=== PATIENT | female | born 1955 | race Caucasian/White ===

== ENCOUNTER 2019-09-01 11:22 | Inpatient (IN) ==
[2019-09-01] MEDS ORDERED: KETOROLAC TROMETHAMINE 15 MG/ML VIAL IV STA ×2 (11:48→13:51)
[2019-09-01] MEDS ORDERED: SODIUM CHLORIDE 0.9% 1000ML 1,000 ML IV ONE (11:48)
[2019-09-01] MEDS ORDERED: ACETAMINOPHEN 1000 MG/100 ML IV IV STA (11:49)
[2019-09-01 12:01] LABS: Basophils # (auto) 0.02 K/uL (0-0.2); Basophils % (auto) 0.1 %; Eosinophils # (auto) 0.02 K/uL (0-0.5); Eosinophils % (auto) 0.1 %; Hematocrit (blood only) 37.4 % (37-47); Hemoglobin 12.2 g/dL (12.0-16.0); Immature Granulocytes # (auto) 0.08 K/uL (0.00-0.02); Immature Granulocytes % (auto) 0.4 %; Lymphocytes # (auto) 1.29 K/uL (1.2-3.4); Lymphocytes % (auto) 6.7 %; Mean Corpuscular Hgb Conc 32.6 g/dL (32-36); Mean Platelet Volume 10.5 fL (7.4-10.4); Monocytes # (auto) 1.36 K/uL (0.11-0.59); Monocytes % (auto) 7.1 %; Neutrophils # (auto) 16.44 K/uL (1.4-6.5); Neutrophils % (auto) 85.6 %; Platelet Count 286 K/uL (130-400); RDW Coefficient of Variation 14.9 % (11.5-14.5); RDW Standard Deviation 48.4 fL (36.4-46.3); White Blood Count 19.21 K/uL (4.8-10.8)
[2019-09-01 12:09] LABS: Appearance Urine Clear (Clear); Bacteria Urine Automated Negative (Negative); Bilirubin Urine Negative (Negative); Blood Urine Negative (Negative); Color Urine Yellow; Epithelial Cell Urine Auto 20-30 /lpf (0-5); Glucose Urine UA Negative (Negative); Ketones Urine Negative (Negative); Leukocyte Esterase Urine 1+ (Negative); Nitrite Urine Negative (Negative); Protein Urine Negative (Negative); RBC Urine Automated 0-4 /hpf (0-4); Specific Gravity Urine 1.018 (1.000-1.030); Urobilinogen Urine Negative (Negative)
[2019-09-01 12:21] LABS: Albumin Level 3.3 gm/dl (3.4-5.0); BUN Creatinine Ratio 13.1 (10-20); Calcium 8.9 mg/dl (8.5-10.1); Creatinine Clr Calc Pharmacy 57.5 ml/min; Est GFR (African American) 60.4; Est GFR (Non-African American) 52.1; Potassium 3.6 mmol/L (3.5-5.1)
[2019-09-01 12:23] LABS: INR 0.9 (0.9-1.1); Partial Thromboplastin Ratio 0.8; Partial Thromboplastin Time 23.2 Seconds (21.0-31.0); Prothrombin Time 9.9 Seconds (9.0-12.0)
[2019-09-01 12:25] LABS: Albumin Globulin Ratio 0.8 (0.9-2); Bilirubin,Total 0.3 mg/dl (0.2-1); Globulin 4.3 gm/dl (2.5-4.0); Total Protein 7.6 gm/dl (6.4-8.2)
--- NOTE | 2019-09-01 12:28 | XRay Report ---
XR chest 1V portable CLINICAL HISTORY: SEPSIS COMPARISON STUDY: Chest radiograph September 04, 2013. Chest CT April 22, 2016. FINDINGS: No pneumothorax or pleural effusion is noted. Cardiomediastinal silhouette is normal. There is mild lower lung interstitial thickening. There is no evidence for pulmonary edema. IMPRESSION: Mild bilateral lower lung interstitial thickening. This may reflect an infectious proces s or atelectasis. ACT 112: Negative or not required by law. Electronically signed by: Foreign Rowland M.D. 09/01/2019 12:27 PM
--- NOTE | 2019-09-01 12:42 | Emergency Department Note ---
History of Present Illness General Chief Complaint: Flank Pain Time Seen by Provider: 09/01/19 11:46 History of Present Illness Provider Complaint: flank pain Onset (ago): 2 day(s) Pain Consistency: constant Location: L flank and R flank Radiation: none Severity: similar to previous episodes (Similar to previous kidney infections) Maximum Pain Intensity: 8 Current Pain Intensity: 10 Quality: + stabbing, + aching, + sharp and + dull Relieved By: + nothing Associated Symptoms: + nausea, + fever, + chills and + dysuria; no hematemesis, no hematochezia, no melena, no hematuria, no headache and no chest pain Home Medications Home Medications Medication Instructions Recorded Confirmed Type potassium chloride 20 mEq 20 meq PO BID #180 tab 04/08/19 09/01/19 Rx tablet,extended release(part/cryst) acetaminophen 500 mg tablet 500 mg PO Q6H PRN #120 tab 05/02/19 09/01/19 Rx hydrocortisone 1 % topical cream 1 appln TOP TID PRN #30 gm 05/02/19 09/01/19 Rx lactase 9,000 unit chewable tablet 9,000 units PO BID #60 tab 05/02/19 09/01/19 Rx quetiapine 300 mg tablet 150 mg PO HS #45 tab 05/02/19 09/01/19 Rx sennosides 8.6 mg tablet 8.6 - 17.2 mg PO BID PRN #180 tab 05/02/19 09/01/19 Rx tramadol 50 mg tablet 50 mg PO Q6H PRN #120 tab 05/04/19 09/01/19 Rx duloxetine 60 mg capsule,delayed 60 mg PO BID #180 cap 07/05/19 09/01/19 Rx release pramipexole 0.25 mg tablet 0.25 mg PO QPM #30 tab 07/25/19 09/01/19 Rx Shower chair #1 ea 08/03/19 09/01/19 Rx lamotrigine 200 mg tablet 200 mg PO BID #180 tab 08/07/19 09/01/19 Rx pantoprazole 40 mg tablet,delayed 40 mg PO BID #180 tab 08/28/19 09/01/19 Rx release atorvastatin 10 mg PO HS 09/01/19 09/01/19 History clopidogrel 75 mg PO QAM 09/01/19 09/01/19 History dulaglutide [Trulicity] 0.75 mg SQ MO 09/01/19 09/01/19 History ergocalciferol (vitamin D2) 50,000 units PO TH 09/01/19 09/01/19 History ferrous sulfate 325 mg PO QAM 09/01/19 09/01/19 History levothyroxine [Synthroid] 75 mcg PO QAM 09/01/19 09/01/19 History magnesium gluconate [Mag-G] 27 mg PO QAM 09/01/19 09/01/19 History metoprolol tartrate 12.5 mg PO BIDM 09/01/19 09/01/19 History [id number] acid-lutein [Centrum 1 tab PO QAM 09/01/19 09/01/19 History Silver] topiramate 150 mg PO BID 09/01/19 09/01/19 History torsemide 30 mg PO BIDM 09/01/19 09/01/19 History Allergies Allergy/AdvReac Type Severity Reaction Status Date / Time Penicillins Allergy Intermediate RASH AND Verified 09/01/19 13:52 ULCERS IN MOUTH Sulfa (Sulfonamide Allergy Intermediate RASH AND Verified 09/01/19 13:52 Antibiotics) ULCERS IN MOUTH levofloxacin Allergy Mild local Verified 09/01/19 13:52 reaction Cephalosporins Allergy Unknown CEPHALEXIN-RASH Verified 09/01/19 13:52 & ULCERS IN MOUTH oxycodone Allergy Unknown PERCOCET Verified 09/01/19 13:52 sulfamethoxazole Allergy Unknown Unknown Verified 09/01/19 13:52 meperidine AdvReac Mild VOMITING Verified 09/01/19 13:52 Past Med/Surg History Family History Mother Myocardial infarction Diabetes Father Heart disease Diabetes Grandmother (Paternal) Lung cancer Grandfather (Maternal) Stomach cancer Other Breast cancer Denies family history of Colon cancer Ovarian cancer Prostate cancer Social History Preferred Language: Latvian Communication Ability: Effective Visual Impairment: No Limitations Hearing Ability: Normal Director Sports Required: No Beliefs That Will Affect Care: None marital status: Single Current Living Situation: Alone current occupational status: retired Other Information That Helps Us Care for You: No Feels Safe at Home: Yes Safety Concerns: Feels Safe At This Time Smoking Status: Never smoker Second Hand Exposure: No ; Hx Alcohol Use: Yes (Social drinker, haven't drank in years) Alcohol type: beer and wine Hx Substance Use: No Childhood Exposure to Second-Hand Smoke: Yes Dental Care, Regularly: Yes Physical Activity Frequency: 1-2 Times per Week Seatbelt Use: always Sunscreen Use: Yes Do you think of yourself as: straight/heterosexual Review of Systems A total of 10 systems reviewed and were otherwise negative Physical Exam Vital Signs: Vital Signs - 24 hr 09/01/19 11:30 09/01/19 12:01 09/01/19 12:12 Temperature 38.2 C H Temperature Source Oral Pulse Rate 80 94 H 95 H Pulse Rate from Sp O2 Sensor 94 H 95 H Respiratory Rate 18 23 27 H Blood Pressure 148/78 H 92/71 L Blood Pressure Ena n 101 73 Pulse Oximetry 96 96 97 Oxygen Delivery Me thod Room Air Room Air Room Air Sepsis Recent Feve r Within 48 Hours Yes Sepsis New/Unexpla ined Change in Men rajinder Status No Sepsis Action Take n by Nursing No Action Required 09/01/19 12:20 09/01/19 12:30 09/01/19 12:31 Temperature Temperature Source Pulse Rate 99 H 98 H 98 H Pulse Rate from Sp O2 Sensor 99 H 98 H 98 H Respiratory Rate 29 H 25 H 27 H Blood Pressure 116/67 Blood Pressure Ena n 76 Pulse Oximetry 98 98 94 Oxygen Delivery Me thod Room Air Room Air Room Air Sepsis Recent Feve r Within 48 Hours Sepsis New/Unexpla ined Change in Men rajinder Status Sepsis Action Take n by Nursing 09/01/19 12:40 09/01/19 12:50 09/01/19 13:00 Temperature Temperature Source Pulse Rate 98 H 96 H 96 H Pulse Rate from Sp O2 Sensor 103 H 96 H Respiratory Rate 26 H 25 H 30 H Blood Pressure Blood Pressure Ena n Pulse Oximetry 100 97 Oxygen Delivery Me thod Room Air Room Air Room Air Sepsis Recent Feve r Within 48 Hours Sepsis New/Unexpla ined Change in Men rajinder Status Sepsis Action Take n by Nursing 09/01/19 13:10 09/01/19 13:20 09/01/19 13:30 Temperature Temperature Source Pulse Rate 97 H 94 H 93 H Pulse Rate from Sp O2 Sensor 96 H 95 H 94 H Respiratory Rate 27 H 26 H 26 H Blood Pressure 117/55 L Blood Pressure Ena n 67 Pulse Oximetry 99 97 98 Oxygen Delivery Me thod Room Air Room Air Room Air Sepsis Recent Feve r Within 48 Hours Sepsis New/Unexpla ined Change in Men rajinder Status Sepsis Action Take n by Nursing 09/01/19 13:40 09/01/19 13:50 09/01/19 14:09 Temperature Temperature Source Pulse Rate 92 H 89 93 H Pulse Rate from Sp O2 Sensor 92 H 89 Respiratory Rate 20 31 H 20 Blood Pressure Blood Pressure Ena n Pulse Oximetry 95 96 Oxygen Delivery Me thod Room Air Room Air Room Air Sepsis Recent Feve r Within 48 Hours Sepsis New/Unexpla ined Change in Men rajinder Status Sepsis Action Take n by Nursing 09/01/19 14:10 09/01/19 14:20 09/01/19 14:30 Temperature Temperature Source Pulse Rate 92 H 96 H 92 H Pulse Rate from Sp O2 Sensor 96 H 92 H Respiratory Rate 22 23 25 H Blood Pressure 101/54 L Blood Pressure Ena n 85 Pulse Oximetry 96 94 Oxygen Delivery Me thod Room Air Room Air Room Air Sepsis Recent Feve r Within 48 Hours Sepsis New/Unexpla ined Change in Men rajinder Status Sepsis Action Take n by Nursing 09/01/19 14:40 09/01/19 14:50 09/01/19 15:00 Temperature Temperature Source Pulse Rate 86 92 H 90 Pulse Rate from Sp O2 Sensor 87 93 H 90 Respiratory Rate 24 19 20 Blood Pressure 108/64 Blood Pressure Ena n 83 Pulse Oximetry 93 96 92 Oxygen Delivery Me thod Room Air Room Air Room Air Sepsis Recent Feve r Within 48 Hours Sepsis New/Unexpla ined Change in Men rajinder Status Sepsis Action Take n by Nursing 09/01/19 15:01 09/01/19 15:10 09/01/19 15:20 Temperature Temperature Source Pulse Rate 89 86 Pulse Rate from Sp O2 Sensor 89 86 89 Respiratory Rate 29 H 17 Blood Pressure Blood Pressure Ena n Pulse Oximetry 93 92 96 Oxygen Delivery Me thod Room Air Room Air Room Air Sepsis Recent Feve r Within 48 Hours Sepsis New/Unexpla ined Change in Men rajinder Status Sepsis Action Take n by Nursing 09/01/19 15:30 09/01/19 15:31 09/01/19 15:40 Temperature Temperature Source Pulse Rate Pulse Rate from Sp O2 Sensor 84 86 86 Respiratory Rate 36 H 30 H 30 H Blood Pressure 125/70 Blood Pressure Ena n 81 Pulse Oximetry 94 94 93 Oxygen Delivery Me thod Room Air Room Air Room Air Sepsis Recent Feve r Within 48 Hours Sepsis New/Unexpla ined Change in Men rajinder Status Sepsis Action Take n by Nursing 09/01/19 15:50 09/01/19 16:00 09/01/19 16:10 Temperature Temperature Source Pulse Rate 84 90 89 Pulse Rate from Sp O2 Sensor 84 91 H 89 Respiratory Rate 29 H 27 H 24 Blood Pressure 106/74 Blood Pressure Ena n 87 Pulse Oximetry 95 93 96 Oxygen Delivery Me thod Room Air Room Air Room Air Sepsis Recent Feve r Within 48 Hours Sepsis New/Unexpla ined Change in Men rajinder Status Sepsis Action Take n by Nursing Physical Exam: Physical Exam GENERAL: She is oriented to person, place, and time. She appears well-developed and well-nourished. She does not appear distressed. HENT: Exam performed. -Head: Normocephalic and atraumatic. -Right Ear: External ear normal. No mastoid tenderness. -Left Ear: External ear normal. No mastoid tenderness. EYES: Conjunctivae and EOM are normal. Pupils are equal, round, and reactive to light. Right eye exhibits no discharge. Left eye exhibits no discharge. No scleral icterus. NECK: Normal range of motion. Neck supple. No JVD present. No spinous process tenderness present. No carotid bruit present. No rigidity. No tracheal deviation and normal range of motion present. No Brudzinski's sign and no Kernig's sign noted. CV: Tachycardic rate, regular rhythm, normal heart sounds and intact distal pulses. There is no peripheral edema. Palpable radial pulses bue. PULM/CHEST: Effort normal and breath sounds normal. No respiratory distress. No stridor. She has no wheezes. She has no rales. -Chest Wall: She exhibits no tenderness. ABD: The abdomen is soft. Bowel sounds are normal. She has no distension. No mass is present. There is no tenderness. There is no rebound, no guarding, no Reddy's sign and no tenderness at McBurney's point. Rovsig negative. CVA tenderness bilaterally. MUSC/SKEL: Normal range of motion. There is no peripheral edema, tenderness or deformity. LYMPH: No cervical adenopathy. NEURO: She is alert and oriented to person, place, and time. She has normal strength. No cranial nerve deficit or sensory deficit. Coordination and gait normal. GCS eye subscore is 4. GCS verbal subscore is 5. GCS motor subscore is 6. Cerebellar tests wnl. SKIN: Skin is warm and dry. She is not diaphoretic. PSYCH: She has a normal mood and affect. Behavior is normal. Judgment and thought content normal. Course Course 1145: The patient was evaluated in room B3. A complete history and physical exam was performed. Cardiac monitoring: An order was placed for continuous cardiac monitoring. The monitor shows a rate of 105 with sinus rhythm 1430: Labs show leukocytosis of 19.2. Imaging shows bilateral parenchymal infiltrates that are groundglass concerning for viral pneumonia. No signs of pyelonephritis. Urinalysis is not concerning for UTI. Procalcitonin is also elevated. Given the patient's fever and imaging findings, there was a strong suspect that she could have potential COVID-19. She will need to be admitted. We will treat her with antibiotics for possible bacterial pneumonia also. Discussed with pharmacist, they recommend azithromycin and Rocephin. [facility] and agrees that the patient should be have rapid COVID-19 testing inpatient. Patient is in agreement. She was placed on airborne precautions. 1629: Rapid COVID-19 swab negative. Respiratory bio fire panel pending. Patient will be admitted to [facility] service. Administered Medications Discontinued Medications Acetaminophen (Ofirmev) 1,000 mg IV NOW STA Stop: 09/01/19 11:50 Last Admin: 09/01/19 12:29 Dose: 1,000 mg Documented by: [id number] Azithromycin (Zithromax) 500 mg PO NOW ONE Stop: 09/01/19 14:35 Last Admin: 09/01/19 15:11 Dose: 500 mg Documented by: [id number] Sodium Chloride (Nss 1000ml) 1,000 mls @ 999 mls/hr IV .Q1H1M ONE Stop: 09/01/19 12:48 Last Infusion: 09/01/19 13:50 Dose: 0 mls/hr Documented by: [id number] Admin: 09/01/19 12:29 Dose: 999 mls/hr Documented by: [id number] Ceftriaxone Sodium (Rocephin) 2,000 mg in 70 mls @ 140 mls/hr IV NOW STA Stop: 09/01/19 15:05 Last Infusion: 09/01/19 15:45 Dose: 0 mls/hr Documented by: [id number] Admin: 09/01/19 15:12 Dose: 140 mls/hr Documented by: [id number] Ketorolac Tromethamine (Toradol) 15 mg IV NOW STA Stop: 09/01/19 11:49 Last Admin: 09/01/19 13:04 Dose: Not Given Documented by: [id number] Ketorolac Tromethamine (Toradol) 15 mg IV NOW STA Stop: 09/01/19 13:52 Last Admin: 09/01/19 14:14 Dose: 15 mg Documented by: [id number] Medical Decision Making Laboratory Data Result diagrams: 09/01/19 11:49 09/01/19 11:49 Lab Results 09/01/19 09/01/19 09/01/19 Range/Units 11:35 11:49 11:49 WBC 19.21 H (4.8-10.8) K/uL RBC 4.20 (4.2-5.4) M/uL Hgb 12.2 (12.0-16.0) g/dL Hct 37.4 (37-47) % MCV 89.0 (80-100) fL MCH 29.0 (25-34) pg MCHC 32.6 (32-36) g/dL RDW Std Deviation 48.4 H (36.4-46.3) fL RDW Coeff of Arslan 14.9 H (11.5-14.5) % Plt Count 286 (130-400) K/uL MPV 10.5 H (7.4-10.4) fL Immature Gran % (Auto) 0.4 % Neut % (Auto) 85.6 % Lymph % (Auto) 6.7 % Mora % (Auto) 7.1 % Eos % (Auto) 0.1 % Baso % (Auto) 0.1 % Neut # (Auto) 16.44 H (1.4-6.5) K/uL Lymph # (Auto) 1.29 (1.2-3.4) K/uL Mora # (Auto) 1.36 H (0.11-0.59) K/uL Eos # (Auto) 0.02 (0-0.5) K/uL Baso # (Auto) 0.02 (0-0.2) K/uL Immature Gran # (Auto) 0.08 H (0.00-0.02) K/uL PT 9.9 (9.0-12.0) Seconds INR 0.9 (0.9-1.1) APTT 23.2 (21.0-31.0) Seconds PTT Ratio 0.8 Sodium (136-145) mmol/L Potassium (3.5-5.1) mmol/L Chloride (98-107) mmol/L Carbon Dioxide (21-32) mmol/L Anion Gap (3-11) BUN (7-18) mg/dl Creatinine (0.6-1.2) mg/dl Est Cr Clr Drug Dosing ml/min Est GFR ( Amer) Est GFR (Non-Af Amer) BUN/Creatinine Ratio (10-20) Glucose (70-99) mg/dl Lactate (0.4-2.0) mmol/L Calcium (8.5-10.1) mg/dl Magnesium (1.8-2.4) mg/dl Total Bilirubin (0.2-1) mg/dl AST (15-37) U/L ALT (12-78) U/L Alkaline Phosphatase (45-117) U/L Total Protein (6.4-8.2) gm/dl Albumin (3.4-5.0) gm/dl Globulin (2.5-4.0) gm/dl Albumin/Globulin Ratio (0.9-2) Procalcitonin (0-0.5) ng/ml Urine Color Yellow Urine Appearance Clear (Clear) Urine pH 7.0 (4.5-7.5) Ur Specific [place] 1.018 (1.000-1.030) Urine Protein Negative (Negative) Urine Glucose (UA) Negative (Negative) Urine Ketones Negative (Negative) Urine Blood Negative (Negative) Urine Nitrite Negative (Negative) Urine Bilirubin Negative (Negative) Urine Urobilinogen Negative (Negative) Ur Leukocyte Esterase 1+ H (Negative) Urine WBC (Auto) 5-10 H (0-5) /hpf Urine RBC (Auto) 0-4 (0-4) /hpf U Hyaline Cast (Auto) 1-5 (0-5) /lpf U Epithel Cells (Auto) 20-30 H (0-5) /lpf Urine Bacteria (Auto) Negative (Negative) COVID-19 PCR (Negative) 09/01/19 09/01/19 09/01/19 Range/Units 11:49 11:49 13:15 WBC (4.8-10.8) K/uL RBC (4.2-5.4) M/uL Hgb (12.0-16.0) g/dL Hct (37-47) % MCV (80-100) fL MCH (25-34) pg MCHC (32-36) g/dL RDW Std Deviation (36.4-46.3) fL RDW Coeff of Arslan (11.5-14.5) % Plt Count (130-400) K/uL MPV (7.4-10.4) fL Immature Gran % (Auto) % Neut % (Auto) % Lymph % (Auto) % Mora % (Auto) % Eos % (Auto) % Baso % (Auto) % Neut # (Auto) (1.4-6.5) K/uL Lymph # (Auto) (1.2-3.4) K/uL Mora # (Auto) (0.11-0.59) K/uL Eos # (Auto) (0-0.5) K/uL Baso # (Auto) (0-0.2) K/uL Immature Gran # (Auto) (0.00-0.02) K/uL PT (9.0-12.0) Seconds INR (0.9-1.1) APTT (21.0-31.0) Seconds PTT Ratio Sodium 136 (136-145) mmol/L Potassium 3.6 (3.5-5.1) mmol/L Chloride 107 (98-107) mmol/L Carbon Dioxide 23 (21-32) mmol/L Anion Gap 6.0 (3-11) BUN 15 (7-18) mg/dl Creatinine 1.11 (0.6-1.2) mg/dl Est Cr Clr Drug Dosing 57.5 ml/min Est GFR ( Amer) 60.4 Est GFR (Non-Af Amer) 52.1 BUN/Creatinine Ratio 13.1 (10-20) Glucose 117 H (70-99) mg/dl Lactate 1.9 (0.4-2.0) mmol/L Calcium 8.9 (8.5-10.1) mg/dl Magnesium 2.0 (1.8-2.4) mg/dl Total Bilirubin 0.3 (0.2-1) mg/dl AST 17 (15-37) U/L ALT 26 (12-78) U/L Alkaline Phosphatase 135 H (45-117) U/L Total Protein 7.6 (6.4-8.2) gm/dl Albumin 3.3 L (3.4-5.0) gm/dl Globulin 4.3 H (2.5-4.0) gm/dl Albumin/Globulin Ratio 0.8 L (0.9-2) Procalcitonin 1.48 H (0-0.5) ng/ml Urine Color Urine Appearance (Clear) Urine pH (4.5-7.5) Ur Specific [place] (1.000-1.030) Urine Protein (Negative) Urine Glucose (UA) (Negative) Urine Ketones (Negative) Urine Blood (Negative) Urine Nitrite (Negative) Urine Bilirubin (Negative) Urine Urobilinogen (Negative) Ur Leukocyte Esterase (Negative) Urine WBC (Auto) (0-5) /hpf Urine RBC (Auto) (0-4) /hpf U Hyaline Cast (Auto) (0-5) /lpf U Epithel Cells (Auto) (0-5) /lpf Urine Bacteria (Auto) (Negative) COVID-19 PCR (Negative) 09/01/19 Range/Units 15:15 WBC (4.8-10.8) K/uL RBC (4.2-5.4) M/uL Hgb (12.0-16.0) g/dL Hct (37-47) % MCV (80-100) fL MCH (25-34) pg MCHC (32-36) g/dL RDW Std Deviation (36.4-46.3) fL RDW Coeff of Arslan (11.5-14.5) % Plt Count (130-400) K/uL MPV (7.4-10.4) fL Immature Gran % (Auto) % Neut % (Auto) % Lymph % (Auto) % Mora % (Auto) % Eos % (Auto) % Baso % (Auto) % Neut # (Auto) (1.4-6.5) K/uL Lymph # (Auto) (1.2-3.4) K/uL Mora # (Auto) (0.11-0.59) K/uL Eos # (Auto) (0-0.5) K/uL Baso # (Auto) (0-0.2) K/uL Immature Gran # (Auto) (0.00-0.02) K/uL PT (9.0-12.0) Seconds INR (0.9-1.1) APTT (21.0-31.0) Seconds PTT Ratio Sodium (136-145) mmol/L Potassium (3.5-5.1) mmol/L Chloride (98-107) mmol/L Carbon Dioxide (21-32) mmol/L Anion Gap (3-11) BUN (7-18) mg/dl Creatinine (0.6-1.2) mg/dl Est Cr Clr Drug Dosing ml/min Est GFR ( Amer) Est GFR (Non-Af Amer) BUN/Creatinine Ratio (10-20) Glucose (70-99) mg/dl Lactate (0.4-2.0) mmol/L Calcium (8.5-10.1) mg/dl Magnesium (1.8-2.4) mg/dl Total Bilirubin (0.2-1) mg/dl AST (15-37) U/L ALT (12-78) U/L Alkaline Phosphatase (45-117) U/L Total Protein (6.4-8.2) gm/dl Albumin (3.4-5.0) gm/dl Globulin (2.5-4.0) gm/dl Albumin/Globulin Ratio (0.9-2) Procalcitonin (0-0.5) ng/ml Urine Color Urine Appearance (Clear) Urine pH (4.5-7.5) Ur Specific [place] (1.000-1.030) Urine Protein (Negative) Urine Glucose (UA) (Negative) Urine Ketones (Negative) Urine Blood (Negative) Urine Nitrite (Negative) Urine Bilirubin (Negative) Urine Urobilinogen (Negative) Ur Leukocyte Esterase (Negative) Urine WBC (Auto) (0-5) /hpf Urine RBC (Auto) (0-4) /hpf U Hyaline Cast (Auto) (0-5) /lpf U Epithel Cells (Auto) (0-5) /lpf Urine Bacteria (Auto) (Negative) COVID-19 PCR NEGATIVE (Negative) Imaging Data Radiologist's Impression: ABDOMEN AND PELVIS CT WITHOUT CONTRAST CT DOSE: 1144.61 mGycm HISTORY: fever flank pain kidney stone and pyelo hx TECHNIQUE: Multiaxial CT images of the abdomen and pelvis were performed without contrast. A dose lowering technique was utilized adhering to the principles of ALARA. COMPARISON STUDY: Abdomen and pelvis CT 11/16/2018. FINDINGS: Patchy groundglass airspace opacities and interstitial thickening within the bases of the bilateral lower lobes. This favors a pneumonia such as a viral process. No pneumoperitoneum. No pneumatosis. L2-L5 posterior decompression and fusion with pedicle screws and rods. Tiny fat-containing umbilical hernia. The unenhanced liver, spleen, adrenal glands, and pancreas are unremarkable. There is a 4 mm stone within the lower pole the left kidney, uncha nged. There are are a few additional punctate bilateral renal calculi. No ureteral calculi. No hydronephrosis. Normal bladder. The uterus is surgically absent. No pelvic free fluid. No retroperitoneal lymphadenopathy. Normal caliber abdominal aorta. Cholecystectomy. No pelvic lymphadenopathy. Suboptimal evaluation for bowel pathology due to the lack of intravenous and oral contrast. However, there is no definite bowel wall thickening or obstruction. The appendix is not identified and reportedly surgically absent. IMPRESSION: 1. Bilateral nephrolithiasis. No ureteral stones. No hydronephrosis. 2. Patchy groundglass airspace opacities and interstitial thickening within the base of the bilateral lower lobes. This favors a pneumonia such as a viral process. 3. No definite bowel wall thickening or obstruction. 4. Cholecystectomy. ACT 112: Negative or not required by law. Electronically signed by: Alfred Bell M.D. 09/01/2019 2:18 PM Dictated: 09/01/19 1411 Transcribed: 09/01/19 1411 XR chest 1V portable CLINICAL HISTORY: SEPSIS COMPARISON STUDY: Chest radiograph September 04, 2013. Chest CT April 22, 2016. FINDINGS: No pneumothorax or pleural effusion is noted. Cardiomediastinal silhouette is normal. There is mild lower lung interstitial thickening. There is no evidence for pulmonary edema. IMPRESSION: Mild bilateral lower lung interstitial thickening. This may reflect an infectious process or atelectasis. ACT 112: Negative or not required by law. Electronically signed by: Foreign Rowland M.D. 09/01/2019 12:27 PM Dictated: 09/01/19 1225 Transcribed: 09/01/19 1225 ECG Data Rate (beats per minute): 93 Rhythm: normal sinus Findings: no ST depression and no ST elevation Additional Comments: Right bundle branch block present. TX QRS and QTc intervals are within normal limits. [facility] Narrative 1145: The patient was evaluated in room B3. A complete history and physical exam was performed. Cardiac monitoring: An order was placed for continuous cardiac monitoring. The monitor shows a rate of 105 with sinus rhythm 1430: Labs show leukocytosis of 19.2. Imaging shows bilateral parenchymal infiltrates that are groundglass concerning for viral pneumonia. No signs of pyelonephritis. Urinalysis is not concerning for UTI. Procalcitonin is also elevated. Given the patient's fever and imaging findings, there was a strong suspect that she could have potential COVID-19. She will need to be admitted. We will treat her with antibiotics for possible bacterial pneumonia also. Discussed with pharmacist, they recommend azithromycin and Rocephin. Discussed the case with Dr. Lomas [facility] hospitalist who agrees to admit the patient and agrees that the patient should be have rapid COVID-19 testing inpatient. Patient is in agreement. She was placed on airborne precautions. 1629: Rapid COVID-19 swab negative. Respiratory bio fire panel pending. [facility] be [facility]. Impression & Plan Pneumonia Discharge Plan Visit Data Chief Complaint: Flank Pain ED Provider: Miguel Rodríguez Discharge Problem: Pneumonia Patient Disposition: Being Evaluated by Hospitalist Forms Stand Alone Forms: My [facility] Prescriptions Prescriptions: No Action potassium chloride 20 mEq tablet,ER particles/crystals 20 meq PO BID Qty: 180 RF: 3 tramadol 50 mg tablet 50 mg PO Q6H PRN (Reason: pain) Qty: 120 RF: 0 duloxetine 60 mg capsule,delayed release(DR/EC) 60 mg PO BID Qty: 180 RF: 1 pramipexole 0.25 mg tablet 0.25 mg PO QPM Qty: 30 RF: 5 (DME) Shower chair Qty: 1 RF: 0 lamotrigine 200 mg tablet 200 mg PO BID Qty: 180 RF: 1 pantoprazole 40 mg tablet,delayed release (DR/EC) 40 mg PO BID Qty: 180 RF: 1 acetaminophen [Tylenol Extra Strength] 500 mg tablet 500 mg PO Q6H PRN (Reason: fever) Qty: 120 RF: 4 Lactaid Fast Act 9,000 unit tablet,chewable 9,000 units PO BID Qty: 60 RF: 11 quetiapine 300 mg tablet 150 mg PO HS Qty: 45 RF: 1 sennosides [Senna Laxative] 8.6 mg tablet 8.6 - 17.2 mg PO BID PRN (Reason: constipation) Qty: 180 RF: 1 hydrocortisone [Cortisone (hydrocortisone)] 1 % cream 1 appln TOP TID PRN (Reason: skin irritation) Qty: 30 RF: 5 atorvastatin 10 mg tablet 10 mg PO HS RF: 0 torsemide 10 mg tablet 30 mg PO BIDM RF: 0 clopidogrel 75 mg tablet 75 mg PO QAM RF: 0 levothyroxine [Synthroid] 75 mcg tablet 75 mcg PO QAM RF: 0 ferrous sulfate 325 mg (65 mg iron) tablet 325 mg PO QAM RF: 0 ergocalciferol (vitamin D2) 1,250 mcg (50,000 unit) capsule 50,000 units PO TH RF: 0 metoprolol tartrate 25 mg tablet 12.5 mg PO BIDM RF: 0 topiramate 50 mg tablet 150 mg PO BID RF: 0 magnesium gluconate [Mag-G] 27 mg magnesium (500 mg) tablet 27 mg PO QAM RF: 0 Centrum Silver 400-250 mcg tablet,chewable 1 tab PO QAM RF: 0 Trulicity 0.75 mg/0.5 mL pen injector 0.75 mg SQ MO RF: 0 Referrals Referrals: Nain Farfan III, CRNP [Primary Care Provider] - Discharge Problem: Pneumonia Qualifiers: Pneumonia type: due to unspecified organism Laterality: bilateral Lung location: unspecified part of lung Qualified Code(s): J18.9 - Pneumonia, unspecified organism
--- NOTE | 2019-09-01 14:19 | CT Scan Report ---
ABDOMEN AND PELVIS CT WITHOUT CONTRAST CT DOSE: 1144.61 mGycm HISTORY: fever flank pain kidney stone and pyelo hx TECHNIQUE: Multiaxial CT images of the abdomen and pelvis were performed without contrast. A dose lo wering technique was utilized adhering to the principles of ALARA. COMPARISON STUDY: Abdomen and pelvis CT 11/16/2018. FINDINGS: Patchy groundglass airspace opacities and interstitial thickening within the bases of the b ilateral lower lobes. This favors a pneumonia such as a viral process. No pneumoperitoneum. No pneuma tosis. L2-L5 posterior decompression and fusion with pedicle screws and rods. Tiny fat-containing umb ilical hernia. The unenhanced liver, spleen, adrenal glands, and pancreas are unremarkable. There is a 4 mm stone within the lower pole the left kidney, unchanged. There are are a few additional punctat e bilateral renal calculi. No ureteral calculi. No hydronephrosis. Normal bladder. The uterus is surg ically absent. No pelvic free fluid. No retroperitoneal lymphadenopathy. Normal caliber abdominal aor ta. Cholecystectomy. No pelvic lymphadenopathy. Suboptimal evaluation for bowel pathology due to the lack of intravenous and oral contrast. However, there is no definite bowel wall thickening or obstruc tion. The appendix is not identified and reportedly surgically absent. IMPRESSION: 1. Bilateral nephrolithiasis. No ureteral stones. No hydronephrosis. 2. Patchy groundglass airspace opacities and interstitial thickening within the base of the bilateral lower lobes. This favors a pneumonia such as a viral process. 3. No definite bowel wall thickening or obstruction. 4. Cholecystectomy. ACT 112: Negative or not required by law. Electronically signed by: Alfred Bell M.D. 09/01/2019 2:18 PM
[2019-09-01] MEDS ORDERED: DOXYCYCLINE HYCLATE 100 MG CAP PO STA (14:28)
[2019-09-01] MEDS ORDERED: cefTRIAXone SODIUM 1,000 MG/50 ML BAG IV STA (14:33)
[2019-09-01] MEDS ORDERED: AZITHROMYCIN 250 MG TAB PO ONE (14:34)
[2019-09-01] MEDS ORDERED: cefTRIAXone SODIUM 2,000 MG/70 ML BAG IV STA (14:36)
--- NOTE | 2019-09-01 15:32 | History & Physical Report ---
Date of Service September 01, 2019 Assessment & Plan (1) Pneumonia: Patient is on Rocephin azithromycin and has covid negative as well as biofire, she did have a choking even on eggs 4 days ago CXR IMPRESSION: Mild bilateral lower lung interstitial thickening. This may reflect an infectious process or atelectasis Abd/Pelvis IMPRESSION: 1. Bilateral nephrolithiasis. No ureteral stones. No hydronephrosis. 2. Patchy groundglass airspace opacities and interstitial thickening within the base of the bilateral lower lobes. This favors a pneumonia such as a viral process. 3. No definite bowel wall thickening or obstruction. 4. Cholecystectomy. (2) Diabetes mellitus: Patient is begun on Trulicity. She will have this. She states she has been intolerant of this as an outpatient should be on sliding scale insulin not starting basal dosing at this time (3) Hypertension: Patient maintained on metoprolol and torsemide (4) Hyperlipidemia: Patient continues on atorvastatin low-dose (5) Hypothyroidism: Supplemented with Synthroid 35 mcg (6) Chronic kidney disease, stage 3: This is to be noted to avoid renal toxic medications and to watch her diuretic status (7) DVT prophylaxis: Lovenox for DVT prevention (8) Bipolar depression: Patient on Cymbalta twice a day and Lamictal for her depression. He takes Topamax for her headaches. She takes Seroquel for sleep History of Present Illness Primary Care Provider: Nain Farfan, III, LOKESH Allergies Allergy/AdvReac Type Severity Reaction Status Date / Time Penicillins Allergy Intermediate RASH AND Verified 09/01/19 13:52 ULCERS IN MOUTH Sulfa (Sulfonamide Allergy Intermediate RASH AND Verified 09/01/19 13:52 Antibiotics) ULCERS IN MOUTH levofloxacin Allergy Mild local Verified 09/01/19 13:52 reaction Cephalosporins Allergy Unknown CEPHALEXIN-RASH Verified 09/01/19 13:52 & ULCERS IN MOUTH oxycodone Allergy Unknown PERCOCET Verified 09/01/19 13:52 sulfamethoxazole Allergy Unknown Unknown Verified 09/01/19 13:52 meperidine AdvReac Mild VOMITING Verified 09/01/19 13:52 Home Medications Home Medications Medication Instructions Recorded Confirmed Type potassium chloride 20 mEq 20 meq PO BID #180 tab 04/08/19 09/01/19 Rx tablet,extended release(part/cryst) acetaminophen 500 mg tablet 500 mg PO Q6H PRN #120 tab 05/02/19 09/01/19 Rx hydrocortisone 1 % topical cream 1 appln TOP TID PRN #30 gm 05/02/19 09/01/19 Rx lactase 9,000 unit chewable tablet 9,000 units PO BID #60 tab 05/02/19 09/01/19 Rx quetiapine 300 mg tablet 150 mg PO HS #45 tab 05/02/19 09/01/19 Rx sennosides 8.6 mg tablet 8.6 - 17.2 mg PO BID PRN #180 tab 05/02/19 09/01/19 Rx tramadol 50 mg tablet 50 mg PO Q6H PRN #120 tab 05/04/19 09/01/19 Rx duloxetine 60 mg capsule,delayed 60 mg PO BID #180 cap 07/05/19 09/01/19 Rx release pramipexole 0.25 mg tablet 0.25 mg PO QPM #30 tab 07/25/19 09/01/19 Rx Shower chair #1 ea 08/03/19 09/01/19 Rx lamotrigine 200 mg tablet 200 mg PO BID #180 tab 08/07/19 09/01/19 Rx pantoprazole 40 mg tablet,delayed 40 mg PO BID #180 tab 08/28/19 09/01/19 Rx release atorvastatin 10 mg PO HS 09/01/19 09/01/19 History clopidogrel 75 mg PO QAM 09/01/19 09/01/19 History dulaglutide [Trulicity] 0.75 mg SQ MO 09/01/19 09/01/19 History ergocalciferol (vitamin D2) 50,000 units PO TH 09/01/19 09/01/19 History ferrous sulfate 325 mg PO QAM 09/01/19 09/01/19 History levothyroxine [Synthroid] 75 mcg PO QAM 09/01/19 09/01/19 History magnesium gluconate [Mag-G] 27 mg PO QAM 09/01/19 09/01/19 History metoprolol tartrate 12.5 mg PO BIDM 09/01/19 09/01/19 History tj-sdy-furhv acid-lutein [Centrum 1 tab PO QAM 09/01/19 09/01/19 History Silver] topiramate 150 mg PO BID 09/01/19 09/01/19 History torsemide 30 mg PO BIDM 09/01/19 09/01/19 History Past Med/Surg History Family History Mother Myocardial infarction Diabetes Father Heart disease Diabetes Grandmother (Paternal) Lung cancer Grandfather (Maternal) Stomach cancer Other Breast cancer Denies family history of Colon cancer Ovarian cancer Prostate cancer Social History Preferred Language: Mongolian Communication Ability: Effective Visual Impairment: No Limitations Hearing Ability: Normal Cms Expert Required: No Beliefs That Will Affect Care: None marital status: Single Current Living Situation: Alone current occupational status: retired Other Information That Helps Us Care for You: No Feels Safe at Home: Yes Safety Concerns: Feels Safe At This Time Smoking Status: Never smoker Second Hand Exposure: No ; Hx Alcohol Use: Yes (Social drinker, haven't drank in years) Alcohol type: beer and wine Hx Substance Use: No Childhood Exposure to Second-Hand Smoke: Yes Dental Care, Regularly: Yes Physical Activity Frequency: 1-2 Times per Week Seatbelt Use: always Sunscreen Use: Yes Do you think of yourself as: straight/heterosexual Review of Systems Review of Systems: Mild distress and fatigue no headache, blurry or double vision no speech or swallowing issues no chest pain, pressure or palpitations no shortness of breath, cough or wheezes no abdominal pain, nausea or vomiting, diarrhea or constipation no dysuria, hematuria or frequency no focal joint pain or swelling no back pain, CVA tenderness or radicular pain no bruising, bleeding or rashes no focal signs of weakness or numbness or altered sensation no complaints or anxiety or depression.. Physical Exam Physical Exam: The patient appeared well nourished and normally developed. Vital signs as documented. Head exam is normocephalic atraumatic no scleral icterus Neck is without JVD, thyromegaly, or carotid bruits. Lungs are clear to auscultation, no focal loss of breath sounds Cardiac exam, Rhythm is regular.. No murmurs, rubs or gallops. Abdominal exam reveals normal bowel sounds, soft non tender, no masses Extremities are nonedematous and both pedal pulses are normal. Neurologic exam is alert and oriented, no focal loss of strength or sensation Skin is without bruises or rashes Psychologically is without concerns for anxiety or depression Results & Data Results & Data ([facility]) Vital Signs (Past 12 Hours) Vital Signs Temp Pulse Resp BP Pulse Ox 09/01/19 12:40 98 H 26 H 09/01/19 12:31 98 H 27 H 94 09/01/19 12:30 98 H 25 H 116/67 98 09/01/19 12:20 99 H 29 H 98 09/01/19 12:12 95 H 27 H 97 09/01/19 12:01 94 H 23 92/71 L 96 09/01/19 11:30 100.8 F H 80 18 148/78 H 96 PG Care Time/CCT Total # of Minutes Spent Total Time Spent with Patient: Total time spent is greater than 50% in coordination of care (as documented) at patient's floor/unit and/or counseling patient: Coding Level of Care Code 11844 Initial Inpt Care Lvl 3 Diagnoses Pneumonia J18.9 Diabetes mellitus E11.9 Hypertension I10 Hypertension type: essential hypertension Hyperlipidemia E78.00; E78.0 Hyperlipidemia type: pure hypercholesterolemia Hypothyroidism E03.9 Hypothyroidism type: acquired Chronic kidney disease, stage 3 N18.3 DVT prophylaxis Z29.9 Bipolar depression F31.9 (1) Hyperlipidemia Hyperlipidemia type: pure hypercholesterolemia Qualified Code(s): E78.00 - Pure hypercholesterolemia, unspecified; E78.0 - Pure hypercholesterolemia (2) Hypothyroidism Hypothyroidism type: acquired Qualified Code(s): E03.9 - Hypothyroidism, unspecified (3) Hypertension Hypertension type: essential hypertension Qualified Code(s): I10 - Essential (primary) hypertension
--- NOTE | 2019-09-01 16:19 | Electrocardiogram Report ---
Test Reason : Blood Pressure : / mmHG Vent. Rate : 093 BPM Atrial Rate : 093 BPM P-R Int : 170 ms QRS Dur : 096 ms QT Int : 360 ms P-R-T Axes : 025 -05 040 degrees QTc Int : 447 ms Normal sinus rhythm Incomplete right bundle branch block Low voltage QRS Borderline ECG When compared with ECG of 04-SEP-2013 11:22, Vent. rate has increased BY 33 BPM Otherwise no significant change Confirmed by Abdi Powers ([id number] on 09/01/2019 4:19:33 PM Referred By: REFERRED SELF Confirmed By:Abdi Powers
[2019-09-01 16:29] LABS: Adenovirus PCR Not Detected (NotDetected); Bordetella parapertussis PCR Not Detected (NotDetected); Bordetella pertussis PCR Not Detected (NotDetected); Chlamydia pneumoniae PCR Not Detected (NotDetected); Coronavirus 229E PCR Not Detected (NotDetected); Coronavirus HKU1 PCR Not Detected (NotDetected); Coronavirus NL63 PCR Not Detected (NotDetected); Coronavirus OC43PCR Not Detected (NotDetected); Human Metapneumovirus PCR Not Detected (NotDetected); Influenza A (H1 2009) PCR Not Detected (NotDetected); Influenza A (H1) PCR Not Detected (NotDetected); Influenza A (H3) PCR Not Detected (NotDetected); Influenza A NoSubtype PCR Not Detected (NotDetected); Influenza A PCR Not Detected (NotDetected); Influenza B PCR Not Detected (NotDetected); Mycoplasma pneumoniae PCR Not Detected (NotDetected); Parainfluenza Virus 1 PCR Not Detected (NotDetected); Parainfluenza Virus 2 PCR Not Detected (NotDetected); Parainfluenza Virus 3 PCR Not Detected (NotDetected); Parainfluenza Virus 4 PCR Not Detected (NotDetected); Respiratory Syncytial VirusPCR Not Detected (NotDetected); Rhinovirus/Enterovirus PCR Not Detected (NotDetected)
[2019-09-01] MEDS ORDERED: DEXTROSE 50% 50 ML SYRINGE IV PRN (18:11)
[2019-09-01] MEDS ORDERED: TRAMADOL HCL 50 MG TABLET PO PRN (18:11)
[2019-09-01] MEDS ORDERED: ONDANSETRON INJ 2 MG/ML 2 ML VIAL IV PRN (18:11)
[2019-09-01] MEDS ORDERED: CARBOHYDRATES FOR HYPOGLYCEMIA PO PRN (18:11)
[2019-09-01] MEDS ORDERED: GLUCOSE 40% GEL 15 GM TUBE PO PRN (18:11)
[2019-09-01] MEDS ORDERED: ACETAMINOPHEN 500 MG TAB PO PRN (18:11)
[2019-09-01] MEDS ORDERED: GLUCOSE 10 TABS/TUBE PO PRN (18:11)
[2019-09-01] MEDS ORDERED: GLUCAGON FOR INJ 1 MG VIAL SQ PRN (18:11)
[2019-09-01] MEDS ORDERED: PHARMACY GLYCEMIC MGMT CONSULT PRN (19:17)
[2019-09-01] MEDS: QUETIAPINE FUMARATE 100 MG TABLET PO SCH (20:05)
[2019-09-01] MEDS: METOPROLOL TARTRATE 25 MG TAB PO SCH (20:05)
[2019-09-01] MEDS: TORSEMIDE 10 MG TAB PO SCH (20:06)
[2019-09-01] MEDS: DULOXETINE HCL 60 MG CAP PO SCH (20:07)
[2019-09-01] MEDS: ENOXAPARIN INJ 40 MG/0.4 ML SYR SQ SCH (20:07)
[2019-09-01] MEDS: LACTASE 3000 UNIT TAB PO SCH (20:08)
[2019-09-01] MEDS: POTASSIUM CHLORIDE 20 MEQ TABCR PO SCH (20:08)
[2019-09-01] MEDS: lamoTRIgine 100 MG TAB PO SCH (20:09)
[2019-09-01] MEDS: PANTOprazole 40 MG TAB PO SCH (20:10)
[2019-09-01] MEDS: PRAMIPEXOLE DIHYDROCHLO 0.25 MG TAB PO SCH (20:10)
[2019-09-01] MEDS: ATORVASTATIN 10 MG TAB PO SCH (20:10)
[2019-09-01] MEDS: INSULIN ASPART 100 UNITS/ML 3 ML PEN SC SCH (20:15)
[2019-09-01] MEDS ORDERED: KETOROLAC 30 MG/ML VIAL IV ONE (20:34)
[2019-09-01] MEDS: TOPIRAMATE 50 MG TAB PO SCH (20:41)
[2019-09-01] MEDS ORDERED: KETOROLAC 30 MG/ML VIAL ONE (20:58)
--- NOTE | 2019-09-01 22:00 | Pharmacy Report ---
Pharmacy Glycemic Short Note 2 - Date of Service September 01, 2019 - Glycemic Short BSG Results (Last 24 hours): 09/01/19 09/01/19 09/01/19 11:49 18:23 20:11 Glucose 117 H POC Glucose 124 H 114 H OUTPATIENT ANTIDIABETIC REGIMEN: Trulicity 0.75mg weekly - Patient started on this, but states she has been intolerant of this as an outpatient ASSESSMENT: * Type 2 diabetic admitted for pneumonia. Consulted to manage insulin therapy. PLAN FOR INPATIENT GLYCEMIC CONTROL: * Hold outpatient oral diabetes medications * Basal insulin * No lantus * Bolus insulin * NovoLog per scale ACHS or Q6hrs while NPO * Goal Range: Low 110 mg/dL - High 140 mg/dL * Correction Factor: 20 mg/dL/unit * Nutritional / Prandial insulin per carb ratio of 1 unit per 8 grams CHO consumed PLAN FOR DISCHARGE: *
[2019-09-01] MEDS: ACETAMINOPHEN 325 MG TAB PO PRN (23:19)
[2019-09-02] MEDS: LEVOTHYROXINE SODIUM 75 MCG TABLET PO SCH (05:28)
[2019-09-02] MEDS: PANTOprazole 40 MG TAB PO SCH ×2 (05:29→20:40)
[2019-09-02 07:20] LABS: Estimated Average Glucose 140 mg/dl; Hemoglobin A1C 6.5 % (4.5-5.6)
[2019-09-02] MEDS: TOPIRAMATE 50 MG TAB PO SCH ×2 (07:29→20:39)
[2019-09-02] MEDS: ACETAMINOPHEN 325 MG TAB PO PRN ×2 (07:29→13:26)
[2019-09-02] MEDS: lamoTRIgine 100 MG TAB PO SCH ×2 (07:30→20:38)
[2019-09-02] MEDS: POTASSIUM CHLORIDE 20 MEQ TABCR PO SCH ×2 (07:30→20:39)
[2019-09-02] MEDS: METOPROLOL TARTRATE 25 MG TAB PO SCH ×2 (07:30→17:17)
[2019-09-02] MEDS: LACTASE 3000 UNIT TAB PO SCH ×2 (07:30→20:37)
[2019-09-02] MEDS: CLOPIDOGREL BISULFATE 75 MG TAB PO SCH (07:30)
[2019-09-02] MEDS: TORSEMIDE 10 MG TAB PO SCH ×2 (07:31→17:17)
[2019-09-02] MEDS: DULOXETINE HCL 60 MG CAP PO SCH ×2 (07:31→20:40)
[2019-09-02 07:41] LABS: BUN Creatinine Ratio 11.2 (10-20); Calcium 8.3 mg/dl (8.5-10.1); Creatinine Clr Calc Pharmacy 54.5 ml/min; Est GFR (African American) 56.6; Est GFR (Non-African American) 48.9; Potassium 3.5 mmol/L (3.5-5.1)
[2019-09-02] MEDS: INSULIN ASPART 100 UNITS/ML 3 ML PEN SC SCH ×4 (08:25→20:57)
[2019-09-02] MEDS: cefTRIAXone SODIUM 2,000 MG in DEXTROSE 5% 50 ML IV SCH (14:20)
[2019-09-02] MEDS: AZITHROMYCIN 500 MG in DEXTROSE 5% 250 ML IV SCH (14:21)
[2019-09-02] MEDS: SENNA 8.6 MG TAB PO PRN (14:21)
[2019-09-02] MEDS: ENOXAPARIN INJ 40 MG/0.4 ML SYR SQ SCH (20:36)
[2019-09-02] MEDS: QUETIAPINE FUMARATE 100 MG TABLET PO SCH (20:38)
[2019-09-02] MEDS: PRAMIPEXOLE DIHYDROCHLO 0.25 MG TAB PO SCH (20:39)
[2019-09-02] MEDS: ATORVASTATIN 10 MG TAB PO SCH (20:40)
--- NOTE | 2019-09-02 23:45 | Hospitalist Progress Note ---
Date of Service September 02, 2019 Assessment & Plan (1) Pneumonia: Patient is on Rocephin azithromycin and has covid negative as well as biofire, she did have a choking even on eggs 4 days ago CXR IMPRESSION: Mild bilateral lower lung interstitial thickening. This may reflect an infectious process or atelectasis Abd/Pelvis IMPRESSION: 1. Bilateral nephrolithiasis. No ureteral stones. No hydronephrosis. 2. Patchy groundglass airspace opacities and interstitial thickening within the base of the bilateral lower lobes. This favors a pneumonia such as a viral process. 3. No definite bowel wall thickening or obstruction. 4. Cholecystectomy. Will continue with antibiotics on 09/01 and will likely order a barium swallow on Wednesday. May consider an ENT outpatient followup (2) Diabetes mellitus: Patient is begun on Trulicity. She will have this. She states she has been intolerant of this as an outpatient should be on sliding scale insulin not starting basal dosing at this time (3) Hypertension: Patient maintained on metoprolol and torsemide (4) Hyperlipidemia: Patient continues on atorvastatin low-dose (5) Hypothyroidism: Supplemented with Synthroid 35 mcg (6) Chronic kidney disease, stage 3: This is to be noted to avoid renal toxic medications and to watch her diuretic status (7) DVT prophylaxis: Lovenox for DVT prevention (8) Bipolar depression: Patient on Cymbalta twice a day and Lamictal for her depression. He takes Topamax for her headaches. She takes Seroquel for sleep Admission and Anticipated Discharge Date Admission Date: September 01, 2019 Subjective Patient reports she has a feeling of something stuck in her throat. And it makes it difficult to swallow her food. She feels her breathing has improved. Review of Systems Review of Systems: All systems reviewed & are unremarkable except as noted in HPI & below Physical Exam Physical Exam: The patient appeared well nourished and normally developed. Vital signs as documented. Head exam is normocephalic atraumatic no scleral icterus Neck is without JVD, thyromegaly, or carotid bruits. Lungs are clear to auscultation, no focal loss of breath sounds Cardiac exam, Rhythm is regular.. No murmurs, rubs or gallops. Abdominal exam reveals normal bowel sounds, soft non tender, no masses Extremities are nonedematous and both pedal pulses are normal. Neurologic exam is alert and oriented, no focal loss of strength or sensation Skin is without bruises or rashes Psychologically is without concerns for anxiety or depression Results & Data Results & Data ([facility]) Vital Signs (Past 12 Hours) Vital Signs Temp Pulse Resp BP Pulse Ox 09/02/19 22:28 36.8 C 76 19 115/73 93 09/02/19 14:44 36.9 C 76 19 107/71 95 PG Care Time/CCT Total # of Minutes Spent Total Time Spent with Patient: Total time spent is greater than 50% in coordination of care (as documented) at patient's floor/unit and/or counseling patient: Coding Level of Care Code 40166 Subseq Hosp Care Lvl 3 Diagnoses Pneumonia J18.9 Diabetes mellitus E11.9 Hypertension I10 Hypertension type: essential hypertension Hyperlipidemia E78.00; E78.0 Hyperlipidemia type: pure hypercholesterolemia Hypothyroidism E03.9 Hypothyroidism type: acquired Chronic kidney disease, stage 3 N18.3 DVT prophylaxis Z29.9 Bipolar depression F31.9 Time Spent (min) 35 (1) Hyperlipidemia Hyperlipidemia type: pure hypercholesterolemia Qualified Code(s): E78.00 - P ure hypercholesterolemia, unspecified; E78.0 - Pure hypercholesterolemia (2) Hypothyroidism Hypothyroidism type: acquired Qualified Code(s): E03.9 - Hypothyroidism, unspecified (3) Hypertension Hypertension type: essential hypertension Qualified Code(s): I10 - Essential (primary) hypertension
[2019-09-03] MEDS: ACETAMINOPHEN 325 MG TAB PO PRN ×2 (04:20→18:30)
[2019-09-03] MEDS: LEVOTHYROXINE SODIUM 75 MCG TABLET PO SCH (04:21)
[2019-09-03 07:25] LABS: Hematocrit (blood only) 34.5 % (37-47); Hemoglobin 10.6 g/dL (12.0-16.0); Mean Corpuscular Hgb Conc 30.7 g/dL (32-36); Mean Platelet Volume 10.7 fL (7.4-10.4); Platelet Count 283 K/uL (130-400); RDW Coefficient of Variation 15.3 % (11.5-14.5); RDW Standard Deviation 51.2 fL (36.4-46.3); Red Blood Count 3.79 M/uL (4.2-5.4); White Blood Count 9.81 K/uL (4.8-10.8)
[2019-09-03 07:54] LABS: BUN Creatinine Ratio 11.1 (10-20); Calcium 8.6 mg/dl (8.5-10.1); Creatinine Clr Calc Pharmacy 50.2 ml/min; Est GFR (African American) 51.3; Est GFR (Non-African American) 44.3; Potassium 3.7 mmol/L (3.5-5.1)
[2019-09-03] MEDS: TOPIRAMATE 50 MG TAB PO SCH ×2 (08:32→20:58)
[2019-09-03] MEDS: DULOXETINE HCL 60 MG CAP PO SCH ×2 (08:32→20:59)
[2019-09-03] MEDS: PANTOprazole 40 MG TAB PO SCH ×2 (08:32→21:00)
[2019-09-03] MEDS: POTASSIUM CHLORIDE 20 MEQ TABCR PO SCH ×2 (08:33→21:00)
[2019-09-03] MEDS: lamoTRIgine 100 MG TAB PO SCH ×2 (08:33→21:01)
[2019-09-03] MEDS: LACTASE 3000 UNIT TAB PO SCH ×2 (08:33→21:01)
[2019-09-03] MEDS: CLOPIDOGREL BISULFATE 75 MG TAB PO SCH (08:34)
[2019-09-03] MEDS: TORSEMIDE 10 MG TAB PO SCH ×2 (08:34→17:15)
[2019-09-03] MEDS: METOPROLOL TARTRATE 25 MG TAB PO SCH ×2 (08:34→17:16)
[2019-09-03] MEDS: INSULIN ASPART 100 UNITS/ML 3 ML PEN SC SCH ×4 (08:37→21:32)
--- NOTE | 2019-09-03 11:01 | Pharmacy Report ---
Pharmacy Glycemic Short Note 2 - Date of Service September 03, 2019 - Glycemic Short BSG Results (Last 24 hours): 09/02/19 09/02/19 09/02/19 11:36 16:47 19:57 Glucose POC Glucose 95 89 104 H 09/03/19 09/03/19 06:49 07:28 Glucose 92 POC Glucose 107 H OUTPATIENT ANTIDIABETIC REGIMEN: Trulicity 0.75mg weekly - Patient started on this, but states she has been intolerant of this as an outpatient ASSESSMENT: * Type 2 diabetic admitted for pneumonia. * BSGs have been very well-controlled without receiving any insulin PLAN FOR INPATIENT GLYCEMIC CONTROL: * Hold outpatient oral diabetes medications * Basal insulin * Hold * Bolus insulin - removed carb coverage yesterday - continue * NovoLog per scale ACHS or Q6hrs while NPO * Goal Range: Low 110 mg/dL - High 140 mg/dL * Correction Factor: 20 mg/dL/unit * Nutritional / Prandial insulin per carb ratio of 1 unit per - grams CHO consumed PLAN FOR DISCHARGE: * A1c of 6.5% demonstrates good glycemic control * Reasonable to continue outpatient regimen if patient able to tolerate * Support Patient Self-Management * Healthy Lifestyle (diet, exercise, and smoking cessation) * Disease self-management (SM[facility]) * Prevention of complications (BP, Lipid goals, Immunizations * Consider outpatient Diabetes Self-Management Education & Support
[2019-09-03] MEDS: cefTRIAXone SODIUM 2,000 MG in DEXTROSE 5% 50 ML IV SCH (14:42)
--- NOTE | 2019-09-03 15:06 | Hospitalist Progress Note ---
Date of Service September 03, 2019 Assessment & Plan (1) Pneumonia: Patient is on Rocephin azithromycin and has covid negative as well as biofire, she did have a choking even on eggs 4 days ago CXR IMPRESSION: Mild bilateral lower lung interstitial thickening. This may reflect an infectious process or atelectasis Abd/Pelvis IMPRESSION: 1. Bilateral nephrolithiasis. No ureteral stones. No hydronephrosis. 2. Patchy groundglass airspace opacities and interstitial thickening within the base of the bilateral lower lobes. This favors a pneumonia such as a viral process. 3. No definite bowel wall thickening or obstruction. 4. Cholecystectomy. Will continue with antibiotics on 09/02 and will likely order a barium swallow on Wednesday. May consider an ENT outpatient followup. (2) Diabetes mellitus: Patient is begun on Trulicity. She will have this. She states she has been intolerant of this as an outpatient should be on sliding scale insulin not starting basal dosing at this time (3) Hypertension: Patient maintained on metoprolol and torsemide (4) Hyperlipidemia: Patient continues on atorvastatin low-dose (5) Hypothyroidism: Supplemented with Synthroid 35 mcg (6) Chronic kidney disease, stage 3: This is to be noted to avoid renal toxic medications and to watch her diuretic status (7) DVT prophylaxis: Lovenox for DVT prevention (8) Bipolar depression: Patient on Cymbalta twice a day and Lamictal for her depression. He takes Topamax for her headaches. She takes Seroquel for sleep Admission and Anticipated Discharge Date Admission Date: September 01, 2019 Subjective 64 yo female with history of polyps, is due for repeat colonscopy this year. She reorts multiple complaints, she is concerned about a feeling of difficulty swallowing, she is also complaining of bilateral "lower rib pain,. She also is complaining of LLQ abd. pain. She reports she has had a bowel movement. Review of Systems Review of Systems: All systems reviewed & are unremarkable except as noted in HPI & below Physical Exam Physical Exam: The patient appeared well nourished and normally developed. Vital signs as documented. Head exam is normocephalic atraumatic no scleral icterus Neck is without JVD, thyromegaly, or carotid bruits. Lungs are clear to auscultation, no focal loss of breath sounds Cardiac exam, Rhythm is regular.. No murmurs, rubs or gallops. Abdominal exam reveals normal bowel sounds, soft non tender, no masses Extremities are nonedematous and both pedal pulses are normal. Neurologic exam is alert and oriented, no focal loss of strength or sensation Skin is without bruises or rashes Psychologically is without concerns for anxiety or depression Results & Data Results & Data ([facility]) Vital Signs (Past 12 Hours) Vital Signs Temp Pulse Resp BP Pulse Ox 09/03/19 11:23 36.9 C 72 20 110/73 93 09/03/19 07:50 36.8 C 85 18 115/69 93 PG Care Time/CCT Total # of Minutes Spent Total Time Spent with Patient: Total time spent is greater than 50% in coordination of care (as documented) at patient's floor/unit and/or counseling patient: Coding Level of Care Code 24851 Subseq Hosp Care Lvl 2 Diagnoses Pneumonia J18.9 Diabetes mellitus E11.9 Hypertension I10 Hypertension type: essential hypertension Hyperlipidemia E78.00; E78.0 Hyperlipidemia type: pure hypercholesterolemia Hypothyroidism E03.9 Hypothyroidism type: acquired Chronic kidney disease, stage 3 N18.3 DVT prophylaxis Z29.9 Bipolar depression F31.9 Time Spent (min) 25 (1) Hyperlipidemia Hyperlipidemia type: pure hypercholesterolemia Qualified Code(s): E78.00 - Pure hypercholesterolemia, unspecified; E78.0 - Pure hypercholesterolemia (2) Hypothyroidism Hypothyroidism type: acquired Qualified Code(s): E03.9 - Hypothyroidism, unspecified (3) Hypertension Hypertension type: essential hypertension Qualified Code(s): I10 - Essential (primary) hypertension
[2019-09-03] MEDS: AZITHROMYCIN 500 MG in DEXTROSE 5% 250 ML IV SCH (15:29)
--- NOTE | 2019-09-03 15:47 | XRay Report ---
KUB HISTORY: Acute generalized abdominal pain abd. pain COMPARISON: CT abdomen pelvis 09/01/2019, KUB 12/23/2018 FINDINGS: The bowel gas pattern is non-obstructive. Moderate fecal retention of the right hemicolon. There is no organomegaly. Renal shadows are partially obscured by bowel gas. Left unchanged punctate calculus of the inferior pole left kidney. No ureteral calculi identified. Probable phleboliths of t he pelvis. No pneumoperitoneum or pneumatosis. Posterior interbody jose ramon and screw fusion with discecto my changes of the lumbar spine. No evidence of hardware complication. Cholecystectomy. IMPRESSION: 1. Nonobstructive bowel gas pattern. 2. Left nephrolithiasis 3. Moderate fecal retention of the right hemicolon. ACT 112: Negative or not required by law. The above report was generated using voice recognition software. It may contain grammatical, syntax o r spelling errors. Electronically signed by: Frank Mora M.D. 09/03/2019 3:46 PM
--- NOTE | 2019-09-03 16:10 | Ultrasound Report ---
US renal/blad retro comp HISTORY: 64 years-old Female h.o kidnety stones. pain acute bilateral flank pain patient with histor y of kidney stones. COMPARISON: CT abdomen pelvis 09/01/2019 TECHNIQUE: Multiple real-time sonographic images of the kidneys and urinary bladder were obtained ass essing grayscale appearance. FINDINGS: Study is mildly limited secondary to patient body habitus. The imaged liver is unremarkable. Mild dif fuse cortical thinning of the bilateral kidneys. The right kidney measures 10.3 x 4.2 x 4.2 cm and demonstrates no appreciable renal calculi, hydronep hrosis or suspicious mass lesion. The previously questioned punctate right renal calculus is identifi ed. Unremarkable urinary bladder with bilateral ureteral jets. Left kidney measures 9.2 x 4.6 x 4.4 cm. The previously noted nonobstructing 4 mm calculus of the inf erior pole left kidney is not definitively seen. No hydronephrosis. IMPRESSION: 1. Mildly limited exam secondary to patient body habitus. The previously noted bilateral nephrolithia sis are not appreciated by ultrasound. 2. No hydronephrosis. 3. Unremarkable sonographic appearance of the urinary bladder. ACT 112: Negative or not required by law. The above report was generated using voice recognition software. It may contain grammatical, syntax o r spelling errors. Electronically signed by: Frank Mora M.D. 09/03/2019 4:09 PM
[2019-09-03] MEDS: SENNA 8.6 MG TAB PO PRN (17:15)
[2019-09-03] MEDS: ENOXAPARIN INJ 40 MG/0.4 ML SYR SQ SCH (20:58)
[2019-09-03] MEDS: QUETIAPINE FUMARATE 100 MG TABLET PO SCH (20:59)
[2019-09-03] MEDS: PRAMIPEXOLE DIHYDROCHLO 0.25 MG TAB PO SCH (21:00)
[2019-09-03] MEDS: ATORVASTATIN 10 MG TAB PO SCH (21:02)
[2019-09-04] MEDS: LEVOTHYROXINE SODIUM 75 MCG TABLET PO SCH (05:48)
[2019-09-04 06:24] LABS: BUN Creatinine Ratio 9.5 (10-20); Creatinine Clr Calc Pharmacy 52.3 ml/min; Est GFR (African American) 53.8; Est GFR (Non-African American) 46.5; Potassium 3.8 mmol/L (3.5-5.1)
--- NOTE | 2019-09-04 08:50 | Fluoroscopy Report ---
FL barium swallow CLINICAL HISTORY: 64 years-old Female with DIFFICULTY SWALLOWING. TECHNIQUE: Barium contrast and effervescent crystals were Administered to the Patient under Fluorosco pic Examination. Multiple images were obtained and submitted for review. FLUOROSCOPY TIME: 1.7 minutes COMPARISON: None. FINDINGS: During deglutition, contrast material flowed freely through the cervical esophagus. No filling defec t or mucosal abnormality is identified. No abnormal stricturing or mass effect is seen. Moderate mid and distal esophageal dysmotility. Decreased transit of the tablet into the stomach. The mid to dist al esophagus is well coated and distended. No abnormal stricturing or mucosal abnormality is identif ied. No hiatal hernia. Moderate to extensive gastroesophageal reflux The GE junction is normal in darius earance. IMPRESSION: 1. Moderate esophageal dysmotility. 2. Moderate to extensive gastroesophageal reflux. ACT 112: Negative or not required by law. The above report was generated using voice recognition software. It may contain grammatical, syntax o r spelling errors. Electronically signed by: Frank Mora M.D. 09/04/2019 8:49 AM
[2019-09-04] MEDS: CLOPIDOGREL BISULFATE 75 MG TAB PO SCH (08:54)
[2019-09-04] MEDS: ACETAMINOPHEN 325 MG TAB PO PRN ×2 (08:54→17:15)
[2019-09-04] MEDS: TORSEMIDE 10 MG TAB PO SCH ×2 (08:54→17:15)
[2019-09-04] MEDS: POTASSIUM CHLORIDE 20 MEQ TABCR PO SCH (08:55)
[2019-09-04] MEDS: METOPROLOL TARTRATE 25 MG TAB PO SCH ×2 (08:55→17:15)
[2019-09-04] MEDS: LACTASE 3000 UNIT TAB PO SCH (08:55)
[2019-09-04] MEDS: SENNA 8.6 MG TAB PO PRN (08:55)
[2019-09-04] MEDS: lamoTRIgine 100 MG TAB PO SCH (08:55)
[2019-09-04] MEDS: DULOXETINE HCL 60 MG CAP PO SCH (08:56)
[2019-09-04] MEDS: TOPIRAMATE 50 MG TAB PO SCH (08:56)
[2019-09-04] MEDS: PANTOprazole 40 MG TAB PO SCH (08:56)
[2019-09-04] MEDS: INSULIN ASPART 100 UNITS/ML 3 ML PEN SC SCH ×2 (10:06→15:27)
[2019-09-04] MEDS: AZITHROMYCIN 500 MG in DEXTROSE 5% 250 ML IV SCH (15:53)
[2019-09-04] MEDS: cefTRIAXone SODIUM 2,000 MG in DEXTROSE 5% 50 ML IV SCH (15:53)
[2019-09-04] MEDS ORDERED: Nursing to Pharmacy Communication SCH (16:45)
[2019-09-04] MEDS ORDERED: cefUROXime axetil 500 MG TAB PO SCH ×2 (17:00→21:00)
[2019-09-04] MEDS ORDERED: AZITHROMYCIN 250 MG TAB PO SCH ×2 (17:00→21:00)
--- NOTE | 2019-09-05 07:23 | Discharge Summary ---
Date of Service September 04, 2019 Principal Diagnosis pneumonia Discharge Exam The patient appeared well nourished and normally developed. Vital signs as documented. Head exam is normocephalic atraumatic no scleral icterus Neck is without JVD, thyromegaly, or carotid bruits. Lungs are clear to auscultation, no focal loss of breath sounds Cardiac exam, Rhythm is regular.. No murmurs, rubs or gallops. Abdominal exam reveals normal bowel sounds, soft non tender, no masses Extremities are nonedematous and both pedal pulses are normal. Neurologic exam is alert and oriented, no focal loss of strength or sensation Skin is without bruises or rashes Psychologically is without concerns for anxiety or depression Discharge Data Allergies Allergy/AdvReac Type Severity Reaction Status Date / Time Penicillins Allergy Intermediate RASH AND Verified 09/01/19 13:52 ULCERS IN MOUTH Sulfa (Sulfonamide Allergy Intermediate RASH AND Verified 09/01/19 13:52 Antibiotics) ULCERS IN MOUTH levofloxacin Allergy Mild local Verified 09/01/19 13:52 reaction Cephalosporins Allergy Unknown CEPHALEXIN-RASH Verified 09/01/19 13:52 & ULCERS IN MOUTH oxycodone Allergy Unknown PERCOCET Verified 09/01/19 13:52 sulfamethoxazole Allergy Unknown Unknown Verified 09/01/19 13:52 meperidine AdvReac Mild VOMITING Verified 09/01/19 13:52 Consultations 09/01/19 14:33 ED Decision to Admit Stat Ordered Studies 09/01/19 12:34 CT abd pelvis wo con Stat 09/03/19 15:02 US renal/blad retro comp Routine 09/04/19 07:00 FL barium swallow Routine Hospital Course (1) Pneumonia: Patient is on Rocephin azithromycin and has covid negative as well as biofire, she did have a choking even on eggs 4 days ago CXR IMPRESSION: Mild bilateral lower lung interstitial thickening. This may reflect an infectious process or atelectasis Abd/Pelvis IMPRESSION: 1. Bilateral nephrolithiasis. No ureteral stones. No hydronephrosis. 2. Patchy groundglass airspace opacities and interstitial thickening within the base of the bilateral lower lobes. This favors a pneumonia such as a viral process. 3. No definite bowel wall thickening or obstruction. 4. Cholecystectomy. Will continue with antibiotics and complete short course. Likely complicated by her esophageal dysmotility. speec therapy gave discharge instructions (2) Diabetes mellitus: Patient is begun on Trulicity. She will have this. She states she has been intolerant of this as an outpatient. This is likely also for her weight loss. (3) Hypertension: Patient maintained on metoprolol and torsemide (4) Hyperlipidemia: Patient continues on atorvastatin low-dose (5) Hypothyroidism: Supplemented with Synthroid 35 mcg (6) Chronic kidney disease, stage 3: This is to be noted to avoid renal toxic medications and to watch her diuretic status (7) DVT prophylaxis: Lovenox for DVT prevention (8) Bipolar depression: Patient on Cymbalta twice a day and Lamictal for her depression. He takes Topamax for her headaches. She takes Seroquel for sleep (9) Morbidly obese: lifestyle modifications. may need bariatric surgery. (10) GERD (gastroesophageal reflux disease): Varium swallow showed esophageal dysmotility and GERD. Will have patient followup with PCP and GI as outpatient. Total Time Total Time Spent Total Time Spent (In Minutes): 32 Discharge Plan Discharge Items Patient Disposition: Home - Self-Care Reason For Visit: PNEUMONIA Discharge Diagnosis: Pneumonia Activity: Resume your previous activity Non-emergency contact: Primary Care Provider Call non-emergency contact if: you have any medication questions Follow-up/Referrals: Nain Farfan III, CRNP [Primary Care Provider] - (Please call to schedule follow up apt with primary care.) Nicko Jason [Physician] - Diet: Carb Consistent or DM2 Addtl Attending Provider Instructions: You have been hospitalized for an acute medical problem. During your stay at [facility], we have made an effort to correct the problem that brought you to the hospital while keeping you as comfortable as possible. Medications were used to bring your condition under control and your discharge instructions will include directions for any medications you should take after leaving the hospital. Please make sure you see your Primary Care Provider as part of your follow up plan. Pending Studies at Discharge: No Stand-Alone Forms: My [facility] AlignAlytics, Smoking Cessation Medications and DC Order Prescriptions: New azithromycin 250 mg tablet 250 mg PO PM 3 Days Qty: 3 RF: 0 cefuroxime axetil 500 mg tablet 500 mg PO BID 3 Days Qty: 6 RF: 0 Continued potassium chloride 20 mEq tablet,ER particles/crystals 20 meq PO BID Qty: 180 RF: 3 tramadol 50 mg tablet 50 mg PO Q6H PRN (Reason: pain) Qty: 120 RF: 0 duloxetine 60 mg capsule,delayed release(DR/EC) 60 mg PO BID Qty: 180 RF: 1 pramipexole 0.25 mg tablet 0.25 mg PO QPM Qty: 30 RF: 5 (DME) Shower chair Qty: 1 RF: 0 lamotrigine 200 mg tablet 200 mg PO BID Qty: 180 RF: 1 pantoprazole 40 mg tablet,delayed release (DR/EC) 40 mg PO BID Qty: 180 RF: 1 acetaminophen [Tylenol Extra Strength] 500 mg tablet 500 mg PO Q6H PRN (Reason: fever) Qty: 120 RF: 4 Lactaid Fast Act 9,000 unit tablet,chewable 9,000 units PO BID Qty: 60 RF: 11 quetiapine 300 mg tablet 150 mg PO HS Qty: 45 RF: 1 sennosides [Senna Laxative] 8.6 mg tablet 8.6 - 17.2 mg PO BID PRN (Reason: constipation) Qty: 180 RF: 1 hydrocortisone [Cortisone (hydrocortisone)] 1 % cream 1 appln TOP TID PRN (Reason: skin irritation) Qty: 30 RF: 5 atorvastatin 10 mg tablet 10 mg PO HS RF: 0 torsemide 10 mg tablet 30 mg PO BIDM RF: 0 clopidogrel 75 mg tablet 75 mg PO QAM RF: 0 levothyroxine [Synthroid] 75 mcg tablet 75 mcg PO QAM RF: 0 ferrous sulfate 325 mg (65 mg iron) tablet 325 mg PO QAM RF: 0 ergocalciferol (vitamin D2) 1,250 mcg (50,000 unit) capsule 50,000 units PO TH RF: 0 metoprolol tartrate 25 mg tablet 12.5 mg PO BIDM RF: 0 topiramate 50 mg tablet 150 mg PO BID RF: 0 magnesium gluconate [Mag-G] 27 mg magnesium (500 mg) tablet 27 mg PO QAM RF: 0 Centrum Silver 400-250 mcg tablet,chewable 1 tab PO QAM RF: 0 Trulicity 0.75 mg/0.5 mL pen injector 0.75 mg SQ MO RF: 0 Discharge Orders: Discharge Order (Routine); Ordered 09/04/19 Ordered By: Raghu Moraes/Other Patient Handouts: Managing Type 2 Diabetes, Diabetes: Meal Planning, A1C Admission Data Admit Date/Time: 09/01/19 16:52 Attending Provider: Raghu Benjamin Admit Provider: Eben Quintana Primary Care Provider: Nain Farfan III Other Providers: Eben Quintana Other Interventions: Discharge Summary Assessment (RN) Last Done: 09/04/19 16:30 DC Date/Time DO NOT enter until pt leaves facility: 09/04/19 18:28 Coding Level of Care Code D/C Day Management >30 mins Diagnoses Pneumonia J18.9 Diabetes mellitus E11.9 Hypertension I10 Hypertension type: essential hypertension Hyperlipidemia E78.00; E78.0 Hyperlipidemia type: pure hypercholesterolemia Hypothyroidism E03.9 Hypothyroidism type: acquired Chronic kidney disease, stage 3 N18.3 DVT prophylaxis Z29.9 Bipolar depression F31.9 Morbidly obese E66.01 GERD (gastroesophageal reflux disease) K21.9 Esophagitis presence: without esophagitis
== END 2019-09-04 18:28 | disposition home or self-care (01) | DRG 194 ==
LOC: ED 11:22 → SUATTDRO 16:52 → 2N 16:52

== ENCOUNTER 2024-01-23 01:26 | Observation (INO) ==
[2024-01-23] MEDS: fentaNYL citrate PF 100 MCG/2 ML VIAL IV STA ×2 (02:11→04:26)
[2024-01-23 02:17] LABS: Basophils # (auto) 0.06 K/uL (0.00-0.20); Basophils % (auto) 0.5 %; Eosinophils # (auto) 0.33 K/uL (0.00-0.50); Eosinophils % (auto) 2.5 %; Hematocrit (blood only) 32.3 % (37.0-47.0); Hemoglobin 10.1 g/dl (12.0-16.0); Immature Granulocytes # (auto) 0.07 K/uL (0.01-0.20); Immature Granulocytes % (auto) 0.5 %; Lymphocytes # (auto) 2.84 K/uL (1.20-3.40); Lymphocytes % (auto) 21.9 %; Mean Corpuscular Hemoglobin 28.1 pg (25.0-34.0); Mean Corpuscular Hgb Conc 31.3 g/dL (32.0-36.0); Mean Platelet Volume 10.6 fL (9.4-12.4); Monocytes # (auto) 1.07 K/uL (0.11-0.59); Monocytes % (auto) 8.3 %; Neutrophils # (auto) 8.58 K/uL (1.40-6.50); Neutrophils % (auto) 66.3 %; Platelet Count 324 K/uL (130-400); RDW Coefficient of Variation 14.2 % (11.5-14.5); Red Blood Count 3.59 M/uL (4.20-5.40); White Blood Count 12.95 K/ul (4.8-10.8)
[2024-01-23 02:25] LABS: Albumin Level 3.8 gm/dl (3.4-5.0); BUN Creatinine Ratio 13.3 (10-20); Bilirubin,Total 0.2 mg/dl (0.2-1.0); Calcium 9.4 mg/dl (8.6-10.3); Creatinine Clr Calc Pharmacy 53.7 ml/min; Magnesium 1.8 mg/dl (1.7-2.4); Potassium 3.6 mmol/L (3.5-5.1); Total Protein 6.8 gm/dl (6.0-8.3)
[2024-01-23 02:40] LABS: Troponin I High Sensitivity 8.3 pg/ml (0-14)
--- NOTE | 2024-01-23 03:33 | XRay Report ---
EXAM: XR chest 1V portable CLINICAL HISTORY: SEPSIS JMF TECHNIQUE: [id number] X-ray image of the chest is obtained in AP projection. Rotated /OBX.5.1.1OBX.5.1.2 soft exposure./OBX.5.1.2/OBX.5.1 COMPARISON: CXR dated 04/22/2023. FINDINGS: Pulmonary Parenchyma: Bilateral prominent broncho vascular markings are prominent There is no evidence of consolidation, or collapse. No pulmonary nodules are identified. There is no evidence of pleural effusion or pleural thickening. Heart and Mediastinum: Heart size cannot be commented upon due to marked rotation. No mediastinal masses. No definite hilar or mediastinal lymphadenopathy. Bony Thorax: An old fracture of the distal third of the left clavicle is also seen. The distal fractured fragment seen in the previous film is no longer visible. Maybe it was surgically removed. Needs to be correlated with history. Soft Tissues: Soft tissues overlying the chest wall are unremarkable. IMPRESSION: No acute cardiopulmonary disease process. Electronically signed by Belén Cheatham 01-23-2024 03:32 AM
--- NOTE | 2024-01-23 04:12 | Ultrasound Report ---
EXAM: US venous doppler LE BI CLINICAL HISTORY: Redness to BL LE Groin nodes seen BL NO OBVIOUS DVT IN BL LE Difficult vis of calf vessels due to edema TECHNIQUE: Ultrasound examination of bilateral lower extremity veins was performed in real time and duplex. One or more of the following were performed- spectral analysis, resistive index, waveform analysis, and pulsed Doppler. COMPARISON: 03/27/2022. FINDINGS: Diffuse difficult visualization of the calf vessels due to subcutaneous soft tissue edema. Normal phasic, non-pulsatile and spontaneous flow is noted in bilateral common femoral, superficial femoral, popliteal and posterior tibial and peroneal veins. Visualized veins of both lower extremities demonstrate normal compressibility. No sonographic evidence of acute deep vein thrombosis (DVT) is detected in the visualized veins of both lower extremities. Compression and Augmentation: All evaluated veins compress fully with applied transducer pressure. Augmentation of venous flow is noted with distal compression. Additional Findings: No evidence of intraluminal thrombus. A prominent lymph node measured about 1.7 x 1.2 x 0.7 cm, was seen in the right groin region. Unspecific likely reactionary. IMPRESSION: 1. No sonographic evidence of acute DVT is detected in bilateral common femoral, superficial femoral, popliteal, and posterior tibial and peroneal veins, at the time of examination. 2. Diffuse poor visualization of the calf vessels due to subcutaneous soft tissue edema. 3. No significant interval changes compared to the prior study dated 03/27/2022. Disclaimer: DVT could be missed early in the disease when clot burden is minimal. For patients with moderate and high pretest probability of DVT and negative ultrasound, the [employer] clinical guidelines recommend testing with a D-dimer assay or repeat ultrasound in 5-7 days. If symptoms worsen, the Society of radiologists in ultrasound recommends repeating ultrasound even earlier. Electronically signed by Belén Cheatham 01-23-2024 04:11 AM
[2024-01-23] MEDS ORDERED: VANCOMYCIN CONSULT ACTIVE PRN (04:18)
[2024-01-23 04:27] LABS: Appearance Urine Clear (Clear); Bacteria Urine Automated None Seen (None Seen); Bilirubin Urine Negative (Negative); Blood Urine Negative (Negative); Cast Urine Automated 0-2 /lpf (0-2); Color Urine Yellow; Epithelial Cell Urine Auto 0-2 /hpf (0-2); Glucose Urine UA Negative (Negative); Ketones Urine Negative (Negative); Leukocyte Esterase Urine Trace (Negative); Nitrite Urine Negative (Negative); Protein Urine Negative (Negative); RBC Urine Automated 0-2 /hpf (0-2); Specific Gravity Urine 1.007 (1.000-1.030); Urobilinogen Urine Negative (Negative); WBC Urine Automated 0-5 /hpf (0-5)
[2024-01-23] MEDS: VANCOMYCIN HCL 2,250 MG in SODIUM CHLORIDE 0.9% 500 ML IV ONE (04:39)
[2024-01-23] MEDS ORDERED: FIRST - Mouthwash BLM 119 ML PO PRN (04:50)
--- NOTE | 2024-01-23 04:59 | History & Physical Report ---
Date of Service January 23, 2024 Assessment & Plan (1) Cellulitis of both lower extremities: (2) Bilateral lower extremity edema: (3) Chronic kidney disease, stage 3: (4) Restless legs: (5) Generalized osteoarthritis: (6) Diabetes mellitus, type 2: Plan Cellulitis of bilateral lower extremities Likely secondary to chronic lower extremity edema Received vancomycin IV from the ED Changed to daptomycin 3 mg IV every 24 hours due to CKD history Cefepime 2 g IV every 12 hours Magic mouthwash 5 mL every 2 hours as needed, to address potential oral ulcers which can happen with any antibiotic she is on Continue diuretics to address local edema and vacuolization Chronic lower extremity edema/CKD stage III- Torsemide 30 mg p.o. twice daily Finerenone 10 mg p.o. every morning Change potassium chloride from 20 mEq p.o. 3 times daily to 40 mEq p.o. twice daily Follow serial CBC with differential, renal function panel and magnesium levels Diabetes mellitus- On no current therapy Placed on Accu-Cheks with NovoLog SSI Check hemoglobin A1c Cerebrovascular disease/bipolar depression- Continue clopidogrel 75 mg daily Duloxetine 60 mg twice daily Lamotrigine 200 mg twice daily Topiramate 150 mg p.o. twice daily GERD- Continue pantoprazole History of Present Illness Chief Complaint: The patient presents to the emergency department with concern of gradually worsening bilateral lower extremity redness, swelling and pain, worse over the past few days. She has become more concerned because she is starting to feel more generally unwell, with generalized muscle aches. Primary Care Provider: Mayela Moyer MD The patient is a 68-year-old female with a past medical history including GERD, vitamin D deficiency, restless leg syndrome, hypothyroidism, hyperlipidemia, cerebrovascular disease, generalized osteoarthritis, chronic lower extremity edema, bipolar depression, CKD stage III, and diabetes mellitus type 2. She p resents to the emergency department with worsening bilateral lower extremity redness, warmth and swelling. She reports that her urine has become more dark, but she reports not drinking as much fluids recently. She continues to take torsemide and finerenone. She denies any recent trauma to lower extremities. She does note increased generalized muscle aches and joint aches. Allergies Allergy/AdvReac Type Severity Reaction Status Date / Time gabapentin Allergy Severe sore Verified 11/04/23 10:48 throat, stomach pains, nausea Cephalosporins Allergy Intermediate CEPHALEXIN-RASH Verified 11/04/23 10:48 & ULCERS IN MOUTH Penicillins Allergy Intermediate RASH AND Verified 11/04/23 10:48 ULCERS IN MOUTH Sulfa (Sulfonamide Allergy Intermediate RASH AND Verified 11/04/23 10:48 Antibiotics) ULCERS IN MOUTH sulfamethoxazole Allergy Intermediate rash and Verified 11/04/23 10:48 ulcers in the mouth wheat Allergy Intermediate Itching Unverified 11/04/23 10:48 levofloxacin Allergy Mild local Verified 11/04/23 10:48 reaction meperidine AdvReac Intermediate VOMITING & Verified 11/04/23 10:48 VERTIGO metformin AdvReac Intermediate Diarrhea Verified 11/04/23 10:48 oxycodone AdvReac Intermediate PERCOCET - Verified 11/04/23 10:48 vomiting and vertigo sesame seed AdvReac Unverified 11/04/23 10:48 Home Medications Medication Instructions Recorded Confirmed Type blood sugar diagnostic #30 ea 09/21/19 01/23/24 Rx blood-glucose meter #1 ea 09/21/19 01/23/24 Rx blood sugar diagnostic (Accu-Chek #100 ea 05/04/23 01/23/24 Rx Guide test strips) finerenone 10 mg tablet (Kerendia) 10 mg PO QAM #90 tabs 05/04/23 01/23/24 Rx lamotrigine 200 mg tablet 200 mg PO BID #180 tabs 05/04/23 01/23/24 Rx lancets (Accu-Chek Fastclix Lancet #100 ea 05/04/23 01/23/24 Rx Drum) torsemide 10 mg tablet 30 mg (3 x 10 mg) PO BID #540 tabs 05/04/23 01/23/24 Rx [id number] 250 mg-dha 90 1 cap PO BID #180 caps 07/29/23 01/23/24 Rx mg-epa 160 [id number] capsule (Ocuvite Adult 50 Plus) atorvastatin 20 mg tablet 20 mg PO QPM #30 tabs 10/25/23 01/23/24 Rx cholecalciferol (vitamin D3) 50 50 mcg PO QAM #90 caps 10/25/23 01/23/24 Rx mcg (2,000 unit) capsule clopidogrel 75 mg tablet 75 mg PO QAM #90 tabs 10/25/23 01/23/24 Rx duloxetine 60 mg capsule,delayed 60 mg PO BID #180 caps 10/25/23 01/23/24 Rx release ferrous sulfate 325 mg (65 mg 325 mg PO QAM #90 tabs 10/25/23 01/23/24 Rx iron) tablet (FeroSul) levothyroxine 75 mcg tablet 75 mcg PO QAM #90 tabs 10/25/23 01/23/24 Rx magnesium gluconate 27 mg 27 mg PO HS #30 tabs 10/25/23 01/23/24 Rx magnesium (500 mg) tablet (Mag-G) metoprolol tartrate 25 mg tablet 12.5 mg (1/2 x 25 mg) PO BID #30 10/25/23 01/23/24 Rx tabs pantoprazole 40 mg tablet,delayed 40 mg PO BID #180 tabs 10/25/23 01/23/24 Rx release potassium chloride 10 mEq 20 meq (2 x 10 mEq) PO TID #540 10/25/23 01/23/24 Rx capsule,extended release caps pramipexole 0.25 mg tablet 0.25 mg PO HS #90 tabs 10/25/23 01/23/24 Rx sennosides 8.6 mg tablet (Senna 8.6 - 17.2 mg (1 - 2 x 8.6 mg) PO 10/25/23 01/23/24 Rx Laxative) BID #180 tabs multivitamin with folic acid 400 1 tab PO QAM #90 tabs 11/23/23 01/23/24 Rx mcg tablet (Tab-A-Ck) acetaminophen 500 mg tablet 500 mg PO Q6H PRN Pain #225 tabs 01/20/24 01/23/24 Rx topiramate 100 mg tablet 150 mg PO BID 01/23/24 01/23/24 History Past Med/Surg History Problem List (Updated 01/23/24 @ 05:20 by Wong Davis MD) Bilateral lower extremity edema Cellulitis of both lower extremities Swelling of left upper extremity Bilateral mastodynia Left axillary fullness Bilateral hip joint arthritis GERD (gastroesophageal reflux disease) (Chronic) Vitamin D deficiency (Chronic) Restless legs (Chronic) Mitral valve disorder (Chronic) Hypothyroidism (Chronic) Hyperlipidemia (Chronic) Cerebrovascular disease, unspecified (Chronic) Generalized osteoarthritis (Chronic) Morbidly obese Change in bowel habits Urinary incontinence Breast pain Elevated white blood cell count Lymphadenopathy Hypomagnesemia Hypokalemia Leg edema Abdominal pain Bipolar depression Degenerative disc disease (Chronic) Gastroparesis (Chronic) Chronic kidney disease, stage 3 (Chronic) follows with PCP Hypertension (Chronic) Diabetes mellitus, type 2 Chronic constipation Anemia Arthritis Medical History Macular degeneration Fibromyalgia Insomnia Stomach ulcer Stroke Osteoarthritis Colon polyps Fatty liver Kidney stones H/O breast lump H/O migraine Restless legs syndrome Hyperlipidemia Chronic GERD Hypothyroidism Lumbar spine scoliosis (10/26/13) Surgical History History of tonsillectomy and adenoidectomy S/P lymph node biopsy (07/21/21) S/P cholecystectomy History of esophagogastroduodenoscopy (EGD) History of colonoscopy History of cataract surgery History of cystoscopy History of lithotripsy S/P lumbar spinal fusion History of appendectomy H/O non-cataract eye surgery H/O: hysterectomy Family History Mother Diabetes Clotting disorder Heart disease Myocardial infarction Hypertension Father Diabetes Heart disease Grandmother (Paternal) Lung cancer Grandfather (Maternal) Stomach cancer Other Breast cancer Cancer No family history of adverse response to anesthesia Denies family history of Colon cancer Ovarian cancer Prostate cancer Social History Smoking Status: Never smoker Second Hand Exposure: Yes (as a child); Do You Dip or Chew Tobacco: No; Hx Alcohol Use: No Preferred Language: Nepali Communication Ability: Effective Visual Impairment: No Limitations Hearing Ability: Normal Supervisor Electronics Assembly Required: No Beliefs That Will Affect Care: None marital status: Current Living Situation: Alone Current Living Situation Comment: recieved home health for assistance>recent staff problems current occupational status: retired 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 How many Children do You have: 2 Feels Safe at Home: No Is there a partner from a previous relationship who is making you feel unsafe now?: No Safety Concerns Comment: Pt states some things have gone missing around home, trying to move Childhood Exposure to Second-Hand Smoke: Yes Diet: regular caffeine: No during the past year weight has: decreased > 10 lbs Dental Care, Regularly: Yes Physical Activity Frequency: Does not Exercise Seatbelt Use: always Sunscreen Use: No Do you think of yourself as: straight/heterosexual Gender Identity: Female Assistive Devices: Glasses, Walker and Wheelchair Review of Systems Review of Systems: The patient denies chest pain, palpitations, shortness of breath, dyspnea on exertion, cough, sore throat, fevers, chills, sweats, nausea, vomiting, diarrhea , constipation, abdominal pain, pelvic pain, blood in urine or stool, dysuria, urinary frequency or urgency, memory loss, loss of consciousness, rash, abnormal bruising or bleeding, imbalance, focal weakness, numbness or tingling in arms or legs, neck pain, or night sweats. The review of systems is otherwise negative other than for that already noted above, and at least 10 systems have been reviewed. Physical Exam Physical Exam: The patient is awake, alert and oriented 3, well developed and well nourished, normocephalic and atraumatic, lying in bed and in no acute distress. HEENT--PERRL, EOMI, mucous membranes and oropharynx mildly dry. Neck--supple. No JVD. No bruits. Thyroid normal, trachea midline, no adenopathy. Heart--normal S1 and S2. No murmurs, rubs or gallops. Lungs--clear bilaterally, no respiratory distress, no accessory muscle use. Abdomen--normal bowel sounds and soft. Nontender. Nondistended, no hernias or masses, no organomegaly. Extremities--1+ bilateral pretibial pitting edema, with small vacuolization Dermatologic--see above Neurologic--cranial nerves II through XII grossly intact. Rheumatologic--normal range of motion. Psychiatric--normal affect. Results & Data Results & Data Vital Signs (Past 12 Hours) Vital Signs Temp Pulse Pulse Resp BP BP Pulse Ox 01/23/24 04:45 70 18 168/83 H 97 01/23/24 04:30 74 18 159/78 H 99 01/23/24 04:15 68 18 167/81 H 97 01/23/24 04:00 155/78 H 01/23/24 04:00 72 18 155/78 H 98 01/23/24 03:45 68 18 145/101 H 98 01/23/24 03:30 71 20 165/85 H 99 01/23/24 02:04 71 16 149/76 H 98 01/23/24 01:57 72 18 149/76 H 98 01/23/24 01:31 160/88 H 01/23/24 01:31 80 01/23/24 01:29 36.6 C 78 18 160/88 H 98 O2 Del Method 01/23/24 04:45 01/23/24 04:30 01/23/24 04:15 01/23/24 04:00 01/23/24 04:00 01/23/24 03:45 Room Air 01/23/24 03:30 Room Air 01/23/24 02:04 Room Air 01/23/24 01:57 Room Air 01/23/24 01:31 01/23/24 01:31 01/23/24 01:29 Room Air Laboratory Results Laboratory Results WBC 12.95 K/ul (4.8-10.8) H 01/23/24 01:38 RBC 3.59 M/uL (4.20-5.40) L 01/23/24 01:38 Hgb 10.1 g/dl (12.0-16.0) L 01/23/24 01:38 Hct 32.3 % (37.0-47.0) L 01/23/24 01:38 MCV 90.0 fL (80.0-100.0) 01/23/24 01:38 MCH 28.1 pg (25.0-34.0) 01/23/24 01:38 MCHC 31.3 g/dL (32.0-36.0) L 01/23/24 01:38 RDW Std Deviation 46.0 fL (36.4-46.3) 01/23/24 01:38 RDW Coeff of Arslan 14.2 % (11.5-14.5) 01/23/24 01:38 Plt Count 324 K/uL (130-400) 01/23/24 01:38 MPV 10.6 fL (9.4-12.4) 01/23/24 01:38 Immature Gran % (Auto) 0.5 % 01/23/24 01:38 Neut % (Auto) 66.3 % 01/23/24 01:38 Lymph % (Auto) 21.9 % 01/23/24 01:38 [place] % (Auto) 8.3 % 01/23/24 01:38 Eos % (Auto) 2.5 % 01/23/24 01:38 Baso % (Auto) 0.5 % 01/23/24 01:38 Neut # (Auto) 8.58 K/uL (1.40-6.50) H 01/23/24 01:38 Lymph # (Auto) 2.84 K/uL (1.20-3.40) 01/23/24 01:38 [place] # (Auto) 1.07 K/uL (0.11-0.59) H 01/23/24 01:38 Eos # (Auto) 0.33 K/uL (0.00-0.50) 01/23/24 01:38 Baso # (Auto) 0.06 K/uL (0.00-0.20) 01/23/24 01:38 Immature Gran # (Auto) 0.07 K/uL (0.01-0.20) 01/23/24 01:38 Sodium 138 mmol/L (136-145) 01/23/24 01:38 Potassium 3.6 mmol/L (3.5-5.1) 01/23/24 01:38 Chloride 107 mmol/L (98-107) 01/23/24 01:38 Carbon Dioxide 24 mmol/L (21-32) 01/23/24 01:38 Anion Gap 7 (3-11) 01/23/24 01:38 BUN 15 mg/dl (6-23) 01/23/24 01:38 Creatinine 1.13 mg/dl (0.6-1.2) 01/23/24 01:38 Est Cr Clr Drug Dosing 53.7 ml/min 01/23/24 01:38 eGFR 52.66 01/23/24 01:38 BUN/Creatinine Ratio 13.3 (10-20) 01/23/24 01:38 Glucose 153 mg/dl (70-99(Fasting)) H 01/23/24 01:38 Lactate 1.6 mmol/L (0.4-2.0) 01/23/24 02:01 Calcium 9.4 mg/dl (8.6-10.3) 01/23/24 01:38 Magnesium 1.8 mg/dl (1.7-2.4) 01/23/24 01:38 Total Bilirubin 0.2 mg/dl (0.2-1.0) 01/23/24 01:38 Direct Bilirubin 0.0 mg/dl (0-0.2) 01/23/24 01:38 AST 10 U/L (13-39) L 01/23/24 01:38 ALT 13 U/L (7-52) 01/23/24 01:38 Alkaline Phosphatase 90 U/L (34-104) 01/23/24 01:38 Total Creatine Kinase 75 U/L (26-192) 01/23/24 01:38 Troponin I High Sens 8.3 pg/ml (0-14) 01/23/24 01:38 Total Protein 6.8 gm/dl (6.0-8.3) 01/23/24 01:38 Albumin 3.8 gm/dl (3.4-5.0) 01/23/24 01:38 Procalcitonin < 0.02 ng/ml (0-0.5) 01/23/24 01:38 Urine Color Yellow 01/23/24 03:29 Urine Appearance Clear (Clear) 01/23/24 03:29 Urine pH 7.0 (4.5-7.5) 01/23/24 03:29 Ur Specific [place] 1.007 (1.000-1.030) 01/23/24 03:29 Urine Protein Negative (Negative) 01/23/24 03:29 Urine Glucose (UA) Negative (Negative) 01/23/24 03:29 Urine Ketones Negative (Negative) 01/23/24 03:29 Urine Blood Negative (Negative) 01/23/24 03:29 Urine Nitrite Negative (Negative) 01/23/24 03:29 Urine Bilirubin Negative (Negative) 01/23/24 03:29 Urine Urobilinogen Negative (Negative) 01/23/24 03:29 Ur Leukocyte Esterase Trace (Negative) H 01/23/24 03:29 Urine WBC (Auto) 0-5 /hpf (0-5) 01/23/24 03:29 Urine RBC (Auto) 0-2 /hpf (0-2) 01/23/24 03:29 U Hyaline Cast (Auto) 0-2 /lpf (0-2) 01/23/24 03:29 U Epithel Cells (Auto) 0-2 /hpf (0-2) 01/23/24 03:29 Urine Bacteria (Auto) None Seen (None Seen) 01/23/24 03:29 Impressions Chest X-Ray 01/23/24 01:57 EXAM: XR chest 1V portable CLINICAL HISTORY: SEPSIS JMF TECHNIQUE: [id number] X-ray image of the chest is obtained in AP projection. Rotated /OBX.5.1.1OBX.5.1.2 soft exposure./OBX.5.1.2/OBX.5.1 COMPARISON: CXR dated 04/22/2023. FINDINGS: Pulmonary Parenchyma: Bilateral prominent broncho vascular markings are prominent There is no evidence of consolidation, or collapse. No pulmonary nodules are identified. There is no evidence of pleural effusion or pleural thickening. Heart and Mediastinum: Heart size cannot be commented upon due to marked rotation. No mediastinal masses. No definite hilar or mediastinal lymphadenopathy. Bony Thorax: An old fracture of the distal third of the left clavicle is also seen. The distal fractured fragment seen in the previous film is no longer visible. Maybe it was surgically removed. Needs to be correlated with history. Soft Tissues: Soft tissues overlying the chest wall are unremarkable. IMPRESSION: No acute cardiopulmonary disease process. Electronically signed by Belén Cheatham 01-23-2024 03:32 AM Venous Doppler Study 01/23/24 01:58 EXAM: US venous doppler LE BI CLINICAL HISTORY: Redness to BL LE Groin nodes seen BL NO OBVIOUS DVT IN BL LE Difficult vis of calf vessels due to edema TECHNIQUE: Ultrasound examination of bilateral lower extremity veins was performed in real time and duplex. One or more of the following were performed- spectral analysis, resistive index, waveform analysis, and pulsed Doppler. COMPARISON: 03/27/2022. FINDINGS: Diffuse difficult visualization of the calf vessels due to subcutaneous soft tissue edema. Normal phasic, non-pulsatile and spontaneous flow is noted in bilateral common femoral, superficial femoral, popliteal and posterior tibial and peroneal veins. Visualized veins of both lower extremities demonstrate normal compressibility. No sonographic evidence of acute deep vein thrombosis (DVT) is detected in the visualized veins of both lower extremities. Compression and Augmentation: All evaluated veins compress fully with applied transducer pressure. Augmentation of venous flow is noted with distal compression. Additional Findings: No evidence of intraluminal thrombus. A prominent lymph node measured about 1.7 x 1.2 x 0.7 cm, was seen in the right groin region. Unspecific likely reactionary. IMPRESSION: 1. No sonographic evidence of acute DVT is detected in bilateral common femoral, superficial femoral, popliteal, and posterior tibial and peroneal veins, at the time of examination. 2. Diffuse poor visualization of the calf vessels due to subcutaneous soft tissue edema. 3. No significant interval changes compared to the prior study dated 03/27/2022. Disclaimer: DVT could be missed early in the disease when clot burden is minimal. For patients with moderate and high pretest probability of DVT and negative ultrasound, the [place] clinical guidelines recommend testing with a D-dimer assay or repeat ultrasound in 5-7 days. If symptoms worsen, the Society of radiologists in ultrasound recommends repeating ultrasound even earlier. Electronically signed by Belén Cheatham 01-23-2024 04:11 AM Code Status & VTE Plan Code Status Full code VTE Prophylaxis Plan VTE Prophylaxis will be ordered: Yes PG Care Time/CCT Total # of Minutes Spent Total Time Spent with Patient: Total time spent is greater than 50% in coordination of care (as documented) at patient's floor/unit and/or counseling patient: Coding Level of Care Code 29527 INT INP/OBS CARE 3/75MIN Diagnoses Cellulitis of both lower extremities L03.115; L03.116 Bilateral lower extremity edema R60.0 Chronic kidney disease, stage 3 N18.3 Restless legs G25.81 Generalized osteoarthritis M15.9 Diabetes mellitus, type 2 E11.9
--- NOTE | 2024-01-23 05:01 | Emergency Department Note ---
Impression & Plan Bilateral lower leg cellulitis Admit to the [facility] ED Provider Note NAME: CARLY HSU AGE: 68 SEX: Female INFORMANT: Patient ED PROVIDER(S): Medina Rock DO CHIEF COMPLAINT: Bilateral lower leg redness, swelling and pain PLAN: Disposition: admit to the [facility] MEDICAL DECISION MAKING: this is a 68-year-old female patient with chronic health issues who presents to the emergency department complaining of increasing edema, erythema and pain to both of her lower legs. This is worsened over the past couple of weeks. She became increasingly concerned because she is now also having blood in her stools and urine. Patient also describes multiple other complaints including a headache, neck pain, back pain and and an intermittent feelings of cold hands and feet. On physical exam, the patient has significant evidence of cellulitis in both lower extremities. Laboratory studies revealed a white blood cell count of 12.9. Hemoglobin was 10 and hematocrit was 32.3. This was slightly low for the patient. Urinalysis revealed no evidence of hematuria. Glucose was 153. Troponin was negative. Total CK of 75 which was normal. Procalcitonin and lactate were normal. There was no obvious signs of sepsis. Chest x-ray was unremarkable. Patient was afebrile. Patient underwent duplex of both lower extremities to rule out DVT. This was negative. It appears the patient has bilateral lower extremity cellulitis and was treated with IV vancomycin as she has an allergy to cephalosporins. I discussed the case with the [facility] and they will evaluate for further inpatient care. Care/management discussed with: process manager and [facility] Triage Nursing notes: reviewed and agree with them. Vital Signs: reviewed and remarkable for no significant abnormalities Differential Diagnosis: Sepsis, cellulitis, rhabdomyolysis, DVT, UTI, GI bleed Diagnostics, independently interpreted by me: ECG: Normal sinus rhythm at a rate of [address] segment elevation or signs of ischemia. There is no ectopy. Cardiac Monitoring: Normal sinus rhythm at 82 Imaging studies: Portable chest x-ray: As per my independent interpretation no obvious consolidative process or signs of opacities concerning for pneumonia Bilateral lower extremity duplex: No obvious DVT as per Imbro HPI: 68 year old Female arrives for evaluation of lower extremity pain, swelling and redness. Patient describes muscle spasms in her lower legs over the past 2 to 3 weeks. She has become more concerned in the past 2 days because she has been taking Tylenol with no relief. Patient explains that she also has felt hot and cold spells with a headache, neck pain and back pain. She describes having an episode of blood in her urine a couple days ago and blood in her stool. PAST MEDICAL HISTORY: See Below, PAST SURGICAL HISTORY: See Below, SOCIAL HISTORY: See Below, HOME MEDICATIONS: See list ALLERGIES: See list VITALS: See Below PHYSICAL EXAMINATION: HEENT: Head - normocephalic and atraumatic. Pupils are equal, round, and reactive to light. Extraocular eye muscles are intact, and sclera are anicteric. Nose - moist nasal mucosa without discharge. Mouth - moist buccal mucosa. Oropharynx is nonerythematous and there is no tonsillar exudate or edema noted. Neck: Supple; no JVD, nuchal rigidity, cervical lymphadenopathy, or auscultated bruits. Heart: Regular rate and rhythm. There is a normal S1 and S2 with no murmurs, clicks, or gallops appreciated. Lungs: Clear to auscultation bilaterally with no wheezes, rales, or rhonchi. Abdomen: Soft, completely nontender, nondistended, with good bowel sounds. There are no palpable pulsatile masses or hepatosplenomegaly. There is no guarding, rigidity, or rebound noted. Extremities: Significant nonpitting edema to both lower extremities with moderate erythema that extends up to just below the knees. The lower extremities are extremely hot to the touch. She does have easily palpable distal pulses. Skin: warm and dry with good turgor and no rashes. 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 A complete history and physical was performed. A septic protocol was performed. Portable chest x-ray was obtained. Laboratory studies were drawn as above. Twelve-lead EKG was obtained. An order was placed for continuous cardiac monitoring. The patient was in a normal sinus rhythm at a rate of 82. Patient was given a dose of IV fentanyl for the pain in her legs. She was given IV Zofran to prevent nausea and vomiting. Patient had bilateral lower extremity Dopplers obtained to rule out DVT. There were no signs of sepsis. Patient was started on IV vancomycin. Patient requested additional pain medication for the leg pain. I discussed the case with the [facility] Hospitalist and they will evaluate for further inpatient care. Past Med/Surg History Problem List (Updated 01/23/24 @ 15:30 by Medina Rock DO) Bilateral lower leg cellulitis (Acute) Bilateral lower extremity edema Cellulitis of both lower extremities Swelling of left upper extremity Bilateral mastodynia Left axillary fullness Bilateral hip joint arthritis GERD (gastroesophageal reflux disease) (Chronic) Vitamin D deficiency (Chronic) Restless legs (Chronic) Mitral valve disorder (Chronic) Hypothyroidism (Chronic) Hyperlipidemia (Chronic) Cerebrovascular disease, unspecified (Chronic) Generalized osteoarthritis (Chronic) Morbidly obese Change in bowel habits Urinary incontinence Breast pain Elevated white blood cell count Lymphadenopathy Hypomagnesemia Hypokalemia Leg edema Abdominal pain Bipolar depression Degenerative disc disease (Chronic) Gastroparesis (Chronic) Chronic kidney disease, stage 3 (Chronic) follows with PCP Hypertension (Chronic) Diabetes mellitus, type 2 Chronic constipation Anemia Arthritis Medical History Macular degeneration Fibromyalgia Insomnia Stomach ulcer Stroke Osteoarthritis Colon polyps Fatty liver Kidney stones H/O breast lump H/O migraine Restless legs syndrome Hyperlipidemia Chronic GERD Hypothyroidism Lumbar spine scoliosis (10/26/13) Surgical History History of tonsillectomy and adenoidectomy S/P lymph node biopsy (07/21/21) S/P cholecystectomy History of esophagogastroduodenoscopy (EGD) History of colonoscopy History of cataract surgery History of cystoscopy History of lithotripsy S/P lumbar spinal fusion History of appendectomy H/O non-cataract eye surgery H/O: hysterectomy Family History Mother Diabetes Clotting disorder Heart disease Myocardial infarction Hypertension Father Diabetes Heart disease Grandmother (Paternal) Lung cancer Grandfather (Maternal) Stomach cancer Other Breast cancer Cancer No family history of adverse response to anesthesia Denies family history of Colon cancer Ovarian cancer Prostate cancer Social History Smoking Status: Never smoker Second Hand Exposure: Yes (as a child); Do You Dip or Chew Tobacco: No; Hx Alcohol Use: No Hx Substance Use: No Preferred Language: Swedish Communication Ability: Effective Visual Impairment: No Limitations Hearing Ability: Normal Ferris Wheel Attendant Required: No Beliefs That Will Affect Care: None marital status: Current Living Situation: Alone Current Living Situation Comment: recieved home health for assistance>recent staff problems current occupational status: retired 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 [place] How many Children do You have: 2 Feels Safe at Home: Yes Safety Concerns Comment: Pt states some things have gone missing around home, trying to move Childhood Exposure to Second-Hand Smoke: Yes Diet: regular caffeine: No during the past year weight has: decreased > 10 lbs Dental Care, Regularly: Yes Physical Activity Frequency: Does not Exercise Seatbelt Use: always Sunscreen Use: No Do you think of yourself as: straight/heterosexual Gender Identity: Female Assistive Devices: Scooter/Electric Scooter Allergies Allergies Allergy/AdvReac Type Severity Reaction Status Date / Time gabapentin Allergy Severe sore Verified 11/04/23 10:48 throat, stomach pains, nausea Cephalosporins Allergy Intermediate CEPHALEXIN-RASH Verified 11/04/23 10:48 & ULCERS IN MOUTH Penicillins Allergy Intermediate RASH AND Verified 11/04/23 10:48 ULCERS IN MOUTH Sulfa (Sulfonamide Allergy Intermediate RASH AND Verified 11/04/23 10:48 Antibiotics) ULCERS IN MOUTH sulfamethoxazole Allergy Intermediate rash and Verified 11/04/23 10:48 ulcers in the mouth wheat Allergy Intermediate Itching Unverified 11/04/23 10:48 levofloxacin Allergy Mild local Verified 11/04/23 10:48 reaction meperidine AdvReac Intermediate VOMITING & Verified 11/04/23 10:48 VERTIGO metformin AdvReac Intermediate Diarrhea Verified 11/04/23 10:48 oxycodone AdvReac Intermediate PERCOCET - Verified 11/04/23 10:48 vomiting and vertigo sesame seed AdvReac Unverified 11/04/23 10:48 Home Meds Home Medications Medication Instructions Recorded Confirmed topiramate 100 mg tablet 150 mg PO BID 01/23/24 01/23/24 Previous Rx's Medication Instructions Recorded blood sugar diagnostic #30 ea 09/21/19 blood-glucose meter #1 ea 09/21/19 blood sugar diagnostic (Accu-Chek #100 ea 05/04/23 Guide test strips) finerenone 10 mg tablet (Kerendia) 10 mg PO QAM #90 tabs 05/04/23 lamotrigine 200 mg tablet 200 mg PO BID #180 tabs 05/04/23 lancets (Accu-Chek Fastclix Lancet #100 ea 05/04/23 Drum) torsemide 10 mg tablet 30 mg (3 x 10 mg) PO BID #540 tabs 05/04/23 [id number] 250 mg-dha 90 1 cap PO BID #180 caps 07/29/23 mg-epa 160 [id number] capsule (Ocuvite Adult 50 Plus) atorvastatin 20 mg tablet 20 mg PO QPM #30 tabs 10/25/23 cholecalciferol (vitamin D3) 50 50 mcg PO QAM #90 caps 10/25/23 mcg (2,000 unit) capsule clopidogrel 75 mg tablet 75 mg PO QAM #90 tabs 10/25/23 duloxetine 60 mg capsule,delayed 60 mg PO BID #180 caps 10/25/23 release ferrous sulfate 325 mg (65 mg 325 mg PO QAM #90 tabs 10/25/23 iron) tablet (FeroSul) levothyroxine 75 mcg tablet 75 mcg PO QAM #90 tabs 10/25/23 magnesium gluconate 27 mg 27 mg PO HS #30 tabs 10/25/23 magnesium (500 mg) tablet (Mag-G) metoprolol tartrate 25 mg tablet 12.5 mg (1/2 x 25 mg) PO BID #30 10/25/23 tabs pantoprazole 40 mg tablet,delayed 40 mg PO BID #180 tabs 10/25/23 release potassium chloride 10 mEq 20 meq (2 x 10 mEq) PO TID #540 10/25/23 capsule,extended release caps pramipexole 0.25 mg tablet 0.25 mg PO HS #90 tabs 10/25/23 sennosides 8.6 mg tablet (Senna 8.6 - 17.2 mg (1 - 2 x 8.6 mg) PO 10/25/23 Laxative) BID #180 tabs multivitamin with folic acid 400 1 tab PO QAM #90 tabs 11/23/23 mcg tablet (Tab-A-Ck) acetaminophen 500 mg tablet 500 mg PO Q6H PRN Pain #225 tabs 01/20/24 Results & Data (ED) Vital Signs Vital Signs - 24 hr 01/23/24 01:29 01/23/24 01:31 01/23/24 01:31 Temperature 36.6 C Temperature Source Oral Pulse Rate 78 80 Pulse Rate [Finger] Respiratory Rate 18 Blood Pressure 160/88 H 160/88 H Blood Pressure [Right Arm] Blood Pressure Mean 112 105 Blood Pressure Mean [Right Arm] Pulse Oximetry 98 Oxygen Delivery Method Room Air Sepsis Recent Fever Within 48 Hours No Sepsis New/Unexplained Change in Mental Status N/A Sepsis Action Taken by Nursing No Action Required 01/23/24 01:57 01/23/24 02:04 01/23/24 03:30 Temperature Temperature Source Pulse Rate 71 71 Pulse Rate [Finger] 72 Respiratory Rate 18 16 20 Blood Pressure 149/76 H 165/85 H Blood Pressure [Right Arm] 149/76 H Blood Pressure Mean 112 120 Blood Pressure Mean [Right Arm] 100 Pulse Oximetry 98 98 99 Oxygen Delivery Method Room Air Room Air Room Air Sepsis Recent Fever Within 48 Hours Sepsis New/Unexplained Change in Mental Status Sepsis Action Taken by Nursing 01/23/24 03:45 01/23/24 04:00 01/23/24 04:00 Temperature Temperature Source Pulse Rate 68 Pulse Rate [Finger] 72 Respiratory Rate 18 18 Blood Pressure 145/101 H 155/78 H Blood Pressure [Right Arm] 155/78 H Blood Pressure Mean 126 103 Blood Pressure Mean [Right Arm] 103 Pulse Oximetry 98 98 Oxygen Delivery Method Room Air Sepsis Recent Fever Within 48 Hours Sepsis New/Unexplained Change in Mental Status Sepsis Action Taken by Nursing 01/23/24 04:15 01/23/24 04:30 01/23/24 04:45 Temperature Temperature Source Pulse Rate 68 74 70 Pulse Rate [Finger] Respiratory Rate 18 18 18 Blood Pressure 167/81 H 159/78 H 168/83 H Blood Pressure [Right Arm] Blood Pressure Mean 109 105 111 Blood Pressure Mean [Right Arm] Pulse Oximetry 97 99 97 Oxygen Delivery Method Sepsis Recent Fever Within 48 Hours Sepsis New/Unexplained Change in Mental Status Sepsis Action Taken by Nursing Laboratory Data 01/23/24 01:38 01/23/24 01:38 Lab Results 01/23/24 01/23/24 01/23/24 Range/Units 01:38 02:01 03:29 WBC 12.95 H (4.8-10.8) K/ul RBC 3.59 L (4.20-5.40) M/uL Hgb 10.1 L (12.0-16.0) g/dl Hct 32.3 L (37.0-47.0) % MCV 90.0 (80.0-100.0) fL MCH 28.1 (25.0-34.0) pg MCHC 31.3 L (32.0-36.0) g/dL RDW Std Deviation 46.0 (36.4-46.3) fL RDW Coeff of Arslan 14.2 (11.5-14.5) % Plt Count 324 (130-400) K/uL MPV 10.6 (9.4-12.4) fL Immature Gran % (Auto) 0.5 % Neut % (Auto) 66.3 % Lymph % (Auto) 21.9 % [place] % (Auto) 8.3 % Eos % (Auto) 2.5 % Baso % (Auto) 0.5 % Neut # (Auto) 8.58 H (1.40-6.50) K/uL Lymph # (Auto) 2.84 (1.20-3.40) K/uL [place] # (Auto) 1.07 H (0.11-0.59) K/uL Eos # (Auto) 0.33 (0.00-0.50) K/uL Baso # (Auto) 0.06 (0.00-0.20) K/uL Immature Gran # (Auto) 0.07 (0.01-0.20) K/uL Sodium 138 (136-145) mmol/L Potassium 3.6 (3.5-5.1) mmol/L Chloride 107 (98-107) mmol/L Carbon Dioxide 24 (21-32) mmol/L Anion Gap 7 (3-11) BUN 15 (6-23) mg/dl Creatinine 1.13 (0.6-1.2) mg/dl Est Cr Clr Drug Dosing 53.7 ml/min eGFR 52.66 BUN/Creatinine Ratio 13.3 (10-20) Glucose 153 H (70-99(Fasting)) mg/dl Lactate 1.6 (0.4-2.0) mmol/L Calcium 9.4 (8.6-10.3) mg/dl Magnesium 1.8 (1.7-2.4) mg/dl Total Bilirubin 0.2 (0.2-1.0) mg/dl Direct Bilirubin 0.0 (0-0.2) mg/dl AST 10 L (13-39) U/L ALT 13 (7-52) U/L Alkaline Phosphatase 90 (34-104) U/L Total Creatine Kinase 75 (26-192) U/L Troponin I High Sens 8.3 (0-14) pg/ml Total Protein 6.8 (6.0-8.3) gm/dl Albumin 3.8 (3.4-5.0) gm/dl Procalcitonin < 0.02 (0-0.5) ng/ml Urine Color Yellow Urine Appearance Clear (Clear) Urine pH 7.0 (4.5-7.5) Ur Specific [place] 1.007 (1.000-1.030) Urine Protein Negative (Negative) Urine Glucose (UA) Negative (Negative) Urine Ketones Negative (Negative) Urine Blood Negative (Negative) Urine Nitrite Negative (Negative) Urine Bilirubin Negative (Negative) Urine Urobilinogen Negative (Negative) Ur Leukocyte Esterase Trace H (Negative) Urine WBC (Auto) 0-5 (0-5) /hpf Urine RBC (Auto) 0-2 (0-2) /hpf U Hyaline Cast (Auto) 0-2 (0-2) /lpf U Epithel Cells (Auto) 0-2 (0-2) /hpf Urine Bacteria (Auto) None Seen (None Seen) Administered Medications Acetaminophen (Acetaminophen 325 Mg Tab) 650 mg PO Q6H PRN PRN Reason: Pain or Fever Stop: 02/22/24 06:02 Last Admin: 01/23/24 06:38 Dose: 650 mg Documented By: WAQAS Clopidogrel Bisulfate (Clopidogrel Bisulfate 75 Mg Tab) 75 mg PO [facility] Stop: 02/22/24 08:59 Last Admin: 01/23/24 08:40 Dose: 75 mg Documented By: CELI Duloxetine HCl (Duloxetine Hcl 60 Mg Cap) 60 mg PO BID [facility] Stop: 02/22/24 08:59 Last Admin: 01/23/24 08:40 Dose: 60 mg Documented By: CELI Ferrous Sulfate (Ferrous Sulfate 325 Mg Tab) 325 mg PO [facility] Stop: 02/22/24 08:59 Last Admin: 01/23/24 08:39 Dose: 325 mg Documented By: CELI Heparin Sodium (Porcine) (Heparin Sod 5,000 Unit/0.5 Ml Vial) 7,500 units SQ Q12 [facility] Stop: 02/22/24 08:59 Last Admin: 01/23/24 08:47 Dose: 7,500 units Documented By: CELI Daptomycin 300 mg/ Syringe 6 mls @ 3 mls/min IV Q24H [facility]; Protocol Stop: 01/30/24 08:59 Last Admin: 01/23/24 13:07 Dose: 3 mls/min Documented By: CELI Cefepime HCl (Maxipime 2000mg) 2,000 mg in 20 mls @ 5 mls/min IV Q12H [facility]; Protocol Stop: 01/30/24 05:59 Last Admin: 01/23/24 07:04 Dose: 5 mls/min Documented By: WAQAS Insulin Aspart (Insulin Aspart Per Unit Charge) 0 units SC ACHS [facility] Stop: 02/22/24 07:29 Last Admin: 01/23/24 13:12 Dose: 1 units Documented By: CELI Co-signed By: [facility] Admin: 01/23/24 10:23 Dose: 2 units Documented By: CELI Co-signed By: HAYDE Lamotrigine (Lamotrigine 100 Mg Tab) 200 mg PO BID [facility]; Protocol Stop: 02/22/24 08:59 Last Admin: 01/23/24 08:40 Dose: 200 mg Documented By: CELI Levothyroxine Sodium (Levothyroxine Sodium 75 Mcg Tablet) 75 mcg PO DAILYBB [facility] Stop: 02/22/24 06:29 Last Admin: 01/23/24 07:19 Dose: 75 mcg Documented By: SHAYY Menthol (Cough Drop (Sugar Free) [place] 24 [place]/1 Box) 1 francisco BUCCAL Q2H PRN PRN Reason: Sore Throat Stop: 02/22/24 11:01 Last Admin: 01/23/24 11:22 Dose: 1 francisco Documented By: CELI Metoprolol Tartrate (Metoprolol Tartrate 25 Mg Tab) 12.5 mg PO BID [facility] Stop: 02/22/24 08:59 Last Admin: 01/23/24 08:40 Dose: 12.5 mg Documented By: CELI Miscellaneous (Finerenone [Kerendia]: Order Awaiting Action) 1 each N/A QS KATHY Stop: 02/22/24 07:59 Last Admin: 01/23/24 08:50 Dose: Not Given Documented By: CELI Multivitamins (Multivitamin Tab) 1 tab PO QAM KATHY Stop: 02/22/24 08:59 Last Admin: 01/23/24 08:40 Dose: 1 tab Documented By: CELI Multivitamins/Minerals (Cerovite Adv Formula Tab) 1 tab PO BID KATHY Stop: 02/22/24 08:59 Last Admin: 01/23/24 08:39 Dose: 1 tab Documented By: CELI Pantoprazole Sodium (Pantoprazole 40 Mg Tab) 40 mg PO BID KATHY Stop: 02/22/24 08:59 Last Admin: 01/23/24 08:40 Dose: 40 mg Documented By: CELI Potassium Chloride (Potassium Chloride Crtab 20 Meq Tabcr) 40 meq PO BID KATHY Stop: 02/22/24 08:59 Last Admin: 01/23/24 08:47 Dose: 40 meq Documented By: CELI Sennosides (Senna 8.6 Mg Tab) 8.6 mg PO BID KATHY Stop: 02/22/24 08:59 Last Admin: 01/23/24 08:47 Dose: 8.6 mg Documented By: CELI Topiramate (Topiramate 50 Mg Tab) 150 mg PO BID KATHY Stop: 02/22/24 08:59 Last Admin: 01/23/24 08:39 Dose: 150 mg Documented By: CELI Vitamin D (Cholecalciferol 25 Mcg (1000 Units) Tab) 50 mcg PO QAM [facility] Stop: 02/22/24 08:59 Last Admin: 01/23/24 08:39 Dose: 50 mcg Documented By: CELI Discontinued Medications Fentanyl Citrate (Fentanyl Citrate Pf 100 Mcg/2 Ml Vial) 50 mcg IV NOW STA Stop: 01/23/24 01:58 Last Admin: 01/23/24 02:11 Dose: 50 mcg Documented By: TAL Fentanyl Citrate (Fentanyl Citrate Pf 100 Mcg/2 Ml Vial) 50 mcg IV NOW STA Stop: 01/23/24 04:12 Last Admin: 01/23/24 04:26 Dose: 50 mcg Documented By: ATL Vancomycin HCl 2,250 mg/ (Sodium Chloride) 545 mls @ 200 mls/hr IV NOW ONE Stop: 01/23/24 07:01 Last Infusion: 01/23/24 07:54 Dose: Infused Documented By: Admin: 01/23/24 04:39 Dose: 200 mls/hr Documented By: ROSELINE Ketorolac Tromethamine (Ketorolac 30 Mg/Ml Vial) 15 mg IV NOW ONE Stop: 01/23/24 12:13 Last Admin: 01/23/24 13:06 Dose: 15 mg Documented By: CELI Tramadol HCl (Tramadol Hcl 50 Mg Tablet) 50 mg PO NOW STA Stop: 01/23/24 09:01 Last Admin: 01/23/24 10:23 Dose: 50 mg Documented By: CELI Imaging Data Radiologist's Impression: Chest X-Ray 01/23/24 01:57 EXAM: XR chest 1V portable CLINICAL HISTORY: SEPSIS JMF TECHNIQUE: [id number] X-ray image of the chest is obtained in AP projection. Rotated /[id number] soft exposure./OBX.5.1.2/OBX.5.1 COMPARISON: CXR dated 04/22/2023. FINDINGS: Pulmonary Parenchyma: Bilateral prominent broncho vascular markings are prominent There is no evidence of consolidation, or collapse. No pulmonary nodules are identified. There is no evidence of pleural effusion or pleural thickening. Heart and Mediastinum: Heart size cannot be commented upon due to marked rotation. No mediastinal masses. No definite hilar or mediastinal lymphadenopathy. Bony Thorax: An old fracture of the distal third of the left clavicle is also seen. The distal fractured fragment seen in the previous film is no longer visible. Maybe it was surgically removed. Needs to be correlated with history. Soft Tissues: Soft tissues overlying the chest wall are unremarkable. IMPRESSION: No acute cardiopulmonary disease process. Electronically signed by Belén Cheatham 01-23-2024 03:32 AM Venous Doppler Study 01/23/24 01:58 EXAM: US venous doppler LE BI CLINICAL HISTORY: Redness to BL LE Groin nodes seen BL NO OBVIOUS DVT IN BL LE Difficult vis of calf vessels due to edema TECHNIQUE: Ultrasound examination of bilateral lower extremity veins was performed in real time and duplex. One or more of the following were performed- spectral analysis, resistive index, waveform analysis, and pulsed Doppler. COMPARISON: 03/27/2022. FINDINGS: Diffuse difficult visualization of the calf vessels due to subcutaneous soft tissue edema. Normal phasic, non-pulsatile and spontaneous flow is noted in bilateral common femoral, superficial femoral, popliteal and posterior tibial and peroneal veins. Visualized veins of both lower extremities demonstrate normal compressibility. No sonographic evidence of acute deep vein thrombosis (DVT) is detected in the visualized veins of both lower extremities. Compression and Augmentation: All evaluated veins compress fully with applied transducer pressure. Augmentation of venous flow is noted with distal compression. Additional Findings: No evidence of intraluminal thrombus. A prominent lymph node measured about 1.7 x 1.2 x 0.7 cm, was seen in the right groin region. Unspecific likely reactionary. IMPRESSION: 1. No sonographic evidence of acute DVT is detected in bilateral common femoral, superficial femoral, popliteal, and posterior tibial and peroneal veins, at the time of examination. 2. Diffuse poor visualization of the calf vessels due to subcutaneous soft tissue edema. 3. No significant interval changes compared to the prior study dated 03/27/2022. Disclaimer: DVT could be missed early in the disease when clot burden is minimal. For patients with moderate and high pretest probability of DVT and negative ultrasound, the [employer] [place] [employer] clinical guidelines recommend testing with a D-dimer assay or repeat ultrasound in 5-7 days. If symptoms worsen, the Society of radiologists in ultrasound recommends repeating ultrasound even earlier. Electronically signed by Belén Cheatham 01-23-2024 04:11 AM Discharge Plan Visit Data Chief Complaint: Pain (Generalized) Stated Complaint: BODY PAIN/MUSCLE SPASMS X3 WEEKS ED Provider: Med[place] Discharge Problem: Bilateral lower leg cellulitis Patient Disposition: Admitted As Inpatient Discharge Instructions Interventions: ED Discharge Assessment Last Done: 01/23/24 05:48
[2024-01-23] MEDS ORDERED: GLUCOSE 10 TAB/TUBE PO PRN (06:03)
[2024-01-23] MEDS ORDERED: CARBOHYDRATES FOR HYPOGLYCEMIA PO PRN (06:03)
[2024-01-23] MEDS ORDERED: GLUCAGON FOR INJ 1 MG VIAL SQ PRN (06:03)
[2024-01-23] MEDS ORDERED: GLUCOSE 40% GEL 15 GM TUBE PO PRN (06:03)
[2024-01-23] MEDS ORDERED: DEXTROSE 50% 50 ML SYRINGE IV PRN (06:03)
[2024-01-23] MEDS: ACETAMINOPHEN 325 MG TAB PO PRN (06:38)
[2024-01-23] MEDS: CEFEPIME 2000MG 2,000 MG/20 ML SYR IV SCH (07:04)
[2024-01-23] MEDS: LEVOTHYROXINE SODIUM 75 MCG TABLET PO SCH (07:19)
--- NOTE | 2024-01-23 07:25 | Electrocardiogram Report ---
Test Reason : Blood Pressure : */* mmHG Vent. Rate : 74 BPM Atrial Rate : 74 BPM P-R Int : 188 ms QRS Dur : 96 ms QT Int : 412 ms P-R-T Axes : 35 34 48 degrees QTcB Int : 457 ms Normal sinus rhythm Low voltage QRS Borderline ECG When compared with ECG of 22-Apr-2023 10:07, Nonspecific T wave abnormality no longer evident in Anterior leads Confirmed by Ramsey Lai ([id number]) on 01/23/2024 7:24:48 AM Referred By: REFERRED SELF Confirmed By: Ramsey Lai
[2024-01-23] MEDS: CEROVITE ADV FORMULA TAB PO SCH (08:39)
[2024-01-23] MEDS: CHOLECALCIFEROL 25 MCG (1000 UNITS) TAB PO SCH (08:39)
[2024-01-23] MEDS: FERROUS SULFATE 325 MG TAB PO SCH (08:39)
[2024-01-23] MEDS: TOPIRAMATE 50 MG TAB PO SCH (08:39)
[2024-01-23] MEDS: lamoTRIgine 100 MG TAB PO SCH (08:40)
[2024-01-23] MEDS: DULoxetine HCL 60 MG CAP PO SCH (08:40)
[2024-01-23] MEDS: CLOPIDOGREL BISULFATE 75 MG TAB PO SCH (08:40)
[2024-01-23] MEDS: PANTOprazole 40 MG TAB PO SCH (08:40)
[2024-01-23] MEDS: METOPROLOL TARTRATE 25 MG TAB PO SCH (08:40)
[2024-01-23] MEDS: MULTIVITAMIN TAB PO SCH (08:40)
[2024-01-23] MEDS: SENNA 8.6 MG TAB PO SCH (08:47)
[2024-01-23] MEDS: HEPARIN SOD 5,000 UNIT/0.5 ML VIAL SQ SCH (08:47)
[2024-01-23] MEDS: POTASSIUM CHLORIDE CRTAB 20 MEQ TABCR PO SCH (08:47)
[2024-01-23] MEDS: INSULIN ASPART PER UNIT CHARGE SC SCH (10:23)
[2024-01-23] MEDS: traMADol HCL 50 MG TABLET PO STA ×2 (10:23→20:24)
[2024-01-23] MEDS: COUGH DROP (SUGAR FREE) LOZ 24 LOZ/1 BOX BUCCAL PRN (11:22)
[2024-01-23] MEDS ORDERED: oxyCODONE HCL IR 5 MG TAB (IMMEDIATE RELEASE) PO PRN (12:12)
[2024-01-23] MEDS: KETOROLAC 30 MG/ML VIAL IV ONE (13:06)
[2024-01-23] MEDS: DAPTOmycin 300 MG in SYRINGE 0 ML IV SCH (13:07)
--- NOTE | 2024-01-23 14:27 | Hospitalist Progress Note ---
Date of Service January 23, 2024 Assessment & Plan (1) Cellulitis of both lower extremities: (2) Bilateral lower extremity edema: (3) Chronic kidney disease, stage 3: (4) Restless legs: (5) Generalized osteoarthritis: (6) Diabetes mellitus, type 2: Plan Cellulitis of bilateral lower extremities, no DVT Likely secondary to chronic lower extremity edema Received vancomycin IV from the ED Now on daptomycin 3 mg IV every 24 hours due to CKD history Cefepime 2 g IV every 12 hours Magic mouthwash 5 mL every 2 hours as needed, to address potential oral ulcers which can happen with any antibiotic she is on Continue diuretics to address local edema and vacuolization Chronic lower extremity edema/CKD stage III- Torsemide 30 mg p.o. twice daily Finerenone 10 mg p.o. every morning Change potassium chloride from 20 mEq p.o. 3 times daily to 40 mEq p.o. twice daily Follow serial CBC with differential, renal function panel and magnesium levels Diabetes mellitus- On no current therapy Placed on Accu-Cheks with NovoLog SSI Check hemoglobin A1c Cerebrovascular disease/bipolar depression- Continue clopidogrel 75 mg daily Duloxetine 60 mg twice daily Lamotrigine 200 mg twice daily Topiramate 150 mg p.o. twice daily Pain control PT/OT GERD- Continue pantoprazole Admission and Anticipated Discharge Date Admission Date: January 23, 2024 Subjective multiple pain complaints, neck pain, lower back pain, b/l LE pain, malaise Physical Exam Physical Exam: mildly restless due to multiple pain complaints AAO#3, Non focal Skin b/l LE cellulitis - erythema, warmth and tender, LE edema b/l Lungs clear to auscultation b/l Heart RRR PA Soft, NT, ND, BS+ Results & Data Results & Data Vital Signs (Past 12 Hours) Vital Signs Temp Pulse Pulse Resp BP BP BP 01/23/24 11:03 36.6 C 69 20 154/78 H 01/23/24 07:36 36.9 C 76 20 124/60 01/23/24 07:19 69 01/23/24 06:05 36.6 C 73 18 149/77 H 01/23/24 05:30 70 18 165/81 H 01/23/24 05:23 77 01/23/24 04:45 70 18 168/83 H 01/23/24 04:30 74 18 159/78 H 01/23/24 04:15 68 18 167/81 H 01/23/24 04:00 155/78 H 01/23/24 04:00 72 18 155/78 H 01/23/24 03:45 68 18 145/101 H 01/23/24 03:30 71 20 165/85 H Pulse Ox O2 Del Method 01/23/24 11:03 96 Room Air 01/23/24 07:36 97 Room Air 01/23/24 07:19 01/23/24 06:05 99 Room Air 01/23/24 05:30 96 01/23/24 05:23 01/23/24 04:45 97 01/23/24 04:30 99 01/23/24 04:15 97 01/23/24 04:00 01/23/24 04:00 98 01/23/24 03:45 98 Room Air 01/23/24 03:30 99 Room Air PG Care Time/CCT Total # of Minutes Spent Total Time Spent with Patient: Total time spent is greater than 50% in coordination of care (as documented) at patient's floor/unit and/or counseling patient: Coding Level of Care Code 62171 SUB INP/OBS CARE 235MIN Diagnoses Cellulitis of both lower extremities L03.115; L03.116 Bilateral lower extremity edema R60.0 Chronic kidney disease, stage 3 N18.3 Restless legs G25.81 Generalized osteoarthritis M15.9 Diabetes mellitus, type 2 E11.9
[2024-01-23] MEDS: LIDOCAINE 5% 1 PATCH TD SCH (18:01)
[2024-01-23] MEDS: PRAMIPEXOLE DIHYDROCHLO 0.25 MG TAB PO SCH (19:50)
[2024-01-23] MEDS: ATORVASTATIN 20 MG TAB PO SCH (19:50)
[2024-01-23] MEDS ORDERED: NON-FORMULARY MEDICATION (Magnesium Gluconate [Mag-G] 27 mg magnesium (500 mg) tablet) PO SCH (21:00)
[2024-01-24] MEDS: traMADol HCL 50 MG TABLET PO STA (03:36)
[2024-01-24 07:50] LABS: Albumin Level 3.8 gm/dl (3.4-5.0); BUN Creatinine Ratio 11.8 (10-20); Calcium 9.8 mg/dl (8.6-10.3); Creatinine Clr Calc Pharmacy 58.6 ml/min; Magnesium 2.1 mg/dl (1.7-2.4); Phosphorus 3.6 mg/dl (2.5-4.9); Potassium 4.4 mmol/L (3.5-5.1)
[2024-01-24 08:07] LABS: Basophils # (auto) 0.03 K/uL (0.00-0.20); Basophils % (auto) 0.3 %; Eosinophils # (auto) 0.31 K/uL (0.00-0.50); Eosinophils % (auto) 3.3 %; Hematocrit (blood only) 34.1 % (37.0-47.0); Hemoglobin 10.7 g/dl (12.0-16.0); Immature Granulocytes # (auto) 0.03 K/uL (0.01-0.20); Immature Granulocytes % (auto) 0.3 %; Lymphocytes # (auto) 2.33 K/uL (1.20-3.40); Lymphocytes % (auto) 24.5 %; Mean Corpuscular Hemoglobin 28.6 pg (25.0-34.0); Mean Corpuscular Hgb Conc 31.4 g/dL (32.0-36.0); Mean Corpuscular Volume 91.2 fL (80.0-100.0); Mean Platelet Volume 10.5 fL (9.4-12.4); Monocytes # (auto) 0.77 K/uL (0.11-0.59); Monocytes % (auto) 8.1 %; Neutrophils # (auto) 6.05 K/uL (1.40-6.50); Neutrophils % (auto) 63.5 %; Platelet Count 311 K/uL (130-400); RDW Coefficient of Variation 14.5 % (11.5-14.5); RDW Standard Deviation 47.9 fL (36.4-46.3); Red Blood Count 3.74 M/uL (4.20-5.40); White Blood Count 9.52 K/ul (4.8-10.8)
[2024-01-24] MEDS ORDERED: PHARMACY GLYCEMIC MGMT CONSULT PRN (08:25)
[2024-01-24 08:32] LABS: Estimated Average Glucose 154 mg/dl
[2024-01-24] MEDS: NYSTATIN POWDER 15GM BTL EXT PRN (08:48)
[2024-01-24] MEDS: PERFLUTREN LIPID MICROSPHERE (DEFINITY) IV ONE (11:00)
--- NOTE | 2024-01-24 11:30 | Hospitalist Progress Note ---
Date of Service January 24, 2024 Assessment & Plan (1) Bilateral lower leg cellulitis: (2) Bilateral lower extremity edema: (3) Morbidly obese: (4) Hypothyroidism: (5) Hyperlipidemia: (6) H/O: CVA (cerebrovascular accident): (7) Chronic kidney disease, stage 3: (8) Diabetes mellitus, type 2: (9) Gastroparesis: (10) Bipolar depression: (11) Melanosis coli: (12) Hypertension: (13) Anemia: Plan 68-year-old female with past medical history of CVA on Plavix, essential hype rtension, CKD stage III, type 2 diabetes mellitus, morbid obesity, bilateral lower extremity chronic edema on diuretics, bipolar disorder, melanosis coli, chronic anemia who presents to the ED with concern of gradually worsening bilateral lower extremity redness, swelling and pain over the past few days with generalized muscle aches and was found to have bilateral lower extremity edema, Dopplers were negative for DVT #Bilateral lower extremity cellulitis #Bilateral lower extremity edema Given CKD, she was started on IV cefepime plus IV daptomycin Lactate level is 1.6 Pro-Amish is less than 0.02 Continue IV antibiotics (day 2) White count is improved, cellulitis improving Monitor CRP Check 2D echo Resume diuretics: Continue torsemide at 30 mg p.o. 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 Los Soni She is on Finerenone as outpatient which unavailable in the hospital: She will resume medication on discharge Renal function is at baseline Avoid nephrotoxic agents including NSAIDs and Toradol Monitor renal function intermittently #Hypothyroidism Continue levothyroxine 75 mcg p.o. daily #GERD #Anemia, likely anemia chronic kidney disease with history of iron deficiency anemia H&H is stable Continue PPI Outpatient EGD from 10/15/2022 shows LA grade a reflux esophagitis, small hiatal hernia Colonoscopy from 10/15/2022 showed nonbleeding internal hemorrhoids, 2 sessile polyps in the rectum 3 to 4 mm which were removed. Diffuse area of mild melanosis and small diverticuli noted. Biopsies showed melanosis coli She was recently seen for second opinion by GI at [facility] and is scheduled for colonoscopy on February 08, [address] Garnica #Bipolar disorder #Restless leg syndrome Continue duloxetine, Lamictal and Topamax Continue Requip CODE STATUS: Full code DVT prophylaxis: Heparin subcutaneous twice daily Admission and Anticipated Discharge Date Admission Date: January 23, 2024 Subjective Patient seen and examined H&P reviewed Labs reviewed Radiology reviewed Although patient was possibly in diuretics, no diuretics were ordered by previous team Patient complaining of pain: Patient states she cannot use Percocet or oxycodone which was prescribed yesterday as it causes vomiting. She has never tried hydromorphone. She has tried tramadol in the past which does make her head feel funny but is able to mostly tolerate tramadol. She is requesting tramadol. She likes to take senna for gastroparesis. She is not able to tolerate MiraLAX She is open to trying warm prune juice which helps her with her gastroparesis She denies any fever, chills, nausea, vomiting or abdominal pain Physical Exam Physical Exam: General: No acute distress Psych: Awake and alert, oriented to place and person HEENT: Anicteric sclera, moist oral mucosa CVS: Regular rate and rhythm Lungs: Bilateral air entry, no wheezing noted Abdomen: Soft, obese abdomen, nontender, no rebound, no guarding Ext: Bilateral lower extremity edema noted, cellulitis noted with improvement in erythema and edema and receding from line drawn at admission Neuro: No focal motor deficits noted Results & Data Results & Data Vital Signs (Past 12 Hours) Vital Signs Temp Pulse Pulse Resp BP BP Pulse Ox 01/24/24 09:44 01/24/24 07:47 36.7 C 71 16 158/70 H 99 01/24/24 06:53 70 01/24/24 03:28 36.8 C 65 18 161/80 H 99 01/23/24 23:35 36.3 C L 69 18 139/74 98 O2 Del Method 01/24/24 09:44 Room Air 01/24/24 07:47 Room Air 01/24/24 06:53 01/24/24 03:28 Room Air 01/23/24 23:35 Room Air Laboratory Results Laboratory Results - last 24 hr 01/23/24 01/23/24 01/23/24 12:13 17:08 20:12 WBC RBC Hgb Hct MCV MCH MCHC RDW Std Deviation RDW Coeff of Arslan Plt Count MPV Immature Gran % (Auto) Neut % (Auto) Lymph % (Auto) [place] % (Auto) Eos % (Auto) Baso % (Auto) Neut # (Auto) Lymph # (Auto) [place] # (Auto) Eos # (Auto) Baso # (Auto) Immature Gran # (Auto) Absolute Nucleated RBC Nucleated RBC % (auto) Neutrophils % (Manual) Band Neutrophils % Lymphocytes % (Manual) Prolymphocyte % Reactive Lymphs % (Man) Monocytes % (Manual) Eosinophils % (Manual) Basophils % (Manual) Metamyelocytes % (Man) Myelocytes % (Man) Promyelocytes % (Man) Blast Cells % (Manual) Plasma Cell % (Manual) Other Cells % Nucleated RBC % Neutrophils # (Manual) Band Neutrophils # Total Absolute Neuts Lymphocytes # (Manual) Prolymphocyte # Reactive Lymphs # Total Abs Lymphocytes Monocytes # (Manual) Eosinophils # (Manual) Basophils # (Manual) Metamyelocytes # (Man) Myelocytes # (Manual) Promyelocytes # (Man) Blast Cells # (Man) Plasma Cell # (Manual) Other Cells # Nucleated RBCs # (Man) Hypersegmented Neuts Hyposegmented Neuts Hypogranular Neuts Large Granular Lymphs # Lrg Granular Lymphs Hairy Cells Smudge Cells Toxic Granulation Toxic Vacuolation Dohle Bodies Herberth Rods Platelet Estimate Hypogranular Platelets Giant Platelets Platelet Satelliting RBC Morphology Polychromasia Hypochromasia Poikilocytosis Basophilic Stippling Anisocytosis Microcytosis Macrocytosis Spherocytes Pappenheimer Bodies Sickle Cells Target Cells Tear Drop Cells Ovalocytes Stomatocytes Crandall-Chualar Bodies Echinocytes Acanthocytes (Spur) Rouleaux RBC Agglutinates Schistocytes Sezary Cell Sodium Potassium Chloride Carbon Dioxide Anion Gap BUN Creatinine Est Cr Clr Drug Dosing eGFR BUN/Creatinine Ratio Glucose POC Glucose 127 H 123 H 113 H Estimat Average Glucose Hemoglobin A1c Calcium Phosphorus Magnesium Albumin Blood Parasites ID 01/24/24 01/24/24 01/24/24 06:18 07:44 07:57 WBC Cancelled 9.52 RBC Cancelled 3.74 L Hgb Cancelled 10.7 L Hct Cancelled 34.1 L MCV Cancelled 91.2 MCH Cancelled 28.6 MCHC Cancelled 31.4 L RDW Std Deviation Cancelled 47.9 H RDW Coeff of Arslan Cancelled 14.5 Plt Count Cancelled 311 MPV Cancelled 10.5 Immature Gran % (Auto) Cancelled 0.3 Neut % (Auto) Cancelled 63.5 Lymph % (Auto) Cancelled 24.5 [place] % (Auto) Cancelled 8.1 Eos % (Auto) Cancelled 3.3 Baso % (Auto) Cancelled 0.3 Neut # (Auto) Cancelled 6.05 Lymph # (Auto) Cancelled 2.33 [place] # (Auto) Cancelled 0.77 H Eos # (Auto) Cancelled 0.31 Baso # (Auto) Cancelled 0.03 Immature Gran # (Auto) Cancelled 0.03 Absolute Nucleated RBC Cancelled Nucleated RBC % (auto) Cancelled Neutrophils % (Manual) Cancelled Band Neutrophils % Cancelled Lymphocytes % (Manual) Cancelled Prolymphocyte % Cancelled Reactive Lymphs % (Man) Cancelled Monocytes % (Manual) Cancelled Eosinophils % (Manual) Cancelled Basophils % (Manual) Cancelled Metamyelocytes % (Man) Cancelled Myelocytes % (Man) Cancelled Promyelocytes % (Man) Cancelled Blast Cells % (Manual) Cancelled Plasma Cell % (Manual) Cancelled Other Cells % Cancelled Nucleated RBC % Cancelled Neutrophils # (Manual) Cancelled Band Neutrophils # Cancelled Total Absolute Neuts Cancelled Lymphocytes # (Manual) Cancelled Prolymphocyte # Cancelled Reactive Lymphs # Cancelled Total Abs Lymphocytes Cancelled Monocytes # (Manual) Cancelled Eosinophils # (Manual) Cancelled Basophils # (Manual) Cancelled Metamyelocytes # (Man) Cancelled Myelocytes # (Manual) Cancelled Promyelocytes # (Man) Cancelled Blast Cells # (Man) Cancelled Plasma Cell # (Manual) Cancelled Other Cells # Cancelled Nucleated RBCs # (Man) Cancelled Hypersegmented Neuts Cancelled Hyposegmented Neuts Cancelled Hypogranular Neuts Cancelled Large Granular Lymphs Cancelled # Lrg Granular Lymphs Cancelled Hairy Cells Cancelled Smudge Cells Cancelled Toxic Granulation Cancelled Toxic Vacuolation Cancelled Dohle Bodies Cancelled Herberth Rods Cancelled Platelet Estimate Cancelled Hypogranular Platelets Cancelled Giant Platelets Cancelled Platelet Satelliting Cancelled RBC Morphology Cancelled Polychromasia Cancelled Hypochromasia Cancelled Poikilocytosis Cancelled Basophilic Stippling Cancelled Anisocytosis Cancelled Microcytosis Cancelled Macrocytosis Cancelled Spherocytes Cancelled Pappenheimer Bodies Cancelled Sickle Cells Cancelled Target Cells Cancelled Tear Drop Cells Cancelled Ovalocytes Cancelled Stomatocytes Cancelled Crandall-Chualar Bodies Cancelled Echinocytes Cancelled Acanthocytes (Spur) Cancelled Rouleaux Cancelled RBC Agglutinates Cancelled Schistocytes Cancelled Sezary Cell Cancelled Sodium 140 Potassium 4.4 D Chloride 110 H Carbon Dioxide 23 Anion Gap 7 BUN 12 Creatinine 1.02 Est Cr Clr Drug Dosing 58.6 eGFR 59.55 BUN/Creatinine Ratio 11.8 Glucose 138 H POC Glucose 129 H Estimat Average Glucose Cancelled 154 Hemoglobin A1c Cancelled 7.0 H Calcium 9.8 Phosphorus 3.6 Magnesium 2.1 Albumin 3.8 Blood Parasites ID Cancelled Diagnostic Findings Chest X-Ray 01/23/24 01:57 EXAM: XR chest 1V portable CLINICAL HISTORY: SEPSIS JMF TECHNIQUE: [id number] X-ray image of the chest is obtained in AP projection. Rotated /[id number].5.1.2 soft exposure./OBX.5.1.2/OBX.5.1 COMPARISON: CXR dated 04/22/2023. FINDINGS: Pulmonary Parenchyma: Bilateral prominent broncho vascular markings are prominent There is no evidence of consolidation, or collapse. No pulmonary nodules are identified. There is no evidence of pleural effusion or pleural thickening. Heart and Mediastinum: Heart size cannot be commented upon due to marked rotation. No mediastinal masses. No definite hilar or mediastinal lymphadenopathy. Bony Thorax: An old fracture of the distal third of the left clavicle is also seen. The distal fractured fragment seen in the previous film is no longer visible. Maybe it was surgically removed. Needs to be correlated with history. Soft Tissues: Soft tissues overlying the chest wall are unremarkable. IMPRESSION: No acute cardiopulmonary disease process. Electronically signed by Belén Cheatham 01-23-2024 03:32 AM Venous Doppler Study 01/23/24 01:58 EXAM: US venous doppler LE BI CLINICAL HISTORY: Redness to BL LE Groin nodes seen BL NO OBVIOUS DVT IN BL LE Difficult vis of calf vessels due to edema TECHNIQUE: Ultrasound examination of bilateral lower extremity veins was performed in real time and duplex. One or more of the following were performed- spectral analysis, resistive index, waveform analysis, and pulsed Doppler. COMPARISON: 03/27/2022. FINDINGS: Diffuse difficult visualization of the calf vessels due to subcutaneous soft tissue edema. Normal phasic, non-pulsatile and spontaneous flow is noted in bilateral common femoral, superficial femoral, popliteal and posterior tibial and peroneal veins. Visualized veins of both lower extremities demonstrate normal compressibility. No sonographic evidence of acute deep vein thrombosis (DVT) is detected in the visualized veins of both lower extremities. Compression and Augmentation: All evaluated veins compress fully with applied transducer pressure. Augmentation of venous flow is noted with distal compression. Additional Findings: No evidence of intraluminal thrombus. A prominent lymph node measured about 1.7 x 1.2 x 0.7 cm, was seen in the right groin region. Unspecific likely reactionary. IMPRESSION: 1. No sonographic evidence of acute DVT is detected in bilateral common femoral, superficial femoral, popliteal, and posterior tibial and peroneal veins, at the time of examination. 2. Diffuse poor visualization of the calf vessels due to subcutaneous soft tissue edema. 3. No significant interval changes compared to the prior study dated 03/27/2022. Disclaimer: DVT could be missed early in the disease when clot burden is minimal. For patients with moderate and high pretest probability of DVT and negative ultrasound, the [employer] clinical guidelines recommend testing with a D-dimer assay or repeat ultrasound in 5-7 days. If symptoms worsen, the Society of radiologists in ultrasound recommends repeating ultrasound even earlier. Electronically signed by Belén Cheatham 01-23-2024 04:11 AM PG Care Time/CCT Total # of Minutes Spent Total Time Spent with Patient: Total time spent is greater than 50% in coordination of care (as documented) at patient's floor/unit and/or counseling patient: Coding Level of Care Code 19519 SUB INP/OBS CARE 3/50MIN Diagnoses Bilateral lower leg cellulitis L03.116; L03.115 Bilateral lower extremity edema R60.0 Morbidly obese E66.01 Acquired hypothyroidism E03.9 Hypothyroidism type: acquired Pure hypercholesterolemia E78.00; E78.0 Hyperlipidemia type: pure hypercholesterolemia H/O: CVA (cerebrovascular accident) Z86.73 Chronic kidney disease, stage 3 N18.3 Diabetes mellitus, type 2 E11.9 Gastroparesis K31.84 Bipolar depression F31.30 Melanosis coli K63.89 Essential hypertension I10 Hypertension type: essential hypertension Anemia D64.9 (4) Hypothyroidism Hypothyroidism type: acquired Qualified Code(s): E03.9 - Hypothyroidism, unspecified (5) Hyperlipidemia Hyperlipidemia type: pure hypercholesterolemia Qualified Code(s): E78.00 - Pure hypercholesterolemia, unspecified; E78.0 - Pure hypercholesterolemia (12) Hypertension Hypertension type: essential hypertension Qualified Code(s): I10 - Essential (primary) hypertension
[2024-01-24] MEDS: TORSEMIDE 10 MG TAB PO SCH (11:31)
[2024-01-24] MEDS: traMADol HCL 50 MG TABLET PO PRN ×2 (11:42→22:23)
[2024-01-24] MEDS: ACETAMINOPHEN 500 MG TAB PO SCH (14:39)
[2024-01-24] MEDS: SENNA 8.6 MG TAB PO SCH (21:02)
[2024-01-25 08:44] LABS: Basophils # (auto) 0.04 K/uL (0.00-0.20); Basophils % (auto) 0.4 %; Eosinophils # (auto) 0.35 K/uL (0.00-0.50); Eosinophils % (auto) 3.5 %; Hematocrit (blood only) 33.4 % (37.0-47.0); Hemoglobin 10.7 g/dl (12.0-16.0); Immature Granulocytes # (auto) 0.07 K/uL (0.01-0.20); Immature Granulocytes % (auto) 0.7 %; Lymphocytes # (auto) 2.14 K/uL (1.20-3.40); Lymphocytes % (auto) 21.6 %; Mean Corpuscular Hemoglobin 28.5 pg (25.0-34.0); Mean Corpuscular Volume 88.8 fL (80.0-100.0); Mean Platelet Volume 10.4 fL (9.4-12.4); Monocytes # (auto) 0.83 K/uL (0.11-0.59); Monocytes % (auto) 8.4 %; Neutrophils # (auto) 6.47 K/uL (1.40-6.50); Neutrophils % (auto) 65.4 %; Platelet Count 325 K/uL (130-400); RDW Coefficient of Variation 14.2 % (11.5-14.5); RDW Standard Deviation 45.4 fL (36.4-46.3); Red Blood Count 3.76 M/uL (4.20-5.40)
[2024-01-25] MEDS: LANTUS PER UNIT CHARGE SC SCH (08:57)
[2024-01-25 09:09] LABS: BUN Creatinine Ratio 13.9 (10-20); Calcium 9.5 mg/dl (8.6-10.3); Magnesium 2.2 mg/dl (1.7-2.4); Potassium 4.2 mmol/L (3.5-5.1)
--- NOTE | 2024-01-25 11:47 | Hospitalist Progress Note ---
Date of Service January 25, 2024 Assessment & Plan (1) Bilateral lower leg cellulitis: (2) Bilateral lower extremity edema: (3) Morbidly obese: (4) Hypothyroidism: (5) Hyperlipidemia: (6) H/O: CVA (cerebrovascular accident): (7) Chronic kidney disease, stage 3: (8) Diabetes mellitus, type 2: (9) Gastroparesis: (10) Bipolar depression: (11) Melanosis coli: (12) Hypertension: (13) Anemia: Plan 68-year-old female with past medical history of CVA on Plavix, essential hype rtension, CKD stage III, type 2 diabetes mellitus, morbid obesity, bilateral lower extremity chronic edema on diuretics, bipolar disorder, melanosis coli, chronic anemia who presents to the ED with concern of gradually worsening bilateral lower extremity redness, swelling and pain over the past few days with generalized muscle aches and was found to have bilateral lower extremity edema, Dopplers were negative for DVT #Bilateral lower extremity cellulitis #Bilateral lower extremity edema Given CKD, she was started on IV cefepime plus IV daptomycin Lactate level is 1.6 Pro-Amish is less than 0.02 Blood cultures negative at 48 hours Continue IV antibiotics (day 3) Check MRSA screen White count is improved, cellulitis improving 2D echo shows left ventricular systolic function is normal, EF is 55 to 60%, grade 1 diastolic dysfunction, right ventricular systolic function is elevated at 30 to 40 mmHg, the inferior vena cava is moderately dilated. Continue diuretics: Continue torsemide at 30 mg p.o. twice daily I/O monitoring Daily weights If erythema continues to improve, patient could likely be discharged home tomorrow on oral antibiotics: Augmentin plus doxycycline to finish 7 to 10-day course of antibiotics #Essential hypertension #History of CVA #Hyperlipidemia #Chronic diastolic congestive heart failure with preserved ejection fraction of 55% 2D echo shows left ventricular systolic function is normal, EF is 55 to 60%, grade 1 diastolic dysfunction, right ventricular systolic function is elevated at 30 to 40 mmHg, the inferior vena cava is moderately dilated. Continue metoprolol Continue Plavix 75 mg daily Continue statin #Type 2 diabetes mellitus #Morbid obesity with BMI of 47.4 A1c 7.0 Pharmacy managing glycemic management Lifestyle counseling regarding diet, exercise and weight loss provided #CKD stage III Outpatient press secretary is Dr. Los Soni She is on Finerenone as outpatient which unavailable in the hospital: She will resume medication on discharge Renal function is at baseline Avoid nephrotoxic agents including NSAIDs and Toradol Monitor renal function intermittently #Hypothyroidism Continue levothyroxine 75 mcg p.o. daily #GERD #Anemia, likely anemia chronic kidney disease with history of iron deficiency anemia H&H is stable Continue PPI Outpatient EGD from 10/15/2022 shows LA grade a reflux esophagitis, small hiatal hernia Colonoscopy from 10/15/2022 showed nonbleeding internal hemorrhoids, 2 sessile polyps in the rectum 3 to 4 mm which were removed. Diffuse area of mild melanosis and small diverticuli noted. Biopsies showed melanosis coli She was recently seen for second opinion by GI at [facility] and is scheduled for colonoscopy on February 08, [address] Garnica #Bipolar disorder #Restless leg syndrome Continue duloxetine, Lamictal and Topamax Continue Requip CODE STATUS: Full code DVT prophylaxis: Heparin subcutaneous twice daily Discharge planning likely home with home health services likely tomorrow if medi todd stable. Case management consulted for home health services Care plan discussed with patient, nursing staff Admission and Anticipated Discharge Date Admission Date: January 23, 2024 Subjective Patient seen and examined Labs and echo reviewed She is sitting in a chair today and smiling Patient states her swelling feels much better She denies any chest pain or shortness of breath She has chronic body aches and pains She has noticed her leg edema and erythema have also been improving She is agreeable to home health on discharge Patient also reports having a good bowel movement Physical Exam Physical Exam: General: No acute distress Psych: Awake and alert, oriented to place and person HEENT: Anicteric sclera, moist oral mucosa CVS: Regular rate and rhythm Lungs: Bilateral air entry, no wheezing noted Abdomen: Soft, obese abdomen, nontender, no rebound, no guarding Ext: Bilateral lower extremity edema noted, cellulitis noted with improvement in erythema and edema and receding from line drawn at admission Results & Data Results & Data Vital Signs (Past 12 Hours) Vital Signs Temp Pulse Resp BP BP Pulse Ox O2 Del Method 01/25/24 07:24 36.7 C 76 18 134/82 97 Room Air 01/25/24 04:09 36.5 C 71 20 132/76 97 Room Air Laboratory Results Laboratory Results - last 24 hr 01/24/24 01/24/24 01/24/24 12:22 14:19 14:20 WBC RBC Hgb Hct MCV MCH MCHC RDW Std Deviation RDW Coeff of Arslan Plt Count MPV Immature Gran % (Auto) Neut % (Auto) Lymph % (Auto) Thomas % (Auto) Eos % (Auto) Baso % (Auto) Neut # (Auto) Lymph # (Auto) Thomas # (Auto) Eos # (Auto) Baso # (Auto) Immature Gran # (Auto) Sodium Potassium Chloride Carbon Dioxide Anion Gap BUN Creatinine Est Cr Clr Drug Dosing eGFR BUN/Creatinine Ratio Glucose POC Glucose 146 H 126 H Calcium Magnesium Iron TIBC Unsaturated IBC Transferrin % Sat C-Reactive Protein 2.63 H Vitamin B12 Nasal Screen MRSA (PCR) 01/24/24 01/24/24 01/25/24 17:12 20:30 07:48 WBC RBC Hgb Hct MCV MCH MCHC RDW Std Deviation RDW Coeff of Arslan Plt Count MPV Immature Gran % (Auto) Neut % (Auto) Lymph % (Auto) Thomas % (Auto) Eos % (Auto) Baso % (Auto) Neut # (Auto) Lymph # (Auto) Thomas # (Auto) Eos # (Auto) Baso # (Auto) Immature Gran # (Auto) Sodium Potassium Chloride Carbon Dioxide Anion Gap BUN Creatinine Est Cr Clr Drug Dosing eGFR BUN/Creatinine Ratio Glucose POC Glucose 126 H 126 H 139 H Calcium Magnesium Iron TIBC Unsaturated IBC Transferrin % Sat C-Reactive Protein Vitamin B12 Nasal Screen MRSA (PCR) 01/25/24 01/25/24 08:27 Unknown WBC 9.90 RBC 3.76 L Hgb 10.7 L Hct 33.4 L MCV 88.8 MCH 28.5 MCHC 32.0 RDW Std Deviation 45.4 RDW Coeff of Arslan 14.2 Plt Count 325 MPV 10.4 Immature Gran % (Auto) 0.7 Neut % (Auto) 65.4 Lymph % (Auto) 21.6 Thomas % (Auto) 8.4 Eos % (Auto) 3.5 Baso % (Auto) 0.4 Neut # (Auto) 6.47 Lymph # (Auto) 2.14 Thomas # (Auto) 0.83 H Eos # (Auto) 0.35 Baso # (Auto) 0.04 Immature Gran # (Auto) 0.07 Sodium 138 Potassium 4.2 Chloride 103 Carbon Dioxide 25 Anion Gap 10 BUN 17 Creatinine 1.22 H Est Cr Clr Drug Dosing 48.0 eGFR 48.04 BUN/Creatinine Ratio 13.9 Glucose 132 H POC Glucose Calcium 9.5 Magnesium 2.2 Iron 34 L TIBC 349 Unsaturated IBC 315 Transferrin % Sat 10 L C-Reactive Protein Vitamin B12 450 Nasal Screen MRSA (PCR) Negative PG Care Time/CCT Total # of Minutes Spent Total Time Spent with Patient: Total time spent is greater than 50% in coordination of care (as documented) at patient's floor/unit and/or counseling patient: Coding Level of Care Code 54209 SUB INP/OBS CARE 3/50MIN Diagnoses Bilateral lower leg cellulitis L03.116; L03.115 Bilateral lower extremity edema R60.0 Morbidly obese E66.01 Acquired hypothyroidism E03.9 Hypothyroidism type: acquired Pure hypercholesterolemia E78.00; E78.0 Hyperlipidemia type: pure hypercholesterolemia H/O: CVA (cerebrovascular accident) Z86.73 Chronic kidney disease, stage 3 N18.3 Diabetes mellitus, type 2 E11.9 Gastroparesis K31.84 Bipolar depression F31.30 Melanosis coli K63.89 Essential hypertension I10 Hypertension type: essential hypertension Anemia D64.9 (4) Hypothyroidism Hypothyroidism type: acquired Qualified Code(s): E03.9 - Hypothyroidism, unspecified (5) Hyperlipidemia Hyperlipidemia type: pure hypercholesterolemia Qualified Code(s): E78.00 - Pure hypercholesterolemia, unspecified; E78.0 - Pure hypercholesterolemia (12) Hypertension Hypertension type: essential hypertension Qualified Code(s): I10 - Essential (primary) hypertension
--- NOTE | 2024-01-25 13:28 | Pharmacy Report ---
Pharmacy Glycemic Short Note 2 - Date of Service January 25, 2024 - Glycemic Short BSG Results (Last 24 hours): 01/24/24 01/24/24 01/24/24 14:19 17:12 20:30 Glucose POC Glucose 126 H 126 H 126 H 01/25/24 01/25/24 01/25/24 07:48 08:27 12:10 Glucose 132 H POC Glucose 139 H 111 H OUTPATIENT ANTIDIABETIC REGIMEN: * n/a HbA1c: 7% (01/24/24) ASSESSMENT: * BR is a 68 year old female with bilateral lower extremity cellulitis (on cefepime and daptomycin) * Blood sugars well-controlled thus far (ranging 113-148 mg/dL since time of admission) * Received 5 units of bolus insulin only yesterday * Fasting blood sugar of 139 mg/dL this morning - will start low-dose basal PLAN FOR INPATIENT GLYCEMIC CONTROL: * Hold outpatient oral diabetes medications * Basal insulin * Lantus 5 units SC daily * Bolus insulin * NovoLog per scale ACHS or Q6hrs while NPO * Goal Range: Low 120 mg/dL - High 160 mg/dL * Correction Factor: 50 mg/dL/unit * Nutritional / Prandial insulin per carb ratio of 1 unit per 25 grams CHO consumed
[2024-01-25] MEDS: CYANOCOBALAMIN 1000 MCG/ML VIAL IM ONE (14:14)
[2024-01-26] MEDS: ONDANSETRON 4 MG OD TAB PO STA (03:37)
[2024-01-26 06:48] LABS: Basophils # (auto) 0.04 K/uL (0.00-0.20); Basophils % (auto) 0.4 %; Eosinophils # (auto) 0.36 K/uL (0.00-0.50); Eosinophils % (auto) 3.3 %; Hematocrit (blood only) 30.1 % (37.0-47.0); Hemoglobin 9.8 g/dl (12.0-16.0); Immature Granulocytes # (auto) 0.07 K/uL (0.01-0.20); Immature Granulocytes % (auto) 0.6 %; Lymphocytes # (auto) 2.63 K/uL (1.20-3.40); Mean Corpuscular Hgb Conc 32.6 g/dL (32.0-36.0); Mean Corpuscular Volume 89.1 fL (80.0-100.0); Mean Platelet Volume 10.6 fL (9.4-12.4); Monocytes # (auto) 0.93 K/uL (0.11-0.59); Monocytes % (auto) 8.5 %; Neutrophils # (auto) 6.92 K/uL (1.40-6.50); Neutrophils % (auto) 63.2 %; Platelet Count 308 K/uL (130-400); RDW Standard Deviation 44.7 fL (36.4-46.3); Red Blood Count 3.38 M/uL (4.20-5.40); White Blood Count 10.95 K/ul (4.8-10.8)
[2024-01-26 07:14] LABS: Albumin Globulin Ratio 1.2 (0.9-2); Albumin Level 3.4 gm/dl (3.4-5.0); BUN Creatinine Ratio 12.8 (10-20); Bilirubin,Total 0.3 mg/dl (0.2-1.0); Calcium 8.8 mg/dl (8.6-10.3); Globulin 2.9 gm/dl (2.5-4.0); Magnesium 2.2 mg/dl (1.7-2.4); Potassium 4.1 mmol/L (3.5-5.1); Total Protein 6.3 gm/dl (6.0-8.3)
[2024-01-26] MEDS: VITAMIN B COMPLEX TAB PO SCH (08:26)
--- NOTE | 2024-01-26 10:41 | Pharmacy Report ---
Pharmacy Glycemic Short Note 2 - Date of Service January 26, 2024 - Glycemic Short BSG Results (Last 24 hours): 01/25/24 01/25/24 01/25/24 12:10 17:17 20:01 Glucose POC Glucose 111 H 119 H 174 H 01/26/24 01/26/24 06:21 07:41 Glucose 145 H POC Glucose 125 H OUTPATIENT ANTIDIABETIC REGIMEN: * n/a HbA1c: 7% (01/24/24) ASSESSMENT: 01/25 * 8 units of insulin were given yesterday (5 units were basal and 3 units were bolus). * BS have been pretty well controlled with current basal and bolus insulin dosing (as seen with BSGs above). Fasting BSG this morning was 125mg/dL so no changes will be made to current insulin regimen. * She continues on cefepime and daptomycin to treat her cellulitis. 01/24 * BR is a 68 year old female with bilateral lower extremity cellulitis (on cefepime and daptomycin) * Blood sugars well-controlled thus far (ranging 113-148 mg/dL since time of admission) * Received 5 units of bolus insulin only yesterday * Fasting blood sugar of 139 mg/dL this morning - will start low-dose basal PLAN FOR INPATIENT GLYCEMIC CONTROL: * Hold outpatient oral diabetes medications * Basal insulin * Lantus 5 units SC daily * Bolus insulin * NovoLog per scale ACHS or Q6hrs while NPO * Goal Range: Low 120 mg/dL - High 160 mg/dL * Correction Factor: 50 mg/dL/unit * Nutritional / Prandial insulin per carb ratio of 1 unit per 25 grams CHO consumed
[2024-01-26] MEDS: LINEZOLID 600 MG TAB PO SCH (13:00)
--- NOTE | 2024-01-26 16:59 | Hospitalist Progress Note ---
Date of Service January 26, 2024 Assessment & Plan (1) Bilateral lower leg cellulitis: Plan: pt changed to oral antibiotics and if improved consider dc on 01/26 lower extremity edema improved (2) H/O: CVA (cerebrovascular accident): Plan: #Essential hypertension #History of CVA #Hyperlipidemia #Chronic diastolic congestive heart failure with preserved ejection fraction of 55% 2D echo shows left ventricular systolic function is normal, EF is 55 to 60%, grade 1 diastolic dysfunction, right ventricular systolic function is elevated at 30 to 40 mmHg, the inferior vena cava is moderately dilated. Continue metoprolol Continue Plavix 75 mg daily Continue statin Plan 68-year-old female with past medical history of CVA on Plavix, essential hypertension, CKD stage III, type 2 diabetes mellitus, morbid obesity, bilateral lower extremity chronic edema on diuretics, bipolar disorder, melanosis coli, chronic anemia who presents to the ED with concern of gradually worsening bilateral lower extremity redness, swelling and pain over the past few days with generalized muscle aches and was found to have bilateral lower extremity edema, Dopplers were negative for DVT Type 2 diabetes mellitus, with gastroparesis and renal disease/ CKD3 Morbid obesity with BMI of 47.4 A1c 7.0 Pharmacy managing glycemic management Lifestyle counseling regarding diet, exercise and weight loss provided CKD stage III Outpatient social work case manager is Dr. Los Soni She is on Finerenone as outpatient which unavailable in the hospital: She will resume medication on discharge Renal function is at baseline Avoid nephrotoxic agents including NSAIDs and Toradol Monitor renal function intermittently Hypothyroidism Continue levothyroxine 75 mcg p.o. daily GERD Anemia, likely anemia chronic kidney disease with history of iron deficiency anemia H&H is stable Continue PPI Outpatient EGD from 10/15/2022 shows LA grade a reflux esophagitis, small hiatal hernia Colonoscopy from 10/15/2022 showed nonbleeding internal hemorrhoids, 2 sessile polyps in the rectum 3 to 4 mm which were removed. Diffuse area of mild melanosis and small diverticuli noted. Biopsies showed melanosis coli She was recently seen for second opinion by GI at [facility] and is scheduled for colonoscopy on February 08, [address] Garnica Bipolar disorder Restless leg syndrome Continue duloxetine, Lamictal and Topamax Continue Requip CODE STATUS: Full code DVT prophylaxis: Heparin subcutaneous twice daily Admission and Anticipated Discharge Date Admission Date: January 23, 2024 Subjective PT feels legs are less swollen but has continued erythema some pain in all joints in her body Physical Exam Physical Exam: no cervical lymphadenopathy legs are erythematous mildly swollen no cervical or axillary lymphadenopathy Results & Data Results & Data Vital Signs (Past 12 Hours) Vital Signs Temp Pulse Resp BP Pulse Ox O2 Del Method 01/26/24 08:22 97.5 F L 81 18 112/55 L 96 Room Air Laboratory Results review cbc review chemistry PG Care Time/CCT Total # of Minutes Spent Total Time Spent with Patient: Total time spent is greater than 50% in coordination of care (as documented) at patient's floor/unit and/or counseling patient: Coding Level of Care Code 04530 SUB INP/OBS CARE 3/50MIN Diagnoses Bilateral lower leg cellulitis L03.116; L03.115 H/O: CVA (cerebrovascular accident) Z86.73
[2024-01-26] MEDS: CEFDINIR 300 MG CAP PO SCH (20:01)
[2024-01-27 10:14] LABS: Basophils # (auto) 0.05 K/uL (0.00-0.20); Basophils % (auto) 0.5 %; Eosinophils # (auto) 0.33 K/uL (0.00-0.50); Eosinophils % (auto) 3.4 %; Hematocrit (blood only) 32.9 % (37.0-47.0); Hemoglobin 10.4 g/dl (12.0-16.0); Immature Granulocytes # (auto) 0.06 K/uL (0.01-0.20); Immature Granulocytes % (auto) 0.6 %; Lymphocytes % (auto) 24.7 %; Mean Corpuscular Hemoglobin 28.2 pg (25.0-34.0); Mean Corpuscular Hgb Conc 31.6 g/dL (32.0-36.0); Mean Corpuscular Volume 89.2 fL (80.0-100.0); Mean Platelet Volume 10.3 fL (9.4-12.4); Monocytes # (auto) 1.01 K/uL (0.11-0.59); Monocytes % (auto) 10.4 %; Neutrophils # (auto) 5.85 K/uL (1.40-6.50); Neutrophils % (auto) 60.4 %; Platelet Count 321 K/uL (130-400); RDW Coefficient of Variation 14.3 % (11.5-14.5); Red Blood Count 3.69 M/uL (4.20-5.40)
[2024-01-27 10:16] LABS: Albumin Globulin Ratio 1.3 (0.9-2); Albumin Level 3.8 gm/dl (3.4-5.0); Bilirubin,Total 0.3 mg/dl (0.2-1.0); C Reactive Protein 2.97 mg/dl (0-0.5); Calcium 9.2 mg/dl (8.6-10.3); Creatinine Clr Calc Pharmacy 54.2 ml/min; Magnesium 2.3 mg/dl (1.7-2.4); Potassium 4.2 mmol/L (3.5-5.1); Total Protein 6.8 gm/dl (6.0-8.3)
--- NOTE | 2024-01-27 11:49 | Hospitalist Progress Note ---
Date of Service January 27, 2024 Assessment & Plan (1) Bilateral lower leg cellulitis: Plan: 68-year-old female with past medical history of CVA on Plavix, essential hypertension, CKD stage III, type 2 diabetes mellitus, morbid obesity, bilateral lower extremity chronic edema on diuretics, bipolar disorder, melanosis coli, chronic anemia who presents to the ED with concern of gradually worsening bilateral lower extremity redness, swelling and pain over the past few days with generalized muscle aches and was found to have bilateral lower extremity edema, Dopplers were negative for DVT Patient with bilateral lower extremity cellulitis versus chronic venous stasis. She was admitted with significant lower extremity edema which is now improving Blood cultures have remained no growth to date Initially on IV cefepime and daptomycin and changed to p.o. cefdinir and linezolid on 01/25 Lower extremity edema is improving. She is afebrile, no leukocytosis, and CRP is minimally elevated and stable from previous at 2.9 Given potential interaction of linezolid with cefdinir and Lamictal, will discontinue linezolid and start doxycycline instead for MRSA coverage. Continue cefdinir and finish out 10-day course of antibiotics on 02/01/2024 Perhaps the dizziness and myoclonic jerks she was having are related to interaction of linezolid with Cymbalta?-Monitor for improvement with stopping linezolid Continue torsemide for edema, continue home finerenone if can be brought in Add triamcinolone cream for itching consistent with chronic venous stasis dermatitis (2) H/O: CVA (cerebrovascular accident): Plan: #History of CVA #Chronic diastolic congestive heart failure with preserved ejection fraction of 55% 2D echo shows left ventricular systolic function is normal, EF is 55 to 60%, grade 1 diastolic dysfunction, right ventricular systolic function is elevated at 30 to 40 mmHg, the inferior vena cava is moderately dilated. Continue metoprolol Continue Plavix 75 mg daily Can resume home statin now that she is off daptomycin Continue potassium chloride standing replacement Plan Type 2 diabetes mellitus, with gastroparesis and renal disease/ CKD3 Morbid obesity with BMI of 47.4 A1c 7.0 Pharmacy managing glycemic management, however patient thinks the insulin caused her to have myoclonic jerks-will discontinue insulin but continue Accu-Cheks Lifestyle counseling regarding diet, exercise and weight loss provided She is now moving her bowels and some upper abdominal pains have improved CKD stage III Outpatient sliver handler is Dr. Los Soni She is on Finerenone as outpatient which unavailable in the hospital: She will resume medication on discharge Renal function is at baseline Avoid nephrotoxic agents including NSAIDs and Toradol Monitor renal function intermittently-creatinine on 01/26 back to normal at 1.08 Hypothyroidism Continue levothyroxine 75 mcg p.o. daily, TSH in 09/2023 was normal at 3.7 GERD Patient prefers to take her Protonix at 8 in the morning-changed timing of this Anemia, likely anemia chronic kidney disease with history of iron deficiency anemia H&H is stable at 10.4 Continue PPI, ferrous sulfate Outpatient EGD from 10/15/2022 shows LA grade a reflux esophagitis, small hiatal hernia Colonoscopy from 10/15/2022 showed nonbleeding internal hemorrhoids, 2 sessile polyps in the rectum 3 to 4 mm which were removed. Diffuse area of mild melanosis and small diverticuli noted. Biopsies showed melanosis coli She was recently seen for second opinion by GI at [facility] and is scheduled for colonoscopy on February 08, [address] Garnica Bipolar disorder Continue duloxetine, Lamictal and Topamax Restless leg syndrome Continue Requip Hyperlipidemia Can resume home atorvastatin now that daptomycin is discontinued HTN BPs are controlled Continue metoprolol CODE STATUS: Full code DVT prophylaxis: Heparin subcutaneous twice daily Disposition-continued stay medical/surgical unit but hopeful for discharge to home on 01/27 if patient feels improved Admission and Anticipated Discharge Date Admission Date: January 23, 2024 Subjective Patient reports she felt off and sort of "fuzzy" and had some twitching of her arms and legs that was uncontrollable this morning. She is not sure if it was related to the new oral antibiotics she has been on since yesterday but then later it happened again after getting insulin at lunchtime. She thinks it is related to the insulin. She also had some upper abdominal pains through the night which resolved after having a large bowel movement this morning. She reports she is not moving her bowels nearly as much in the hospital as she typically does at home. She feels that her leg redness and swelling is much improved from previous. She also has some pains through her joints and her neck She complains that no one seems to be listening to her. I discussed her care with nursing. Physical Exam Constitutional: WD/WN, vitals as above + morbidly obese Eyes: PERRL, conjunctivae normal, anicteric sclerae ENMT: external ear and nose normal, oropharynx normal Respiratory: normal respiratory effort, lungs clear to auscultation Cardiovascular: Rate/Rhythm: regular rate and regular rhythm Heart Sounds: no murmur Extremities: + edema (2+ pitting edema of the legs bilaterally to the knees) Gastrointestinal (Abdomen): normal bowel sounds, soft, nontender, no hepatosplenomegaly Skin: + erythema (Yousuf erythema of the bilate ral legs Will within drawn marker lines of flori) Neurologic: awake; no focal motor deficits and not confused Speech / Cognition: normal speech Motor/Sensory: no tremor Psychiatric: Orientation: alert and oriented x 3 Affect: + anxious affect Results & Data Results & Data Vital Signs (Past 12 Hours) Vital Signs Temp Pulse Resp BP Pulse Ox O2 Del Method 01/27/24 07:14 36.8 C 72 16 153/71 H 96 Room Air Laboratory Results CBC, BMP, magnesium, CRP, LFTs reviewed Blood cultures reviewed PG Care Time/CCT Total # of Minutes Spent Total Time Spent with Patient: Total time spent is greater than 50% in coordination of care (as documented) at patient's floor/unit and/or counseling patient: Coding Level of Care Code 71648 SUB INP/OBS CARE 2/35MIN Diagnoses Bilateral lower leg cellulitis L03.116; L03.115 H/O: CVA (cerebrovascular accident) Z86.73
[2024-01-27] MEDS: TRIAMCINOLONE ACET 0.025% CR 15 GM TUBE EXT SCH (13:29)
[2024-01-27] MEDS: PANTOprazole 40 MG TAB PO SCH (20:17)
[2024-01-27] MEDS: ATORVASTATIN 20 MG TAB PO SCH (20:19)
[2024-01-27] MEDS: DOXYCYCLINE HYCLATE 100 MG CAP PO SCH (21:30)
--- NOTE | 2024-01-28 13:54 | Hospitalist Progress Note ---
Date of Service January 28, 2024 Assessment & Plan (1) Bilateral lower leg cellulitis: Plan: 68-year-old female with past medical history of CVA on Plavix, essential hypertension, CKD stage III, type 2 diabetes mellitus, morbid obesity, bilateral lower extremity chronic edema on diuretics, bipolar disorder, melanosis coli, chronic anemia who presents to the ED with concern of gradually worsening bilateral lower extremity redness, swelling and pain over the past few days with generalized muscle aches and was found to have bilateral lower extremity edema, Dopplers were negative for DVT Patient with bilateral lower extremity cellulitis versus chronic venous stasis. She was admitted with significant lower extremity edema which is now improving Blood cultures have remained no growth to date Initially on IV cefepime and daptomycin and changed to p.o. cefdinir and linezolid on 01/25 Lower extremity edema is improving. She is afebrile, no leukocytosis, and CRP is minimally elevated and stable from previous at 2.9 Given potential interaction of linezolid with cefdinir and Lamictal, linezolid was discontinued and doxycycline was started instead for MRSA coverage. Continue cefdinir and finish out 10-day course of antibiotics on 02/01/2024 Perhaps the dizziness and myoclonic jerks she was having are related to interaction of linezolid with Cymbalta?-Monitor for improvement with stopping linezolid Continue torsemide for edema, continue home finerenone if can be brought in Add triamcinolone cream for itching consistent with chronic venous stasis dermatitis (2) H/O: CVA (cerebrovascular accident): Plan: #History of CVA #Chronic diastolic congestive heart failure with preserved ejection fraction of 55% 2D echo shows left ventricular systolic function is normal, EF is 55 to 60%, grade 1 diastolic dysfunction, right ventricular systolic function is elevated at 30 to 40 mmHg, the inferior vena cava is moderately dilated. Continue metoprolol Continue Plavix 75 mg daily Can resume home statin now that she is off daptomycin Continue potassium chloride standing replacement Plan Type 2 diabetes mellitus, with gastroparesis and renal disease/ CKD3 Morbid obesity with BMI of 47.4 A1c 7.0 Pharmacy managing glycemic management, however patient thinks the insulin caused her to have myoclonic jerks-will discontinue insulin but continue Accu-Cheks Lifestyle counseling regarding diet, exercise and weight loss provided She is now moving her bowels and some upper abdominal pains have improved CKD stage III Outpatient bell neck hammerer is Dr. Los Soni She is on Finerenone as outpatient which unavailable in the hospital: She will resume medication on discharge Renal function is at baseline Avoid nephrotoxic agents including NSAIDs and Toradol Monitor renal function intermittently-creatinine on 01/26 back to normal at 1.08 Hypothyroidism Continue levothyroxine 75 mcg p.o. daily, TSH in 09/2023 was normal at 3.7 GERD Patient prefers to take her Protonix at 8 in the morning-changed timing of this Anemia, likely anemia chronic kidney disease with history of iron deficiency anemia H&H is stable at 10.4 Continue PPI, ferrous sulfate Outpatient EGD from 10/15/2022 shows LA grade a reflux esophagitis, small hiatal hernia Colonoscopy from 10/15/2022 showed nonbleeding internal hemorrhoids, 2 sessile polyps in the rectum 3 to 4 mm which were removed. Diffuse area of mild melanosis and small diverticuli noted. Biopsies showed melanosis coli She was recently seen for second opinion by GI at [facility] and is scheduled for colonoscopy on February 08, [address] Garnica Bipolar disorder Continue duloxetine, Lamictal and Topamax Restless leg syndrome Continue Requip Hyperlipidemia Can resume home atorvastatin now that daptomycin is discontinued HTN BPs are controlled Continue metoprolol CODE STATUS: Full code DVT prophylaxis: Heparin subcutaneous twice daily Disposition-continued stay medical/surgical unit but hopeful for discharge to home on 01/28 if patient feels improved Admission and Anticipated Discharge Date Admission Date: January 23, 2024 Subjective Patient was seen and examined at 10 AM. Denied chest pain or shortness of breath. Has multiple complains of aches and pains in her joints and several parts of the body. Says that her leg swelling and redness is not much improved. Review of Systems Review of Systems: All systems reviewed & are unremarkable except as noted in Subjective Physical Exam Physical Exam: General: Awake, conversant Heart: S1, S2/regular rate and rhythm, no murmur rubs or gallops Lungs: Clear to auscultation bilaterally. Normal effort Abdomen: Soft/nontender/nondistended. No hepatosplenomegaly Extremities: No clubbing/cyanosis. 2+ pitting bilateral edema along with some redness. Fading noted to the margins. Patient was noted to have been sitting in the recliner with her legs hanging down. Behavior: Appropriate, cooperative Results & Data Results & Data Vital Signs (Past 12 Hours) Vital Signs Temp Pulse Resp BP Pulse Ox O2 Del Method 01/28/24 07:21 36.7 C 80 16 151/71 H 98 Room Air Laboratory Results Abnormal lab results 01/27/24 01/27/24 01/28/24 Range/Units 16:31 20:11 07:54 POC Glucose 117 H 118 H 117 H (70-99) mg/dl 01/28/24 Range/Units 11:52 POC Glucose 134 H (70-99) mg/dl PG Care Time/CCT Total # of Minutes Spent Total Time Spent with Patient: Total time spent is greater than 50% in coordination of care (as documented) at patient's floor/unit and/or counseling patient: Coding Level of Care Code 04894 SUB INP/OBS CARE 2/35MIN Diagnoses Bilateral lower leg cellulitis L03.116; L03.115 H/O: CVA (cerebrovascular accident) Z86.73
[2024-01-28 20:52] VITALS: O2SAT 97
[2024-01-29 07:01] VITALS: PULSE 71; RESP 20; TEMP 98.1
--- NOTE | 2024-01-29 09:25 | Discharge Summary ---
Date of Service January 29, 2024 Admission HPI Per Admitting Provider The patient is a 68-year-old female with a past medical history including GERD, vitamin D deficiency, restless leg syndrome, hypothyroidism, hyperlipidemia, cerebrovascular disease, generalized osteoarthritis, chronic lower extremity edema, bipolar depression, CKD stage III, and diabetes mellitus type 2. She presents to the emergency department with worsening bilateral lower extremity redness, warmth and swelling. She reports that her urine has become more dark, but she reports not drinking as much fluids recently. She continues to take torsemide and finerenone. She denies any recent trauma to lower extremities. She does note increased generalized muscle aches and joint aches. Admission Exam Per Admitting Provider The patient is awake, alert and oriented 3, well developed and well nourished, normocephalic and atraumatic, lying in bed and in no acute distress. HEENT--PERRL, EOMI, mucous membranes and oropharynx mildly dry. Neck--supple. No JVD. No bruits. Thyroid normal, trachea midline, no adenopathy. Heart--normal S1 and S2. No murmurs, rubs or gallops. Lungs--clear bilaterally, no respiratory distress, no accessory muscle use. Abdomen--normal bowel sounds and soft. Nontender. Nondistended, no hernias or masses, no organomegaly. Extremities--1+ bilateral pretibial pitting edema, with small vacuolization Dermatologic--see above Neurologic--cranial nerves II through XII grossly intact. Rheumatologic--normal range of motion. Psychiatric--normal affect. Principal Diagnosis lower leg skin infection-bilateral cellulitis Chronic venous stasis Discharge Exam General: Awake, conversant Heart: S1, S2/regular rate and rhythm, no murmur rubs or gallops Lungs: Clear to auscultation bilaterally. Normal effort Abdomen: Soft/nontender/nondistended. No hepatosplenomegaly Extremities: No clubbing/cyanosis. 2+ pitting bilateral edema along with some redness. Fading noted to the margins. Patient was noted to have been sitting in the recliner with her legs hanging down. Behavior: Appropriate, cooperative Discharge Data Allergies Allergy/AdvReac Type Severity Reaction Status Date / Time gabapentin Allergy Severe sore Verified 11/04/23 10:48 throat, stomach pains, nausea Cephalosporins Allergy Intermediate CEPHALEXIN-RASH Verified 11/04/23 10:48 & ULCERS IN MOUTH Penicillins Allergy Intermediate RASH AND Verified 11/04/23 10:48 ULCERS IN MOUTH Sulfa (Sulfonamide Allergy Intermediate RASH AND Verified 11/04/23 10:48 Antibiotics) ULCERS IN MOUTH sulfamethoxazole Allergy Intermediate rash and Verified 11/04/23 10:48 ulcers in the mouth wheat Allergy Intermediate Itching Unverified 11/04/23 10:48 levofloxacin Allergy Mild local Verified 11/04/23 10:48 reaction meperidine AdvReac Intermediate VOMITING & Verified 11/04/23 10:48 VERTIGO metformin AdvReac Intermediate Diarrhea Verified 11/04/23 10:48 oxycodone AdvReac Intermediate PERCOCET - Verified 11/04/23 10:48 vomiting and vertigo sesame seed AdvReac Unverified 11/04/23 10:48 Consultations 01/23/24 04:19 ED Decision to Admit Stat Procedures Performed Chest X-Ray 01/23/24 01:57 EXAM: XR chest 1V portable CLINICAL HISTORY: SEPSIS JMF TECHNIQUE: [id number] X-ray image of the chest is obtained in AP projection. Rotated /OBX.5.1.1OBX.5.1.2 soft exposure./OBX.5.1.2/OBX.5.1 COMPARISON: CXR dated 04/22/2023. FINDINGS: Pulmonary Parenchyma: Bilateral prominent broncho vascular markings are prominent There is no evidence of consolidation, or collapse. No pulmonary nodules are identified. There is no evidence of pleural effusion or pleural thickening. Heart and Mediastinum: Heart size cannot be commented upon due to marked rotation. No mediastinal masses. No definite hilar or mediastinal lymphadenopathy. Bony Thorax: An old fracture of the distal third of the left clavicle is also seen. The distal fractured fragment seen in the previous film is no longer visible. Maybe it was surgically removed. Needs to be correlated with history. Soft Tissues: Soft tissues overlying the chest wall are unremarkable. IMPRESSION: No acute cardiopulmonary disease process. Electronically signed by Belén Cheatham 01-23-2024 03:32 AM Venous Doppler Study 01/23/24 01:58 EXAM: US venous doppler LE BI CLINICAL HISTORY: Redness to BL LE Groin nodes seen BL NO OBVIOUS DVT IN BL LE Difficult vis of calf vessels due to edema TECHNIQUE: Ultrasound examination of bilateral lower extremity veins was performed in real time and duplex. One or more of the following were performed- spectral analysis, resistive index, waveform analysis, and pulsed Doppler. COMPARISON: 03/27/2022. FINDINGS: Diffuse difficult visualization of the calf vessels due to subcutaneous soft tissue edema. Normal phasic, non-pulsatile and spontaneous flow is noted in bilateral common femoral, superficial femoral, popliteal and posterior tibial and peroneal veins. Visualized veins of both lower extremities demonstrate normal compressibility. No sonographic evidence of acute deep vein thrombosis (DVT) is detected in the visualized veins of both lower extremities. Compression and Augmentation: All evaluated veins compress fully with applied transducer pressure. Augmentation of venous flow is noted with distal compression. Additional Findings: No evidence of intraluminal thrombus. A prominent lymph node measured about 1.7 x 1.2 x 0.7 cm, was seen in the right groin region. Unspecific likely reactionary. IMPRESSION: 1. No sonographic evidence of acute DVT is detected in bilateral common femoral, superficial femoral, popliteal, and posterior tibial and peroneal veins, at the time of examination. 2. Diffuse poor visualization of the calf vessels due to subcutaneous soft tissue edema. 3. No significant interval changes compared to the prior study dated 03/27/2022. Disclaimer: DVT could be missed early in the disease when clot burden is minimal. For patients with moderate and high pretest probability of DVT and negative ultrasound, the [employer] clinical guidelines recommend testing with a D-dimer assay or repeat ultrasound in 5-7 days. If symptoms worsen, the Society of radiologists in ultrasound recommends repeating ultrasound even earlier. Electronically signed by Belén Cheatham 01-23-2024 04:11 AM Ordered Studies 01/23/24 01:58 US venous duplex leg [US venous doppler LE BI] Stat Hospital Course (1) Bilateral lower leg cellulitis: 68-year-old female with past medical history of CVA on Plavix, essential hypertension, CKD stage III, type 2 diabetes mellitus, morbid obesity, bilateral lower extremity chronic edema on diuretics, bipolar disorder, melanosis coli, chronic anemia who presents to the ED with concern of gradually worsening bilateral lower extremity redness, swelling and pain over the past few days with generalized muscle aches and was found to have bilateral lower extremity edema, Dopplers were negative for DVT Patient with bilateral lower extremity cellulitis versus chronic venous stasis. She was admitted with significant lower extremity edema which is now improving Blood cultures have remained no growth to date Initially on IV cefepime and daptomycin and changed to p.o. cefdinir and ronda ezolid on 01/25 Lower extremity edema is improving. She is afebrile, no leukocytosis, and CRP is minimally elevated and stable from previous at 2.9 Given potential interaction of linezolid with cefdinir and Lamictal, linezolid was discontinued and doxycycline was started instead for MRSA coverage. Patient is to complete a 7-day course and her cellulitis appears much improved. Continue torsemide for edema (2) H/O: CVA (cerebrovascular accident): #History of CVA #Chronic diastolic congestive heart failure with preserved ejection fraction of 55% 2D echo shows left ventricular systolic function is normal, EF is 55 to 60%, grade 1 diastolic dysfunction, right ventricular systolic function is elevated at 30 to 40 mmHg, the inferior vena cava is moderately dilated. Continue metoprolol Continue Plavix 75 mg daily Can resume home statin now that she is off daptomycin Plan Type 2 diabetes mellitus, with gastroparesis and renal disease/ CKD3 Morbid obesity with BMI of 47.4 A1c 7.0 Lifestyle counseling regarding diet, exercise and weight loss provided She is now moving her bowels and some upper abdominal pains have improved CKD stage III Outpatient gusset stitcher is Dr. Los Soni She is on Finerenone as outpatient which unavailable in the hospital: She will resume medication on discharge Renal function is at baseline Avoid nephrotoxic agents including NSAIDs and Toradol Monitor renal function intermittently-creatinine on 01/26 back to normal at 1.08 Hypothyroidism Continue levothyroxine 75 mcg p.o. daily, TSH in 09/2023 was normal at 3.7 GERD Patient prefers to take her Protonix at 8 in the morning-changed timing of this Anemia, likely anemia chronic kidney disease with history of iron deficiency anemia H&H is stable at 10.4 Continue PPI, ferrous sulfate Outpatient EGD from 10/15/2022 shows LA grade a reflux esophagitis, small hiatal hernia Colonoscopy from 10/15/2022 showed nonbleeding internal hemorrhoids, 2 sessile polyps in the rectum 3 to 4 mm which were removed. Diffuse area of mild melanosis and small diverticuli noted. Biopsies showed melanosis coli She was recently seen for second opinion by GI at [facility] and is scheduled for colonoscopy on February 08, [address] Garnica Bipolar disorder Continue duloxetine, Lamictal and Topamax Restless leg syndrome Continue Requip Hyperlipidemia Can resume home atorvastatin now that daptomycin is discontinued HTN BPs are controlled Continue metoprolol Discharge to home today Total Time Total Time Spent Total Time Spent (In Minutes): 35 Discharge Plan Discharge Items Patient Disposition: Home - Home Health Services Reason For Visit: B/L LE CELLULITIS Discharge Diagnosis: lower leg skin infection-cellulitis Activity: Per Instructions section Activity Comment: keep legs elevated as much as able Non-emergency contact: Primary Care Provider Call non-emergency contact if: your symptoms worsen Follow-up/Referrals: Mayela Moyer MD [Primary Care Provider] - Diet: Carb Consistent or DM2 Addtl Attending Provider Instructions: please keep legs elevated when sitting and when in bed try to prop a pillow below them complete antibiotic course, consider a pro biotic, or yogurt/cottage cheese to help your bowel bacteria when on antibiotics Pending Studies at Discharge: No Stand-Alone Forms: My [facility] TV Tube[employer], Smoking Cessation Medications and DC Order Prescriptions: New doxycycline hyclate 100 mg Capsule 100 mg PO BID 1 Days Qty: 2 0RF cefdinir 300 mg Capsule 300 mg PO BID 1 Days Qty: 2 0RF Continued (DME) blood sugar diagnostic Strip See Rx Instructions .ROUTE .MEDSUPPLY Qty: 30 5RF Rx Instructions: tests once daily DX: R73.03 (DME) blood-glucose meter Misc See Rx Instructions .ROUTE .MEDSUPPLY Qty: 1 0RF Rx Instructions: Tests once daily DX: R73.03 Ocuvite Adult 50 Plus 250 mg (90 mg-160 mg) capsule 1 cap PO BID Qty: 180 2RF magnesium gluconate [Mag-G] 27 mg magnesium (500 mg) tablet 27 mg PO HS Qty: 30 5RF atorvastatin 20 mg tablet 20 mg PO QPM Qty: 30 5RF metoprolol tartrate 25 mg tablet 12.5 mg PO BID Qty: 30 5RF sennosides [Senna Laxative] 8.6 mg tablet 8.6 - 17.2 mg PO BID Qty: 180 1RF levothyroxine 75 mcg tablet 75 mcg PO QAM Qty: 90 1RF Rx Instructions: TAKE 1 TABLET BY MOUTH ONCE DAILY cholecalciferol (vitamin D3) 50 mcg (2,000 unit) capsule 50 mcg PO QAM Qty: 90 1RF clopidogrel 75 mg tablet 75 mg PO QAM Qty: 90 1RF pantoprazole 40 mg tablet,delayed release (DR/EC) 40 mg PO BID Qty: 180 1RF ferrous sulfate [FeroSul] 325 mg (65 mg iron) tablet 325 mg PO QAM Qty: 90 1RF Rx Instructions: TAKE 1 TABLET (325 mg) BY MOUTH ONCE DAILY duloxetine 60 mg capsule,delayed release(DR/EC) 60 mg PO BID Qty: 180 1RF potassium chloride 10 mEq capsule, extended release 20 meq PO TID Qty: 540 1RF Rx Instructions: 20 mEq three times a day; pramipexole 0.25 mg tablet 0.25 mg PO HS Qty: 90 1RF Rx Instructions: take in the evening multivitamin with folic acid [Tab-A-Ck] 400 mcg tablet 1 tab PO QAM Qty: 90 0RF acetaminophen 500 mg tablet 500 mg PO Q6H PRN (Reason: Pain) Qty: 225 2RF Rx Instructions: TAKE 1 TABLET BY MOUTH EVERY 6 HOURS NEEDED FOR PAIN. DO NOT EXCEED 3000 MG IN 24 HOURS (DME) Accu-Chek Guide test strips Strip See Rx Instructions .ROUTE .MEDSUPPLY Qty: 100 1RF Rx Instructions: Test once daily, E11.9 (DME) lancets [Accu-Chek Fastclix Lancet Drum] Misc See Rx Instructions .Route Qty: 100 3RF Rx Instructions: test once daily topiramate 100 mg tablet 150 mg PO BID Qty: 180 1RF Kerendia 10 mg tablet 10 mg PO QAM Qty: 90 3RF lamotrigine 200 mg tablet 200 mg PO BID Qty: 180 1RF torsemide 10 mg tablet 30 mg PO BID Qty: 540 3RF Discharge Orders: Discharge Order (Routine); Ordered 01/29/24 Ordered By: Tatyana Moraes/Other Patient Handouts: Managing Type 2 Diabetes, Preventing Deep Vein Thrombosis Admission Data Admit Date/Time: 01/23/24 04:58 Attending Provider: Tatyana Mercedes Admit Provider: Wong Dvais Primary Care Provider: Mayela Moyer Other Providers: Wong Davis Other Interventions: Discharge Summary Assessment (RN) Last Done: 01/29/24 09:51
[2024-01-29 09:52] VITALS: BP 127/84
== END 2024-01-29 11:13 | disposition home or self-care (01) | DRG 603 ==
LOC: ED 01:26 → 2N 04:58 → SUATTDRO 04:58 → INTOOBSV 04:58 → 2N 05:48 → 3E 01-25 23:09

== ENCOUNTER 2024-06-27 18:35 | Inpatient (IN) ==
--- NOTE | 2024-06-27 19:05 | Emergency Department Note ---
Impression & Plan Acute pain of left hip, Ambulatory dysfunction ED Provider Note HISTORY OF PRESENT ILLNESS: Patient is a 68-year-old female presenting with left hip and bilateral leg pain. Patient reports that "for a long while" she has been having pain in her legs. She reports that for the last 4 days she has been having Pressly worsening pain in her left hip that now seems to be into her right leg. She states that it feels like "constant spasms in my leg." She states that she is taken multiple doses of Flexeril without any relief. She states that today she has been unable to stand up or ambulate secondary to "immense pain in both my legs." She states that she had to cancel her lymphedema appointment today secondary to her pain. Denies any recent falls or trauma. Denies any bowel or bladder incontinence. She locates the pain in the left low back and left posterior hip and states that it radiates down her posterior left leg and down her right leg. Denies any numbness or tingling in her legs. Denies any fevers. ROS: as above PHYSICAL EXAM: Constitutional: Patient appears in no acute distress. HENT: Head: Normocephalic and atraumatic. Eyes: EOMI, PERRL Mouth/Throat: Mucous membranes moist. Neck: Trachea midline. Neck supple. Cardiovascular: RRR, No murmurs, rubs or gallops. Intact distal pulses. Pulmonary/Chest: No respiratory distress. Breath sounds clear and equal bilaterally. No wheezes or rales. Abdominal: Abdomen soft, no tenderness, rebound or guarding. Back: No midline spinal tenderness, no paraspinal tenderness, no CVA tenderness. Patient is able to straight leg raise bilaterally. Musculoskeletal: No edema or deformity noted. Patient has diffuse tenderness to both of her legs. No obvious skin changes. Skin: Warm and dry. No rash, erythema, pallor or cyanosis Psychiatric: Appropriate mood and affect for situation. Neurological: Alert and keenly responsive. CN II-XII grossly intact, moving all extremities equally and fully. MDM: - Vitals signs stable. - History obtained via patient. History as above. - Chronic conditions affecting care: lymphedema; morbid obesity; HTN; CKD; HLD - Differential diagnoses include, but are not limited to: Herniated disc; pelvic fracture; hip fracture; deconditioning; UTI; ureteral stone - Order placed for continuous cardiac monitoring. At this time, monitor showed rate of 74 bpm with normal sinus rhythm, per my interpretation. - External medical records reviewed. - Laboratory workup interpreted by myself showed slight leukocytosis (WBC 11.05); slight hypokalemia (K 3.3); CKD (Cr 1.21); normal AST/ALT; normal troponin - CT lumbar spine wo contrast shows extensive streak artifact from the hardware in patient's lumbar spine making spinal canal neuroforaminal evaluation difficult. There is noted to have accelerated disc disease at L2/L1 level, which is 1 level superior to her surgical interventions which is causing extensive nerve root impingement. - CT pelvis wo contrast shows moderate osteoarthritis of the left hip. - Patient given 1g IV tylenol and lidocaine patch in ER. - Discussed results with the patient. He is unable to get up and walk at this point. She is agreeable to admission for PT/OT assessment. - Discussion was had with pillowcase sewer about patient's case and need for admission - Hospitalist, Dr. Diaz, consulted for admission - [facility] ASSESSMENT AND PLAN: Diagnosis: Acute left hip pain; ambulatory dysfunction Plan: Admit Past Med/Surg History Problem List (Updated 06/27/24 @ 22:22 by Елена Richardson MD) Ambulatory dysfunction (Acute) Acute pain of left hip (Acute) Bilateral lower extremity edema Diabetes mellitus, type 2 Swelling of left upper extremity Bilateral mastodynia Left axillary fullness Bilateral hip joint arthritis Abdominal pain Hypokalemia Hypomagnesemia Arthritis Lymphadenopathy Elevated white blood cell count Chronic constipation Urinary incontinence Change in bowel habits Cerebrovascular disease, unspecified (Chronic) Mitral valve disorder (Chronic) Vitamin D deficiency (Chronic) Degenerative disc disease (Chronic) GERD (gastroesophageal reflux disease) (Chronic) Medical History Melanosis coli H/O: CVA (cerebrovascular accident) Anemia Morbidly obese Generalized osteoarthritis Hypertension Gastroparesis Bipolar depression Esophageal dysfunction CKD (chronic kidney disease), stage III Vitamin D deficiency Cerebrovascular disease History of COVID-19 (2021) Mitral valve disorder Macular degeneration Fibromyalgia Insomnia Stomach ulcer Osteoarthritis Colon polyps Fatty liver Kidney stones H/O breast lump H/O migraine Restless legs syndrome Hyperlipidemia Hypothyroidism Lumbar spine scoliosis (10/26/13) Surgical History History of tonsillectomy and adenoidectomy S/P lymph node biopsy (07/21/21) S/P cholecystectomy History of esophagogastroduodenoscopy (EGD) History of colonoscopy History of cataract surgery History of cystoscopy History of lithotripsy S/P lumbar spinal fusion History of appendectomy H/O non-cataract eye surgery H/O: hysterectomy Family History Mother Diabetes Clotting disorder Heart disease Myocardial infarction Hypertension Father Diabetes Heart disease Grandmother (Paternal) Lung cancer Grandfather (Maternal) Stomach cancer Other Breast cancer Cancer No family history of adverse response to anesthesia Denies family history of Colon cancer Ovarian cancer Prostate cancer Social History Smoking Status: Unknown if ever smoked Second Hand Exposure: Yes (as a child); Do You Dip or Chew Tobacco: No; Hx Alcohol Use: No Hx Substance Use: No Preferred Language: Angolan Communication Ability: Effective Visual Impairment: No Limitations Hearing Ability: Normal Upholsterer Limousine And Hearse Required: No Beliefs That Will Affect Care: None marital status: Current Living Situation: Alone Current Living Situation Comment: recieved home health for assistance>recent staff problems current occupational status: retired 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 [place] How many Children do You have: 2 Feels Safe at Home: Yes Safety Concerns Comment: Pt states some things have gone missing around home, trying to move Childhood Exposure to Second-Hand Smoke: Yes Diet: regular caffeine: No during the past year weight has: decreased > 10 lbs Dental Care, Regularly: Yes Physical Activity Frequency: Does not Exercise Seatbelt Use: always Sunscreen Use: No Do you think of yourself as: straight/heterosexual Gender Identity: Female Assistive Devices: Glasses and Scooter/Electric Scooter Allergies Allergies Allergy/AdvReac Type Severity Reaction Status Date / Time Cephalosporins Allergy Intermediate CEPHALEXIN-RASH Verified 06/27/24 19:37 & ULCERS IN MOUTH Penicillins Allergy Intermediate RASH AND Verified 06/27/24 19:37 ULCERS IN MOUTH Sulfa (Sulfonamide Allergy Intermediate RASH AND Verified 06/27/24 19:37 Antibiotics) ULCERS IN MOUTH sulfamethoxazole Allergy Intermediate rash and Verified 06/27/24 19:37 ulcers in the mouth wheat Allergy Intermediate Itching Verified 06/27/24 19:37 levofloxacin Allergy Mild local Verified 06/27/24 19:37 reaction gabapentin AdvReac Severe sore Verified 06/27/24 19:37 throat, stomach pains, nausea meperidine AdvReac Intermediate VOMITING & Verified 06/27/24 19:37 VERTIGO metformin AdvReac Intermediate Diarrhea Verified 06/27/24 19:37 oxycodone AdvReac Intermediate PERCOCET - Verified 06/27/24 19:37 vomiting and vertigo sesame seed AdvReac Unknown Unknown Verified 06/27/24 19:37 Home Meds Previous Rx's Medication Instructions Recorded blood sugar diagnostic #30 ea 09/21/19 blood-glucose meter #1 ea 09/21/19 lamotrigine 200 mg tablet 200 mg PO BID #180 tabs 05/04/23 blood sugar diagnostic (Accu-Chek #100 ea 01/24/24 Guide test strips) lancets (Accu-Chek Fastclix Lancet #100 ea 01/24/24 Drum) multivitamin with folic acid 400 1 tab PO QAM #90 tabs 02/25/24 mcg tablet (Tab-A-Ck) torsemide 40 mg tablet 40 mg PO BID #60 tabs 03/06/24 [id number] 250 mg-dha 90 1 cap PO BID #180 caps 03/20/24 mg-epa 160 [id number] capsule (Ocuvite Adult 50 Plus) topiramate 100 mg tablet 150 mg (1.5 x 100 mg) PO BID #180 04/13/24 tabs finerenone 10 mg tablet (Kerendia) 10 mg PO QAM #90 tabs 04/20/24 pioglitazone 15 mg tablet (Actos) 15 mg PO DAILY #90 tabs 05/10/24 atorvastatin 20 mg tablet 20 mg PO QPM #30 tabs 05/15/24 clopidogrel 75 mg tablet 75 mg PO QAM #90 tabs 05/15/24 duloxetine 60 mg capsule,delayed 60 mg PO BID #180 caps 05/15/24 release ferrous sulfate 325 mg (65 mg 325 mg PO QAM #90 tabs 05/15/24 iron) tablet (FeroSul) levothyroxine 75 mcg tablet 75 mcg PO QAM #90 tabs 05/15/24 magnesium gluconate 27 mg 27 mg PO HS #30 tabs 05/15/24 magnesium (500 mg) tablet (Mag-G) metoprolol tartrate 25 mg tablet 12.5 mg (1/2 x 25 mg) PO BID #30 05/15/24 tabs pantoprazole 40 mg tablet,delayed 40 mg PO BID #180 tabs 05/15/24 release potassium chloride 10 mEq 20 meq (2 x 10 mEq) PO TID #540 05/15/24 capsule,extended release caps pramipexole 0.25 mg tablet 0.25 mg PO HS #90 tabs 05/15/24 acetaminophen 500 mg tablet 500 mg PO Q6H PRN Pain #225 tabs 06/09/24 sennosides 8.6 mg tablet (Senna 8.6 - 17.2 mg (1 - 2 x 8.6 mg) PO 06/09/24 Laxative) BID #180 tabs Results & Data (ED) Vital Signs Vital Signs - 24 hr 06/27/24 18:43 06/27/24 18:56 06/27/24 18:56 Temperature 37.0 C Temperature Source Oral Pulse Rate 91 H 80 Pulse Rate [Right Finger] 80 Pulse Rhythm Regular Pulse Rhythm [Right Finger] Regular Pulse Strength Normal Pulse Strength [Right Finger] Normal Respiratory Rate 16 16 Respiratory Effort / Characteristics Non-Labored Non-Labored Respiratory Depth Normal Normal Respiratory Pattern Regular Regular Blood Pressure 130/89 Blood Pressure [Right Arm] 130/89 Blood Pressure Mean 102 Blood Pressure Mean [Right Arm] 102 Blood Pressure Position Lying Blood Pressure Position [Right Arm] Lying Pulse Oximetry 94 96 Oxygen Delivery Method Room Air Room Air Sepsis Recent Fever Within 48 Hours No Sepsis New/Unexplained Change in Mental Status N/A Sepsis Action Taken by Nursing No Action Required 06/27/24 18:56 06/27/24 19:16 06/27/24 20:41 Temperature Temperature Source Pulse Rate Pulse Rate [Right Finger] 73 Pulse Rhythm Pulse Rhythm [Right Finger] Regular Pulse Strength Pulse Strength [Right Finger] Normal Respiratory Rate 16 Respiratory Effort / Characteristics Non-Labored Respiratory Depth Normal Respiratory Pattern Regular Blood Pressure Blood Pressure [Right Arm] 114/58 L Blood Pressure Mean Blood Pressure Mean [Right Arm] 76 Blood Pressure Position Blood Pressure Position [Right Arm] Lying Pulse Oximetry 96 96 97 Oxygen Delivery Method Room Air Room Air Room Air Sepsis Recent Fever Within 48 Hours Sepsis New/Unexplained Change in Mental Status Sepsis Action Taken by Nursing 06/27/24 22:01 Temperature Temperature Source Pulse Rate Pulse Rate [Right Finger] 73 Pulse Rhythm Pulse Rhythm [Right Finger] Regular Pulse Strength Pulse Strength [Right Finger] Normal Respiratory Rate 15 Respiratory Effort / Characteristics Non-Labored Respiratory Depth Normal Respiratory Pattern Regular Blood Pressure Blood Pressure [Right Arm] 101/54 L Blood Pressure Mean Blood Pressure Mean [Right Arm] 69 Blood Pressure Position Blood Pressure Position [Right Arm] Lying Pulse Oximetry 97 Oxygen Delivery Method Room Air Sepsis Recent Fever Within 48 Hours Sepsis New/Unexplained Change in Mental Status Sepsis Action Taken by Nursing Laboratory Data 06/27/24 18:48 06/27/24 18:48 Lab Results 06/27/24 Range/Units 18:48 WBC 11.05 H (4.8-10.8) K/ul RBC 4.10 L (4.20-5.40) M/uL Hgb 11.6 L (12.0-16.0) g/dl Hct 35.4 L (37.0-47.0) % MCV 86.3 (80.0-100.0) fL MCH 28.3 (25.0-34.0) pg MCHC 32.8 (32.0-36.0) g/dL RDW Std Deviation 45.1 (36.4-46.3) fL RDW Coeff of Arslan 14.3 (11.5-14.5) % Plt Count 291 (130-400) K/uL MPV 10.6 (9.4-12.4) fL Immature Gran % (Auto) 0.4 % Neut % (Auto) 52.2 % Lymph % (Auto) 35.8 % [place] % (Auto) 9.4 % Eos % (Auto) 1.8 % Baso % (Auto) 0.4 % Neut # (Auto) 5.77 (1.40-6.50) K/uL Lymph # (Auto) 3.96 H (1.20-3.40) K/uL [place] # (Auto) 1.04 H (0.11-0.59) K/uL Eos # (Auto) 0.20 (0.00-0.50) K/uL Baso # (Auto) 0.04 (0.00-0.20) K/uL Immature Gran # (Auto) 0.04 (0.01-0.20) K/uL Sodium 139 (136-145) mmol/L Potassium 3.3 L (3.5-5.1) mmol/L Chloride 105 (98-107) mmol/L Carbon Dioxide 26 (21-32) mmol/L Anion Gap 8 (3-11) BUN 20 (6-23) mg/dl Creatinine 1.21 H (0.6-1.2) mg/dl Est Cr Clr Drug Dosing 48.3 ml/min eGFR 48.51 BUN/Creatinine Ratio 16.5 (10-20) Glucose 132 H (70-99(Fasting)) mg/dl Calcium 9.1 (8.6-10.3) mg/dl Magnesium 1.7 (1.7-2.4) mg/dl Total Bilirubin 0.2 (0.2-1.0) mg/dl AST 11 L (13-39) U/L ALT 13 (7-52) U/L Alkaline Phosphatase 86 (34-104) U/L Total Protein 7.2 (6.0-8.3) gm/dl Albumin 4.0 (3.4-5.0) gm/dl Globulin 3.2 (2.5-4.0) gm/dl Albumin/Globulin Ratio 1.3 (0.9-2) Lipase 47 (11-82) U/L Administered Medications Discontinued Medications Acetaminophen (Ofirmev) 1,000 mg in 100 mls @ 400 mls/hr IV NOW STA Stop: 06/27/24 22:07 Last Admin: 06/27/24 22:02 Dose: 400 mls/hr Documented By: KENNY Lidocaine (Lidocaine 5% 1 Patch) 1 patch TD NOW STA Stop: 06/27/24 21:54 Last Admin: 06/27/24 22:02 Dose: 1 patch Documented By: KENNY Imaging Data Radiologist's Impression: Lumbar Spine CT 06/27/24 19:00 CT LUMBAR SPINE WITHOUT CONTRAST: HISTORY: PAIN TECHNIQUE: Noncontrast CT examination of the lumbar spine is performed. Coronal and sagittal reformats were created. COMPARISON: None FINDINGS: LUMBAR SPINE: No very limited evaluation due to extensive streak artifact from the lumbar spine fixation hardware obscuring a large portion of the examination. Within this limitation: There are postoperative changes of the posterior instrumented fusion at L2-5 with bilateral pedicle screws, stabilizing rods and intervertebral disc spacers at L3-4 and L4-5. There are additionally laminectomies and possibly partial facetectomies at these levels. There is no significant vertebral body height loss. No appreciable vertebral body height loss detected. Usual lumbar lordosis is preserved. There is a accelerated disc disease at L1-2, 1 level superiorly to the surgical site resulting in bilateral neuroforaminal narrowing where the exiting nerve roots appear to be impinged. Evaluation of the spinal canal and the neural foramina at the surgical levels is limited due to streak. IMPRESSION: Postoperative operative changes of L2-L5 posterior instrumented fusion with laminectomies and possibly facetectomies. Extensive streak artifact arising from the lumbar spine hardware limits evaluation of the soft tissues including the spinal canal and the neural foramina at these levels. There appears to be an accelerated disc disease at L1-2, one level superiorly to the surgical level, resulting in bilateral neural foraminal narrowing where the exiting nerve roots appear to be impinged. Further evaluation with MRI may offer additional details. Electronically signed by Leonides Lemus 06-27-2024 8:[address] 06/27/24 19:00 CT PELVIS: TECHNIQUE: Un-enhanced CT examination of the pelvis was performed. IV CONTRAST: HISTORY: Left hip pain COMPARISON: FINDINGS: URINARY BLADDER: Unremarkable REPRODUCTIVE ORGANS: Unremarkable AORTA and ILIAC ARTERIES: No aneurysmal dilatation of the visualized portion of the aorta or iliac arteries seen. LYMPH NODES: No pelvic lymph adenopathy identified. GASTROINTESTINAL: The visualized bowel is normal in caliber. PERITONEUM: No ascites is seen. No peritoneal masses seen. PELVIC WALL: Small fat-containing umbilical hernia. OSSEOUS STRUCTURES: No acute or suspicious process identified. Mild to moderate osteoarthritis of the left hip joint with joint space narrowing, medium-sized osteophyte formation along the acetabular rim and over the femoral head. Mild osteoarthritic changes of the right hip joint. IMPRESSION: No acute traumatic fracture detected Mild to moderate osteoarthritis of the left hip joint with joint space narrowing, medium-sized osteophyte formation along the acetabular rim and over the femoral head. Mild osteoarthritic changes of the right hip joint. Electronically signed by Leonides Lemus 06-27-2024 8:25 PM Discharge Plan Visit Data Chief Complaint: Leg Injury/Pain ED Provider: Елена Richardson Discharge Problem: Acute pain of left hip, Ambulatory dysfunction Forms Stand Alone Forms: My [facility] Prescriptions Prescriptions: No Action (DME) blood sugar diagnostic Strip See Rx Instructions .ROUTE .MEDSUPPLY Qty: 30 5RF Rx Instructions: tests once daily DX: R73.03 (DME) blood-glucose meter Misc See Rx Instructions .ROUTE .MEDSUPPLY Qty: 1 0RF Rx Instructions: Tests once daily DX: R73.03 (DME) Accu-Chek Guide test strips Strip See Rx Instructions .ROUTE .MEDSUPPLY Qty: 100 1RF Rx Instructions: Test once daily, E11.9 (DME) lancets [Accu-Chek Fastclix Lancet Drum] Misc See Rx Instructions .Route Qty: 100 3RF Rx Instructions: test once daily multivitamin with folic acid [Tab-A-Ck] 400 mcg tablet 1 tab PO QAM Qty: 90 3RF Ocuvite Adult 50 Plus 250 mg (90 mg-160 mg) capsule 1 cap PO BID Qty: 180 2RF topiramate 100 mg tablet 150 mg PO BID Qty: 180 1RF Kerendia 10 mg tablet 10 mg PO QAM Qty: 90 3RF pioglitazone [Actos] 15 mg tablet 15 mg PO DAILY Qty: 90 3RF Rx Instructions: PT STATED "NO LONGER TAKING THIS MED". clopidogrel 75 mg tablet 75 mg PO QAM Qty: 90 1RF potassium chloride 10 mEq capsule, extended release 20 meq PO TID Qty: 540 1RF Rx Instructions: 20 mEq three times a day; atorvastatin 20 mg tablet 20 mg PO QPM Qty: 30 5RF ferrous sulfate [FeroSul] 325 mg (65 mg iron) tablet 325 mg PO QAM Qty: 90 1RF levothyroxine 75 mcg tablet 75 mcg PO QAM Qty: 90 1RF duloxetine 60 mg capsule,delayed release(DR/EC) 60 mg PO BID Qty: 180 1RF pantoprazole 40 mg tablet,delayed release (DR/EC) 40 mg PO BID Qty: 180 1RF metoprolol tartrate 25 mg tablet 12.5 mg PO BID Qty: 30 5RF magnesium gluconate [Mag-G] 27 mg magnesium (500 mg) tablet 27 mg PO HS Qty: 30 5RF pramipexole 0.25 mg tablet 0.25 mg PO HS Qty: 90 1RF acetaminophen 500 mg tablet 500 mg PO Q6H MDD 3 GRAMS/24 HOURS PRN (Reason: Pain) Qty: 225 2RF sennosides [Senna Laxative] 8.6 mg tablet 8.6 - 17.2 mg PO BID Qty: 180 0RF lamotrigine 200 mg tablet 200 mg PO BID Qty: 180 1RF torsemide 40 mg tablet 40 mg PO BID Qty: 60 5RF Referrals Referrals: Mayela Moyer MD [Primary Care Provider] -
[2024-06-27 19:15] LABS: Basophils # (auto) 0.04 K/uL (0.00-0.20); Basophils % (auto) 0.4 %; Eosinophils % (auto) 1.8 %; Hematocrit (blood only) 35.4 % (37.0-47.0); Hemoglobin 11.6 g/dl (12.0-16.0); Immature Granulocytes # (auto) 0.04 K/uL (0.01-0.20); Immature Granulocytes % (auto) 0.4 %; Lymphocytes # (auto) 3.96 K/uL (1.20-3.40); Lymphocytes % (auto) 35.8 %; Mean Corpuscular Hemoglobin 28.3 pg (25.0-34.0); Mean Corpuscular Hgb Conc 32.8 g/dL (32.0-36.0); Mean Corpuscular Volume 86.3 fL (80.0-100.0); Mean Platelet Volume 10.6 fL (9.4-12.4); Monocytes # (auto) 1.04 K/uL (0.11-0.59); Monocytes % (auto) 9.4 %; Neutrophils # (auto) 5.77 K/uL (1.40-6.50); Neutrophils % (auto) 52.2 %; Platelet Count 291 K/uL (130-400); RDW Coefficient of Variation 14.3 % (11.5-14.5); RDW Standard Deviation 45.1 fL (36.4-46.3); White Blood Count 11.05 K/ul (4.8-10.8)
[2024-06-27 19:31] LABS: Albumin Globulin Ratio 1.3 (0.9-2); BUN Creatinine Ratio 16.5 (10-20); Bilirubin,Total 0.2 mg/dl (0.2-1.0); Calcium 9.1 mg/dl (8.6-10.3); Creatinine Clr Calc Pharmacy 48.3 ml/min; Globulin 3.2 gm/dl (2.5-4.0); Potassium 3.3 mmol/L (3.5-5.1); Total Protein 7.2 gm/dl (6.0-8.3)
--- NOTE | 2024-06-27 20:25 | CT Scan Report ---
CT PELVIS: TECHNIQUE: Un-enhanced CT examination of the pelvis was performed. IV CONTRAST: HISTORY: Left hip pain COMPARISON: FINDINGS: URINARY BLADDER: Unremarkable REPRODUCTIVE ORGANS: Unremarkable AORTA and ILIAC ARTERIES: No aneurysmal dilatation of the visualized portion of the aorta or iliac arteries seen. LYMPH NODES: No pelvic lymph adenopathy identified. GASTROINTESTINAL: The visualized bowel is normal in caliber. PERITONEUM: No ascites is seen. No peritoneal masses seen. PELVIC WALL: Small fat-containing umbilical hernia. OSSEOUS STRUCTURES: No acute or suspicious process identified. Mild to moderate osteoarthritis of the left hip joint with joint space narrowing, medium-sized osteophyte formation along the acetabular rim and over the femoral head. Mild osteoarthritic changes of the right hip joint. IMPRESSION: No acute traumatic fracture detected Mild to moderate osteoarthritis of the left hip joint with joint space narrowing, medium-sized osteophyte formation along the acetabular rim and over the femoral head. Mild osteoarthritic changes of the right hip joint. Electronically signed by Leonides Lemus 06-27-2024 8:25 PM
--- NOTE | 2024-06-27 20:40 | CT Scan Report ---
CT LUMBAR SPINE WITHOUT CONTRAST: HISTORY: PAIN TECHNIQUE: Noncontrast CT examination of the lumbar spine is performed. Coronal and sagittal reformats were created. COMPARISON: None FINDINGS: LUMBAR SPINE: No very limited evaluation due to extensive streak artifact from the lumbar spine fixation hardware obscuring a large portion of the examination. Within this limitation: There are postoperative changes of the posterior instrumented fusion at L2-5 with bilateral pedicle screws, stabilizing rods and intervertebral disc spacers at L3-4 and L4-5. There are additionally laminectomies and possibly partial facetectomies at these levels. There is no significant vertebral body height loss. No appreciable vertebral body height loss detected. Usual lumbar lordosis is preserved. There is a accelerated disc disease at L1-2, 1 level superiorly to the surgical site resulting in bilateral neuroforaminal narrowing where the exiting nerve roots appear to be impinged. Evaluation of the spinal canal and the neural foramina at the surgical levels is limited due to streak. IMPRESSION: Postoperative operative changes of L2-L5 posterior instrumented fusion with laminectomies and possibly facetectomies. Extensive streak artifact arising from the lumbar spine hardware limits evaluation of the soft tissues including the spinal canal and the neural foramina at these levels. There appears to be an accelerated disc disease at L1-2, one level superiorly to the surgical level, resulting in bilateral neural foraminal narrowing where the exiting nerve roots appear to be impinged. Further evaluation with MRI may offer additional details. Electronically signed by Leonides Lemus 06-27-2024 8:39 PM
[2024-06-27] MEDS: ACETAMINOPHEN 1,000 MG/100 ML VIAL IV STA (22:02)
[2024-06-27] MEDS: LIDOCAINE 5% 1 PATCH TD STA (22:02)
--- NOTE | 2024-06-27 22:07 | History & Physical Report ---
Date of Service June 27, 2024 Assessment & Plan (1) Ambulatory dysfunction: (2) Acute pain of left hip: (3) Bilateral lower extremity edema: (4) Diabetes mellitus, type 2: Plan Patient is a a 68 y.o with hx of DM, hx og CVA, leg edema, GERD, hypothyroidism, restless leg syndrome, HTN, CKD stage G3a, anemia that presented to the Ed due to generalized lower extremity pain and hip pain. States had been difficult to walk for several week. Patient states she started Lymphedema therapy about a week ago. Patient Admitted for pain control, PT and OT evaluation #Generalized pain/Ambulatory dysfuntion/ Bilateral lower extremities and hip pain / Bilateral lower extremity edema - Patient states having bilateral leg pain since when she was treated for bilateral lower extremity cellulitis and chronic venous stasis . She started lymphedema therapy about a week ago. Denied any redness, ulcers or weeping. States her lower extremity edema had remained stable. Denied nay saddle anesthesia, numbness, voiding. No neurology deficits on exam. States had been very difficult to ambulate - Spine CT - here is noted to have accelerated disc disease at L2/L1 level, which is 1 level superior to her surgical interventions which is causing extens constance nerve root impingement. - CT pelvis wo contrast shows moderate osteoarthritis of the left hip. - Venous Doppler ordered - CK - 52 - Continue lidocaine patch - Tylenol IV 1,000mg schedule for pain - continue Torsemide for edema - PT/ OT eval in the morning - Labs in AM #CKD G3/ Hypokalemia, Hypomagnesemia - Baseline Cr. 1.0 - Cr. 1.20 on admission - Gentle hydration 500 ml Lactate ringer 100ml/hr added - Continue home potassium - BMP, Mag in AM #Hx of CVA / HFpEF - Continue Plavix , Metoprolol, Statin #Gastroparesis Stable, avoid opiods #DM2 - Home meds hold - Novalog ordered - Hgb A1C AM #Hypothyroidism Continue levothyroxine 75 mcg p.o. daily #Anemia 2/2 to chronic kidney disease Colonoscopy (03/07)- polyps removed H&H is stable at 11.6 Continue PPI, ferrous sulfate Disposition: Admit to Med / Surg for pain management and PT/OT evaluation DVT prophylaxes: Lovenox 12 q24hr History of Present Illness Primary Care Provider: Mayela Moyer MD Patient is a a 68 y.o with hx of DM, hx og CVA, leg edema, GERD, hypothyroidism, restless leg syndrome, HTN, CKD stage G3a and anemia that presented to the Ed due to generalized lower extremity pain and hip pain. States had been difficult to walk for several weeks. Patient states she started Lymphedema therapy about a week ago. She states having lower extremity discomfort since thanksgiving when she was treated for bilateral lower extremity cellulitis and chronic venous stasis Denied any redness, ulcers or weeping. States her lower extremity edema had remained stable. Denied nay saddle anesthesia, numbness, voiding. No neurology deficits. Denied any fever, chills, abdominal pain, nausea, vomiting or abdominal pain Allergies Allergy/AdvReac Type Severity Reaction Status Date / Time Cephalosporins Allergy Intermediate CEPHALEXIN-RASH Verified 06/27/24 19:37 & ULCERS IN MOUTH Penicillins Allergy Intermediate RASH AND Verified 06/27/24 19:37 ULCERS IN MOUTH Sulfa (Sulfonamide Allergy Intermediate RASH AND Verified 06/27/24 19:37 Antibiotics) ULCERS IN MOUTH sulfamethoxazole Allergy Intermediate rash and Verified 06/27/24 19:37 ulcers in the mouth wheat Allergy Intermediate Itching Verified 06/27/24 19:37 levofloxacin Allergy Mild local Verified 06/27/24 19:37 reaction gabapentin AdvReac Severe sore Verified 06/27/24 19:37 throat, stomach pains, nausea meperidine AdvReac Intermediate VOMITING & Verified 06/27/24 19:37 VERTIGO metformin AdvReac Intermediate Diarrhea Verified 06/27/24 19:37 oxycodone AdvReac Intermediate PERCOCET - Verified 06/27/24 19:37 vomiting and vertigo sesame seed AdvReac Unknown Unknown Verified 06/27/24 19:37 Home Medications Medication Instructions Recorded Confirmed Type blood sugar diagnostic #30 ea 09/21/19 05/17/24 Rx blood-glucose meter #1 ea 09/21/19 05/17/24 Rx lamotrigine 200 mg tablet 200 mg PO BID #180 tabs 05/04/23 06/27/24 Rx blood sugar diagnostic (Accu-Chek #100 ea 01/24/24 05/17/24 Rx Guide test strips) lancets (Accu-Chek Fastclix Lancet #100 ea 01/24/24 05/17/24 Rx Drum) multivitamin with folic acid 400 1 tab PO QAM #90 tabs 02/25/24 06/27/24 Rx mcg tablet (Tab-A-Ck) torsemide 40 mg tablet 40 mg PO BID #60 tabs 03/06/24 06/27/24 Rx nqjzldzt-fxb- 250 mg-dha 90 1 cap PO BID #180 caps 03/20/24 06/27/24 Rx mg-epa 160 su-urdx-ruja-zeax capsule (Ocuvite Adult 50 Plus) topiramate 100 mg tablet 150 mg (1.5 x 100 mg) PO BID #180 04/13/24 06/27/24 Rx tabs finerenone 10 mg tablet (Kerendia) 10 mg PO QAM #90 tabs 04/20/24 06/27/24 Rx pioglitazone 15 mg tablet (Actos) 15 mg PO DAILY #90 tabs 05/10/24 06/27/24 Rx atorvastatin 20 mg tablet 20 mg PO QPM #30 tabs 05/15/24 06/27/24 Rx clopidogrel 75 mg tablet 75 mg PO QAM #90 tabs 05/15/24 06/27/24 Rx duloxetine 60 mg capsule,delayed 60 mg PO BID #180 caps 05/15/24 06/27/24 Rx release ferrous sulfate 325 mg (65 mg 325 mg PO QAM #90 tabs 05/15/24 06/27/24 Rx iron) tablet (FeroSul) levothyroxine 75 mcg tablet 75 mcg PO QAM #90 tabs 05/15/24 06/27/24 Rx magnesium gluconate 27 mg 27 mg PO HS #30 tabs 05/15/24 06/27/24 Rx magnesium (500 mg) tablet (Mag-G) metoprolol tartrate 25 mg tablet 12.5 mg (1/2 x 25 mg) PO BID #30 05/15/24 06/27/24 Rx tabs pantoprazole 40 mg tablet,delayed 40 mg PO BID #180 tabs 05/15/24 06/27/24 Rx release potassium chloride 10 mEq 20 meq (2 x 10 mEq) PO TID #540 05/15/24 06/27/24 Rx capsule,extended release caps pramipexole 0.25 mg tablet 0.25 mg PO HS #90 tabs 05/15/24 06/27/24 Rx acetaminophen 500 mg tablet 500 mg PO Q6H PRN Pain #225 tabs 06/09/24 06/27/24 Rx sennosides 8.6 mg tablet (Senna 8.6 - 17.2 mg (1 - 2 x 8.6 mg) PO 06/09/24 06/27/24 Rx Laxative) BID #180 tabs Past Med/Surg History Problem List (Updated 06/27/24 @ 22:22 by Елена Richardson MD) Ambulatory dysfunction (Acute) Acute pain of left hip (Acute) Bilateral lower extremity edema Diabetes mellitus, type 2 Swelling of left upper extremity Bilateral mastodynia Left axillary fullness Bilateral hip joint arthritis Abdominal pain Hypokalemia Hypomagnesemia Arthritis Lymphadenopathy Elevated white blood cell count Chronic constipation Urinary incontinence Change in bowel habits Cerebrovascular disease, unspecified (Chronic) Mitral valve disorder (Chronic) Vitamin D deficiency (Chronic) Degenerative disc disease (Chronic) GERD (gastroesophageal reflux disease) (Chronic) Medical History Melanosis coli H/O: CVA (cerebrovascular accident) Anemia Morbidly obese Generalized osteoarthritis Hypertension Gastroparesis Bipolar depression Esophageal dysfunction CKD (chronic kidney disease), stage III Vitamin D deficiency Cerebrovascular disease History of COVID-19 (2021) Mitral valve disorder Macular degeneration Fibromyalgia Insomnia Stomach ulcer Osteoarthritis Colon polyps Fatty liver Kidney stones H/O breast lump H/O migraine Restless legs syndrome Hyperlipidemia Hypothyroidism Lumbar spine scoliosis (10/26/13) Surgical History History of tonsillectomy and adenoidectomy S/P lymph node biopsy (07/21/21) S/P cholecystectomy History of esophagogastroduodenoscopy (EGD) History of colonoscopy History of cataract surgery History of cystoscopy History of lithotripsy S/P lumbar spinal fusion History of appendectomy H/O non-cataract eye surgery H/O: hysterectomy Family History Mother Diabetes Clotting disorder Heart disease Myocardial infarction Hypertension Father Diabetes Heart disease Grandmother (Paternal) Lung cancer Grandfather (Maternal) Stomach cancer Other Breast cancer Cancer No family history of adverse response to anesthesia Denies family history of Colon cancer Ovarian cancer Prostate cancer Social History Smoking Status: Never smoker Second Hand Exposure: Yes (as a child); Do You Dip or Chew Tobacco: No; Hx Alcohol Use: No Hx Substance Use: No Preferred Language: Spanish Communication Ability: Effective Visual Impairment: No Limitations Hearing Ability: Normal Data Solutions Architect Required: No Beliefs That Will Affect Care: None marital status: Current Living Situation: Alone Current Living Situation Comment: recieved home health for assistance>recent staff problems current occupational status: retired 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 [employer] How many Children do You have: 2 Feels Safe at Home: Yes Safety Concerns: Feels Safe At This Time Safety Concerns Comment: Pt states some things have gone missing around home, trying to move Childhood Exposure to Second-Hand Smoke: Yes Diet: regular caffeine: No during the past year weight has: decreased > 10 lbs Dental Care, Regularly: Yes Physical Activity Frequency: Does not Exercise Seatbelt Use: always Sunscreen Use: No Do you think of yourself as: straight/heterosexual Gender Identity: Female Assistive Devices: Glasses Review of Systems Review of Systems: as per hpi Physical Exam Constitutional: WD/WN, vitals as above ENMT: external ear and nose normal, oropharynx normal Respiratory: normal respiratory effort, lungs clear to auscultation Cardiovascular: Rate/Rhythm: regular rate and regular rhythm Heart Sounds: normal S1 and normal S2 Extremities: + calf tenderness (Left) and + edema Gastrointestinal (Abdomen): normal bowel sounds, soft, nontender, no hepatosplenomegaly Skin: no rashes, warm and dry Results & Data Results & Data Vital Signs (Past 12 Hours) Vital Signs Temp Pulse Pulse Resp BP BP Pulse Ox 06/27/24 22:01 73 15 101/54 L 97 06/27/24 20:41 73 16 114/58 L 97 06/27/24 19:16 96 06/27/24 18:56 96 06/27/24 18:56 80 16 130/89 96 06/27/24 18:56 37.0 C 80 16 130/89 94 06/27/24 18:43 91 H O2 Del Method 06/27/24 22:01 Room Air 06/27/24 20:41 Room Air 06/27/24 19:16 Room Air 06/27/24 18:56 Room Air 06/27/24 18:56 Room Air 06/27/24 18:56 Room Air 06/27/24 18:43 Supervising Physician Co-Signing Physician Notes Patient seen and examined, chart reviewed, case discussed with Dr. Davi Major and I agree with the assessment and plan as above Resident Activity Tracking Resident Involvement: Resident Care Provided Care Provided: Adult Hospital Medicine
[2024-06-27 22:15] LABS: Magnesium 1.7 mg/dl (1.7-2.4)
[2024-06-27] MEDS: POTASSIUM CHLORIDE CRTAB 20 MEQ TABCR PO STA (23:23)
[2024-06-27] MEDS: LACTATED RINGER'S 500 ML IV STA (23:25)
[2024-06-28] MEDS: MoRPHine SULFATE 2 MG/ML CARP IV STA (00:54)
--- NOTE | 2024-06-28 01:04 | Ultrasound Report ---
Exam(s): US VENOUS BILATERAL LOWER EXTREMITIES EXAM: US Duplex Bilateral Lower Extremities Veins CLINICAL HISTORY: Reason for exam: LE calf pain. TECHNIQUE: Real-time duplex ultrasound scan of the bilateral lower extremity veins integrating B-mode two-dimensional vascular structure, Doppler spectral analysis, color flow Doppler imaging and compression. COMPARISON: 01/23/2024 FINDINGS: Right deep veins: Unremarkable. No DVT in the right common femoral, femoral, proximal deep femoral or popliteal veins. The veins demonstrate normal color flow, are normally compressible, with normal phasic flow and/or augmentation response. Right superficial veins: Unremarkable. No thrombus in the visualized right great saphenous vein. Left deep veins: Unremarkable. No DVT in the left common femoral, femoral, proximal deep femoral or popliteal veins. The veins demonstrate normal color flow, are normally compressible, with normal phasic flow and/or augmentation response. Left superficial veins: Unremarkable. No thrombus in the visualized left great saphenous vein. Soft tissues: No acute findings. No popliteal cyst. IMPRESSION: No evidence of DVT in the bilateral lower extremity veins. Electronically signed by: Apolinar De La Cruz MD 06/28/24 01:03 AM
[2024-06-28] MEDS ORDERED: CARBOHYDRATES FOR HYPOGLYCEMIA PO PRN (01:22)
[2024-06-28] MEDS ORDERED: GLUCOSE 40% GEL 15 GM TUBE PO PRN (01:22)
[2024-06-28] MEDS ORDERED: GLUCOSE 10 TAB/TUBE PO PRN (01:22)
[2024-06-28] MEDS ORDERED: GLUCAGON FOR INJ 1 MG VIAL SQ PRN (01:22)
[2024-06-28] MEDS ORDERED: DEXTROSE 50% 50 ML SYRINGE IV PRN (01:22)
[2024-06-28] MEDS: traMADol HCL 50 MG TABLET PO STA (03:03)
[2024-06-28] MEDS: DICLOFENAC SOD 1% GEL 100 GM TUBE EXT PRN (03:04)
[2024-06-28 03:48] LABS: Appearance Urine Clear (Clear); Bacteria Urine Automated None Seen (None Seen); Bilirubin Urine Negative (Negative); Blood Urine Negative (Negative); Cast Urine Automated 0-2 /lpf (0-2); Color Urine Yellow; Epithelial Cell Urine Auto 0-2 /hpf (0-2); Glucose Urine UA Negative (Negative); Ketones Urine Negative (Negative); Leukocyte Esterase Urine 3+ (Negative); Nitrite Urine Negative (Negative); Protein Urine Negative (Negative); RBC Urine Automated 0-2 /hpf (0-2); Urobilinogen Urine Negative (Negative); pH Urine 5.5 (4.5-7.5)
[2024-06-28] MEDS: ACETAMINOPHEN 1,000 MG/100 ML VIAL IV SCH (05:34)
[2024-06-28] MEDS: LEVOTHYROXINE SODIUM 75 MCG TABLET PO SCH (05:34)
--- NOTE | 2024-06-28 06:50 | Billing Data ---
Date of Service June 27, 2024 Coding Level of Care Code 50262 INT INP/OBS CARE
[2024-06-28] MEDS: ENOXAPARIN INJ 40 MG/0.4 ML SYR SQ SCH (08:05)
[2024-06-28] MEDS: TOPIRAMATE 50 MG TAB PO SCH (08:05)
[2024-06-28] MEDS: PANTOprazole 40 MG TAB PO SCH (08:06)
[2024-06-28] MEDS: METOPROLOL TARTRATE 25 MG TAB PO SCH (08:06)
[2024-06-28] MEDS: DULoxetine HCL 60 MG CAP PO SCH (08:06)
[2024-06-28] MEDS: CLOPIDOGREL BISULFATE 75 MG TAB PO SCH (08:06)
[2024-06-28] MEDS: FERROUS SULFATE 325 MG TAB PO SCH (08:08)
[2024-06-28] MEDS: lamoTRIgine 100 MG TAB PO SCH (08:08)
[2024-06-28] MEDS: TORSEMIDE 20 MG TAB PO SCH (08:09)
[2024-06-28] MEDS: INSULIN ASPART PER UNIT CHARGE SC SCH (08:11)
[2024-06-28] MEDS: POTASSIUM CHLORIDE 10 MEQ TABCR PO SCH (08:14)
[2024-06-28] MEDS: KERENDIA PO SCH (08:23)
[2024-06-28 09:05] LABS: Basophils # (auto) 0.03 K/uL (0.00-0.20); Basophils % (auto) 0.4 %; Eosinophils # (auto) 0.19 K/uL (0.00-0.50); Eosinophils % (auto) 2.7 %; Hematocrit (blood only) 35.1 % (37.0-47.0); Hemoglobin 11.5 g/dl (12.0-16.0); Immature Granulocytes # (auto) 0.02 K/uL (0.01-0.20); Immature Granulocytes % (auto) 0.3 %; Lymphocytes % (auto) 33.1 %; Mean Corpuscular Hemoglobin 28.6 pg (25.0-34.0); Mean Corpuscular Hgb Conc 32.8 g/dL (32.0-36.0); Mean Corpuscular Volume 87.3 fL (80.0-100.0); Mean Platelet Volume 10.3 fL (9.4-12.4); Monocytes # (auto) 0.49 K/uL (0.11-0.59); Monocytes % (auto) 7.1 %; Neutrophils # (auto) 3.91 K/uL (1.40-6.50); Neutrophils % (auto) 56.4 %; Platelet Count 248 K/uL (130-400); RDW Coefficient of Variation 14.6 % (11.5-14.5); RDW Standard Deviation 46.6 fL (36.4-46.3); Red Blood Count 4.02 M/uL (4.20-5.40); White Blood Count 6.94 K/ul (4.8-10.8)
[2024-06-28 09:27] LABS: Albumin Globulin Ratio 1.4 (0.9-2); Albumin Level 3.7 gm/dl (3.4-5.0); Bilirubin,Total 0.3 mg/dl (0.2-1.0); Creatinine Clr Calc Pharmacy 57.5 ml/min; Globulin 2.6 gm/dl (2.5-4.0); Magnesium 1.8 mg/dl (1.7-2.4); Potassium 3.3 mmol/L (3.5-5.1); Total Protein 6.3 gm/dl (6.0-8.3)
[2024-06-28 09:44] LABS: INR 0.9 (0.9-1.1); Prothrombin Time 10.2 Seconds (9.0-12.0)
[2024-06-28] MEDS: METHOCARBAMOL 500 MG TABLET PO PRN (10:56)
[2024-06-28 11:15] LABS: Estimated Average Glucose 166 mg/dl; Hemoglobin A1C 7.4 % (4.5-5.6)
--- NOTE | 2024-06-28 11:18 | Hospitalist Progress Note ---
Date of Service June 28, 2024 Assessment & Plan (1) Ambulatory dysfunction: Plan: Spine CT - here is noted to have accelerated disc disease at L2/L1 level, which is 1 level superior to her surgical interventions which is causing extensive nerve root impingement. - CT pelvis wo contrast shows moderate osteoarthritis of the left hip. - Venous Doppler ordered - CK - 52 - Continue lidocaine patch - Tylenol IV 1,000mg schedule for pain - morphine and roboxin added - MRI L-spine ordered - orthospine consulted - PT/OT (2) Acute pain of left hip: (3) Bilateral lower extremity edema: Plan: -Torosemide (4) Diabetes mellitus, type 2: Plan: - Home meds hold - Novalog ordered - Hgb A1C AM Plan Patient is a a 68 y.o with hx of DM, hx og CVA, leg edema, GERD, hypothyroidism, restless leg syndrome, HTN, CKD stage G3a, anemia that presented to the Ed due to generalized lower extremity pain and hip pain. States had been difficult to walk for several week. Patient states she started Lymphedema therapy about a week ago. Patient Admitted for pain control, PT and OT evaluation Disposition: Admit to Med / Surg for pain management and PT/OT evaluation DVT prophylaxes: Lovenox 12 q24hr Admission and Anticipated Discharge Date Admission Date: June 27, 2024 Subjective Patient complaining of severe lower back pain. Review of Systems Review of Systems: CONST: Negative for fever, body aches and chills. HENT: Negative for neck pain/stiffness, headache, congestion, sore throat, swelling. EYES: Negative for discharge/pain or vision changes. RESP: Negative for cough/hemoptysis and shortness of breath. CV: Negative chest pain, difficulty breathing, palpitations. ABD: Negative pain, nausea, vomiting. : Negative increase frequency, dysuria, blood in urine or stool. MUSC: Negative for muscle aches, edema. Lower back pain SKIN: Negative rash, lesions/sores. NEURO: Negative headache, dizziness, weakness. Physical Exam Physical Exam: GENERAL APPEARANCE NAD, activity normal for age, well developed/ well nourished, no cyanosis, pallor, or diaphoresis. EYES lids/conjunctiva normal. EARS/NOSE/THROAT Mucous membranes moist, nares normal, lips/teeth normal uvula midline without oral pharyngeal erythema, exudate or swelling TMs normal bilaterally. No lymphangitis/lymphedema. HEAD/NECK normocephalic atraumatic, no facial trauma, neck is supple. RESPIRATORY respiratory effort normal, speaks in full sentences, no tripod position, no accessory muscle use. Lungs clear to auscultation without rhonchi, wheezes, rales CARDIAC Regular rate and rhythm, no edema. ABDOMINAL Soft, ND/NT. No evidence of fluid wave. No pulsatile masses on exam, rebound tenderness, Reddy sign or pain over Mcburney's point. MUSCLES/EXTREMITIES No abnormal range of motion, no swelling. SKIN Warm, pink and dry. No rashes, dermatoses, petechiae or lesions. NEUROLOGICAL Speech is clear and appropriate. Normal level of consciousness. Gait and coordination are normal. 5/5 strength in all extremities. PSYCH Normal mood and affect. Judgement/competence is appropriate Results & Data Results & Data Vital Signs (Past 12 Hours) Vital Signs Temp Pulse Pulse Resp BP BP Pulse Ox 06/28/24 07:11 36.7 C 70 18 128/79 97 06/28/24 01:31 36.8 C 72 16 149/83 H 96 06/28/24 01:30 36.8 C 72 16 149/83 H 96 06/28/24 01:01 80 18 132/73 98 06/28/24 00:00 67 16 122/66 96 O2 Del Method 06/28/24 07:11 Room Air 06/28/24 01:31 Room Air 06/28/24 01:30 Room Air 06/28/24 01:01 06/28/24 00:00 PG Care Time/CCT Total # of Minutes Spent Total Time Spent with Patient: Total time spent is greater than 50% in coordination of care (as documented) at patient's floor/unit and/or counseling patient: Coding Level of Care Code 77570 SUB INP/OBS CARE 2/35MIN Diagnoses Ambulatory dysfunction R26.2 Acute pain of left hip M25.552 Bilateral lower extremity edema R60.0 Diabetes mellitus, type 2 E11.9
[2024-06-28] MEDS: MoRPHine SULFATE 4 MG/ML 1 ML CARP\\VIAL IV PRN (12:33)
--- NOTE | 2024-06-28 12:38 | Orthopedic Consultation ---
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 Plan at this point of had the opportunity review her CAT scan lumbar spine. She has solid fusion L2- L5. There is evidence of significant vacuum phenomenon L5-S1. I strongly suspect that she is having neural compression with ambulation secondary to advanced disc collapse. MRI is going to be obtained to make further recommendations after review. She may ultimately require extension of the fusion to the L5-S1 level. History of Present Illness Reason for Consultation: Back and bilateral leg pain Attending Physician: Nicholas Brandon MD History of Present Illness This is a 68-year-old female that presents with a steady decline in status over the past several months. She describes pain rating in the bilateral buttocks posterior lateral thigh and into her feet. It limits her ability to stand and ambulate. She states is incapacitating in nature. She does have a history of lumbar decompression fusion L2-L[place] [address] Cerda. Allergies Allergy/AdvReac Type Severity Reaction Status Date / Time Cephalosporins Allergy Intermediate CEPHALEXIN-RASH Verified 06/27/24 19:37 & ULCERS IN MOUTH Penicillins Allergy Intermediate RASH AND Verified 06/27/24 19:37 ULCERS IN MOUTH Sulfa (Sulfonamide Allergy Intermediate RASH AND Verified 06/27/24 19:37 Antibiotics) ULCERS IN MOUTH sulfamethoxazole Allergy Intermediate rash and Verified 06/27/24 19:37 ulcers in the mouth wheat Allergy Intermediate Itching Verified 06/27/24 19:37 levofloxacin Allergy Mild local Verified 06/27/24 19:37 reaction gabapentin AdvReac Severe sore Verified 06/27/24 19:37 throat, stomach pains, nausea meperidine AdvReac Intermediate VOMITING & Verified 06/27/24 19:37 VERTIGO metformin AdvReac Intermediate Diarrhea Verified 06/27/24 19:37 oxycodone AdvReac Intermediate PERCOCET - Verified 06/27/24 19:37 vomiting and vertigo sesame seed AdvReac Unknown Unknown Verified 06/27/24 19:37 Home Medications Medication Instructions Recorded Confirmed Type blood sugar diagnostic #30 ea 09/21/19 05/17/24 Rx blood-glucose meter #1 ea 09/21/19 05/17/24 Rx lamotrigine 200 mg tablet 200 mg PO BID #180 tabs 05/04/23 06/27/24 Rx blood sugar diagnostic (Accu-Chek #100 ea 01/24/24 05/17/24 Rx Guide test strips) lancets (Accu-Chek Fastclix Lancet #100 ea 01/24/24 05/17/24 Rx Drum) multivitamin with folic acid 400 1 tab PO QAM #90 tabs 02/25/24 06/27/24 Rx mcg tablet (Tab-A-Ck) torsemide 40 mg tablet 40 mg PO BID #60 tabs 03/06/24 06/27/24 Rx zphhrldt-nke-tfzoa5 250 mg-dha 90 1 cap PO BID #180 caps 03/20/24 06/27/24 Rx mg-epa 160 hn-leao-lqym-zeax capsule (Ocuvite Adult 50 Plus) topiramate 100 mg tablet 150 mg (1.5 x 100 mg) PO BID #180 04/13/24 06/27/24 Rx tabs finerenone 10 mg tablet (Kerendia) 10 mg PO QAM #90 tabs 04/20/24 06/27/24 Rx pioglitazone 15 mg tablet (Actos) 15 mg PO DAILY #90 tabs 05/10/24 06/27/24 Rx atorvastatin 20 mg tablet 20 mg PO QPM #30 tabs 05/15/24 06/27/24 Rx clopidogrel 75 mg tablet 75 mg PO QAM #90 tabs 05/15/24 06/27/24 Rx duloxetine 60 mg capsule,delayed 60 mg PO BID #180 caps 05/15/24 06/27/24 Rx release ferrous sulfate 325 mg (65 mg 325 mg PO QAM #90 tabs 05/15/24 06/27/24 Rx iron) tablet (FeroSul) levothyroxine 75 mcg tablet 75 mcg PO QAM #90 tabs 05/15/24 06/27/24 Rx magnesium gluconate 27 mg 27 mg PO HS #30 tabs 05/15/24 06/27/24 Rx magnesium (500 mg) tablet (Mag-G) metoprolol tartrate 25 mg tablet 12.5 mg (1/2 x 25 mg) PO BID #30 05/15/24 06/27/24 Rx tabs pantoprazole 40 mg tablet,delayed 40 mg PO BID #180 tabs 05/15/24 06/27/24 Rx release potassium chloride 10 mEq 20 meq (2 x 10 mEq) PO TID #540 05/15/24 06/27/24 Rx capsule,extended release caps pramipexole 0.25 mg tablet 0.25 mg PO HS #90 tabs 05/15/24 06/27/24 Rx acetaminophen 500 mg tablet 500 mg PO Q6H PRN Pain #225 tabs 06/09/24 06/27/24 Rx sennosides 8.6 mg tablet (Senna 8.6 - 17.2 mg (1 - 2 x 8.6 mg) PO 06/09/24 06/27/24 Rx Laxative) BID #180 tabs Patient History Medical History Melanosis coli H/O: CVA (cerebrovascular accident) Anemia Morbidly obese Generalized osteoarthritis Hypertension Gastroparesis Bipolar depression Esophageal dysfunction CKD (chronic kidney disease), stage III Vitamin D deficiency Cerebrovascular disease History of COVID-19 (2021) Mitral valve disorder Macular degeneration Fibromyalgia Insomnia Stomach ulcer Osteoarthritis Colon polyps Fatty liver Kidney stones H/O breast lump H/O migraine Restless legs syndrome Hyperlipidemia Hypothyroidism Lumbar spine scoliosis (10/26/13) Surgical History History of tonsillectomy and adenoidectomy S/P lymph node biopsy (07/21/21) S/P cholecystectomy History of esophagogastroduodenoscopy (EGD) History of colonoscopy History of cataract surgery History of cystoscopy History of lithotripsy S/P lumbar spinal fusion History of appendectomy H/O non-cataract eye surgery H/O: hysterectomy Family History Mother Diabetes Clotting disorder Heart disease Myocardial infarction Hypertension Father Diabetes Heart disease Grandmother (Paternal) Lung cancer Grandfather (Maternal) Stomach cancer Other Breast cancer Cancer No family history of adverse response to anesthesia Denies family history of Colon cancer Ovarian cancer Prostate cancer Social History Smoking Status: Never smoker Second Hand Exposure: Yes (as a child); Do You Dip or Chew Tobacco: No; Hx Alcohol Use: No Hx Substance Use: No Preferred Language: Uzbek Communication Ability: Effective Visual Impairment: No Limitations Hearing Ability: Normal Pond Tender Required: No Beliefs That Will Affect Care: None marital status: Current Living Situation: Alone Current Living Situation Comment: recieved home health for assistance>recent staff problems current occupational status: retired 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 She is cooperative. She has reasonable strength testing lower extremities. There is marked tenderness palpation of the left IT band. Sensory is intact. Results & Data Vital Signs (Past 12 Hours) Vital Signs Temp Pulse Pulse Resp BP BP Pulse Ox 06/28/24 07:11 36.7 C 70 18 128/79 97 06/28/24 01:31 36.8 C 72 16 149/83 H 96 06/28/24 01:30 36.8 C 72 16 149/83 H 96 06/28/24 01:01 80 18 132/73 98 O2 Del Method 06/28/24 07:11 Room Air 06/28/24 01:31 Room Air 06/28/24 01:30 Room Air 06/28/24 01:01
--- NOTE | 2024-06-28 13:34 | Magnetic Resonance Report ---
MRI OF THE LUMBAR SPINE WITHOUT CONTRAST CLINICAL HISTORY: Lumbar disc disease. Chronic lumbar pain. Worsening left leg pain. COMPARISON STUDY: Lumbar spine radiographs June 11, 2022. Lumbar spine CT June 27, 2024. TECHNIQUE: Utilizing a 3 Nunu magnet and dedicated coil, multiplanar, multiecho imaging of the lumb ar spine was performed without IV contrast. FINDINGS: For purposes of numbering on this exam, the L5-S1 disc space is assigned to axial image 27 of 31. The re is mild lumbar spine dextroscoliosis. Vertebral body heights are maintained. No marrow replacement is present. There are no lumbar spine fractures. There are postoperative findings consistent with L2 -L5 decompression and bilateral pedicle screw fusion. Interbody spacers at the L3-L4 and L4-L5 levels are present. There is fusion of the L2 and L3 vertebral bodies. Conus terminates at the L1-L2 level. This exam is moderately compromised by susceptibility artifact related to the hardware. T12-L1: There is severe disc space narrowing. Disc bulge with osteophyte formation is present. There is facet arthrosis with ligamentous hypertrophy. There is mild central canal stenosis. Neural foramen are patent. L1-2: There is severe disc space narrowing at L1-2. There is facet arthrosis with ligamentous hypertr ophy. There is mild narrowing of the central canal and right neural foramen. There is mild to moderat e left neural foraminal stenosis. L2-3: No recurrent central canal stenosis is present. Neural foramen are suboptimally assessed by art ifact. No significant stenosis is identified. L3-4: No recurrent central canal stenosis is present. Neural foramen are suboptimally assessed due to artifact but no definite neural foraminal stenosis is identified. L4-5: No recurrent central canal stenosis. Neural foramen are patent. L5-S1: There is mild disc bulge. The central canal is patent. Neural foramen are obscured by artifact however there is moderate to severe bilateral neural foraminal stenosis. IMPRESSION: 1. Status post L2-L5 decompression and fusion. No recurrent central canal stenosis at these levels. 2. Severe disc space narrowing at T12-L1 and L1-L2 with disc osteophyte formation. Mild central canal stenosis at these levels. 3. Moderate to severe bilateral neural foraminal stenosis at L5-S1 suboptimally assessed due to artif act related to the hardware. 4. Mild lumbar spine dextroscoliosis. ACT 112: Negative or not required by law. Electronically signed by: Foreign Rowland M.D. 06/28/2024 1:32 PM
[2024-06-28] MEDS: ATORVASTATIN 20 MG TAB PO SCH (20:45)
[2024-06-28] MEDS: PRAMIPEXOLE DIHYDROCHLO 0.25 MG TAB PO SCH (22:12)
--- NOTE | 2024-06-29 08:38 | Orthopedic Progress Note ---
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 I strongly suspect her radiculopathy is related to L5-S1 neuroforaminal stenosis and advanced degenerative disc disease. We discussed possible injections versus surgical invention. Ultimately decompression fusion L5-S1 would be the best option for her. She is currently on blood thinners. We have to have her cleared from medical standpoint. If she is a candidate for surgery per medicine we will try to do this is soon as possible perhaps next week. Admission and Anticipated Discharge Date Admission Date: June 27, 2024 Subjective Patient continues to have severe bilateral leg pain left worse than right. Involves the buttock posterior lateral thigh into the feet. She is unable to ambulate. Physical Exam Physical Exam: Patient is currently in bed. She does have tenderness palpation of the left leg and IT band. Plantarflexion dorsiflexion intact. Results & Data Vital Signs (Past 12 Hours) Vital Signs Temp Pulse Resp BP BP Pulse Ox O2 Del Method 06/29/24 07:04 36.8 C 71 16 108/56 L 93 Room Air 06/28/24 21:05 37.3 C 71 20 154/78 H 94 Room Air 06/28/24 20:44 37.3 C 70 18 154/78 H 94 Room Air Queries Orthopedic Spine Obesity: Yes
--- NOTE | 2024-06-29 11:16 | Hospitalist Progress Note ---
Date of Service June 29, 2024 Assessment & Plan (1) Ambulatory dysfunction: Plan: Spine CT - here is noted to have accelerated disc disease at L2/L1 level, which is 1 level superior to her surgical interventions which is causing extensive nerve root impingement. - CT pelvis wo contrast shows moderate osteoarthritis of the left hip. - Venous Doppler ordered - CK - 52 - Continue lidocaine patch - Tylenol IV 1,000mg schedule for pain - morphine and roboxin added - MRI L-spine showing severe disc space narrowing at T12-L1 and L1-L2 with disc osteophyte formation. Mild central canal stenosis at these levels. - orthospine consult appreciated - Recommending decompression fusion L5-S1 - No major medical contraindication to surgery - hold plavix in anticipation for spinal surgrey next week - PT/OT (2) Acute pain of left hip: (3) Bilateral lower extremity edema: Plan: -Torosemide (4) Diabetes mellitus, type 2: Plan: - Home meds hold - Novalog ordered - Hgb A1C AM Plan Patient is a a 68 y.o with hx of DM, hx og CVA, leg edema, GERD, hypothyroidism, restless leg syndrome, HTN, CKD stage G3a, anemia that presented to the Ed due to generalized lower extremity pain and hip pain. States had been difficult to walk for several week. Patient states she started Lymphedema therapy about a week ago. Patient Admitted for pain control, PT and OT evaluation Disposition: Admit to Med / Surg for pain management and PT/OT evaluation DVT prophylaxes: Lovenox 12 q24hr Admission and Anticipated Discharge Date Admission Date: June 27, 2024 Subjective Pt with continued lower ext pain, has had improvement with morphine. Review of Systems Review of Systems: CONST: Negative for fever, body aches and chills. HENT: Negative for neck pain/stiffness, headache, congestion, sore throat, swelling. EYES: Negative for discharge/pain or vision changes. RESP: Negative for cough/hemoptysis and shortness of breath. CV: Negative chest pain, difficulty breathing, palpitations. ABD: Negative pain, nausea, vomiting. : Negative increase frequency, dysuria, blood in urine or stool. MUSC: Negative for muscle aches, edema. Lower back pain SKIN: Negative rash, lesions/sores. NEURO: Negative headache, dizziness, weakness. Physical Exam Physical Exam: GENERAL APPEARANCE NAD, activity normal for age, well developed/ well nourished, no cyanosis, pallor, or diaphoresis. EYES lids/conjunctiva normal. EARS/NOSE/THROAT Mucous membranes moist, nares normal, lips/teeth normal uvula midline without oral pharyngeal erythema, exudate or swelling TMs normal bilaterally. No lymphangitis/lymphedema. HEAD/NECK normocephalic atraumatic, no facial trauma, neck is supple. RESPIRATORY respiratory effort normal, speaks in full sentences, no tripod position, no accessory muscle use. Lungs clear to auscultation without rhonchi, wheezes, rales CARDIAC Regular rate and rhythm, no edema. ABDOMINAL Soft, ND/NT. No evidence of fluid wave. No pulsatile masses on exam, rebound tenderness, Reddy sign or pain over Mcburney's point. MUSCLES/EXTREMITIES No abnormal range of motion, no swelling. SKIN Warm, pink and dry. No rashes, dermatoses, petechiae or lesions. NEUROLOGICAL Speech is clear and appropriate. Normal level of consciousness. Gait and coordination are normal. 5/5 strength in all extremities. PSYCH Normal mood and affect. Judgement/competence is appropriate Results & Data Results & Data Vital Signs (Past 12 Hours) Vital Signs Temp Pulse Resp BP Pulse Ox O2 Del Method 06/29/24 07:04 36.8 C 71 16 108/56 L 93 Room Air PG Care Time/CCT Total # of Minutes Spent Total Time Spent with Patient: Total time spent is greater than 50% in coordination of care (as documented) at patient's floor/unit and/or counseling patient: Coding Level of Care Code 37954 SUB INP/OBS CARE 2/35MIN Diagnoses Ambulatory dysfunction R26.2 Acute pain of left hip M25.552 Bilateral lower extremity edema R60.0 Diabetes mellitus, type 2 E11.9
--- NOTE | 2024-06-30 09:48 | Hospitalist Progress Note ---
Date of Service June 30, 2024 Assessment & Plan (1) Ambulatory dysfunction: Plan: Spine CT - here is noted to have accelerated disc disease at L2/L1 level, which is 1 level superior to her surgical interventions which is causing extensive nerve root impingement. - CT pelvis wo contrast shows moderate osteoarthritis of the left hip. - Venous Doppler ordered - CK - 52 - Continue lidocaine patch - Tylenol IV 1,000mg schedule for pain - morphine and roboxin added - MRI L-spine showing severe disc space narrowing at T12-L1 and L1-L2 with disc osteophyte formation. Mild central canal stenosis at these levels. - orthospine consult appreciated - Recommending decompression fusion L5-S1 - No major medical contraindication to surgery - hold plavix in anticipation for spinal surgrey next week - PT/OT (2) Acute pain of left hip: (3) Bilateral lower extremity edema: Plan: -Torosemide (4) Diabetes mellitus, type 2: Plan: - Home meds hold - Novalog ordered - Hgb A1C AM Plan Patient is a a 68 y.o with hx of DM, hx og CVA, leg edema, GERD, hypothyroidism, restless leg syndrome, HTN, CKD stage G3a, anemia that presented to the Ed due to generalized lower extremity pain and hip pain. States had been difficult to walk for several week. Patient states she started Lymphedema therapy about a week ago. Patient Admitted for pain control, PT and OT evaluation Disposition: Admit to Med / Surg for pain management and PT/OT evaluation DVT prophylaxes: Lovenox 12 q24hr Admission and Anticipated Discharge Date Admission Date: June 27, 2024 Subjective No events overnight, still experiencing lower back pain. Review of Systems Review of Systems: CONST: Negative for fever, body aches and chills. HENT: Negative for neck pain/stiffness, headache, congestion, sore throat, swelling. EYES: Negative for discharge/pain or vision changes. RESP: Negative for cough/hemoptysis and shortness of breath. CV: Negative chest pain, difficulty breathing, palpitations. ABD: Negative pain, nausea, vomiting. : Negative increase frequency, dysuria, blood in urine or stool. MUSC: Negative for muscle aches, edema. Lower back pain SKIN: Negative rash, lesions/sores. NEURO: Negative headache, dizziness, weakness. Physical Exam Physical Exam: GENERAL APPEARANCE NAD, activity normal for age, well developed/ well nourished, no cyanosis, pallor, or diaphoresis. EYES lids/conjunctiva normal. EARS/NOSE/THROAT Mucous membranes moist, nares normal, lips/teeth normal uvula midline without oral pharyngeal erythema, exudate or swelling TMs normal bilaterally. No lymphangitis/lymphedema. HEAD/NECK normocephalic atraumatic, no facial trauma, neck is supple. RESPIRATORY respiratory effort normal, speaks in full sentences, no tripod position, no accessory muscle use. Lungs clear to auscultation without rhonchi, wheezes, rales CARDIAC Regular rate and rhythm, no edema. ABDOMINAL Soft, ND/NT. No evidence of fluid wave. No pulsatile masses on exam, rebound tenderness, Reddy sign or pain over Mcburney's point. MUSCLES/EXTREMITIES No abnormal range of motion, no swelling. SKIN Warm, pink and dry. No rashes, dermatoses, petechiae or lesions. NEUROLOGICAL Speech is clear and appropriate. Normal level of consciousness. Gait and coordination are normal. 5/5 strength in all extremities. PSYCH Normal mood and affect. Judgement/competence is appropriate Results & Data Results & Data Vital Signs (Past 12 Hours) Vital Signs Temp Pulse Resp BP Pulse Ox O2 Del Method 06/30/24 07:51 36.4 C L 66 16 108/73 95 Room Air PG Care Time/CCT Total # of Minutes Spent Total Time Spent with Patient: Total time spent is greater than 50% in coordination of care (as documented) at patient's floor/unit and/or counseling patient: Coding Level of Care Code 46452 SUB INP/OBS CARE 2/35MIN Diagnoses Ambulatory dysfunction R26.2 Acute pain of left hip M25.552 Bilateral lower extremity edema R60.0 Diabetes mellitus, type 2 E11.9
[2024-06-30] MEDS: SENNA 8.6 MG TAB PO SCH (09:57)
[2024-06-30] MEDS: SOD PHOSPHATE/SOD BIPHOSPHATE ENEMA 132 ML BTL PR PRN (09:58)
--- NOTE | 2024-06-30 10:16 | Orthopedic Progress Note ---
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 Will plan for next Wednesday. Require lumbar decompression and fusion L5-S1. She is comfortable with this plan. Admission and Anticipated Discharge Date Admission Date: June 27, 2024 Subjective Patient continues to have back and bilateral leg pain Physical Exam Physical Exam: Patient is in bed at this time. 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 Results & Data Vital Signs (Past 12 Hours) Vital Signs Temp Pulse Resp BP Pulse Ox O2 Del Method 06/30/24 07:51 36.4 C L 66 16 108/73 95 Room Air Queries Orthopedic Spine Obesity: Yes
--- NOTE | 2024-07-01 09:20 | Hospitalist Progress Note ---
Date of Service July 01, 2024 Assessment & Plan (1) Ambulatory dysfunction: Plan: Spine CT - here is noted to have accelerated disc disease at L2/L1 level, which is 1 level superior to her surgical interventions which is causing extensive nerve root impingement. - CT pelvis wo contrast shows moderate osteoarthritis of the left hip. - Venous Doppler ordered - CK - 52 - Continue lidocaine patch - Tylenol IV 1,000mg schedule for pain - morphine and roboxin added - MRI L-spine showing severe disc space narrowing at T12-L1 and L1-L2 with disc osteophyte formation. Mild central canal stenosis at these levels. - orthospine consult appreciated - Recommending decompression fusion L5-S1 - No major medical contraindication to surgery - hold plavix in anticipation for spinal surgrey next week - Surgery planned for Wednesday (2) Acute pain of left hip: (3) Bilateral lower extremity edema: Plan: -Torosemide (4) Diabetes mellitus, type 2: Plan: - Home meds hold - Novalog ordered - Hgb A1C AM Plan Patient is a a 68 y.o with hx of DM, hx og CVA, leg edema, GERD, hypothyroidism, restless leg syndrome, HTN, CKD stage G3a, anemia that presented to the Ed due to generalized lower extremity pain and hip pain. States had been difficult to walk for several week. Patient states she started Lymphedema therapy about a week ago. Patient Admitted for pain control, PT and OT evaluation Disposition: Admit to Med / Surg for pain management and PT/OT evaluation DVT prophylaxes: Lovenox 12 q24hr Admission and Anticipated Discharge Date Admission Date: June 27, 2024 Subjective Patient continues to have back and bilateral leg pain Review of Systems Review of Systems: CONST: Negative for fever, body aches and chills. HENT: Negative for neck pain/stiffness, headache, congestion, sore throat, swelling. EYES: Negative for discharge/pain or vision changes. RESP: Negative for cough/hemoptysis and shortness of breath. CV: Negative chest pain, difficulty breathing, palpitations. ABD: Negative pain, nausea, vomiting. : Negative increase frequency, dysuria, blood in urine or stool. MUSC: Negative for muscle aches, edema. Lower back pain SKIN: Negative rash, lesions/sores. NEURO: Negative headache, dizziness, weakness. Physical Exam Physical Exam: GENERAL APPEARANCE NAD, activity normal for age, well developed/ well nourished, no cyanosis, pallor, or diaphoresis. EYES lids/conjunctiva normal. EARS/NOSE/THROAT Mucous membranes moist, nares normal, lips/teeth normal uvula midline without oral pharyngeal erythema, exuda te or swelling TMs normal bilaterally. No lymphangitis/lymphedema. HEAD/NECK normocephalic atraumatic, no facial trauma, neck is supple. RESPIRATORY respiratory effort normal, speaks in full sentences, no tripod position, no accessory muscle use. Lungs clear to auscultation without rhonchi, wheezes, rales CARDIAC Regular rate and rhythm, no edema. ABDOMINAL Soft, ND/NT. No evidence of fluid wave. No pulsatile masses on exam, rebound tenderness, Reddy sign or pain over Mcburney's point. MUSCLES/EXTREMITIES No abnormal range of motion, no swelling. SKIN Warm, pink and dry. No rashes, dermatoses, petechiae or lesions. NEUROLOGICAL Speech is clear and appropriate. Normal level of consciousness. Gait and coordination are normal. 5/5 strength in all extremities. PSYCH Normal mood and affect. Judgement/competence is appropriate Results & Data Results & Data Vital Signs (Past 12 Hours) Vital Signs Temp Pulse Resp BP Pulse Ox O2 Del Method 07/01/24 07:03 36.5 C 79 16 129/52 L 98 Room Air 06/30/24 23:22 36.7 C 70 18 141/79 H 95 Room Air 06/30/24 22:15 Room Air PG Care Time/CCT Total # of Minutes Spent Total Time Spent with Patient: Total time spent is greater than 50% in coordination of care (as documented) at patient's floor/unit and/or counseling patient: Coding Level of Care Code 07527 SUB INP/OBS CARE 2/35MIN Diagnoses Ambulatory dysfunction R26.2 Acute pain of left hip M25.552 Bilateral lower extremity edema R60.0 Diabetes mellitus, type 2 E11.9
--- NOTE | 2024-07-02 10:09 | Hospitalist Progress Note ---
Date of Service July 02, 2024 Assessment & Plan (1) Ambulatory dysfunction: Plan: Spine CT - here is noted to have accelerated disc disease at L2/L1 level, which is 1 level superior to her surgical interventions which is causing extensive nerve root impingement. - CT pelvis wo contrast shows moderate osteoarthritis of the left hip. - Venous Doppler ordered - CK - 52 - Continue lidocaine patch - Tylenol IV 1,000mg schedule for pain - morphine and roboxin added - MRI L-spine showing severe disc space narrowing at T12-L1 and L1-L2 with disc osteophyte formation. Mild central canal stenosis at these levels. - orthospine consult appreciated - Recommending decompression fusion L5-S1 - No major medical contraindication to surgery - hold plavix in anticipation for spinal surgery next week - Surgery planned for Wednesday - oxycodone added for pain control (2) Acute pain of left hip: (3) Bilateral lower extremity edema: Plan: -Torosemide (4) Diabetes mellitus, type 2: Plan: - Home meds hold - Novalog ordered - Hgb A1C AM Plan Patient is a a 68 y.o with hx of DM, hx og CVA, leg edema, GERD, hypothyroidism, restless leg syndrome, HTN, CKD stage G3a, anemia that presented to the Ed due to generalized lower extremity pain and hip pain. States had been difficult to walk for several week. Patient states she started Lymphedema therapy about a week ago. Patient Admitted for pain control, PT and OT evaluation Disposition: Admit to Med / Surg for pain management and PT/OT evaluation DVT prophylaxes: Lovenox 12 q24hr Admission and Anticipated Discharge Date Admission Date: June 27, 2024 Subjective Pt complaining of severe back pain, no comfortable on current pain regimen. Review of Systems Review of Systems: CONST: Negative for fever, body aches and chills. HENT: Negative for neck pain/stiffness, headache, congestion, sore throat, swelling. EYES: Negative for discharge/pain or vision changes. RESP: Negative for cough/hemoptysis and shortness of breath. CV: Negative chest pain, difficulty breathing, palpitations. ABD: Negative pain, nausea, vomiting. : Negative increase frequency, dysuria, blood in urine or stool. MUSC: Negative for muscle aches, edema. Lower back pain SKIN: Negative rash, lesions/sores. NEURO: Negative headache, dizziness, weakness. Physical Exam Physical Exam: GENERAL APPEARANCE NAD, activity normal for age, well developed/ well nourished, no cyanosis, pallor, or diaphoresis. EYES lids/conjunctiva normal. EARS/NOSE/THROAT Mucous membranes moist, nares normal, lips/teeth normal uvula midline without oral pharyngeal erythema, exudate or swelling TMs normal bilaterally. No lymphangitis/lymphedema. HEAD/NECK normocephalic atraumatic, no facial trauma, neck is supple. RESPIRATORY respiratory effort normal, speaks in full sentences, no tripod position, no accessory muscle use. Lungs clear to auscultation without rhonchi, wheezes, rales CARDIAC Regular rate and rhythm, no edema. ABDOMINAL Soft, ND/NT. No evidence of fluid wave. No pulsatile masses on exam, rebound tenderness, Reddy sign or pain over Mcburney's point. MUSCLES/EXTREMITIES No abnormal range of motion, no swelling. SKIN Warm, pink and dry. No rashes, dermatoses, petechiae or lesions. NEUROLOGICAL Speech is clear and appropriate. Normal level of consciousness. Gait and coordination are normal. 5/5 strength in all extremities. PSYCH Normal mood and affect. Judgement/competence is appropriate Results & Data Results & Data Vital Signs (Past 12 Hours) Vital Signs Temp Pulse Resp BP Pulse Ox O2 Del Method 07/02/24 07:06 36.8 C 69 16 113/70 97 Room Air PG Care Time/CCT Total # of Minutes Spent Total Time Spent with Patient: Total time spent is greater than 50% in coordination of care (as documented) at patient's floor/unit and/or counseling patient: Coding Level of Care Code 79259 SUB INP/OBS CARE 2/35MIN Diagnoses Ambulatory dysfunction R26.2 Acute pain of left hip M25.552 Bilateral lower extremity edema R60.0 Diabetes mellitus, type 2 E11.9
[2024-07-02] MEDS: oxyCODONE HCL IR 5 MG TAB (IMMEDIATE RELEASE) PO PRN (12:40)
[2024-07-02] MEDS: MoRPHine SULFATE 4 MG/ML 1 ML CARP\\VIAL IV PRN (15:40)
--- NOTE | 2024-07-03 10:08 | Orthopedic Progress Note ---
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 Will make her n.p.o. after midnight plan for surgery tomorrow. Admission and Anticipated Discharge Date Admission Date: June 27, 2024 Subjective Patient continues to have significant bilateral leg pain with ambulation and sitting. Physical Exam Physical Exam: Patient is currently bed she is comfortable in supine. Queries Orthopedic Spine Obesity: Yes
--- NOTE | 2024-07-03 10:08 | Hospitalist Progress Note ---
Date of Service July 03, 2024 Assessment & Plan (1) Ambulatory dysfunction: Plan: Spine CT - here is noted to have accelerated disc disease at L2/L1 level, which is 1 level superior to her surgical interventions which is causing extensive nerve root impingement. - CT pelvis wo contrast shows moderate osteoarthritis of the left hip. - Venous Doppler ordered - CK - 52 - Continue lidocaine patch - Tylenol IV 1,000mg schedule for pain - morphine and roboxin added - MRI L-spine showing severe disc space narrowing at T12-L1 and L1-L2 with disc osteophyte formation. Mild central canal stenosis at these levels. - orthospine consult appreciated - Recommending decompression fusion L5-S1 - No major medical contraindication to surgery - hold plavix in anticipation for spinal surgery - Surgery planned for Tuesday 07/04 - oxycodone added for pain control (2) Acute pain of left hip: (3) Bilateral lower extremity edema: Plan: -Torosemide (4) Diabetes mellitus, type 2: Plan: - Home meds hold - Novalog ordered - Hgb A1C AM Plan Patient is a a 68 y.o with hx of DM, hx og CVA, leg edema, GERD, hypothyroidism, restless leg syndrome, HTN, CKD stage G3a, anemia that presented to the Ed due to generalized lower extremity pain and hip pain. States had been difficult to walk for several week. Patient states she started Lymphedema therapy about a week ago. Patient Admitted for pain control, PT and OT evaluation Disposition: Admit to Med / Surg for pain management and PT/OT evaluation DVT prophylaxes: Lovenox 12 q24hr Admission and Anticipated Discharge Date Admission Date: June 27, 2024 Subjective Pt states her back pain has improved. No events overnight. Review of Systems Review of Systems: CONST: Negative for fever, body aches and chills. HENT: Negative for neck pain/stiffness, headache, congestion, sore throat, swelling. EYES: Negative for discharge/pain or vision changes. RESP: Negative for cough/hemoptysis and shortness of breath. CV: Negative chest pain, difficulty breathing, palpitations. ABD: Negative pain, nausea, vomiting. : Negative increase frequency, dysuria, blood in urine or stool. MUSC: Negative for muscle aches, edema. Lower back pain SKIN: Negative rash, lesions/sores. NEURO: Negative headache, dizziness, weakness. Physical Exam Physical Exam: GENERAL APPEARANCE NAD, activity normal for age, well developed/ well nourished, no cyanosis, pallor, or diaphoresis. EYES lids/conjunctiva normal. EARS/NOSE/THROAT Mucous membranes moist, nares normal, lips/teeth normal uvula midline without oral pharyngeal erythema, exudate or swelling TMs normal bilaterally. No lymphangitis/lymphedema. HEAD/NECK normocephalic atraumatic, no facial trauma, neck is supple. RESPIRATORY respiratory effort normal, speaks in full sentences, no tripod position, no accessory muscle use. Lungs clear to auscultation without rhonchi, wheezes, rales CARDIAC Regular rate and rhythm, no edema. ABDOMINAL Soft, ND/NT. No evidence of fluid wave. No pulsatile masses on exam, rebound tenderness, Reddy sign or pain over Mcburney's point. MUSCLES/EXTREMITIES No abnormal range of motion, no swelling. SKIN Warm, pink and dry. No rashes, dermatoses, petechiae or lesions. NEUROLOGICAL Speech is clear and appropriate. Normal level of consciousness. Gait and coordination are normal. 5/5 strength in all extremities. PSYCH Normal mood and affect. Judgement/competence is appropriate PG Care Time/CCT Total # of Minutes Spent Total Time Spent with Patient: Total time spent is greater than 50% in coordination of care (as documented) at patient's floor/unit and/or counseling patient: Coding Level of Care Code 44707 SUB INP/OBS CARE 2/35MIN Diagnoses Ambulatory dysfunction R26.2 Acute pain of left hip M25.552 Bilateral lower extremity edema R60.0 Diabetes mellitus, type 2 E11.9
[2024-07-03] MEDS: MELATONIN 3 MG TAB PO PRN (20:15)
[2024-07-03] MEDS: ACETAMINOPHEN 325 MG TAB PO PRN (20:16)
[2024-07-03] MEDS ORDERED: Nursing to Pharmacy Communication SCH (21:30)
[2024-07-04] MEDS: INSULIN ASPART PER UNIT CHARGE SC SCH ×2 (00:12→17:56)
[2024-07-04] MEDS ORDERED: LIDOCAINE 2% 2 ML VIAL/AMP(20MG/ML) INFIL ONE (11:20)
[2024-07-04] MEDS ORDERED: fentaNYL citrate PF 100 MCG/2 ML VIAL ONE (11:20)
[2024-07-04] MEDS ORDERED: ROCURONIUM BROMIDE 10 MG/ML 5 ML VIAL IV ONE ×2 (11:21→12:01)
[2024-07-04] MEDS ORDERED: PROPOFOL IV EMULSION 10 MG/ML 20 ML VIAL IV ONE (11:21)
[2024-07-04] MEDS ORDERED: ATROPINE SULFATE 0.1 MG/ML 10ML SYR IV PRN (11:26)
[2024-07-04] MEDS ORDERED: ePHEDrine sulfate 50 MG/ML AMP IV PRN (11:26)
[2024-07-04] MEDS ORDERED: ONDANSETRON INJ 2 MG/ML 2 ML VIAL IV PRN ×2 (11:26→15:51)
--- NOTE | 2024-07-04 11:26 | Anesthesiology Consultation ---
Date of Service July 04, 2024 Assessment & Plan Chart Review Chart Review: Acceptable Risk for Surgery and Patient NOT seen in Pre Admission Testing Consults Requested none History Surgery Operation Date: 07/04/24 10:05 Proposed Procedures p L5-S1 Decompression Fusion, Spinal Cord Monitoring - Huey Jaramillo DO Height/Weight Height: 5 ft Weight: 103.192 kg Allergies Allergy/AdvReac Type Severity Reaction Status Date / Time Cephalosporins Allergy Intermediate CEPHALEXIN-RASH Verified 06/27/24 19:37 & ULCERS IN MOUTH Penicillins Allergy Intermediate RASH AND Verified 06/27/24 19:37 ULCERS IN MOUTH Sulfa (Sulfonamide Allergy Intermediate RASH AND Verified 06/27/24 19:37 Antibiotics) ULCERS IN MOUTH sulfamethoxazole Allergy Intermediate rash and Verified 06/27/24 19:37 ulcers in the mouth wheat Allergy Intermediate Itching Verified 06/27/24 19:37 levofloxacin Allergy Mild local Verified 06/27/24 19:37 reaction gabapentin AdvReac Severe sore Verified 06/27/24 19:37 throat, stomach pains, nausea meperidine AdvReac Intermediate VOMITING & Verified 06/27/24 19:37 VERTIGO metformin AdvReac Intermediate Diarrhea Verified 06/27/24 19:37 oxycodone AdvReac Intermediate PERCOCET - Verified 06/27/24 19:37 vomiting and vertigo sesame seed AdvReac Unknown Unknown Verified 06/27/24 19:37 Medications Home Medications Medication Instructions Recorded Confirmed Last Taken blood sugar diagnostic #30 ea 09/21/19 05/17/24 Unknown blood-glucose meter #1 ea 09/21/19 05/17/24 Unknown lamotrigine 200 mg tablet 200 mg PO BID #180 tabs 05/04/23 06/27/24 06/27/24 08:00 blood sugar diagnostic (Accu-Chek #100 ea 01/24/24 05/17/24 Unknown Guide test strips) lancets (Accu-Chek Fastclix Lancet #100 ea 01/24/24 05/17/24 Unknown Drum) multivitamin with folic acid 400 1 tab PO QAM #90 tabs 02/25/24 06/27/24 06/27/24 mcg tablet (Tab-A-Ck) torsemide 40 mg tablet 40 mg PO BID #60 tabs 03/06/24 06/27/24 06/27/24 08:00 lytexsmi-gvm- 250 mg-dha 90 1 cap PO BID #180 caps 03/20/24 06/27/24 06/27/24 08:00 mg-epa 160 um-brmn-jfak-zeax capsule (Ocuvite Adult 50 Plus) topiramate 100 mg tablet 150 mg (1.5 x 100 mg) PO BID #180 04/13/24 06/27/24 06/27/24 08:00 tabs finerenone 10 mg tablet (Kerendia) 10 mg PO QAM #90 tabs 04/20/24 06/27/24 06/27/24 pioglitazone 15 mg tablet (Actos) 15 mg PO DAILY #90 tabs 05/10/24 06/27/24 Unknown atorvastatin 20 mg tablet 20 mg PO QPM #30 tabs 05/15/24 06/27/24 06/26/24 clopidogrel 75 mg tablet 75 mg PO QAM #90 tabs 05/15/24 06/27/24 06/27/24 duloxetine 60 mg capsule,delayed 60 mg PO BID #180 caps 05/15/24 06/27/24 06/27/24 08:00 release ferrous sulfate 325 mg (65 mg 325 mg PO QAM #90 tabs 05/15/24 06/27/24 06/27/24 iron) tablet (FeroSul) levothyroxine 75 mcg tablet 75 mcg PO QAM #90 tabs 05/15/24 06/27/24 06/27/24 magnesium gluconate 27 mg 27 mg PO HS #30 tabs 05/15/24 06/27/24 06/26/24 magnesium (500 mg) tablet (Mag-G) metoprolol tartrate 25 mg tablet 12.5 mg (1/2 x 25 mg) PO BID #30 05/15/24 06/27/24 06/27/24 08:00 tabs pantoprazole 40 mg tablet,delayed 40 mg PO BID #180 tabs 05/15/24 06/27/24 06/27/24 08:00 release potassium chloride 10 mEq 20 meq (2 x 10 mEq) PO TID #540 05/15/24 06/27/24 06/27/24 08:00 capsule,extended release caps pramipexole 0.25 mg tablet 0.25 mg PO HS #90 tabs 05/15/24 06/27/24 06/26/24 acetaminophen 500 mg tablet 500 mg PO Q6H PRN Pain #225 tabs 06/09/24 06/27/24 Unknown sennosides 8.6 mg tablet (Senna 8.6 - 17.2 mg (1 - 2 x 8.6 mg) PO 06/28/24 Unknown Laxative) BID #180 tabs Active Medications Generic Name Dose Route Start Last Admin Trade Name Freq PRN Reason Stop Dose Admin Acetaminophen 650 mg 07/03/24 13:18 07/03/24 20:16 Acetaminophen 325 Mg Tab PO 08/02/24 13:17 650 mg Q4H PRN Administration Pain Atorvastatin Calcium 20 mg 06/28/24 21:00 07/03/24 20:18 Atorvastatin 20 Mg Tab PO 07/28/24 20:59 20 mg QPM KATHY Administration Clopidogrel Bisulfate 75 mg 06/28/24 09:00 06/29/24 08:32 Clopidogrel Bisulfate 75 Mg Tab PO 07/28/24 08:59 75 mg QAM KATHY Administration Diclofenac Sodium 2 gm 06/28/24 01:53 07/03/24 20:20 Diclofenac Sod 1% Gel 100 Gm Tube EXT 07/28/24 08:59 2 gm TID PRN Administration pain Protocol Duloxetine HCl 60 mg 06/28/24 09:00 07/04/24 08:22 Duloxetine Hcl 60 Mg Cap PO 07/28/24 08:59 60 mg BID KATHY Administration Enoxaparin Sodium 40 mg 06/28/24 09:00 07/04/24 07:07 Enoxaparin Inj 40 Mg/0.4 Ml Syr SQ 07/28/24 08:59 Not Given Q12H KATHY Ferrous Sulfate 325 mg 06/28/24 09:00 07/03/24 07:27 Ferrous Sulfate 325 Mg Tab PO 07/28/24 08:59 325 mg QAM KATHY Administration Insulin Aspart 0 units 07/04/24 00:00 07/04/24 06:20 Insulin Aspart Per Unit Charge SC 08/03/24 00:00 Not Given Q6 KATHY Lamotrigine 200 mg 06/28/24 09:00 07/04/24 08:22 Lamotrigine 100 Mg Tab PO 07/28/24 08:59 200 mg BID KATHY Administration Protocol Levothyroxine Sodium 75 mcg 06/28/24 06:30 07/04/24 06:14 Levothyroxine Sodium 75 Mcg Tablet PO 07/28/24 06:29 75 mcg DAILYBB KATHY Administration Melatonin 3 mg 06/28/24 01:22 07/03/24 20:15 Melatonin 3 Mg Tab PO 07/28/24 01:21 3 mg HS PRN Administration Insomnia Methocarbamol 500 mg 06/28/24 08:03 07/04/24 00:12 Methocarbamol 500 Mg Tablet PO 07/28/24 08:02 500 mg TID PRN Administration Muscle Spasm Metoprolol Tartrate 12.5 mg 06/28/24 09:00 07/04/24 08:22 Metoprolol Tartrate 25 Mg Tab PO 07/28/24 08:59 12.5 mg BID KATHY Administration Miscellaneous 1 each 06/28/24 21:00 07/03/24 20:17 Remove Lidoderm Patch N/A 07/28/24 20:59 1 each DAILY@2100 KATHY Administration Morphine Sulfate 4 mg 07/02/24 10:07 07/04/24 06:13 Morphine Sulfate 4 Mg/Ml 1 Ml Carp\Vial IV 07/12/24 11:08 4 mg Q4 PRN Administration Pain Kerendia~Non- 1 each 06/28/24 09:00 07/04/24 08:42 Formulary Patient's PO 07/28/24 08:59 1 each Own Med DAILY KATHY Administration Oxycodone HCl 5 mg 07/02/24 10:06 07/03/24 14:36 Oxycodone Hcl Ir 5 Mg Tab (Immediate Release) PO 07/16/24 10:05 5 mg Q6H PRN Administration Moderate Pain 4-6/10 Pantoprazole Sodium 40 mg 06/28/24 09:00 07/04/24 08:22 Pantoprazole 40 Mg Tab PO 07/28/24 08:59 40 mg BID KATHY Administration Potassium Chloride 20 meq 06/28/24 09:00 07/04/24 08:22 Potassium Chloride 10 Meq Tabcr PO 07/28/24 08:59 20 meq TID KATHY Administration Pramipexole Dihydrochloride 0.25 mg 06/28/24 21:00 07/03/24 20:26 Pramipexole Dihydrochlo 0.25 Mg Tab PO 07/28/24 20:59 0.25 mg HS KATHY Administration Sennosides 17.2 mg 06/30/24 09:45 07/04/24 07:22 Senna 8.6 Mg Tab PO 07/30/24 09:44 Not Given BID KATHY Sodium Biphosphate/Sodium Phosphate 132 ml 06/30/24 09:41 06/30/24 09:58 Sod Phosphate/Sod Biphosphate Enema 132 Ml Btl ME 07/30/24 09:40 132 ml DAILY PRN Administration Constipation Topiramate 150 mg 06/28/24 09:00 07/04/24 08:22 Topiramate 50 Mg Tab PO 07/28/24 08:59 150 mg BID KATHY Administration Torsemide 40 mg 06/28/24 09:00 07/04/24 08:12 Torsemide 20 Mg Tab PO 07/28/24 08:59 Not Given BID17 KATHY NPO Date Last Intake of Fluids: 07/04/24 Time Last Intake of Fluids: 08:00 Date Last Intake of Solids: 07/03/24 Time Last Intake of Solids: 23:00 Past Medical History Medical History Melanosis coli H/O: CVA (cerebrovascular accident) Anemia Morbidly obese Generalized osteoarthritis Hypertension Gastroparesis Bipolar depression Esophageal dysfunction CKD (chronic kidney disease), stage III Vitamin D deficiency Cerebrovascular disease History of COVID-19 (2021) Mitral valve disorder Macular degeneration Fibromyalgia Insomnia Stomach ulcer Osteoarthritis Colon polyps Fatty liver Kidney stones H/O breast lump H/O migraine Restless legs syndrome Hyperlipidemia Hypothyroidism Lumbar spine scoliosis (10/26/13) Past Family History Family History Mother Diabetes Clotting disorder Heart disease Myocardial infarction Hypertension Father Diabetes Heart disease Grandmother (Paternal) Lung cancer Grandfather (Maternal) Stomach cancer Other Breast cancer Cancer No family history of adverse response to anesthesia Denies family history of Colon cancer Ovarian cancer Prostate cancer Past Surgical History Surgical History History of tonsillectomy and adenoidectomy S/P lymph node biopsy (07/21/21) S/P cholecystectomy History of esophagogastroduodenoscopy (EGD) History of colonoscopy History of cataract surgery History of cystoscopy History of lithotripsy S/P lumbar spinal fusion History of appendectomy H/O non-cataract eye surgery H/O: hysterectomy Social History Smoking Status: Never smoker Do You Dip or Chew Tobacco: No Hx Alcohol Use: No alcohol intake frequency: holidays/special occasions only Hx Substance Use: No substance use type: does not use Physical Exam Vital Signs Last Vital Signs Temp 36.9 C 07/04/24 10:44 Pulse 73 07/04/24 10:44 Resp 18 07/04/24 10:44 BP 121/65 07/04/24 10:44 Pulse Ox 98 07/04/24 10:44 O2 Del Method Room Air 07/04/24 10:44 Testing Laboratory Results 06/28/24 08:34 06/28/24 08:34 PT 10.2 Seconds (9.0-12.0) 06/28/24 08:34 INR 0.9 (0.9-1.1) 06/28/24 08:34 Hemoglobin A1c 7.4 % (4.5-5.6) H 06/28/24 08:34 Urine Color Yellow 06/28/24 02:02 Urine Appearance Clear (Clear) 06/28/24 02:02 Urine pH 5.5 (4.5-7.5) 06/28/24 02:02 Ur Specific [place] 1.010 (1.000-1.030) 06/28/24 02:02 Urine Protein Negative (Negative) 06/28/24 02:02 Urine Glucose (UA) Negative (Negative) 06/28/24 02:02 Urine Ketones Negative (Negative) 06/28/24 02:02 Urine Nitrite Negative (Negative) 06/28/24 02:02 Ur Leukocyte Esterase 3+ (Negative) H 06/28/24 02:02 Urine WBC (Auto) 11-20 /hpf (0-5) H 06/28/24 02:02 Urine RBC (Auto) 0-2 /hpf (0-2) 06/28/24 02:02 U Hyaline Cast (Auto) 0-2 /lpf (0-2) 06/28/24 02:02 U Epithel Cells (Auto) 0-2 /hpf (0-2) 06/28/24 02:02 Urine Bacteria (Auto) None Seen (None Seen) 06/28/24 02:02 Blood Type A Positive 07/03/24 14:38 Antibody Screen NEGATIVE 07/03/24 14:38 06/28/24 02:02 Urine Culture - Final Urine,Clean Catch Three types of organisms present, all moderate counts. Repeat collection recommended. No further identifications or sensitivities to follow. 07/04/24 07/04/24 07/04/24 10:41 06:06 00:04 POC Glucose 133 H 133 H 151 H
--- NOTE | 2024-07-04 11:26 | History & Physical Bridge Note ---
Date of Service July 04, 2024 History & Physical Bridge Note I have examined the patient, reviewed the History & Physical and in the interval since the performance of the History & Physical I have noted the following changes of clinical significance: no changes noted Lumbar decompression fusion L5-S1
[2024-07-04] MEDS ORDERED: MIDAZOLAM HCL 1 MG/ML 2ML VIAL ONE (11:42)
--- NOTE | 2024-07-04 12:09 | Hospitalist Progress Note ---
Date of Service July 04, 2024 Assessment & Plan (1) Ambulatory dysfunction: Plan: Spine CT - here is noted to have accelerated disc disease at L2/L1 level, which is 1 level superior to her surgical interventions which is causing extensive nerve root impingement. - CT pelvis wo contrast shows moderate osteoarthritis of the left hip. - Venous Doppler ordered - CK - 52 - Continue lidocaine patch - Tylenol IV 1,000mg schedule for pain - morphine and roboxin added - MRI L-spine showing severe disc space narrowing at T12-L1 and L1-L2 with disc osteophyte formation. Mild central canal stenosis at these levels. - orthospine consult appreciated - to OR today for decompression fusion L5-S1 - No major medical contraindication to surgery - hold plavix in anticipation for spinal surgery - Surgery Tuesday 07/04 - oxycodone added for pain control (2) Acute pain of left hip: (3) Bilateral lower extremity edema: Plan: -Torosemide (4) Diabetes mellitus, type 2: Plan: - Home meds hold - Novalog ordered - Hgb A1C AM Plan Patient is a a 68 y.o with hx of DM, hx og CVA, leg edema, GERD, hypothyroidism, restless leg syndrome, HTN, CKD stage G3a, anemia that presented to the Ed due to generalized lower extremity pain and hip pain. States had been difficult to walk for several week. Patient states she started Lymphedema therapy about a week ago. Patient Admitted for pain control, PT and OT evaluation Will need post op PT/OT re-evaluation for final d/c disposition, plan for next 48-72hrs. Admission and Anticipated Discharge Date Admission Date: June 27, 2024 Subjective No events overnight. Pt seen awaiting surgery this am. Review of Systems Review of Systems: CONST: Negative for fever, body aches and chills. HENT: Negative for neck pain/stiffness, headache, congestion, sore throat, swelling. EYES: Negative for discharge/pain or vision changes. RESP: Negative for cough/hemoptysis and shortness of breath. CV: Negative chest pain, difficulty breathing, palpitations. ABD: Negative pain, nausea, vomiting. : Negative increase frequency, dysuria, blood in urine or stool. MUSC: Negative for muscle aches, edema. Lower back pain SKIN: Negative rash, lesions/sores. NEURO: Negative headache, dizziness, weakness. Physical Exam Physical Exam: GENERAL APPEARANCE NAD, activity normal for age, well developed/ well nourished, no cyanosis, pallor, or diaphoresis. EYES lids/conjunctiva normal. EARS/NOSE/THROAT Mucous membranes moist, nares normal, lips/teeth normal uvula midline without oral pharyngeal erythema, exudate or swelling TMs normal bilaterally. No lymphangitis/lymphedema. HEAD/NECK normocephalic atraumatic, no facial trauma, neck is supple. RESPIRATORY respiratory effort normal, speaks in full sentences, no tripod position, no accessory muscle use. Lungs clear to auscultation without rhonchi, wheezes, rales CARDIAC Regular rate and rhythm, no edema. ABDOMINAL Soft, ND/NT. No evidence of fluid wave. No pulsatile masses on exam, rebound tenderness, Reddy sign or pain over Mcburney's point. MUSCLES/EXTREMITIES No abnormal range of motion, no swelling. SKIN Warm, pink and dry. No rashes, dermatoses, petechiae or lesions. NEUROLOGICAL Speech is clear and appropriate. Normal level of consciousness. Gait and coordination are normal. 5/5 strength in all extremities. PSYCH Normal mood and affect. Judgement/competence is appropriate Results & Data Results & Data Vital Signs (Past 12 Hours) Vital Signs Temp Pulse Resp BP BP Pulse Ox O2 Del Method 07/04/24 10:44 36.9 C 73 18 121/65 98 Room Air 07/04/24 07:19 36.7 C 73 18 125/72 95 Room Air PG Care Time/CCT Total # of Minutes Spent Total Time Spent with Patient: Total time spent is greater than 50% in coordination of care (as documented) at patient's floor/unit and/or counseling patient: Coding Level of Care Code 33547 SUB INP/OBS CARE 2/35MIN Diagnoses Ambulatory dysfunction R26.2 Acute pain of left hip M25.552 Bilateral lower extremity edema R60.0 Diabetes mellitus, type 2 E11.9
[2024-07-04] MEDS ORDERED: DEXAMETHASONE SOD INJ 4 MG/ML VIAL ONE (12:14)
[2024-07-04] MEDS ORDERED: diphenhydrAMINE 50 MG/ML VIAL ONE (12:19)
[2024-07-04] MEDS ORDERED: PHENYLEPHRINE HCL 10 MG/ML VIAL ONE (12:50)
[2024-07-04] MEDS: BUPIVACAINE/EPINEPHRINE 0.25% 1:200,000 30 ML VIAL ONE (12:51)
[2024-07-04] MEDS: ceFAZolin 330 MG/ML 1 GM VIAL ONE (12:52)
[2024-07-04] MEDS: SURGICEL FIBRILLAR HEMOSTAT 1 X 2IN TOP ONE (13:57)
[2024-07-04] MEDS: FLOSEAL HEMOSTATIC MATRIX 10ML TOP ONE (13:57)
[2024-07-04] MEDS ORDERED: SUGAMMADEX SODIUM 200 MG/2 ML VIAL IV ONE (14:05)
--- NOTE | 2024-07-04 14:08 | Operative Report ---
Post Operative Report Pre & Post Diagnosis Operation Date: 07/04/24 10:05 Pre-Op Diagnosis: #1 lumbar spondylosis with radiculopathy L5-S1. #2 morbid obesity Post-Op Diagnosis: Same I identified the patient and participated in the time-out.: Yes Procedure Operation Date: 07/04/24 10:05 Actual Procedures #1 removal of posterior connector and screw L5. #2 revision decompression with bilateral medial facetectomies and foraminotomies L5-S1. #3 posterior spinal fusion L5-S1. #4 placement of posterior instrumentation L5-S1 using connectors and camber screws. #5 interbody fusion L5-S1. #6 placement Spira 12 x 26 mm x 2 at L5-S1. #7 placement fuse collagen sponge, with Koros in the posterior lateral gutters and os design and interbody space. #8 placement locally harvested morselized autograft posterior gutters. #9 application of versa wrap of the exposed dura. Surgeon Huey Jaramillo, DO Nps María Abbott Estimated Blood Loss 450 Findings See Below The patient is 5 foot tall weighing over 103 kg the BMI in excess of 44. The patient body mass did contribute to significant technical difficulty with positioning exposure and the procedure itself at least 50% increased operative time. Recommending a modifier 22. Specimens None Indications This is a 68-year-old female that presents to hospital with inability to ambulate secondary to severe radiculopathy. Imaging and workup demonstrate evidence of advanced spondylosis L5-S1 with severe radiculopathy. Subsequently she is here for surgical invention. Description of Procedure Patient was met with identified informed consent obtained. Patient was then taken to the operative suite underwent intubation placed in a prone position on the Anurag table atop the Dank frame. All bony promises well-padded eyes inspected to ensure no external precipice to monitor. This point the lumbar spine was prepped and draped in normal sterile fashion. Sharp dissection with assistance of Bovie cautery performed down to and exposing instrumentation at L5 the remaining lamina of L5 and the bilateral sacral ala. And then proceeded to remove the L5 pedicle screw and connector. This is followed by revision complete laminectomy of L5 with bilateral medial facetectomies and foraminotomies addressing severe subarticular and foraminal stenosis. Pedicle screws were then placed in S1 bilaterally with the assistance of fluoroscopy. And by way of transforaminal approach and left discectomy of L5-S1 was performed endplates guided to subcortical the bone and a 12 x 26 mm spiral cage filled with os design bone graft tapped position. Then proceeded to the right transforaminal region at L5-S1. Again discectomy performed. Endplates guided to subcortical bleeding bone and a second 12 x 26 mm spiral cage filled with os design bone graft tapped in position. Appropriate size rods were then placed with connectors to the distal previous jose ramon and into the new pedicle screws were placed in S1. They were locked into position bilaterally. Transverse processes of L5 and the sacral ala burred to subcortical bleeding bone. Infuse collagen sponge combined with Koros and local autograft placed in posterolateral gutters. First wrap placed over the exposed dura. 15 round ROLAND inserted. The incision was then closed with 1 Vicryl the fascia 2-0 Vicryl subcutaneously and 4 Monocryl for final skin closure. Steri-Strips sterile dressing placed. Patient waken taken to PACU in stable condition. Please note María Abbott was present at the entire procedure and on the patient positioning complex portion of the surgery and final skin closure. I attest to the content of the Intraoperative Record and any orders documented therein. Any exceptions are noted below.
[2024-07-04] MEDS ORDERED: ONDANSETRON INJ 2 MG/ML 2 ML VIAL ONE (14:11)
[2024-07-04] MEDS: fentaNYL citrate PF 100 MCG/2 ML VIAL IV PRN (14:30)
--- NOTE | 2024-07-04 14:31 | Fluoroscopy Report ---
FL lumbar spine 2-3V CLINICAL HISTORY: L5-S1 Decompression/fusion COMPARISON STUDY: 06/11/2022 FLUOROSCOPY TIME: 9 seconds FLUOROSCOPY IMAGES: 3 EXPOSURE DOSE: 8 mGy FINDINGS: Fluoroscopy was provided for lumbar metallic fusion. IMPRESSION: Intraoperative fluoroscopy. ACT 112: Negative or not required by law. Electronically signed by: Hank Menendez M.D. 07/04/2024 2:29 PM
--- NOTE | 2024-07-04 14:38 | Anesthesiology Progress Note ---
Date of Service July 04, 2024 Anesthesia Post Procedure Vital Signs Vital Signs: Temp Pulse Resp BP BP Pulse Ox O2 Del Method 07/04/24 10:44 36.9 C 73 18 121/65 98 Room Air 07/04/24 07:19 36.7 C 73 18 125/72 95 Room Air 07/03/24 20:05 36.7 C 81 18 144/78 H 93 Room Air 07/03/24 16:23 36.7 C 86 18 109/71 93 Room Air Pain Intensity Bilateral Leg: Pain Intensity: 7 Back: Pain Intensity: 8 Transfer of Care Handoff Completed per policy Notes Mental Status: alert / awake / arousable Patient Amnestic to Procedure: Yes Nausea / Vomiting: adequately controlled Pain: adequately controlled Airway Patency, RR, SpO2: stable & adequate BP & HR: stable & adequate Hydration State: stable & adequate Anesthetic Complications: no major complications apparent and Pt Satisfied with anesthetic care
[2024-07-04] MEDS ORDERED: DO NOT ADMINISTER FLU VACCINE PRN (15:51)
[2024-07-04] MEDS ORDERED: PROMETHAZINE 12.5 MG/50.5 ML BAG IV PRN (15:51)
[2024-07-04] MEDS ORDERED: SOD PHOSPHATE/SOD BIPHOSPHATE ENEMA 132 ML BTL PR PRN (15:51)
[2024-07-04] MEDS ORDERED: MAGNESIUM HYDROXIDE SUSP 30 ML UDC PO PRN (15:51)
[2024-07-04] MEDS ORDERED: diphenhydrAMINE Capsule 25 MG CAP PO PRN (15:51)
[2024-07-04] MEDS ORDERED: LORazepam 0.5 MG TAB PO PRN (15:51)
[2024-07-04] MEDS ORDERED: ALUMINUM/MAGNESIUM SUSP 30 ML UDC PO PRN (15:51)
[2024-07-04] MEDS ORDERED: DO NOT ADMINISTER PNEUMOCOCCAL VACCINE PRN (15:51)
[2024-07-04] MEDS ORDERED: hydrOXYzine HCl 25 MG TAB PO PRN (15:51)
[2024-07-04] MEDS ORDERED: NALOXONE HCL 0.4 MG/1 ML VIAL/CARP IV PRN (15:51)
[2024-07-04] MEDS ORDERED: LORazepam 2 MG/1 ML VIAL IV PRN (15:51)
[2024-07-04] MEDS ORDERED: bisacodyL 10 MG SUPP PR PRN (15:51)
[2024-07-04] MEDS: CLINDAMYCIN/D5W 900 MG/50 ML BAG IV ONE (16:03)
[2024-07-04] MEDS ORDERED: Nursing to Pharmacy Communication SCH (16:15)
[2024-07-04] MEDS: traMADol HCL 50 MG TABLET PO PRN (16:36)
--- NOTE | 2024-07-04 17:30 | Anesthesiology Progress Note ---
Date of Service July 04, 2024 Anesthesia Post Procedure Vital Signs Vital Signs: Temp Pulse Pulse Resp BP BP Pulse Ox 07/04/24 17:03 84 18 100/64 95 07/04/24 16:34 36.7 C 83 18 98/62 L 98 07/04/24 15:50 36.7 C 84 18 103/65 95 07/04/24 15:25 82 19 111/71 95 07/04/24 15:10 81 23 124/55 L 95 07/04/24 15:00 36.7 C 76 21 112/78 99 07/04/24 14:50 76 20 123/61 98 07/04/24 14:40 75 19 124/60 98 07/04/24 14:30 77 23 119/74 100 07/04/24 14:23 36 C L 76 7 L 20 121/63 100 07/04/24 10:44 36.9 C 73 18 121/65 98 07/04/24 07:19 36.7 C 73 18 125/72 95 07/03/24 20:05 36.7 C 81 18 144/78 H 93 O2 Del Method O2 Flow Rate 07/04/24 17:03 Nasal Cannula 2 07/04/24 16:34 Nasal Cannula 2 07/04/24 15:50 Nasal Cannula 2 07/04/24 15:25 Nasal Cannula 2 07/04/24 15:10 Nasal Cannula 2 07/04/24 15:00 Oxymask 2 07/04/24 14:50 Oxymask 3 07/04/24 14:40 Oxymask 6 07/04/24 14:30 Oxymask 10 07/04/24 14:23 Oxymask 10 07/04/24 10:44 Room Air 07/04/24 07:19 Room Air 07/03/24 20:05 Room Air Pain Intensity Bilateral Leg: Pain Intensity: 7 Back: Pain Intensity: 10 Transfer of Care Handoff Completed per policy Notes Mental Status: alert / awake / arousable and participated in evaluation Patient Amnestic to Procedure: Yes Nausea / Vomiting: adequately controlled Pain: adequately controlled Airway Patency, RR, SpO2: stable & adequate BP & HR: stable & adequate Hydration State: stable & adequate Anesthetic Complications: no major complications apparent and Pt Satisfied with anesthetic care
[2024-07-04] MEDS: HYDROCODONE/ACETAMOPHEN 5/325MG TAB PO PRN (18:04)
[2024-07-04] MEDS: ONDANSETRON INJ 2 MG/ML 2 ML VIAL IV PRN (20:07)
[2024-07-04] MEDS: HYDROmorphone INJ 0.5 MG/0.5 ML SYR IV PRN (20:07)
[2024-07-04] MEDS: CLINDAMYCIN/D5W 600 MG/50 ML BAG IV SCH (20:07)
[2024-07-04] MEDS: DOCUSATE SODIUM/SENNA 50/8.6MG TAB PO SCH (20:08)
[2024-07-05] MEDS: POLYETHYLENE (MIRALAX) 17 GM PACK PO SCH (05:00)
[2024-07-05] MEDS: FAMOTIDINE 20 MG TAB PO PRN (05:04)
[2024-07-05 05:59] LABS: Basophils # (auto) 0.02 K/uL (0.00-0.20); Basophils % (auto) 0.2 %; Eosinophils # (auto) 0.02 K/uL (0.00-0.50); Eosinophils % (auto) 0.2 %; Hematocrit (blood only) 32.4 % (37.0-47.0); Hemoglobin 10.3 g/dl (12.0-16.0); Immature Granulocytes # (auto) 0.04 K/uL (0.01-0.20); Immature Granulocytes % (auto) 0.3 %; Lymphocytes # (auto) 2.86 K/uL (1.20-3.40); Lymphocytes % (auto) 21.9 %; Mean Corpuscular Hemoglobin 29.1 pg (25.0-34.0); Mean Corpuscular Hgb Conc 31.8 g/dL (32.0-36.0); Mean Corpuscular Volume 91.5 fL (80.0-100.0); Mean Platelet Volume 10.9 fL (9.4-12.4); Monocytes # (auto) 1.18 K/uL (0.11-0.59); Neutrophils # (auto) 8.94 K/uL (1.40-6.50); Neutrophils % (auto) 68.4 %; Platelet Count 279 K/uL (130-400); RDW Coefficient of Variation 14.4 % (11.5-14.5); RDW Standard Deviation 49.1 fL (36.4-46.3); Red Blood Count 3.54 M/uL (4.20-5.40); White Blood Count 13.06 K/ul (4.8-10.8)
[2024-07-05 06:16] LABS: BUN Creatinine Ratio 17.6 (10-20); Calcium 8.6 mg/dl (8.6-10.3); Creatinine Clr Calc Pharmacy 36.2 ml/min; Potassium 4.4 mmol/L (3.5-5.1)
[2024-07-05] MEDS: dexAMETHasone 4 MG in SYRINGE 0 ML IV SCH (08:00)
--- NOTE | 2024-07-05 08:25 | Orthopedic Progress Note ---
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 Monitor her progress. Hopefully discharge home with home health in next few days. Admission and Anticipated Discharge Date Admission Date: June 27, 2024 Subjective Patient's back pain is controlled leg symptoms markedly improved. She has been out of bed. Physical Exam Physical Exam: Patient peers comfortable. She has good strength testing. Results & Data Vital Signs (Past 12 Hours) Vital Signs Temp Pulse Resp BP Pulse Ox O2 Del Method O2 Flow Rate 07/05/24 07:32 Nasal Cannula 2 07/05/24 07:00 36.7 C 82 18 119/75 98 Room Air 07/05/24 03:00 36.5 C 79 16 120/76 98 Nasal Cannula 2 07/04/24 23:00 37.0 C 85 16 100/67 98 Nasal Cannula 2 Queries Orthopedic Spine Obesity: Yes
[2024-07-05] MEDS: ACETAMINOPHEN 1,000 MG/100 ML VIAL IV PRN (08:55)
[2024-07-05] MEDS: SODIUM CHLORIDE 0.9% 500 ML IV SCH (09:21)
--- NOTE | 2024-07-05 12:26 | Hospitalist Progress Note ---
"Date of Service July 05, 2024 Assessment & Plan (1) Ambulatory dysfunction: (2) Acute pain of left hip: (3) Bilateral lower extremity edema: (4) Diabetes mellitus, type 2: Plan Patient is a a 68 y.o with hx of DM, hx of CVA, leg edema, GERD, hypothyroidism, restless leg syndrome, HTN, CKD [id number], anemia that presented to the ED due to generalized lower extremity pain and hip pain. States had been difficult to walk for several week. Patient states she started Lymphedema therapy about 1 week prior to arrival. initial evaluation with spinal CT showing accelerated disc disease at L2/L1. CT pelvis: moderate osteoarthritis of the left hip and lower extremity Dopplers without DVT.Patient Admitted for pain control and orthospine evaluation #ambulatory dysfunction | spondylosis of lumbosacral spine Spine CT - here is noted to have accelerated disc disease at L2/L1 level, which is 1 level superior to her surgical interventions which is causing extensive nerve root impingement. Orthospine consulted, recommended MRI that showed severe disc narrowing at T12- L1 and L1-L2. Decision was made for surgery, anticoagulation held and she is s/p L5-S1 decompression an fusion with Dr. Jaramillo 07/04 Pain control: Lidoderm patch, Robaxin, Tylenol, Dilaudid as needed, [place] as needed and tramadol as neededwill try to limit IV narcotics in preparation for discharge PT/OT pending Resume Plavix when okay with Ortho surgery #CHELLE on CKD stage III Creatinine 1.5 this morning, likely due to continue torsemide while n.p.o./OR proceduretorsemide held, 500 cc NSS given Continue finerenone AM BMP #Diabetes mellitus type 2not on insulin Home meds:pigolitazone - HELD A1c 7.4 - continue SSI #history of CVAcontinue statin. Plavix held, resume when okay by Dr. Jaramillo #Mental health continue duloxetine and lamictal and topamax #hypothyroid -continue Synthroid Dispo: continued inpatient stay for PT/OT evals, orthospine eval DVT proh: SCDs and Teds, resume plavix when okayed by Dr. Jaramillo Admission and Anticipated Discharge Date Admission Date: June 27, 2024 Subjective patient lying in bed, feels much better after her Davidson was taken out. Was having a lot of lower abdominal tenderness that she feels as her Davidson was in the wrong place. Has already voided since removal of the Davidson. In regards to her back/chronic pain this has much improved she states that her pain is a 7 or 8 which is very tolerable for her as she normally lives at 10+. She is very hopeful to go home and not have to need center care but has been ambulating since surgery and I feel like this is quite possible. Discussed her rising kidney function understands her torsemide is on hold and will continue to increase her p.o. intake, stating she has not eaten much since she has been here. Review of Systems Review of Systems: All systems reviewed & are unremarkable except as noted in Subjective Physical Exam Physical Exam: General: NAD, VS as above Resp: normal respiratory effort, lungs clear to auscultation, Weaned off of oxygen during my encounter CV: RRR, no murmur, Abd: normal bowel sounds, non tender, no hepatosplenomegaly back: ROLAND drain in place minimal output at this time Extremities: Moves all extremities, no edema Neuro: A&O x3, Skin: intact, no lesions noted Results & Data Results & Data Vital Signs (Past 12 Hours) Vital Signs Temp Pulse Resp BP Pulse Ox O2 Del Method O2 Flow Rate 07/05/24 11:00 98.2 F 84 16 111/72 95 Room Air 07/05/24 07:32 Nasal Cannula 2 07/05/24 07:00 98.1 F 82 18 119/75 98 Room Air 07/05/24 03:00 97.7 F 79 16 120/76 98 Nasal Cannula 2 Laboratory Results CBC and chemistry reviewed PG Care Time/CCT Total # of Minutes Spent Total Time Spent with Patient: Total time spent is greater than 50% in coordination of care (as documented) at patient's floor/unit and/or counseling patient: Coding Level of Care Code 67177 SUB INP/OBS CARE 3/50MIN Diagnoses Ambulatory dysfunction R26.2 Acute pain of left hip M25.552 Bilateral lower extremity edema R60.0 Diabetes mellitus, type 2 E11.9"
[2024-07-05] MEDS: ONDANSETRON 4 MG OD TAB PO PRN (20:51)
[2024-07-06] MEDS: HYDROmorphone INJ 1 MG/ML SYRINGE IV PRN (01:04)
[2024-07-06] MEDS: METOCLOPRAMIDE HCL INJ 5 MG/ML 2 ML VIAL IV PRN (01:05)
--- NOTE | 2024-07-06 08:21 | Orthopedic Progress Note ---
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 Admission and Anticipated Discharge Date Admission Date: June 27, 2024 Subjective Patient's back pain is controlled leg pain markedly improved. Tolerating physical therapy. Physical Exam Physical Exam: Patient is in the chair at the bedside. She is comfortable. Good strength testing. Results & Data Vital Signs (Past 12 Hours) Vital Signs Temp Pulse Resp BP BP Pulse Ox O2 Del Method 07/06/24 08:01 37.2 C 101 H 16 132/64 92 Room Air 07/05/24 21:45 36.4 C L 84 18 108/70 98 Room Air 07/05/24 20:35 Room Air Queries Orthopedic Spine Obesity: Yes
[2024-07-06 08:43] LABS: BUN Creatinine Ratio 17.7 (10-20); Calcium 8.4 mg/dl (8.6-10.3); Creatinine Clr Calc Pharmacy 50.9 ml/min; Potassium 4.4 mmol/L (3.5-5.1)
--- NOTE | 2024-07-06 11:41 | Hospitalist Progress Note ---
"Date of Service July 06, 2024 Assessment & Plan (1) Ambulatory dysfunction: (2) Acute pain of left hip: (3) Bilateral lower extremity edema: (4) Diabetes mellitus, type 2: Plan Patient is a a 68 y.o with hx of DM, hx of CVA, leg edema, GERD, hypothyroidism, restless leg syndrome, HTN, CKD [id number], anemia that presented to the ED due to generalized lower extremity pain and hip pain. States had been difficult to walk for several week. Patient states she started Lymphedema therapy about 1 week prior to arrival. initial evaluation with spinal CT showing accelerated disc disease at L2/L1. CT pelvis: moderate osteoarthritis of the left hip and lower extremity Dopplers without DVT.Patient Admitted for pain control and orthospine evaluation #ambulatory dysfunction | spondylosis of lumbosacral spine Spine CT - here is noted to have accelerated disc disease at L2/L1 level, which is 1 level superior to her surgical interventions which is causing extensive nerve root impingement. Orthospine consulted, recommended MRI that showed severe disc narrowing at T12- L1 and L1-L2. Decision was made for surgery, anticoagulation held and she is s/p L5-S1 decompression an fusion with Dr. Jaramillo 07/04 Pain control: Lidoderm patch, Robaxin, Tylenol, Dilaudid as needed, [place] as needed and tramadol as neededwill try to limit IV narcotics in preparation for discharge PT/OT pending Discussed with Dr. Jaramillo - plan to resume plavix 07/07 #CHELLE on CKD stage III Creatinine 1.5 this morning, likely due to continue torsemide while n.p.o./OR proceduretorsemide held, 500 cc NSS given. CHELLE has resolved. okay to resume toresmide for this afternooons dose Continue finerenone #Hyponatremia Mild at 133, asymptomic check serum osm, urine Na and osm AM BMP #Diabetes mellitus type 2not on insulin Home meds:pioglitazone - HELD A1c 7.4 - continue SSI #history of CVAcontinue statin. Plavix resumed 07/07 #Mental health continue duloxetine and lamictal and topamax #hypothyroid -continue Synthroid Dispo: continued inpatient stay for drain output - plan is home with HH when stable DVT proh: SCDs and Teds, resume plavix 07/07 Admission and Anticipated Discharge Date Admission Date: June 27, 2024 Subjective patient seen sitting up in the chair saying pain in manageable - agreeable to using PO pain medications excited that she is able to go home with HH Review of Systems Review of Systems: All systems reviewed & are unremarkable except as noted in Subjective Physical Exam Physical Exam: General: NAD, VS as above Resp: normal respiratory effort, lungs clear to auscultation, CV: RRR, no murmur, Abd: normal bowel sounds, non tender, no hepatosplenomegaly back: ROLAND drain in place minimal output at this time Extremities: Moves all extremities, no edema Neuro: A&O x3, Skin: intact, no lesions noted Results & Data Results & Data Vital Signs (Past 12 Hours) Vital Signs Temp Pulse Resp BP Pulse Ox O2 Del Method 07/06/24 08:09 Room Air 07/06/24 08:01 99.0 F 101 H 16 132/64 92 Room Air Laboratory Results BMP reviewed PG Care Time/CCT Total # of Minutes Spent Total Time Spent with Patient: Total time spent is greater than 50% in coordination of care (as documented) at patient's floor/unit and/or counseling patient: Coding Level of Care Code 90306 SUB INP/OBS CARE 3/50MIN Diagnoses Ambulatory dysfunction R26.2 Acute pain of left hip M25.552 Bilateral lower extremity edema R60.0 Diabetes mellitus, type 2 E11.9"
[2024-07-06 15:14] VITALS: RESP 16
[2024-07-06] MEDS: ACETAMINOPHEN 500 MG TAB PO PRN (20:42)
[2024-07-07 07:52] VITALS: BP 112/75; PULSE 80; TEMP 98.6; O2SAT 99
[2024-07-07 08:08] LABS: BUN Creatinine Ratio 15.9 (10-20); Calcium 8.8 mg/dl (8.6-10.3); Creatinine Clr Calc Pharmacy 53.7 ml/min; Potassium 4.8 mmol/L (3.5-5.1)
[2024-07-07] MEDS: CLOPIDOGREL BISULFATE 75 MG TAB PO SCH (08:37)
--- NOTE | 2024-07-07 09:52 | Orthopedic Progress Note ---
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 Her pain is controlled. She is much more functional. ROLAND drain decreasing. Pain controlled. Subsidy discharged home. Discharge orders and instructions from the chart for further view. Admission and Anticipated Discharge Date Admission Date: June 27, 2024 Subjective Patient's back pain is controlled leg symptoms improved. She is tolerating physical therapy. Physical Exam Physical Exam: Patient is in the chair at the bedside. Has good strength testing. Peers comfortable. Results & Data Vital Signs (Past 12 Hours) Vital Signs Temp Pulse Resp BP Pulse Ox O2 Del Method 07/07/24 08:11 Room Air 07/07/24 07:52 37 C 80 16 112/75 99 Room Air Queries Orthopedic Spine Obesity: Yes
== END 2024-07-07 13:17 | disposition home health service (06) | DRG 402 ==
LOC: ED 18:35 → 3N 22:32 → SUATTDRO 22:32 → 3N 06-28 01:19

== ENCOUNTER 2024-08-30 14:43 | Inpatient (IN) ==
[2024-08-30] MEDS: KETOROLAC TROMETHAMINE 15 MG/ML VIAL IV STA (15:10)
[2024-08-30] MEDS: diazePAM 5 MG/ML 10ML VIAL IV STA (15:11)
[2024-08-30 15:13] LABS: Hematocrit (blood only) 30.5 % (37.0-47.0); Hemoglobin 9.2 g/dl (12.0-16.0); Immature Granulocytes # (auto) 0.07 K/uL (0.01-0.20); Immature Granulocytes % (auto) 0.6 %; Mean Corpuscular Hemoglobin 26.2 pg (25.0-34.0); Mean Corpuscular Volume 86.9 fL (80.0-100.0); Platelet Count 327 K/uL (130-400); RDW Standard Deviation 49.9 fL (36.4-46.3); Red Blood Count 3.51 M/uL (4.20-5.40); White Blood Count 12.36 K/ul (4.8-10.8)
[2024-08-30 15:31] LABS: Alanine Aminotransferase 9.0 U/L (7-52); Albumin Globulin Ratio 1.3 (0.9-2); Alkaline Phosphatase 139.0 U/L (34-104); Anion Gap 9.0 (3-11); Bilirubin,Total 0.2 mg/dl (0.2-1.0); Blood Urea Nitrogen 17.0 mg/dl (6-23); Calcium 9.2 mg/dl (8.6-10.3); Carbon Dioxide 24.0 mmol/L (21-32); Chloride 105.0 mmol/L (98-107); Creatinine Clr Calc Pharmacy 56.3 ml/min; Globulin 3.0 gm/dl (2.5-4.0); Glucose 129.0 mg/dl (70-99(Fasting)); Potassium 3.6 mmol/L (3.5-5.1); Sodium 138.0 mmol/L (136-145); Total Protein 6.9 gm/dl (6.0-8.3)
[2024-08-30 15:41] LABS: Appearance Urine Clear (Clear); Bacteria Urine Automated None Seen (None Seen); Epithelial Cell Urine Auto 0-2 /hpf (0-2); Glucose Urine UA Negative (Negative); RBC Urine Automated 0-2 /hpf (0-2); WBC Urine Automated 0-5 /hpf (0-5)
[2024-08-30] MEDS: MoRPHine SULFATE 4 MG/ML 1 ML CARP\\VIAL IV STA ×2 (17:53→20:36)
--- NOTE | 2024-08-30 18:14 | Emergency Department Note ---
Impression & Plan Urinary incontinence, Ambulatory dysfunction, Back pain ED Provider Note NAME: CARLY HSU AGE: 69 SEX: F : 53 ARRIVES VIA: EMS INFORMANT: EMS, Patient ED PROVIDER(S): Juan Mclaughlin DO CHIEF COMPLAINT: back pain HPI: This is a 69-year-old female with the PMHx of severe degenerative spine disease s/p numerous surgeries with recent surgery and postoperative hematoma in June requiring takeback, ambulatory dysfunction, and chronic urinary incontinence presenting to [facility] for further evaluation of back pain. Patient states worsening back pain over the last few days. Patient now immobile. She does have home health but she states she is needed 3-4 people to be able to lift her. Patient states the pain is severe and not controlled by outpatient medications. Patient has numerous allergies limiting her options for pain control. She does report low-grade fevers at home. She continues to have urinary incontinence that she reports is worse. Patient states the pain radiates from her incision site the whole way up into her neck. Patient does report that this radiates into her lower extremities as well. She denies any saddle anesthesia. She denies any bowel incontinence. She has been having normal bowel movements. They deny chills. No cough or congestion. Denies chest pain or palpitations. No shortness of breath. They deny abdominal pain, nausea and vomiting. No urinary complaints. No recent changes in bowel movements. Patient denies recent changes in medications or OTC supplements. Patient offers no other complaints, today. ADDITIONAL HISTORY OBTAINED: Per HPI Chronic Medical/Social Conditions Affecting Care: Per HPI PAST MEDICAL HISTORY: See Below PAST SURGICAL HISTORY: See Below FAMILY HISTORY: See Below SOCIAL HISTORY: See Below HOME MEDICATIONS: See Below ALLERGIES: See Below VITALS: See Below PHYSICAL EXAMINATION: GENERAL: Sitting up in bed, alert, well appearing, well nourished, no distress, non-toxic EYE EXAM: normal conjunctiva. OROPHARYNX: no exudate, no erythema, lips, buccal mucosa, and tongue normal and mucous membranes are moist NECK: supple, Range of motion is normal LUNGS: Clear to auscultation. Normal chest wall mechanics HEART: no murmurs, regular rate, regular rhythm ABDOMEN: abdomen soft, non-tender, normo-active bowel sounds, no masses, no rebound or guarding. BACK: Back is symmetrical on inspection and there is no deformity, no CVA tenderness. Patient has midline L-spine tenderness to palpation. Patient's incision is well-healed and without swelling, erythema or warmth. No step-offs or deformities. Patient is hyporeflexic with 1+ patellar reflexes. There is generalized weakness of the lower extremities with 4 out of 5 strength. Sensation is intact. SKIN: no rashes and no bruising UPPER EXTREMITIES: upper extremities are grossly normal. LOWER EXTREMITIES: No pitting edema. NEURO EXAM: Normal sensorium, GCS 15, normal speech, no gross weakness of arms, mild weakness of legs. Gross sensation intact. MEDICAL DECISION MAKING: Differential diagnosis includes but not limited to acute on chronic back pain, radiculopathy, spinal cord compression, postoperative infection, postoperative hematoma, postoperative seroma, musculoskeletal strain, muscle spasm In summary, this is a 69-year-old presenting for back pain. Triage and nursing notes reviewed. Patient is afebrile and hemodynamically stable. Diagnostics interpreted by me include EKG and cardiac monitoring as listed below: -Cardiac Monitoring: An order was placed for continuous cardiac monitoring. The monitor shows a rate of 80s with regular rhythm. -ECG: not obtained History provided by the patient includes recent back surgery. I reviewed operative reports and notes from the previous 2 months. Appears the patient did have revision of prior back surgeries on 07/[address] Jaramillo. History was complicated by postoperative hematoma leading to evacuation surgery on 07/12. She does have home health care at home but has been struggling with pain control and ambulatory to status. She states at this point that she is mostly immobile. Physical examination reveals ongoing hyporeflexia and weakness. Urinary incontinence has been worsening. Based on examination, cannot say no evidence of spinal cord compression but felt to be less likely. She has had low grade fevers at home. Given history and presentation, we will obtain inflammatory markers and basic labs as well as MRI imaging. MRI is necessary given complaints and recent surgery. Concern would be for postoperative fluid collection that could be seroma, hematoma or infection. Labs and imaging reviewed. Pertinent findings include improved anemia from baseline. She does have a mild leukocytosis as well as elevation of CRP and ESR. CRP is improved from prior but ESR is elevated. I do not believe the patient necessarily has a postoperative infection. She could have residual hematoma that is causing her pain. Do believe this is likely acute on chronic back pain. Given the patient's symptoms including urinary incontinence, weakness and ambulatory dysfunction in the setting of recent spine surgery, we will plan for MRI. The patient has severe pain that has been difficult to control. I do not believe that she is safe to return home given lack of resources. She will likely need inpatient rehabilitation services. Without significant fevers or hemodynamic instability with minimal elevation of IMs, will hold on antibiotics until evaluation by MRI and observation for clinical deterioration. Given these findings, the patient will likely need to be admitted. Given recent postoperative period, will discuss with spine surgery. Patient was discussed with spine surgery, Dr. Jaramillo, by telephone. Discussed concerns for acute on chronic back pain as well as low grade fevers and elevated IMs. He agrees with MRI and admission for observation. Will discuss with medicine team for admission regarding severe ambulatory dysfunction and pain control. Discussion held with inpatient [facility] Hospitalist team and admitted pending MRI results. Consults/Care Managements Discussions: Per MDM ER treatment provided: See above Procedures:none Critical Care: None Past Med/Surg History Problem List (Updated 08/30/24 @ 19:29 by Juan Mclaughlin DO) Back pain (Acute) Ambulatory dysfunction (Acute) Urinary incontinence (Acute) Neurogenic claudication due to lumbar spinal stenosis Post-op pain (Acute) Back pain (Acute) S/P lumbar spinal fusion Spondylosis of lumbosacral spine at single level with radiculopathy Ambulatory dysfunction (Acute) Bilateral lower extremity edema Diabetes mellitus, type 2 Swelling of left upper extremity Bilateral mastodynia Left axillary fullness Bilateral hip joint arthritis Abdominal pain Hypokalemia Hypomagnesemia Arthritis Lymphadenopathy Elevated white blood cell count Chronic constipation Urinary incontinence Change in bowel habits Mitral valve disorder (Chronic) Vitamin D deficiency (Chronic) Degenerative disc disease (Chronic) GERD (gastroesophageal reflux disease) (Chronic) Medical History Paranoid delusion UTI (urinary tract infection) Nausea and vomiting Intractable back pain Cerebrovascular disease, unspecified Melanosis coli H/O: CVA (cerebrovascular accident) > memory issues since/ some days has issues with word recall > Plavix Morbidly obese Generalized osteoarthritis Hypertension Gastroparesis Bipolar depression Esophageal dysfunction CKD (chronic kidney disease), stage III Vitamin D deficiency Cerebrovascular disease History of COVID-19 (2021) no hosp; resolved Mitral valve disorder no cardio Macular degeneration Fibromyalgia Insomnia Stomach ulcer hx of Osteoarthritis Colon polyps Fatty liver Kidney stones h/o H/O breast lump left breast (benign) H/O migraine Restless legs syndrome Hyperlipidemia Hypothyroidism Lumbar spine scoliosis (10/26/13) Surgical History History of tonsillectomy and adenoidectomy S/P lymph node biopsy (07/21/21) Right axillary lymph node excision using [facility] Historical Archeologist. Dr. Herrera S/P cholecystectomy History of esophagogastroduodenoscopy (EGD) History of colonoscopy History of cataract surgery bilateral History of cystoscopy stone basketing History of lithotripsy History of appendectomy H/O non-cataract eye surgery skin growth removed H/O: hysterectomy vaginal hysterectomy Family History Mother Diabetes Clotting disorder Heart disease Myocardial infarction Hypertension Father Diabetes Heart disease Grandmother (Paternal) Lung cancer Grandfather (Maternal) Stomach cancer Other Breast cancer Cancer No family history of adverse response to anesthesia Denies family history of Colon cancer Ovarian cancer Prostate cancer Social History Smoking Status: Never smoker Second Hand Exposure: Yes (as a child); Do You Dip or Chew Tobacco: No; Hx Alcohol Use: No Hx Substance Use: No Preferred Language: Croatian Communication Ability: Effective Visual Impairment: No Limitations Hearing Ability: Normal Law Clerk Required: No Beliefs That Will Affect Care: None marital status: Current Living Situation: Alone Current Living Situation Comment: recieved home health for assistance>recent staff problems current occupational status: retired 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 [employer] How many Children do You have: 2 Feels Safe at Home: Yes Safety Concerns Comment: Pt states some things have gone missing around home, trying to move Childhood Exposure to Second-Hand Smoke: Yes Diet: regular caffeine: No during the past year weight has: decreased > 10 lbs Dental Care, Regularly: Yes Physical Activity Frequency: Does not Exercise Seatbelt Use: always Sunscreen Use: No Do you think of yourself as: straight/heterosexual Gender Identity: Female Assistive Devices: Walker Allergies Allergies Allergy/AdvReac Type Severity Reaction Status Date / Time Cephalosporins Allergy Intermediate CEPHALEXIN-RASH Verified 08/02/24 14:40 & ULCERS IN MOUTH Penicillins Allergy Intermediate RASH AND Verified 08/02/24 14:40 ULCERS IN MOUTH sesame seed Allergy Intermediate "BUMPY" Verified 08/02/24 14:40 RASH ALL OVER ARMS AND CHEST Sulfa (Sulfonamide Allergy Intermediate RASH AND Verified 08/02/24 14:40 Antibiotics) ULCERS IN MOUTH sulfamethoxazole Allergy Intermediate rash and Verified 08/02/24 14:40 ulcers in the mouth wheat Allergy Intermediate Itching Verified 08/02/24 14:40 levofloxacin Allergy Mild local Verified 08/02/24 14:40 reaction gabapentin AdvReac Severe sore Verified 08/02/24 14:40 throat, stomach pains, nausea lactose AdvReac Intermediate Gastrointestinal Verified 08/02/24 14:40 Upset meperidine AdvReac Intermediate VOMITING & Verified 08/02/24 14:40 VERTIGO metformin AdvReac Intermediate Diarrhea Verified 08/02/24 14:40 oxycodone AdvReac Intermediate PERCOCET - Verified 08/02/24 14:40 vomiting and vertigo Home Meds Home Medications Medication Instructions Recorded Confirmed metoprolol tartrate 25 mg tablet 12.5 mg PO AMPM 08/02/24 08/30/24 sennosides 8.6 mg tablet (Senna 8.6 - 17.2 mg PO AMHS 08/02/24 08/30/24 Laxative) topiramate 100 mg tablet 150 mg PO AMPM 08/02/24 08/30/24 torsemide 20 mg tablet 40 mg PO BID 08/30/24 08/30/24 Previous Rx's Medication Instructions Recorded blood sugar diagnostic #30 ea 09/21/19 blood-glucose meter #1 ea 09/21/19 lamotrigine 200 mg tablet 200 mg PO BID #180 tabs 05/04/23 blood sugar diagnostic (Accu-Chek #100 ea 01/24/24 Guide test strips) lancets (Accu-Chek Fastclix Lancet #100 ea 01/24/24 Drum) [id number] 250 mg-dha 90 1 cap PO BID #180 caps 03/20/24 mg-epa 160 [id number] capsule (Ocuvite Adult 50 Plus) finerenone 10 mg tablet (Kerendia) 10 mg PO QAM #90 tabs 04/20/24 atorvastatin 20 mg tablet 20 mg PO QPM #30 tabs 05/15/24 clopidogrel 75 mg tablet 75 mg PO QAM #90 tabs 05/15/24 duloxetine 60 mg capsule,delayed 60 mg PO BID #180 caps 05/15/24 release ferrous sulfate 325 mg (65 mg 325 mg PO QAM #90 tabs 05/15/24 iron) tablet (FeroSul) levothyroxine 75 mcg tablet 75 mcg PO QAM #90 tabs 05/15/24 magnesium gluconate 27 mg 27 mg PO HS #30 tabs 05/15/24 magnesium (500 mg) tablet (Mag-G) pantoprazole 40 mg tablet,delayed 40 mg PO BID #180 tabs 05/15/24 release potassium chloride 10 mEq 20 meq (2 x 10 mEq) PO TID #540 05/15/24 capsule,extended release caps pramipexole 0.25 mg tablet 0.25 mg PO HS #90 tabs 05/15/24 acetaminophen 500 mg tablet 500 mg PO Q6H PRN Pain #225 tabs 06/09/24 hydrocodone 5 mg-acetaminophen 325 1 tab PO Q6H PRN pain #30 tabs 07/17/24 mg tablet Bedside Commode #1 ea 08/02/24 Results & Data (ED) Vital Signs Vital Signs - 24 hr 08/30/24 14:52 08/30/24 15:04 08/30/24 15:34 Temperature 36.7 C Temperature Source Oral Pulse Rate 80 76 72 Pulse Rhythm Regular Respiratory Rate 18 16 16 Respiratory Effort / Characteristics Non-Labored Respiratory Depth Normal Blood Pressure 126/67 139/74 Blood Pressure Mean 86 95 Blood Pressure Position Lying Pulse Oximetry 100 96 95 Oxygen Delivery Method Room Air Room Air Room Air Sepsis Recent Fever Within 48 Hours No Sepsis New/Unexplained Change in Mental Status No Sepsis Action Taken by Nursing No Action Required 08/30/24 15:58 08/30/24 16:00 08/30/24 16:30 Temperature Temperature Source Pulse Rate 77 76 72 Pulse Rhythm Respiratory Rate 19 15 Respiratory Effort / Characteristics Respiratory Depth Blood Pressure 134/72 140/76 Blood Pressure Mean 84 91 Blood Pressure Position Pulse Oximetry 99 97 Oxygen Delivery Method Sepsis Recent Fever Within 48 Hours Sepsis New/Unexplained Change in Mental Status Sepsis Action Taken by Nursing 08/30/24 17:00 08/30/24 18:00 08/30/24 18:30 Temperature Temperature Source Pulse Rate 74 74 72 Pulse Rhythm Respiratory Rate 12 21 16 Respiratory Effort / Characteristics Respiratory Depth Blood Pressure 144/80 H 144/64 H 142/76 H Blood Pressure Mean 106 84 112 Blood Pressure Position Pulse Oximetry 96 98 97 Oxygen Delivery Method Sepsis Recent Fever Within 48 Hours Sepsis New/Unexplained Change in Mental Status Sepsis Action Taken by Nursing 08/30/24 19:18 Temperature Temperature Source Pulse Rate 74 Pulse Rhythm Respiratory Rate Respiratory Effort / Characteristics Respiratory Depth Blood Pressure Blood Pressure Mean Blood Pressure Position Pulse Oximetry Oxygen Delivery Method Sepsis Recent Fever Within 48 Hours Sepsis New/Unexplained Change in Mental Status Sepsis Action Taken by Nursing Laboratory Data 08/30/24 15:00 08/30/24 15:00 Lab Results 08/30/24 08/30/24 Range/Units 15:00 15:26 WBC 12.36 H (4.8-10.8) K/ul RBC 3.51 L (4.20-5.40) M/uL Hgb 9.2 L (12.0-16.0) g/dl Hct 30.5 L (37.0-47.0) % MCV 86.9 (80.0-100.0) fL MCH 26.2 (25.0-34.0) pg MCHC 30.2 L (32.0-36.0) g/dL RDW Std Deviation 49.9 H (36.4-46.3) fL RDW Coeff of Arslan 15.8 H (11.5-14.5) % Plt Count 327 (130-400) K/uL MPV 9.9 (9.4-12.4) fL Immature Gran % (Auto) 0.6 % Neut % (Auto) 63.0 % Lymph % (Auto) 26.7 % [place] % (Auto) 8.1 % Eos % (Auto) 1.4 % Baso % (Auto) 0.2 % Neut # (Auto) 7.79 H (1.40-6.50) K/uL Lymph # (Auto) 3.30 (1.20-3.40) K/uL [place] # (Auto) 1.00 H (0.11-0.59) K/uL Eos # (Auto) 0.17 (0.00-0.50) K/uL Baso # (Auto) 0.03 (0.00-0.20) K/uL Immature Gran # (Auto) 0.07 (0.01-0.20) K/uL ESR 74 H (0-30) mm/hr Sodium 138 (136-145) mmol/L Potassium 3.6 (3.5-5.1) mmol/L Chloride 105 (98-107) mmol/L Carbon Dioxide 24 (21-32) mmol/L Anion Gap 9 (3-11) BUN 17 (6-23) mg/dl Creatinine 1.00 (0.6-1.2) mg/dl Est Cr Clr Drug Dosing 56.3 ml/min eGFR 60.61 BUN/Creatinine Ratio 17.0 (10-20) Glucose 129 H (70-99(Fasting)) mg/dl Calcium 9.2 (8.6-10.3) mg/dl Total Bilirubin 0.2 (0.2-1.0) mg/dl AST 11 L (13-39) U/L ALT 9 (7-52) U/L Alkaline Phosphatase 139 H (34-104) U/L C-Reactive Protein 2.09 H (0-0.5) mg/dl Total Protein 6.9 (6.0-8.3) gm/dl Albumin 3.9 (3.4-5.0) gm/dl Globulin 3.0 (2.5-4.0) gm/dl Albumin/Globulin Ratio 1.3 (0.9-2) Urine Color Yellow Urine Appearance Clear (Clear) Urine pH 5.0 (4.5-7.5) Ur Specific [place] 1.014 (1.000-1.030) Urine Protein Negative (Negative) Urine Glucose (UA) Negative (Negative) Urine Ketones Negative (Negative) Urine Blood Negative (Negative) Urine Nitrite Negative (Negative) Urine Bilirubin Negative (Negative) Urine Urobilinogen Negative (Negative) Ur Leukocyte Esterase Trace H (Negative) Urine WBC (Auto) 0-5 (0-5) /hpf Urine RBC (Auto) 0-2 (0-2) /hpf U Hyaline Cast (Auto) 3-5 H (0-2) /lpf U Epithel Cells (Auto) 0-2 (0-2) /hpf Urine Bacteria (Auto) None Seen (None Seen) Urine Comment Administered Medications Discontinued Medications Diazepam (Diazepam 5 Mg/Ml 10ml Vial) 5 mg IV NOW STA Stop: 07/02/25 15:02 Last Admin: 08/30/24 15:11 Dose: 5 mg Documented By: ANT Ketorolac Tromethamine (Ketorolac Tromethamine 15 Mg/Ml Vial) 15 mg IV NOW STA Stop: 08/30/24 15:02 Last Admin: 08/30/24 15:10 Dose: 15 mg Documented By: ANT Morphine Sulfate (Morphine Sulfate 4 Mg/Ml 1 Ml Carp\\Vial) 4 mg IV NOW STA Stop: 08/30/24 17:42 Last Admin: 08/30/24 17:53 Dose: 4 mg Documented By: ANT Discharge Plan Visit Data Chief Complaint: Back Injury/Pain ED Provider: Juan Mclaughlin Discharge Problem: Urinary incontinence, Ambulatory dysfunction, Back pain Patient Disposition: Admitted As Inpatient Condition: Fair Forms Stand Alone Forms: [facility] Prescriptions Prescriptions: No Action (DME) blood sugar diagnostic Strip See Rx Instructions .ROUTE .MEDSUPPLY Qty: 30 5RF Rx Instructions: tests once daily DX: R73.03 (DME) blood-glucose meter Misc See Rx Instructions .ROUTE .MEDSUPPLY Qty: 1 0RF Rx Instructions: Tests once daily DX: R73.03 (DME) Accu-Chek Guide test strips Strip See Rx Instructions .ROUTE .MEDSUPPLY Qty: 100 1RF Rx Instructions: Test once daily, E11.9 (DME) lancets [Accu-Chek Fastclix Lancet Drum] Misc See Rx Instructions .Route Qty: 100 3RF Rx Instructions: test once daily Ocuvite Adult 50 Plus 250 mg (90 mg-160 mg) capsule 1 cap PO BID Qty: 180 2RF Kerendia 10 mg tablet 10 mg PO QAM Qty: 90 3RF clopidogrel 75 mg tablet 75 mg PO QAM Qty: 90 1RF potassium chloride 10 mEq capsule, extended release 20 meq PO TID Qty: 540 1RF Rx Instructions: 20 mEq three times a day; atorvastatin 20 mg tablet 20 mg PO QPM Qty: 30 5RF ferrous sulfate [FeroSul] 325 mg (65 mg iron) tablet 325 mg PO QAM Qty: 90 1RF levothyroxine 75 mcg tablet 75 mcg PO QAM Qty: 90 1RF duloxetine 60 mg capsule,delayed release(DR/EC) 60 mg PO BID Qty: 180 1RF pantoprazole 40 mg tablet,delayed release (DR/EC) 40 mg PO BID Qty: 180 1RF magnesium gluconate [Mag-G] 27 mg magnesium (500 mg) tablet 27 mg PO HS Qty: 30 5RF pramipexole 0.25 mg tablet 0.25 mg PO HS Qty: 90 1RF acetaminophen 500 mg tablet 500 mg PO Q6H MDD 3 GRAMS/24 HOURS PRN (Reason: Pain) Qty: 225 2RF lamotrigine 200 mg tablet 200 mg PO BID Qty: 180 1RF (DME) Bedside Commode Misc See Rx Instructions .Route Qty: 1 0RF Rx Instructions: As directed M47.27 sennosides [Senna Laxative] 8.6 mg tablet 8.6 - 17.2 mg PO AMHS metoprolol tartrate 25 mg tablet 12.5 mg PO AMPM topiramate 100 mg tablet 150 mg PO AMPM torsemide 20 mg tablet 40 mg PO BID Rx Instructions: TAKE 2 TABLETS BY MOUTH IN THE MORNING AND AT SUPPER hydrocodone-acetaminophen 5-325 mg tablet 1 tab PO Q6H PRN (Reason: pain) Qty: 30 0RF Referrals Referrals: Mayela Moyer MD [Primary Care Provider] -
--- NOTE | 2024-08-30 19:23 | History & Physical Report ---
Date of Service August 30, 2024 Assessment & Plan (1) Back pain: Plan Patient is a 68 Female with past medical history of stage III CKD, anemia of chronic disease, type II DM not on insulin, history of CVA on Plavix, HFpEF, GERD, hypertension. Patient is s/p L5-S1 decompression and fusion with Dr. Jaramillo 07/04, S/P hmatoma evacuation in June. patient was discharged home with home health. his past wekk worsening pain, low grade fevers, and the worst pain of her life. Patient is being admitted for intractable pain with concern for possible infection. #intractable back pain s/p L5-S1 decompression and fusion with Dr. Jaramillo 07/04 and hematoma evacuation in June. Surgical site without surrounding erythema though slightly warm to touch. -Will admit to medicine, will obtain MRI of Lumbar spine with and without contrast. - scheduled PO Tylenol - Lidoderm patch - Morphine IV 4 mg - consult orthospine - MRI ordered as abscess/spinal infection remains within differential -Patient did have positive wound culture in the previous hospital stay but this was superficial and likely contaminanted. -will obtain blood cultures. - ensure patient has adequate pain regimen management at home prior to discharge #Anemia - chronic 2/2 CKD. Hgb 9.2 . Patient denies any bleeding. - trend cbc; #CKD stage III stable, creatinine at baseline. - Continue finerenone - avoid nephrotoxic agents, avoid NSAIDs #Type II DM not on insulin, stable. Most recent A1c 7.4. - SSI - CF 30, CR 10 - Closely monitor glucose #history of CVA stable - continue statin, Plavix, asa #Mental health - stable - continue duloxetine, Lamictal, and Topamax #hypothyroid - stable - continue Synthroid VTE ppx: SCDs, defer chemical PPx until MRI resulted as may require further surgical management Dispo: med/tele History of Present Illness Chief Complaint: back pain Primary Care Provider: Mayela Moyer MD 69 yo female with past medical history of stage III CKD, anemia of chronic disease, type II DM not on insulin, history of CVA on Plavix, HFpEF, GERD, hypertension. Patient is s/p L5-S1 decompression and fusion with Dr. Jaramillo 07/04. Patient was then admitted on 07/08 for #1 lumbar spinal stenosis with neurogenic claudication, #2 lumbar spondylosis with radiculopathy, #3 postop lumbar hematoma and discharged for an evacuation of hematoma L5 S1. Over the course of the week, patient has been complaining of severe back pain. Patient reports pain has not been controlled by her medications. She reports due to her pain she has been immobile. She reports this has been accompanied by low grade fever. She has urinary incontinence but this has been worse. Patient reports that the pain raidates form the incision site down the whole way up into the neck. Patient reports that pain radiate into her lower limbs. Denies abd. pain, nausea, vomiting. No urinary complaints. No recent changes in bowel movements. Allergies Allergy/AdvReac Type Severity Reaction Status Date / Time Cephalosporins Allergy Intermediate CEPHALEXIN-RASH Verified 08/02/24 14:40 & ULCERS IN MOUTH Penicillins Allergy Intermediate RASH AND Verified 08/02/24 14:40 ULCERS IN MOUTH sesame seed Allergy Intermediate "BUMPY" Verified 08/02/24 14:40 RASH ALL OVER ARMS AND CHEST Sulfa (Sulfonamide Allergy Intermediate RASH AND Verified 08/02/24 14:40 Antibiotics) ULCERS IN MOUTH sulfamethoxazole Allergy Intermediate rash and Verified 08/02/24 14:40 ulcers in the mouth wheat Allergy Intermediate Itching Verified 08/02/24 14:40 levofloxacin Allergy Mild local Verified 08/02/24 14:40 reaction gabapentin AdvReac Severe sore Verified 08/02/24 14:40 throat, stomach pains, nausea lactose AdvReac Intermediate Gastrointestinal Verified 08/02/24 14:40 Upset meperidine AdvReac Intermediate VOMITING & Verified 08/02/24 14:40 VERTIGO metformin AdvReac Intermediate Diarrhea Verified 08/02/24 14:40 oxycodone AdvReac Intermediate PERCOCET - Verified 08/02/24 14:40 vomiting and vertigo Home Medications Medication Instructions Recorded Confirmed Type blood sugar diagnostic #30 ea 09/21/19 08/30/24 Rx blood-glucose meter #1 ea 09/21/19 08/30/24 Rx lamotrigine 200 mg tablet 200 mg PO BID #180 tabs 05/04/23 08/30/24 Rx blood sugar diagnostic (Accu-Chek #100 ea 01/24/24 08/30/24 Rx Guide test strips) lancets (Accu-Chek Fastclix Lancet #100 ea 01/24/24 08/30/24 Rx Drum) [id number] 250 mg-dha 90 1 cap PO BID #180 caps 03/20/24 08/30/24 Rx mg-epa 160 ra-ackj-ekms-zeax capsule (Ocuvite Adult 50 Plus) finerenone 10 mg tablet (Kerendia) 10 mg PO QAM #90 tabs 04/20/24 08/30/24 Rx atorvastatin 20 mg tablet 20 mg PO QPM #30 tabs 05/15/24 08/30/24 Rx clopidogrel 75 mg tablet 75 mg PO QAM #90 tabs 05/15/24 08/30/24 Rx duloxetine 60 mg capsule,delayed 60 mg PO BID #180 caps 05/15/24 08/30/24 Rx release ferrous sulfate 325 mg (65 mg 325 mg PO QAM #90 tabs 05/15/24 08/30/24 Rx iron) tablet (FeroSul) levothyroxine 75 mcg tablet 75 mcg PO QAM #90 tabs 05/15/24 08/30/24 Rx magnesium gluconate 27 mg 27 mg PO HS #30 tabs 05/15/24 08/30/24 Rx magnesium (500 mg) tablet (Mag-G) pantoprazole 40 mg tablet,delayed 40 mg PO BID #180 tabs 05/15/24 08/30/24 Rx release potassium chloride 10 mEq 20 meq (2 x 10 mEq) PO TID #540 05/15/24 08/30/24 Rx capsule,extended release caps pramipexole 0.25 mg tablet 0.25 mg PO HS #90 tabs 05/15/24 08/30/24 Rx acetaminophen 500 mg tablet 500 mg PO Q6H PRN Pain #225 tabs 06/09/24 08/30/24 Rx hydrocodone 5 mg-acetaminophen 325 1 tab PO Q6H PRN pain #30 tabs 07/17/24 08/30/24 Rx mg tablet Bedside Commode #1 ea 08/02/24 08/30/24 Rx metoprolol tartrate 25 mg tablet 12.5 mg PO AMPM 08/02/24 08/30/24 History sennosides 8.6 mg tablet (Senna 8.6 - 17.2 mg PO AMHS 08/02/24 08/30/24 History Laxative) topiramate 100 mg tablet 150 mg PO AMPM 08/02/24 08/30/24 History torsemide 20 mg tablet 40 mg PO BID 08/30/24 08/30/24 History Past Med/Surg History Problem List (Updated 08/30/24 @ 19:29 by Juan Mclaughlin DO) Back pain (Acute) Ambulatory dysfunction (Acute) Urinary incontinence (Acute) Neurogenic claudication due to lumbar spinal stenosis Post-op pain (Acute) Back pain (Acute) S/P lumbar spinal fusion Spondylosis of lumbosacral spine at single level with radiculopathy Ambulatory dysfunction (Acute) Bilateral lower extremity edema Diabetes mellitus, type 2 Swelling of left upper extremity Bilateral mastodynia Left axillary fullness Bilateral hip joint arthritis Abdominal pain Hypokalemia Hypomagnesemia Arthritis Lymphadenopathy Elevated white blood cell count Chronic constipation Urinary incontinence Change in bowel habits Mitral valve disorder (Chronic) Vitamin D deficiency (Chronic) Degenerative disc disease (Chronic) GERD (gastroesophageal reflux disease) (Chronic) Medical History Paranoid delusion UTI (urinary tract infection) Nausea and vomiting Intractable back pain Cerebrovascular disease, unspecified Melanosis coli H/O: CVA (cerebrovascular accident) > memory issues since/ some days has issues with word recall > Plavix Morbidly obese Generalized osteoarthritis Hypertension Gastroparesis Bipolar depression Esophageal dysfunction CKD (chronic kidney disease), stage III Vitamin D deficiency Cerebrovascular disease History of COVID-19 (2021) no hosp; resolved Mitral valve disorder no cardio Macular degeneration Fibromyalgia Insomnia Stomach ulcer hx of Osteoarthritis Colon polyps Fatty liver Kidney stones h/o H/O breast lump left breast (benign) H/O migraine Restless legs syndrome Hyperlipidemia Hypothyroidism Lumbar spine scoliosis (10/26/13) Surgical History History of tonsillectomy and adenoidectomy S/P lymph node biopsy (07/21/21) Right axillary lymph node excision using [facility] Triage Clinician. Dr. Herrera S/P cholecystectomy History of esophagogastroduodenoscopy (EGD) History of colonoscopy History of cataract surgery bilateral History of cystoscopy stone basketing History of lithotripsy History of appendectomy H/O non-cataract eye surgery skin growth removed H/O: hysterectomy vaginal hysterectomy Family History Mother Diabetes Clotting disorder Heart disease Myocardial infarction Hypertension Father Diabetes Heart disease Grandmother (Paternal) Lung cancer Grandfather (Maternal) Stomach cancer Other Breast cancer Cancer No family history of adverse response to anesthesia Denies family history of Colon cancer Ovarian cancer Prostate cancer Social History Smoking Status: Never smoker Second Hand Exposure: Yes (as a child); Do You Dip or Chew Tobacco: No; Hx Alcohol Use: No Hx Substance Use: No Preferred Language: Frisian Communication Ability: Effective Visual Impairment: No Limitations Hearing Ability: Normal Embedded Processor Required: No Beliefs That Will Affect Care: None marital status: Current Living Situation: Alone Current Living Situation Comment: recieved home health for assistance>recent staff problems current occupational status: retired 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 How many Children do You have: 2 Feels Safe at Home: Yes Safety Concerns Comment: Pt states some things have gone missing around home, trying to move Childhood Exposure to Second-Hand Smoke: Yes Diet: regular caffeine: No during the past year weight has: decreased > 10 lbs Dental Care, Regularly: Yes Physical Activity Frequency: Does not Exercise Seatbelt Use: always Sunscreen Use: No Do you think of yourself as: straight/heterosexual Gender Identity: Female Assistive Devices: Walker Review of Systems Constitutional: + fever, + fatigue and + weakness; no ch ills Eyes: no blind spots Ear, Nose, Mouth, Throat: no ear discharge and no hearing loss Respiratory: no cough and no dyspnea Cardiovascular: no chest pain Gastrointestinal: no abdominal pain and no early satiety Genitourinary: + urinary incontinence; no dysuria and n o difficulty urinating Musculoskeletal: + back pain, + joint pain and + muscle w eakness Integumentary: no lesions and no sores Neurologic: + gait abnormality Psychiatric: no behavioral changes Endocrine: + fatigue Hematologic / Lymphatic: no easy bleeding Allergy / Immunological: no GI upset with certain foods Physical Exam Constitutional: WD/WN, vitals as above (Laying flat in bed.) Eyes: PERRL, conjunctivae normal, anicteric sclerae ENMT: external ear and nose normal, oropharynx normal Neck: trachea midline, no thyromegaly Respiratory: normal respiratory effort, lungs clear to auscultation Cardiovascular: RRR, no murmur, no edema Gastrointestinal (Abdomen): normal bowel sounds, soft, nontender, no hepatosplenomegaly Musculoskeletal: Head/Neck/Chest: normocephalic Spine: + thoracic spinal tenderness Extremities: extremities normal to inspection and + limited ROM of lower extremity (due to pain) Bilateral Skin: no rashes, warm and dry lumbar spine incision slightly warm to touch but clean. Psychiatric: A+Ox3, euthymic affect Lymphatic: no cervical or axillary lymphadenopathy Results & Data Results & Data Vital Signs (Past 12 Hours) Vital Signs Temp Pulse Resp BP Pulse Ox O2 Del Method 08/30/24 18:30 72 16 142/76 H 97 08/30/24 18:00 74 21 144/64 H 98 08/30/24 17:00 74 12 144/80 H 96 08/30/24 16:30 72 15 140/76 97 08/30/24 16:00 76 19 134/72 99 08/30/24 15:58 77 08/30/24 15:34 72 16 139/74 95 Room Air 08/30/24 15:04 76 16 96 Room Air 08/30/24 14:52 36.7 C 80 18 126/67 100 Room Air PG Care Time/CCT Total # of Minutes Spent Total Time Spent with Patient: Total time spent is greater than 50% in coordination of care (as documented) at patient's floor/unit and/or counseling patient: Coding Level of Care Code 37515 INT INP/OBS CARE 3/75MIN Diagnoses Back pain M54.9
[2024-08-30] MEDS ORDERED: DEXTROSE 50% 50 ML SYRINGE IV PRN (20:07)
[2024-08-30] MEDS ORDERED: GLUCAGON FOR INJ 1 MG VIAL SQ PRN (20:07)
[2024-08-30] MEDS ORDERED: CARBOHYDRATES FOR HYPOGLYCEMIA PO PRN (20:07)
[2024-08-30] MEDS ORDERED: GLUCOSE 10 TAB/TUBE PO PRN (20:07)
[2024-08-30] MEDS ORDERED: PHARMACY GLYCEMIC MGMT CONSULT PRN (20:07)
[2024-08-30] MEDS ORDERED: GLUCOSE 40% GEL 15 GM TUBE PO PRN (20:07)
[2024-08-30] MEDS ORDERED: ACETAMINOPHEN 500 MG TAB PO PRN (20:10)
[2024-08-30] MEDS ORDERED: NON-FORMULARY MEDICATION (Magnesium Gluconate [Mag-G] 27 mg magnesium (500 mg) tablet) PO SCH (21:00)
[2024-08-30] MEDS: GADOBUTROL 65ML VIAL IV ONE (21:20)
[2024-08-30] MEDS: INSULIN ASPART PER UNIT CHARGE SC SCH (22:35)
[2024-08-30] MEDS: lamoTRIgine 100 MG TAB PO SCH (23:25)
[2024-08-30] MEDS: ATORVASTATIN 20 MG TAB PO SCH (23:26)
[2024-08-30] MEDS: CEROVITE ADV FORMULA TAB PO SCH (23:26)
[2024-08-30] MEDS: METOPROLOL TARTRATE 25 MG TAB PO SCH (23:27)
[2024-08-30] MEDS: TOPIRAMATE 50 MG TAB PO SCH (23:27)
[2024-08-30] MEDS: PRAMIPEXOLE DIHYDROCHLO 0.25 MG TAB PO SCH (23:27)
[2024-08-30] MEDS: REMOVE LIDODERM PATCH SCH (23:28)
[2024-08-30] MEDS: POTASSIUM CHLORIDE 10 MEQ TABCR PO SCH (23:32)
[2024-08-30] MEDS: ACETAMINOPHEN 325 MG TAB PO SCH (23:32)
[2024-08-30] MEDS: SENNA 8.6 MG TAB PO SCH (23:32)
[2024-08-30] MEDS: TORSEMIDE 20 MG TAB PO SCH (23:33)
--- NOTE | 2024-08-30 23:41 | Magnetic Resonance Report ---
Exam(s): MRI L SPINE W/WO Contrast IV Amt: 10ml gadavist EXAM: MR Lumbar Spine Without and With Intravenous Contrast CLINICAL HISTORY: Back Pain, urinary incontinence, reent fusion. TECHNIQUE: Magnetic resonance images of the lumbar spine without and with intravenous contrast in multiple planes. CONTRAST: Patient received 10ml gadavist of IV contrast COMPARISON: CT 07-11-2024 FINDINGS: Study is limited by significant artifact from metal fusion hardware. Status post posterior laminectomy from L2 through L5 with bilateral pedicle screws at L2, L3, L4 and S1, each side transfixed by vertical posterior fusion jose ramon. There is severe artifact obscuring the posterior elements from L2 through L5. There are fusion devices from L3-4, L4-5 and L5-S1. Bony fusion L2-3 disc space. There is overall maintenance of height of the vertebral bodies. There is no subluxation. There is marrow edema and mild enhancement surrounding the L5-S1 disc space, likely degenerative. There is otherwise no evidence for discitis or osteomyelitis. Conus medullaris is at T12-L1. There are posterior disc bulges at T12-L1 and L1-2 moderate canal stenosis. There is postoperative edema and enhancement in the posterior paraspinal soft tissue surrounding the posterior fusion hardware from level of L2 through S1. There are multiple pockets of peripheral enhancing fluid identified in the superior aspect of the fusion levels above the L2 posterior pedicle screws extending to the superior aspect of L2 oral 2.7 x 1.9 x 1.9 cm. There is a larger pocket at the inferior aspect of the laminectomy defect spanning L4-5 through L5-S1 measuring 2.8 x 1.9 x 3.1 cm. Smaller scattered peripheral enhancing fluid collections in the posterior subcutaneous fat are present at the level of L1 measuring 2.6 x 1.2 cm. Small amount of enhancement is visualized in the distal thoracic cord and within a few descending nerve roots in the lower lumbar spine suggests a component of arachnoiditis. No paraspinal collection is identified adjacent to the vertebral bodies. IMPRESSION: Study is limited by significant artifact from metal fusion hardware. Status post posterior laminectomy from L2 through L5 with posterior fusion hardware as described above. Edema and enhancement centered at the L5-S1 disc space, likely postoperative/reactive although can not exclude a superimposed infection. Multiple peripheral enhancing fluid collections in the posterior paraspinal soft tissues above the L2 posterior pedicle hardware and inferiorly between L4-5 and L5-S1, suspicious for paraspinal abscesses versus seromas with reactive peripheral enhancement. Smaller subcutaneous collection of the superior aspect of the operative site. Small amount of enhancement along the distal thoracic cord and a few descending nerve roots within the lower lumbar spine suspicious for a component of arachnoiditis. Electronically signed by: Too Rivera M.D. 08/30/24 23:40 PM
[2024-08-31] MEDS: MoRPHine SULFATE 4 MG/ML 1 ML CARP\\VIAL IV PRN (01:22)
[2024-08-31] MEDS: LEVOTHYROXINE SODIUM 75 MCG TABLET PO SCH (05:54)
[2024-08-31 06:57] LABS: Hematocrit (blood only) 30.2 % (37.0-47.0); Hemoglobin 9.3 g/dl (12.0-16.0); Immature Granulocytes # (auto) 0.03 K/uL (0.01-0.20); Immature Granulocytes % (auto) 0.4 %; Mean Corpuscular Hemoglobin 26.9 pg (25.0-34.0); Mean Corpuscular Volume 87.3 fL (80.0-100.0); Platelet Count 284 K/uL (130-400); RDW Standard Deviation 49.7 fL (36.4-46.3); Red Blood Count 3.46 M/uL (4.20-5.40); White Blood Count 7.56 K/ul (4.8-10.8)
[2024-08-31 07:11] LABS: Anion Gap 8.0 (3-11); Blood Urea Nitrogen 16.0 mg/dl (6-23); Calcium 8.8 mg/dl (8.6-10.3); Carbon Dioxide 26.0 mmol/L (21-32); Chloride 107.0 mmol/L (98-107); Creatinine Clr Calc Pharmacy 64.0 ml/min; Glucose 126.0 mg/dl (70-99(Fasting)); Magnesium 2.1 mg/dl (1.7-2.4); Potassium 3.7 mmol/L (3.5-5.1); Sodium 141.0 mmol/L (136-145)
[2024-08-31] MEDS: CLOPIDOGREL BISULFATE 75 MG TAB PO SCH (08:45)
[2024-08-31] MEDS: FERROUS SULFATE 325 MG TAB PO SCH (08:46)
[2024-08-31] MEDS: LIDOCAINE 5% 1 PATCH TD SCH (08:48)
[2024-08-31] MEDS: FINERENONE SCH (08:58)
[2024-08-31] MEDS: ONDANSETRON INJ 2 MG/ML 2 ML VIAL IV PRN (09:17)
--- NOTE | 2024-08-31 11:10 | Orthopedic Consultation ---
Date of Consultation August 31, 2024 Assessment & Plan (1) Back pain: MRI reviewed. It does demonstrate evidence of multiple regions of seroma. This would be consistent with her multiple surgical procedures and scar tissue. Not suspicious of infection at this time. I would recommend physical therapy occ upational therapy. History of Present Illness Reason for Consultation: Patient describes an episode of acute back pain without any precipitating trauma fall or event. Attending Physician: Ander Rodriguez MD, PhD History of Present Illness This morning she states her symptoms have improved. She is denying any leg pain. States she is comfortable. Allergies Allergy/AdvReac Type Severity Reaction Status Date / Time Cephalosporins Allergy Intermediate CEPHALEXIN-RASH Verified 08/02/24 14:40 & ULCERS IN MOUTH Penicillins Allergy Intermediate RASH AND Verified 08/02/24 14:40 ULCERS IN MOUTH sesame seed Allergy Intermediate "BUMPY" Verified 08/02/24 14:40 RASH ALL OVER ARMS AND CHEST Sulfa (Sulfonamide Allergy Intermediate RASH AND Verified 08/02/24 14:40 Antibiotics) ULCERS IN MOUTH sulfamethoxazole Allergy Intermediate rash and Verified 08/02/24 14:40 ulcers in the mouth wheat Allergy Intermediate Itching Verified 08/02/24 14:40 levofloxacin Allergy Mild local Verified 08/02/24 14:40 reaction gabapentin AdvReac Severe sore Verified 08/02/24 14:40 throat, stomach pains, nausea lactose AdvReac Intermediate Gastrointestinal Verified 08/02/24 14:40 Upset meperidine AdvReac Intermediate VOMITING & Verified 08/02/24 14:40 VERTIGO metformin AdvReac Intermediate Diarrhea Verified 08/02/24 14:40 oxycodone AdvReac Intermediate PERCOCET - Verified 08/02/24 14:40 vomiting and vertigo Home Medications Medication Instructions Recorded Confirmed Type blood sugar diagnostic #30 ea 09/21/19 08/30/24 Rx blood-glucose meter #1 ea 09/21/19 08/30/24 Rx lamotrigine 200 mg tablet 200 mg PO BID #180 tabs 05/04/23 08/30/24 Rx blood sugar diagnostic (Accu-Chek #100 ea 01/24/24 08/30/24 Rx Guide test strips) lancets (Accu-Chek Fastclix Lancet #100 ea 01/24/24 08/30/24 Rx Drum) [id number] 250 mg-dha 90 1 cap PO BID #180 caps 03/20/24 08/30/24 Rx mg-epa 160 [id number]-[id number]-kdie-zeax capsule (Ocuvite Adult 50 Plus) finerenone 10 mg tablet (Kerendia) 10 mg PO QAM #90 tabs 04/20/24 08/30/24 Rx atorvastatin 20 mg tablet 20 mg PO QPM #30 tabs 05/15/24 08/30/24 Rx clopidogrel 75 mg tablet 75 mg PO QAM #90 tabs 05/15/24 08/30/24 Rx duloxetine 60 mg capsule,delayed 60 mg PO BID #180 caps 05/15/24 08/30/24 Rx release ferrous sulfate 325 mg (65 mg 325 mg PO QAM #90 tabs 05/15/24 08/30/24 Rx iron) tablet (FeroSul) levothyroxine 75 mcg tablet 75 mcg PO QAM #90 tabs 05/15/24 08/30/24 Rx magnesium gluconate 27 mg 27 mg PO HS #30 tabs 05/15/24 08/30/24 Rx magnesium (500 mg) tablet (Mag-G) pantoprazole 40 mg tablet,delayed 40 mg PO BID #180 tabs 05/15/24 08/30/24 Rx release potassium chloride 10 mEq 20 meq (2 x 10 mEq) PO TID #540 05/15/24 08/30/24 Rx capsule,extended release caps pramipexole 0.25 mg tablet 0.25 mg PO HS #90 tabs 05/15/24 08/30/24 Rx acetaminophen 500 mg tablet 500 mg PO Q6H PRN Pain #225 tabs 06/09/24 08/30/24 Rx hydrocodone 5 mg-acetaminophen 325 1 tab PO Q6H PRN pain #30 tabs 07/17/24 08/30/24 Rx mg tablet Bedside Commode #1 ea 08/02/24 08/30/24 Rx metoprolol tartrate 25 mg tablet 12.5 mg PO AMPM 08/02/24 08/30/24 History sennosides 8.6 mg tablet (Senna 8.6 - 17.2 mg PO AMHS 08/02/24 08/30/24 History Laxative) topiramate 100 mg tablet 150 mg PO AMPM 08/02/24 08/30/24 History torsemide 20 mg tablet 40 mg PO BID 08/30/24 08/30/24 History Patient History Medical History Paranoid delusion UTI (urinary tract infection) Nausea and vomiting Intractable back pain Cerebrovascular disease, unspecified Melanosis coli H/O: CVA (cerebrovascular accident) > memory issues since/ some days has issues with word recall > Plavix Morbidly obese Generalized osteoarthritis Hypertension Gastroparesis Bipolar depression Esophageal dysfunction CKD (chronic kidney disease), stage III Vitamin D deficiency Cerebrovascular disease History of COVID-19 (2021) no hosp; resolved Mitral valve disorder no cardio Macular degeneration Fibromyalgia Insomnia Stomach ulcer hx of Osteoarthritis Colon polyps Fatty liver Kidney stones h/o H/O breast lump left breast (benign) H/O migraine Restless legs syndrome Hyperlipidemia Hypothyroidism Lumbar spine scoliosis (10/26/13) Surgical History History of tonsillectomy and adenoidectomy S/P lymph node biopsy (07/21/21) Right axillary lymph node excision using [facility] Drain Cleaner Plumber. Dr. Herrera S/P cholecystectomy History of esophagogastroduodenoscopy (EGD) History of colonoscopy History of cataract surgery bilateral History of cystoscopy stone basketing History of lithotripsy History of appendectomy H/O non-cataract eye surgery skin growth removed H/O: hysterectomy vaginal hysterectomy Family History Mother Diabetes Clotting disorder Heart disease Myocardial infarction Hypertension Father Diabetes Heart disease Grandmother (Paternal) Lung cancer Grandfather (Maternal) Stomach cancer Other Breast cancer Cancer No family history of adverse response to anesthesia Denies family history of Colon cancer Ovarian cancer Prostate cancer Social History Smoking Status: Never smoker Second Hand Exposure: Yes (As a child.); Do You Dip or Chew Tobacco: No; Tobacco Cessation Education Requested by Patient: No Hx Alcohol Use: Yes Alcohol type: wine Alcohol Intake Frequency: Monthly or Less Hx Substance Use: No Preferred Language: Ukrainian Communication Ability: Effective Visual Impairment: No Limitations Hearing Ability: Normal Combine Driver Required: No Beliefs That Will Affect Care: None marital status: Current Living Situation: Alone Current Living Situation Comment: recieved home health for assistance>recent staff problems current occupational status: retired 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 How many Children do You have: 2 Other Information That Helps Us Care for You: No Feels Safe at Home: Yes Safety Concerns: Feels Safe At This Time Safety Concerns Comment: Pt states some things have gone missing around home, trying to move Childhood Exposure to Second-Hand Smoke: Yes Diet: regular caffeine: No during the past year weight has: decreased > 10 lbs Dental Care, Regularly: Yes Physical Activity Frequency: Does not Exercise Seatbelt Use: always Sunscreen Use: No Do you think of yourself as: straight/heterosexual Gender Identity: Female Assistive Devices: Glasses, Hospital Bed and Walker Physical Exam Physical Exam: Patient is currently in bed. She has reasonable strength testing. Sensory is intact. She is sitting up and eating. Results & Data Vital Signs (Past 12 Hours) Vital Signs Temp Pulse Resp BP Pulse Ox O2 Del Method 08/31/24 07:40 Room Air 08/31/24 07:22 37.0 C 77 18 128/66 99 Room Air
--- NOTE | 2024-08-31 14:29 | Pharmacy Report ---
Pharmacy Glycemic Short Note 2 - Date of Service August 31, 2024 - Glycemic Short BSG Results (Last 24 hours): 08/30/24 08/30/24 08/31/24 15:00 22:26 06:19 Glucose 129 H 126 H POC Glucose 134 H 08/31/24 08/31/24 07:25 11:41 Glucose POC Glucose 145 H 162 H OUTPATIENT ANTIDIABETIC REGIMEN: * pioglitazone 15mg po q am HbA1c: 7.2% on 08/30/24 ASSESSMENT: * Keesha is a 69 year old female who was admitted last evening for intractable back pain s/p decompression and fusion in June of this year. Pharmacy was consulted for glycemic management while she is admitted. * BSG at HS was 134mg/dL. A weight based bolus insulin regimen with a stress between 1 and 2 was started at that time. * Fasting BSG was 145mg/dL this morning and chris to 162mg/dL at lunch. Will not start basal insulin at this time but will continue to monitor and add if necessary. Tightened carb ratio to a stress of 2 for better prandial control. PLAN FOR INPATIENT GLYCEMIC CONTROL: * Hold outpatient oral diabetes medications * Basal insulin * None at this time * Bolus insulin * NovoLog per scale ACHS or Q6hrs while NPO * Goal Range: Low 110 mg/dL - High 140 mg/dL * Correction Factor: 30 mg/dL/unit * Nutritional / Prandial insulin per carb ratio of 1 unit per 8 grams CHO consumed
--- NOTE | 2024-08-31 23:04 | Hospitalist Progress Note ---
Date of Service August 31, 2024 Assessment & Plan (1) Back pain: Plan: Etiology of back pain remains unclear, but is probably due to post-operative seroma formation, and not infection. Patient's WBC has decreased spontaneously to normal in the absence of empiric antibiotics. Await continued PT Service evaluations with anticipated D/C to SNF for short-term rehab and outpatient follow up with Orthopedic Surgeon Dr. Bebo Jaramillo within 5-7 days of hospital discharge. Plan Patient is a 68 Female with past medical history of stage III CKD, anemia of chronic disease, type II DM not on insulin, history of CVA on Plavix, HFpEF, GERD, hypertension. Patient is s/p L5-S1 decompression and fusion with Dr. Jaramillo 07/04, S/P hmatoma evacuation in June. patient was discharged home with home health. his past wekk worsening pain, low grade fevers, and the worst pain of her life. Patient is being admitted for intractable pain with concern for possible infection. #intractable back pain s/p L5-S1 decompression and fusion with Dr. Jaramillo 07/04 and hematoma evacuation in June. Surgical site without surrounding erythema though slightly warm to touch. -Will admit to medicine, will obtain MRI of Lumbar spine with and without contrast. - scheduled PO Tylenol - Lidoderm patch - Morphine IV 4 mg - consult orthospine - MRI ordered as abscess/spinal infection remains within differential -Patient did have positive wound culture in the previous hospital stay but this was superficial and likely contaminanted. -will obtain blood cultures. - ensure patient has adequate pain regimen management at home prior to discharge #Anemia - chronic 2/2 CKD. Hgb 9.2 . Patient denies any bleeding. - trend cbc; #CKD stage III stable, creatinine at baseline. - Continue finerenone - avoid nephrotoxic agents, avoid NSAIDs #Type II DM not on insulin, stable. Most recent A1c 7.4. - SSI - CF 30, CR 10 - Closely monitor glucose #history of CVA stable - continue statin, Plavix, asa #Mental health - stable - continue duloxetine, Lamictal, and Topamax #hypothyroid - stable - continue Synthroid VTE ppx: SCDs, defer chemical PPx until MRI resulted as may require further surgical management Dispo: med/tele Admission and Anticipated Discharge Date Admission Date: August 30, 2024 Subjective "My back hurts. It's like an 8 (out of 10 point intensity scale)." Review of Systems Constitutional: Positive for lower back pain. Negative for antecedent/coincident fevers, chills, diaphoresis, cough, wheeze, sore throat, hemoptysis, chest pains, palpitations, pleurisy, nausea, vomiting, diarrhea, abdominal pain, pelvic pain, hematemesis, hematochezia, melena, hematuria, dysuria, frequency, urgency, headaches, dizziness, lightheadedness, visual changes, hearing changes, weakness, falls, syncope, trauma, travel history, sick contacts, or food/drug ingestions novel or new. All other review of systems are reported as negative by the patient on 08/31/2024. Physical Exam Constitutional: General: Run-down, worn-out. Comfortable, cooperative, coherent. Wide awake and alert. Not confused, lethargic, or obtunded. Patient speaks in complete, fluent, and articulate sentences without pause, interruption, cough, or wheeze. HEENT: Normocephalic, atraumatic. Pupils equally round and reactive to light. No nystagmus, gaze paresis, anisocoria, miosis, mydriasis, hyphema, scleral injection, conjunctivitis, or pterygium. No otorrhea. No pharyngeal erythema, edema, or discharge. Neck: Supple, no stridor, bruit, goiter, or hepato-jugular reflux. Jugular venous pressure is estimated to be 3 cm above the sternal angle of Orlin, which in turn, is 5 cm above the level of the right atrium; with jugular venous pressure estimated to be 8 cm, then, there is no jugular venous distention on 08/31/2024. Lymphatics: No cervical (anterior/posterior), supraclavicular, infraclavicular, axillary, epitrochlear, or inguinal adenopathy. Chest: Symmetric rise and fall with respirations. Non-tender to palpation. Lungs: Clear to auscultation and percussion. No audible expiratory wheeze, egophony, pectoriloquy, increase in tactile fremitus, or flatness/dullness to percussion at the bases. Heart: RRR. S1 and S2 noted. No S3 or S4 summation gallop. No tripartite friction rub. Grade II/ early systolic murmur @ LLSB without radiation to the carotids, axilla, or back, and which remains invariant in regards to the respiratory cycle. Abdomen: Soft, non-tender, non-distended. No rebound, guarding, Reddy's sign, or organomegaly. Bowel sounds auscultated in all 4 quadrants. Extremities: No clubbing, cyanosis, or edema in upper extremities or lower extremities bilaterally. 2+ pedal pulses bilaterally. Skin: No decubitus ulcer or enanthem. Genito-urinary: No urethral discharge. No finn catheter. Neurology: Alert and oriented in regards to person, place, time, and situation. DTR+. 5/5 motor strength in all 4 extremities, both proximally and distally. No myoclonus, tremors, or tics. Straight leg raising negative bilaterally. Lumbar spinal tenderness. Lumbar paraspinal tenderness. No open wound or ulcer on back at all. No erythema, edema, induration, warmth, crepitus, fluctuance, discharge, malodor, or lymphangitic streaking on back at all. Psychiatry: No homicidal ideation. No suicidal ideation. No flat affect; smiles appropriately. Results & Data Results & Data Vital Signs (Past 12 Hours) Vital Signs Temp Pulse Resp BP Pulse Ox O2 Del Method 08/31/24 19:57 37.0 C 78 18 117/68 96 Room Air 08/31/24 14:43 36.8 C 72 18 125/67 96 Room Air Laboratory Results Abnormal lab results 08/30/24 08/31/24 08/31/24 Range/Units 22:26 06:19 07: RBC 3.46 L (4.20-5.40) M/uL Hgb 9.3 L (12.0-16.0) g/dl Hct 30.2 L (37.0-47.0) % MCHC 30.8 L (32.0-36.0) g/dL RDW Std Deviation 49.7 H (36.4-46.3) fL RDW Coeff of Arslan 15.7 H (11.5-14.5) % [place] # (Auto) 0.72 H (0.11-0.59) K/uL ESR 70 H (0-30) mm/hr Glucose 126 H (70-99(Fasting)) mg/dl POC Glucose 134 H 145 H (70-99) mg/dl Phosphorus 5.4 H (2.5-4.9) mg/dl C-Reactive Protein 3.02 H (0-0.5) mg/dl 08/31/24 08/31/24 08/31/24 Range/Units 11:41 16:39 19:51 RBC (4.20-5.40) M/uL Hgb (12.0-16.0) g/dl Hct (37.0-47.0) % MCHC (32.0-36.0) g/dL RDW Std Deviation (36.4-46.3) fL RDW Coeff of Arslan (11.5-14.5) % [place] # (Auto) (0.11-0.59) K/uL ESR (0-30) mm/hr Glucose (70-99(Fasting)) mg/dl POC Glucose 162 H 136 H 175 H (70-99) mg/dl Phosphorus (2.5-4.9) mg/dl C-Reactive Protein (0-0.5) mg/dl Diagnostic Findings MRI lumbar spine with/without contrast (08/30/2024, 3:01pm): 1. Study is limited by significant artifact from metal fusion hardware. 2. Status post posterior laminectomy from L2 through L5 with posterior fusion hardware as described above. 3. Edema and enhancement centered at the L5-S1 disc space, likely postoperative/reactive although can not exclude a superimposed infection. 4. Multiple peripheral enhancing fluid collections in the posterior paraspinal soft tissues above the L2 posterior pedicle hardware and inferiorly between L4-5 and L5-S1, suspicious for paraspinal abscesses versus seromas with reactive peripheral enhancement. 5. Smaller subcutaneous collection of the superior aspect of the operative site. 6. Small amount of enhancement along the distal thoracic cord and a few descending nerve roots within the lower lumbar spine suspicious for a component of arachnoiditis. PG Care Time/CCT Total # of Minutes Spent Total Time Spent with Patient: Total time spent is greater than 50% in coordination of care (as documented) at patient's floor/unit and/or counseling patient: Coding Level of Care Code 21757 SUB INP/OBS CARE 2/35MIN Diagnoses Back pain M54.9
[2024-09-01] MEDS: HYDROCODONE/ACETAMOPHEN 5/325MG TAB PO PRN (05:55)
[2024-09-01 06:13] LABS: Hematocrit (blood only) 31.9 % (37.0-47.0); Hemoglobin 9.5 g/dl (12.0-16.0); Immature Granulocytes # (auto) 0.05 K/uL (0.01-0.20); Immature Granulocytes % (auto) 0.5 %; Mean Corpuscular Hemoglobin 26.1 pg (25.0-34.0); Mean Corpuscular Volume 87.6 fL (80.0-100.0); Platelet Count 305 K/uL (130-400); RDW Standard Deviation 50.3 fL (36.4-46.3); Red Blood Count 3.64 M/uL (4.20-5.40); White Blood Count 9.90 K/ul (4.8-10.8)
[2024-09-01 06:29] LABS: Anion Gap 8.0 (3-11); Blood Urea Nitrogen 18.0 mg/dl (6-23); Calcium 9.1 mg/dl (8.6-10.3); Carbon Dioxide 29.0 mmol/L (21-32); Chloride 101.0 mmol/L (98-107); Creatinine Clr Calc Pharmacy 51.6 ml/min; Glucose 140.0 mg/dl (70-99(Fasting)); Potassium 3.8 mmol/L (3.5-5.1); Sodium 138.0 mmol/L (136-145)
[2024-09-01 09:12] LABS: Magnesium 2.1 mg/dl (1.7-2.4)
[2024-09-01] MEDS ORDERED: VANCOMYCIN CONSULT ACTIVE PRN ×2 (11:42)
[2024-09-01] MEDS ORDERED: MEROPENEM 500 MG in SYRINGE 0 ML IV SCH (12:00)
[2024-09-01] MEDS ORDERED: MEROPENEM 2,000 MG in SYRINGE 0 ML IV SCH (12:00)
--- NOTE | 2024-09-01 12:06 | Pharmacy Report ---
Pharmacy PK ABX Note - Date of Service September 01, 2024 - Assessment and Plan Assessment 69 year old F receiving Vancomycin and Meropenem for treatment of possible bone and joint infection of the spine. * Day 1 of antimicrobial therapy. Had spinal fusion on 07/04/24. * Blood cultures with no growth to date. MRSA swab pending. * Afebrile. No leukocytosis. SCr 1.09 mg/dL this AM. Lactate and procal normal. Plan Vancomycin * Loading dose: 2000 mg IV x 1 * Maintenance dose: 1250 mg IV every 24 hours * Regimen is predicted to achieve target AUC/MOMO of 400-600 mg/L.hr * Random level ordered for: 09/04/24 Pharmacy will continue to follow and will adjust dose/frequency as necessary. Thank you. Pharmacy has transitioned to AUC monitoring for vancomycin. AUC/MOMO is the preferred PK/PD target and is associated with decreased risk of nephrotoxicity compared to traditional trough targets.
[2024-09-01] MEDS: VANCOMYCIN HCL 2,000 MG in SODIUM CHLORIDE 0.9% 500 ML IV ONE (12:27)
[2024-09-01] MEDS: MEROPENEM 2,000 MG in SODIUM CHLORIDE 0.9% 60 ML IV SCH (12:41)
--- NOTE | 2024-09-01 13:10 | Magnetic Resonance Report ---
HISTORY: Back pain. TECHNIQUE: MRI of the cervical spine without contrast. COMPARISON: None. FINDINGS: The cerebellar tonsils do not extend below the foramen magnum.The cervical spinal cord is normal in caliber and signal intensity. Cervical spine alignment is maintained. The vertebral body heights are maintained without compression deformity. Degenerative endplate marrow changes are noted at multiple levels. The soft tissues of the neck are unremarkable.. At C2-3: Mild degenerative disc disease and facet arthrosis. No significant canal or foraminal stenosis. At C3-4: Mild degenerative disc disease and facet arthrosis. No significant central canal stenosis. Moderate bilateral neuroforaminal stenosis. At C4-5: Severe degenerative disc disease. Broad-based posterior disc osteophyte complex mildly narrows the central canal. Severe right and mild left neural foraminal stenosis. At C5-6: Moderate degenerative disc disease. Broad-based posterior disc bulge mildly narrows the central canal. Severe right and moderate left neural foraminal stenosis. At C6-7: Severe degenerative disc disease. Broad-based posterior Disc osteophyte complex mildly narrows the central canal. Moderate bilateral neural foraminal stenosis. At C7-T1: Minimal anterolisthesis of C7 on T1. Moderate degenerative disc disease. Posterior disc osteophyte complex mildly narrows the central canal. Mild bilateral neural foraminal stenosis. IMPRESSION: * No acute findings. No cord compression or cord signal change. * Advanced multilevel degenerative spondylosis of the cervical spine as detailed above by level with varying degrees of canal and foraminal stenosis. Electronically signed by Claude Hatfield 09-01-2024 13:10 PM
--- NOTE | 2024-09-01 22:01 | Hospitalist Progress Note ---
Date of Service September 01, 2024 Assessment & Plan (1) Back pain: Plan: Etiology of back pain remains unclear, but is probably due to post-operative seroma formation, and not infection. Patient's WBC decreased spontaneously to normal on 08/31/2024, and remains normal on 09/01/2024 in the absence of empiric antibiotics. However, patient insisted on antibiotics. Hence, I ordered vancomycin 2g IV x 1 dose (day #1 on 09/01/2024, 12:27pm), followed by vancomycin 1.25g IV daily (day #2 on 09/02/2024, 9:00am), and meropenem 2g IV q8 (day #1 on 09/01/2024, 12:41pm). Await continued PT Service evaluations with anticipated D/C to SNF for short-term rehab and outpatient follow up with Orthopedic Surgeon Dr. Bebo Jaramillo within 5-7 days of hospital discharge. Plan Patient is a 68 Female with past medical history of stage III CKD, anemia of chronic disease, type II DM not on insulin, history of CVA on Plavix, HFpEF, GERD, hypertension. Patient is s/p L5-S1 decompression and fusion with Dr. Jaramillo 5/6, S/P hmatoma evacuation in June. patient was discharged home with home health. his past wekk worsening pain, low grade fevers, and the worst pain of her life. Patient is being admitted for intractable pain with concern for possible infection. #intractable back pain s/p L5-S1 decompression and fusion with Dr. Jaramillo 5/6 and hematoma evacuation in June. Surgical site without surrounding erythema though slightly warm to touch. -Will admit to medicine, will obtain MRI of Lumbar spine with and without contrast. - scheduled PO Tylenol - Lidoderm patch - Morphine IV 4 mg - consult orthospine - MRI ordered as abscess/spinal infection remains within differential -Patient did have positive wound culture in the previous hospital stay but this was superficial and likely contaminanted. -will obtain blood cultures. - ensure patient has adequate pain regimen management at home prior to discharge #Anemia - chronic 2/2 CKD. Hgb 9.2 . Patient denies any bleeding. - trend cbc; #CKD stage III stable, creatinine at baseline. - Continue finerenone - avoid nephrotoxic agents, avoid NSAIDs #Type II DM not on insulin, stable. Most recent A1c 7.4. - SSI - CF 30, CR 10 - Closely monitor glucose #history of CVA stable - continue statin, Plavix, asa #Mental health - stable - continue duloxetine, Lamictal, and Topamax #hypothyroid - stable - continue Synthroid VTE ppx: SCDs, defer chemical PPx until MRI resulted as may require further surgical management Dispo: med/tele Admission and Anticipated Discharge Date Admission Date: August 30, 2024 Subjective "My back hurts. It's like a 10 (out of 10 point intensity scale). The pain has moved from just on top of my spine to the right side of my spine and it's going up to my neck now. I am sweating now everyday for the past 2 weeks. I normally don't sweat at all. I think I'm infected, doc. I need the antibiotics." Review of Systems Constitutional: Positive for lower back pain, now travelling up the right paraspinal route up to posterior neck, and profuse diaphoresis with hair @ nape of neck soaked in sweat on 09/01/2024. Negative for antecedent/coincident fevers, chills, cough, wheeze, sore throat, hemoptysis, chest pains, palpitations, pleurisy, nausea, vomiting, diarrhea, abdominal pain, pelvic pain, hematemesis, hematochezia, melena, hematuria, dysuria, frequency, urgency, headaches, dizziness, lightheadedness, visual changes, hearing changes, weakness, falls, syncope, trauma, travel history, sick contacts, or food/drug ingestions novel or new. All other review of systems are reported as negative by the patient on 09/01/2024. Eyes: no blind spots Ear, Nose, Mouth, Throat: no ear discharge and no hearing loss Respiratory: no cough and no dyspnea Cardiovascular: no chest pain Gastrointestinal: no abdominal pain and no early satiety Genitourinary: + urinary incontinence; no dysuria and n o difficulty urinating Musculoskeletal: + back pain, + joint pain and + muscle w eakness Integumentary: no lesions and no sores Neurologic: + gait abnormality Psychiatric: no behavioral changes Endocrine: + fatigue Hematologic / Lymphatic: no easy bleeding Allergy / Immunological: no GI upset with certain foods Physical Exam Constitutional: General: Run-down, worn-out. Uncomfortable with lower back tenderness, now radiating up the right paraspinal route up to posterior neck; profuse diaphoresis with hair @ nape of neck soaked in sweat on 09/01/2024. , cooperative, coherent. Wide awake and alert. Not confused, lethargic, or obtunded. Patient speaks in complete, fluent, and articulate sentences without pause, interruption, cough, or wheeze. HEENT: Normocephalic, atraumatic. Pupils equally round and reactive to light. No nystagmus, gaze paresis, anisocoria, miosis, mydriasis, hyphema, scleral injection, conjunctivitis, or pterygium. No otorrhea. No pharyngeal erythema, edema, or discharge. Neck: Supple, no stridor, bruit, goiter, or hepato-jugular reflux. Jugular venous pressure is estimated to be 3 cm above the sternal angle of Orlin, which in turn, is 5 cm above the level of the right atrium; with jugular venous pressure estimated to be 8 cm, then, there is no jugular venous distention on 09/01/2024. Lymphatics: No cervical (anterior/posterior), supraclavicular, infraclavicular, axillary, epitrochlear, or inguinal adenopathy. Chest: Symmetric rise and fall with respirations. Non-tender to palpation. Lungs: Clear to auscultation and percussion. No audible expiratory wheeze, egophony, pectoriloquy, increase in tactile fremitus, or flatness/dullness to percussion at the bases. Heart: RRR. S1 and S2 noted. No S3 or S4 summation gallop. No tripartite friction rub. Grade II/ early systolic murmur @ LLSB without radiation to the carotids, axilla, or back, and which remains invariant in regards to the respiratory cycle. Abdomen: Soft, non-tender, non-distended. No rebound, guarding, Reddy's sign, or organomegaly. Bowel sounds auscultated in all 4 quadrants. Extremities: No clubbing, cyanosis, or edema in upper extremities or lower extremities bilaterally. 2+ pedal pulses bilaterally. Skin: No decubitus ulcer or enanthem. Genito-urinary: No urethral discharge. No finn catheter. Neurology: Alert and oriented in regards to person, place, time, and situation. DTR+. 5/5 motor strength in all 4 extremities, both proximally and distally. No myoclonus, tremors, or tics. Straight leg raising negative bilaterally. Lumbar spinal tenderness. Lumbar paraspinal tenderness. Thoracic right paraspinal tenderness. Cervical spinal tenderness. No open wound or ulcer on back at all. No erythema, edema, induration, warmth, crepitus, fluctuance, discharge, malodor, or lymphangitic streaking on back at all. Psychiatry: No homicidal ideation. No suicidal ideation. No flat affect; smiles appropriately. Results & Data Results & Data Vital Signs (Past 12 Hours) Vital Signs Temp Pulse Resp BP Pulse Ox O2 Del Method 09/01/24 20:01 36.5 C 71 18 101/64 97 Room Air 09/01/24 15:40 36.8 C 71 18 101/65 94 Room Air Laboratory Results Abnormal lab results 09/01/24 09/01/24 09/01/24 Range/Units 05:20 07:47 11:26 RBC 3.64 L (4.20-5.40) M/uL Hgb 9.5 L (12.0-16.0) g/dl Hct 31.9 L (37.0-47.0) % MCHC 29.8 L (32.0-36.0) g/dL RDW Std Deviation 50.3 H (36.4-46.3) fL RDW Coeff of Arslan 15.6 H (11.5-14.5) % [place] # (Auto) 0.86 H (0.11-0.59) K/uL ESR 81 H (0-30) mm/hr Glucose 140 H (70-99(Fasting)) mg/dl POC Glucose 135 H 110 H (70-99) mg/dl Phosphorus 5.2 H (2.5-4.9) mg/dl C-Reactive Protein 5.15 H (0-0.5) mg/dl 09/01/24 09/01/24 Range/Units 16:26 20:27 RBC (4.20-5.40) M/uL Hgb (12.0-16.0) g/dl Hct (37.0-47.0) % MCHC (32.0-36.0) g/dL RDW Std Deviation (36.4-46.3) fL RDW Coeff of [place]slan (11.5-14.5) % [place] # (Auto) (0.11-0.59) K/uL ESR (0-30) mm/hr Glucose (70-99(Fasting)) mg/dl POC Glucose 123 H 134 H (70-99) mg/dl Phosphorus (2.5-4.9) mg/dl C-Reactive Protein (0-0.5) mg/dl PG Care Time/CCT Total # of Minutes Spent Total Time Spent with Patient: Total time spent is greater than 50% in coordination of care (as documented) at patient's floor/unit and/or counseling patient: Coding Level of Care Code 97998 SUB INP/OBS CARE 2/35MIN Diagnoses Back pain M54.9
[2024-09-02 07:03] LABS: Hematocrit (blood only) 32.6 % (37.0-47.0); Hemoglobin 9.9 g/dl (12.0-16.0); Immature Granulocytes # (auto) 0.03 K/uL (0.01-0.20); Immature Granulocytes % (auto) 0.3 %; Mean Corpuscular Hemoglobin 26.4 pg (25.0-34.0); Mean Corpuscular Volume 86.9 fL (80.0-100.0); Platelet Count 314 K/uL (130-400); RDW Standard Deviation 49.3 fL (36.4-46.3); Red Blood Count 3.75 M/uL (4.20-5.40); White Blood Count 9.42 K/ul (4.8-10.8)
[2024-09-02 07:18] LABS: Alanine Aminotransferase 9.0 U/L (7-52); Albumin Globulin Ratio 1.2 (0.9-2); Alkaline Phosphatase 135.0 U/L (34-104); Anion Gap 9.0 (3-11); Bilirubin,Total 0.2 mg/dl (0.2-1.0); Blood Urea Nitrogen 18.0 mg/dl (6-23); Calcium 9.2 mg/dl (8.6-10.3); Carbon Dioxide 28.0 mmol/L (21-32); Chloride 101.0 mmol/L (98-107); Creatinine Clr Calc Pharmacy 53.6 ml/min; Globulin 3.0 gm/dl (2.5-4.0); Glucose 133.0 mg/dl (70-99(Fasting)); Potassium 4.2 mmol/L (3.5-5.1); Sodium 138.0 mmol/L (136-145); Total Protein 6.7 gm/dl (6.0-8.3)
[2024-09-02] MEDS: VANCOMYCIN HCL 1,250 MG in SODIUM CHLORIDE 0.9% 250 ML IV SCH (08:06)
[2024-09-02] MEDS: ACETAMINOPHEN 325 MG TAB PO SCH (08:09)
[2024-09-02] MEDS: LANTUS PER UNIT CHARGE SC SCH (08:53)
--- NOTE | 2024-09-02 10:35 | Orthopedic Progress Note ---
Date of Service September 02, 2024 Assessment & Plan (1) Back pain: Plan: At this time we will continue to encourage physical therapy. I will obtain a CAT scan lumbar spine for further detail of her bony anatomy. MRI of the cervical spine demonstrates evidence of cervical spondylosis but no gross cord or nerve root compression. Admission and Anticipated Discharge Date Admission Date: August 30, 2024 Subjective Patient continues to complain of axial back pain rating up into the thoracic region. She denies any leg pain. She is ambulating modest distances with the assistance of physical therapy. Physical Exam Physical Exam: Patient is in the chair at the bedside. Her incision appears to be well-healed no erythema no drainage. There is no significant tenderness palpation lumbar musculature. She has reasonable strength testing lower extremities. Results & Data Vital Signs (Past 12 Hours) Vital Signs Temp Pulse Resp BP Pulse Ox O2 Del Method 09/02/24 07:35 36.6 C 72 20 135/73 93 Room Air
--- NOTE | 2024-09-02 11:40 | CT Scan Report ---
CT OF THE LUMBAR SPINE CLINICAL HISTORY: Back pain. COMPARISON STUDY: Lumbar spine CT July 11, 2024. Lumbar spine fluoroscopic image July 12, 2024. Lumbar spine MRI August 30, 2024. TECHNIQUE: Helical axial images of the lumbar spine were obtained. Sagittal and coronal reconstruct ions were viewed. Automated exposure control was utilized for the study. A dose lowering technique was utilized adhering to the principles of ALARA. FINDINGS: For purposes of numbering on this exam, the L5-S1 disc space is assigned to axial image 367 of 450. There are bilateral pedicle screws at the L2, L3, L4 and S1 levels with interconnecting rods . Interbody spacers at the L3-L4, L4-L5 and L5-S1 levels are present. Interval L1-L2 laminectomy sinc e CT of July 11, 2024 is noted. Small operative bed fluid collections at this level are better depicte d on MRI of August 30, 2024. The central canal and neural foramen are also better depicted on that exam. This exam is compromised given streak artifact from the hardware. No acute lumbar spine fractures ar e identified. Sclerosis within the bilateral sacral ala is noted consistent with healing fractures, l ikely subacute. There is lucency adjacent to the bilateral S1 pedicle screws. No lucency adjacent to the remainder of the pedicle screws is noted. There is mild to moderate lumbar spine dextroscoliosis. IMPRESSION: 1. No acute lumbar spine fracture or subluxation. 2. Status post L2-S1 pedicle screw fusion. Lucency adjacent to the bilateral S1 pedicle screws sugges ts loosening. An infectious process cannot be excluded by CT. 3. Healing bilateral sacral fractures. 4. Interval L1-L2 laminectomy since CT of July 11, 2024. Small operative bed fluid collections better depicted on MRI of August 30, 2024. 5. Suboptimal evaluation of the central canal and neural foramen given CT technique and artifact from surgical hardware. ACT 112: Negative or not required by law. Electronically signed by: Foreign Rowland M.D. 09/02/2024 11:37 AM
--- NOTE | 2024-09-02 13:12 | Pharmacy Report ---
Pharmacy Glycemic Short Note 2 - Date of Service September 02, 2024 - Glycemic Short BSG Results (Last 24 hours): 09/01/24 09/01/24 09/02/24 16:26 20:27 06:15 Glucose 133 H POC Glucose 123 H 134 H 09/02/24 09/02/24 07:26 11:28 Glucose POC Glucose 155 H 135 H OUTPATIENT ANTIDIABETIC REGIMEN: * pioglitazone 15mg po q am HbA1c: 7.2% on 08/30/24 ASSESSMENT: 09/02: * Keesha received 21 units of insulin on 08/31 and 12 units on 09/01 * Fasting BSG is greater than 140 mg/dL today. Will start low dose basal insulin. * Carb coverage was slightly decreased yesterday. No changes today. 08/31: * Keesha is a 69 year old female who was admitted last evening for intractable back pain s/p decompression and fusion in June of this year. Pharmacy was consulted for glycemic management while she is admitted. * BSG at HS was 134mg/dL. A weight based bolus insulin regimen with a stress between 1 and 2 was started at that time. * Fasting BSG was 145mg/dL this morning and chris to 162mg/dL at lunch. Will not start basal insulin at this time but will continue to monitor and add if necessary. Tightened carb ratio to a stress of 2 for better prandial control. PLAN FOR INPATIENT GLYCEMIC CONTROL: * Hold outpatient oral diabetes medications * Basal insulin * Lantus 5 units SC qAM * Bolus insulin * NovoLog per scale ACHS or Q6hrs while NPO * Goal Range: Low 110 mg/dL - High 140 mg/dL * Correction Factor: 30 mg/dL/unit * Nutritional / Prandial insulin per carb ratio of 1 unit per 9 grams CHO consumed
[2024-09-02] MEDS: ACETAMINOPHEN 325 MG TAB PO PRN (20:43)
--- NOTE | 2024-09-02 22:07 | Hospitalist Progress Note ---
Date of Service September 02, 2024 Assessment & Plan (1) Back pain: Plan: Etiology of back pain remains unclear, but is probably due to post-operative seroma formation, and not infection. Patient's WBC decreased spontaneously to normal on 08/31/2024, and remains normal on 09/01/2024 in the absence of empiric antibiotics. However, patient insisted on antibiotics. Hence, I ordered vancomycin 2g IV x 1 dose (day #1 on 09/01/2024, 12:27pm), followed by vancomycin 1.25g IV daily (day #2 on 09/02/2024, 9:00am), and meropenem 2g IV q8 (day #1 on 09/01/2024, 12:41pm). Await continued PT Service evaluations with anticipated D/C to SNF for short-term rehab and outpatient follow up with Orthopedic Surgeon Dr. Bebo Jaramillo within 5-7 days of hospital discharge. Plan Admission and Anticipated Discharge Date Admission Date: August 30, 2024 Subjective "I am not getting better. Do you think I have a fungus growing inside my back? I am still sweating every day. My head and neck are soaked in sweat." Review of Systems Constitutional: Positive for lower back pain, now travelling up the right paraspinal route up to posterior neck, and profuse diaphoresis with hair @ nape of neck soaked in sweat on 09/01/2024 and on 09/02/2024. Negative for antecedent/coincident fevers, chills, cough, wheeze, sore throat, hemoptysis, chest pains, palpitations, pleurisy, nausea, vomiting, diarrhea, ab dominal pain, pelvic pain, hematemesis, hematochezia, melena, hematuria, dysuria, frequency, urgency, headaches, dizziness, lightheadedness, visual changes, hearing changes, weakness, falls, syncope, trauma, travel history, sick contacts, or food/drug ingestions novel or new. All other review of systems are reported as negative by the patient on 09/02/2024. Physical Exam Constitutional: General: Run-down, worn-out. Uncomfortable with lower back tenderness, now radiating up the right paraspinal route up to posterior neck; profuse diaphoresis with hair @ nape of neck soaked in sweat on 09/01/2024 and on 09/02/2024. , cooperative, coherent. Wide awake and alert. Not confused, lethargic, or obtunded. Patient speaks in complete, fluent, and articulate sentences without pause, interruption, cough, or wheeze. HEENT: Normocephalic, atraumatic. Pupils equally round and reactive to light. No nystagmus, gaze paresis, anisocoria, miosis, mydriasis, hyphema, scleral injection, conjunctivitis, or pterygium. No otorrhea. No pharyngeal erythema, edema, or discharge. Neck: Supple, no stridor, bruit, goiter, or hepato-jugular reflux. Jugular venous pressure is estimated to be 3 cm above the sternal angle of Orlin, which in turn, is 5 cm above the level of the right atrium; with jugular venous pressure estimated to be 8 cm, then, there is no jugular venous distention on 09/02/2024. Lymphatics: No cervical (anterior/posterior), supraclavicular, infraclavicular, axillary, epitrochlear, or inguinal adenopathy. Chest: Symmetric rise and fall with respirations. Non-tender to palpation. Lungs: Clear to auscultation and percussion. No audible expiratory wheeze, egophony, pectoriloquy, increase in tactile fremitus, or flatness/dullness to percussion at the bases. Heart: RRR. S1 and S2 noted. No S3 or S4 summation gallop. No tripartite friction rub. Grade II/ early systolic murmur @ LLSB without radiation to the carotids, axilla, or back, and which remains invariant in regards to the respiratory cycle. Abdomen: Soft, non-tender, non-distended. No rebound, guarding, Reddy's sign, or organomegaly. Bowel sounds auscultated in all 4 quadrants. Extremities: No clubbing, cyanosis, or edema in upper extremities or lower extremities bilaterally. 2+ pedal pulses bilaterally. Skin: No decubitus ulcer or enanthem. Genito-urinary: No urethral discharge. No finn catheter. Neurology: Alert and oriented in regards to person, place, time, and situation. DTR+. 5/5 motor strength in all 4 extremities, both proximally and distally. No myoclonus, tremors, or tics. Straight leg raising negative bilaterally. Lumbar spinal tenderness. Lumbar paraspinal tenderness. Thoracic right paraspinal tenderness. Cervical spinal tenderness. No open wound or ulcer on back at all. No erythema, edema, induration, warmth, crepitus, fluctuance, discharge, malodor, or lymphangitic streaking on back at all. Psychiatry: No homicidal ideation. No suicidal ideation. No flat affect; smiles appropriately. Results & Data Results & Data Vital Signs (Past 12 Hours) Vital Signs Temp Pulse Resp BP Pulse Ox O2 Del Method 09/02/24 20:13 37.4 C 91 H 18 136/89 96 Room Air 09/02/24 15:00 36.7 C 78 18 163/76 H 98 Room Air Laboratory Results Abnormal lab results 09/02/24 09/02/24 09/02/24 Range/Units 06:15 06:47 07:26 RBC 3.75 L (4.20-5.40) M/uL Hgb 9.9 L (12.0-16.0) g/dl Hct 32.6 L (37.0-47.0) % MCHC 30.4 L (32.0-36.0) g/dL RDW Std Deviation 49.3 H (36.4-46.3) fL RDW Coeff of Arslan 15.7 H (11.5-14.5) % [place] # (Auto) 0.85 H (0.11-0.59) K/uL ESR 81 H (0-30) mm/hr Glucose 133 H (70-99(Fasting)) mg/dl POC Glucose 155 H (70-99) mg/dl AST 12 L (13-39) U/L Alkaline Phosphatase 135 H (34-104) U/L C-Reactive Protein 6.03 H (0-0.5) mg/dl 09/02/24 09/02/24 09/02/24 Range/Units 11:28 16:25 20:38 RBC (4.20-5.40) M/uL Hgb (12.0-16.0) g/dl Hct (37.0-47.0) % MCHC (32.0-36.0) g/dL RDW Std Deviation (36.4-46.3) fL RDW Coeff of Arslan (11.5-14.5) % [place] # (Auto) (0.11-0.59) K/uL ESR (0-30) mm/hr Glucose (70-99(Fasting)) mg/dl POC Glucose 135 H 121 H 167 H (70-99) mg/dl AST (13-39) U/L Alkaline Phosphatase (34-104) U/L C-Reactive Protein (0-0.5) mg/dl PG Care Time/CCT Total # of Minutes Spent Total Time Spent with Patient: Total time spent is greater than 50% in coordination of care (as documented) at patient's floor/unit and/or counseling patient: Coding Level of Care Code 81071 SUB INP/OBS CARE 3/50MIN Diagnoses Back pain M54.9
[2024-09-03 06:17] LABS: Hematocrit (blood only) 32.2 % (37.0-47.0); Hemoglobin 9.7 g/dl (12.0-16.0); Immature Granulocytes # (auto) 0.03 K/uL (0.01-0.20); Immature Granulocytes % (auto) 0.4 %; Mean Corpuscular Hemoglobin 26.4 pg (25.0-34.0); Mean Corpuscular Volume 87.7 fL (80.0-100.0); Platelet Count 317 K/uL (130-400); RDW Standard Deviation 50.3 fL (36.4-46.3); Red Blood Count 3.67 M/uL (4.20-5.40); White Blood Count 7.43 K/ul (4.8-10.8)
[2024-09-03 06:23] LABS: Anion Gap 8.0 (3-11); Blood Urea Nitrogen 19.0 mg/dl (6-23); Calcium 9.5 mg/dl (8.6-10.3); Carbon Dioxide 29.0 mmol/L (21-32); Chloride 100.0 mmol/L (98-107); Creatinine Clr Calc Pharmacy 51.6 ml/min; Glucose 150.0 mg/dl (70-99(Fasting)); Potassium 3.9 mmol/L (3.5-5.1); Sodium 137.0 mmol/L (136-145)
--- NOTE | 2024-09-03 22:38 | Hospitalist Progress Note ---
Date of Service September 03, 2024 Assessment & Plan (1) Back pain: Plan: Etiology of back pain remains unclear, but is probably due to post-operative seroma formation, and not infection. Patient's WBC decreased spontaneously to normal on 08/31/2024, and remains normal on 09/01/2024 in the absence of empiric antibiotics. However, patient insisted on antibiotics. Hence, I ordered vancomycin 2g IV x 1 dose (day #1 on 09/01/2024, 12:27pm), followed by vancomycin 1.25g IV daily (day #2 on 09/02/2024, 9:00am), and meropenem 2g IV q8 (day #1 on 09/01/2024, 12:41pm). Await continued PT Service evaluations with anticipated D/C to SNF for short-term rehab and outpatient follow up with Orthopedic Surgeon Dr. Bebo Jaramillo within 5-7 days of hospital discharge. Plan Admission and Anticipated Discharge Date Admission Date: August 30, 2024 Subjective "I am not getting better. Do you think I have a fungus growing inside my back? I am still sweating every day. My head and neck are soaked in sweat." Review of Systems Constitutional: Positive for lower back pain, now travelling up the right paraspinal route up to posterior neck, and profuse diaphoresis with hair @ nape of neck soaked in sweat on 09/01/2024 and on 09/02/2024. Negative for antecedent/coincident fevers, chills, cough, wheeze, sore throat, hemoptysis, chest pains, palpitations, pleurisy, nausea, vomiting, diarrhea, ab dominal pain, pelvic pain, hematemesis, hematochezia, melena, hematuria, dysuria, frequency, urgency, headaches, dizziness, lightheadedness, visual changes, hearing changes, weakness, falls, syncope, trauma, travel history, sick contacts, or food/drug ingestions novel or new. All other review of systems are reported as negative by the patient on 09/03/2024. Physical Exam Constitutional: General: Run-down, worn-out. Uncomfortable with lower back tenderness, now radiating up the right paraspinal route up to posterior neck; profuse diaphoresis with hair @ nape of neck soaked in sweat on 09/01/2024 and on 09/02/2024. , cooperative, coherent. Wide awake and alert. Not confused, lethargic, or obtunded. Patient speaks in complete, fluent, and articulate sentences without pause, interruption, cough, or wheeze. HEENT: Normocephalic, atraumatic. Pupils equally round and reactive to light. No nystagmus, gaze paresis, anisocoria, miosis, mydriasis, hyphema, scleral injection, conjunctivitis, or pterygium. No otorrhea. No pharyngeal erythema, edema, or discharge. Neck: Supple, no stridor, bruit, goiter, or hepato-jugular reflux. Jugular venous pressure is estimated to be 3 cm above the sternal angle of Orlin, which in turn, is 5 cm above the level of the right atrium; with jugular venous pressure estimated to be 8 cm, then, there is no jugular venous distention on 09/03/2024. Lymphatics: No cervical (anterior/posterior), supraclavicular, infraclavicular, axillary, epitrochlear, or inguinal adenopathy. Chest: Symmetric rise and fall with respirations. Non-tender to palpation. Lungs: Clear to auscultation and percussion. No audible expiratory wheeze, egophony, pectoriloquy, increase in tactile fremitus, or flatness/dullness to percussion at the bases. Heart: RRR. S1 and S2 noted. No S3 or S4 summation gallop. No tripartite friction rub. Grade II/ early systolic murmur @ LLSB without radiation to the carotids, axilla, or back, and which remains invariant in regards to the respiratory cycle. Abdomen: Soft, non-tender, non-distended. No rebound, guarding, Reddy's sign, or organomegaly. Bowel sounds auscultated in all 4 quadrants. Extremities: No clubbing, cyanosis, or edema in upper extremities or lower extremities bilaterally. 2+ pedal pulses bilaterally. Skin: No decubitus ulcer or enanthem. Genito-urinary: No urethral discharge. No finn catheter. Neurology: Alert and oriented in regards to person, place, time, and situation. DTR+. 5/5 motor strength in all 4 extremities, both proximally and distally. No myoclonus, tremors, or tics. Straight leg raising negative bilaterally. Lumbar spinal tenderness. Lumbar paraspinal tenderness. Thoracic right paraspinal tenderness. Cervical spinal tenderness. No open wound or ulcer on back at all. No erythema, edema, induration, warmth, crepitus, fluctuance, discharge, malodor, or lymphangitic streaking on back at all. Psychiatry: No homicidal ideation. No suicidal ideation. No flat affect; smiles appropriately. Results & Data Results & Data Vital Signs (Past 12 Hours) Vital Signs Temp Pulse Resp BP Pulse Ox O2 Del Method 09/03/24 19:36 36.6 C 80 16 105/64 98 Room Air 09/03/24 15:39 37.1 C 75 16 154/85 H 94 Room Air Laboratory Results Abnormal lab results 09/03/24 09/03/24 09/03/24 Range/Units 05:53 07:46 11:35 RBC 3.67 L (4.20-5.40) M/uL Hgb 9.7 L (12.0-16.0) g/dl Hct 32.2 L (37.0-47.0) % MCHC 30.1 L (32.0-36.0) g/dL RDW Std Deviation 50.3 H (36.4-46.3) fL RDW Coeff of Arslan 15.8 H (11.5-14.5) % [place] # (Auto) 0.83 H (0.11-0.59) K/uL ESR 91 H (0-30) mm/hr Glucose 150 H (70-99(Fasting)) mg/dl POC Glucose 137 H 122 H (70-99) mg/dl C-Reactive Protein 5.31 H (0-0.5) mg/dl 09/03/24 09/03/24 Range/Units 16:43 20:34 RBC (4.20-5.40) M/uL Hgb (12.0-16.0) g/dl Hct (37.0-47.0) % MCHC (32.0-36.0) g/dL RDW Std Deviation (36.4-46.3) fL RDW Coeff of Arslan (11.5-14.5) % [place] # (Auto) (0.11-0.59) K/uL ESR (0-30) mm/hr Glucose (70-99(Fasting)) mg/dl POC Glucose 137 H 127 H (70-99) mg/dl C-Reactive Protein (0-0.5) mg/dl PG Care Time/CCT Total # of Minutes Spent Total Time Spent with Patient: Total time spent is greater than 50% in coordination of care (as documented) at patient's floor/unit and/or counseling patient: Coding Level of Care Code 05164 SUB INP/OBS CARE 2/35MIN Diagnoses Back pain M54.9
[2024-09-04 06:10] LABS: Hematocrit (blood only) 35.9 % (37.0-47.0); Hemoglobin 10.6 g/dl (12.0-16.0); Immature Granulocytes # (auto) 0.04 K/uL (0.01-0.20); Immature Granulocytes % (auto) 0.4 %; Mean Corpuscular Hemoglobin 26.2 pg (25.0-34.0); Mean Corpuscular Volume 88.6 fL (80.0-100.0); Platelet Count 344 K/uL (130-400); RDW Standard Deviation 50.6 fL (36.4-46.3); Red Blood Count 4.05 M/uL (4.20-5.40); White Blood Count 9.15 K/ul (4.8-10.8)
[2024-09-04 06:27] LABS: Anion Gap 8.0 (3-11); Blood Urea Nitrogen 19.0 mg/dl (6-23); Calcium 9.6 mg/dl (8.6-10.3); Carbon Dioxide 29.0 mmol/L (21-32); Chloride 99.0 mmol/L (98-107); Creatinine Clr Calc Pharmacy 49.8 ml/min; Glucose 129.0 mg/dl (70-99(Fasting)); Potassium 4.0 mmol/L (3.5-5.1); Sodium 136.0 mmol/L (136-145)
[2024-09-04] MEDS: VANCOMYCIN LEVEL ONE (08:19)
--- NOTE | 2024-09-04 09:21 | Orthopedic Progress Note ---
Date of Service September 04, 2024 Assessment & Plan (1) Sacral fracture, closed: Plan: CT scan was reviewed with the patient. She does have evidence of healing bilateral sacral alar fracture. This is undoubtedly contributing to her back pain. She will also probably has a component of sacroiliitis. At this time she is progressing with therapy. This would be treated nonoperatively. Continue to advance activity as tolerated. Admission and Anticipated Discharge Date Admission Date: August 30, 2024 Subjective Patient feels her symptoms have improved. She is tolerating physical therapy. Physical Exam Physical Exam: Patient looks quite comfortable. She is in the chair at the bedside. She is neurologically intact. Results & Data Vital Signs (Past 12 Hours) Vital Signs Temp Pulse Resp BP Pulse Ox O2 Del Method 09/04/24 07:40 36.9 C 80 17 119/68 96 Room Air
--- NOTE | 2024-09-04 13:42 | Infectious Disease Consult ---
Date of Service September 04, 2024 Telehealth Information I performed this visit using a real-time telehealth connection between my location and the patients location ([facility]). After connecting through interactive tele-video, patient was identified by name and date of and/or wristband check.Patient (or authorized healthcare field sales representative) was informed that this was a telemedicine visit and it was being conducted confidentially over secure lines. My office door was closed and no one else was present in the room with me.Patient (or authorized healthcare field sales representative) provided consent to proceed with the visit, expressed an understanding of privacy and security of the telemedicine visit, and gave permission to have a hospital field sales representative in the room in order to assist with the visit and to conduct portions of the visit, as needed. I informed the patient (or authorized healthcare field sales representative) that I reviewed their record and presented the opportunity for them to ask any questions regarding the visit today. The patient agreed to participate. Assessment & Plan (1) Lumbar surgical wound fluid collection: (2) S/P lumbar spinal fusion: (3) Low back pain: Plan If there is no plan for any surgical interventions, I would recommend contacting Interventional Radiology for possible aspiration of one of the paraspinal collections to help with microbiological diagnosis. Meanwhile, since she has been hemodynamically stable, I would recommend stopping all antibiotics. Antibiotics at this point will sterilize the presumed abscess which makes it challenging to guide antibiotic treatment especially in case of infected fusion hardware which will require 6 weeks of IV antibiotics to be followed after that with long life oral antibiotic. Thank you for consulting Infectious Disease. We will continue to follow. History of Present Illness History of Present Illness Ms. Thomas is a 68-year-old woman with past medical history of type 2 diabetes, CKD stage 3, history of CVA, heart failure with preserved ejection fraction, and HTN who was admitted to [facility] on 08/30/2024 because of intractable lower back pain with concern for spine infection after a recent fusion surgery. She has a history of posterior spine fusion many years ago and on 07/04/2024, she underwent revision decompression L5-S1 with removal of the posterior connector and screw L5 and another spinal fusion. Shortly after that, she starts having intractable back pain and had to be admitted to the hospital on 07/08/2024 when she was found to have hematoma at the surgical bed and for which she underwent I and D with further lumbar decompression and posterior spinal fusion at L1-L2 on 07/12/2024. No intraoperative cultures were send but a superficial wound culture was sent on 07/09/2024 which grew Pseudomonas aeruginosa and anaerobic Gram-positive cocci. This time, she is coming back with intractable back pain and stable vitals. Initial workup showed leukocytosis of 12.4 (ANC 8); rest of workup was not impressive. MRI of the lumbar spine as well as CT scan were performed with MRI showing multiple peripheral enhancing fluid collections in the posterior paraspinal soft tissues above L2 and below L4-L5 and L5-S1 suspicious for paraspinal abscesses versus seromas. There was small amount of enhancement along the distal thoracic cord and descending nerve roots suspicious for component of arachnoiditis. Allergies Allergy/AdvReac Type Severity Reaction Status Date / Time Cephalosporins Allergy Intermediate CEPHALEXIN-RASH Verified 08/02/24 14:40 & ULCERS IN MOUTH Penicillins Allergy Intermediate RASH AND Verified 08/02/24 14:40 ULCERS IN MOUTH sesame seed Allergy Intermediate "BUMPY" Verified 08/02/24 14:40 RASH ALL OVER ARMS AND CHEST Sulfa (Sulfonamide Allergy Intermediate RASH AND Verified 08/02/24 14:40 Antibiotics) ULCERS IN MOUTH sulfamethoxazole Allergy Intermediate rash and Verified 08/02/24 14:40 ulcers in the mouth wheat Allergy Intermediate Itching Verified 08/02/24 14:40 levofloxacin Allergy Mild local Verified 08/02/24 14:40 reaction gabapentin AdvReac Severe sore Verified 08/02/24 14:40 throat, stomach pains, nausea lactose AdvReac Intermediate Gastrointestinal Verified 08/02/24 14:40 Upset meperidine AdvReac Intermediate VOMITING & Verified 08/02/24 14:40 VERTIGO metformin AdvReac Intermediate Diarrhea Verified 08/02/24 14:40 oxycodone AdvReac Intermediate PERCOCET - Verified 08/02/24 14:40 vomiting and vertigo Home Medications Medication Instructions Recorded Confirmed Type blood sugar diagnostic #30 ea 09/21/19 08/30/24 Rx blood-glucose meter #1 ea 09/21/19 08/30/24 Rx lamotrigine 200 mg tablet 200 mg PO BID #180 tabs 05/04/23 08/30/24 Rx blood sugar diagnostic (Accu-Chek #100 ea 01/24/24 08/30/24 Rx Guide test strips) lancets (Accu-Chek Fastclix Lancet #100 ea 01/24/24 08/30/24 Rx Drum) [id number] 250 mg-dha 90 1 cap PO BID #180 caps 03/20/24 08/30/24 Rx mg-epa 160 [id number] capsule (Ocuvite Adult 50 Plus) finerenone 10 mg tablet (Kerendia) 10 mg PO QAM #90 tabs 04/20/24 08/30/24 Rx atorvastatin 20 mg tablet 20 mg PO QPM #30 tabs 05/15/24 08/30/24 Rx clopidogrel 75 mg tablet 75 mg PO QAM #90 tabs 05/15/24 08/30/24 Rx duloxetine 60 mg capsule,delayed 60 mg PO BID #180 caps 05/15/24 08/30/24 Rx release ferrous sulfate 325 mg (65 mg 325 mg PO QAM #90 tabs 05/15/24 08/30/24 Rx iron) tablet (FeroSul) levothyroxine 75 mcg tablet 75 mcg PO QAM #90 tabs 05/15/24 08/30/24 Rx magnesium gluconate 27 mg 27 mg PO HS #30 tabs 05/15/24 08/30/24 Rx magnesium (500 mg) tablet (Mag-G) pantoprazole 40 mg tablet,delayed 40 mg PO BID #180 tabs 05/15/24 08/30/24 Rx release potassium chloride 10 mEq 20 meq (2 x 10 mEq) PO TID #540 05/15/24 08/30/24 Rx capsule,extended release caps pramipexole 0.25 mg tablet 0.25 mg PO HS #90 tabs 05/15/24 08/30/24 Rx acetaminophen 500 mg tablet 500 mg PO Q6H PRN Pain #225 tabs 06/09/24 08/30/24 Rx hydrocodone 5 mg-acetaminophen 325 1 tab PO Q6H PRN pain #30 tabs 07/17/24 08/30/24 Rx mg tablet Bedside Commode #1 ea 08/02/24 08/30/24 Rx metoprolol tartrate 25 mg tablet 12.5 mg PO AMPM 08/02/24 08/30/24 History sennosides 8.6 mg tablet (Senna 8.6 - 17.2 mg PO AMHS 08/02/24 08/30/24 History Laxative) topiramate 100 mg tablet 150 mg PO AMPM 08/02/24 08/30/24 History torsemide 20 mg tablet 40 mg PO BID 08/30/24 08/30/24 History Patient History Medical History Paranoid delusion UTI (urinary tract infection) Nausea and vomiting Intractable back pain Cerebrovascular disease, unspecified Melanosis coli H/O: CVA (cerebrovascular accident) > memory issues since/ some days has issues with word recall > Plavix Morbidly obese Generalized osteoarthritis Hypertension Gastroparesis Bipolar depression Esophageal dysfunction CKD (chronic kidney disease), stage III Vitamin D deficiency Cerebrovascular disease History of COVID-19 (2021) no hosp; resolved Mitral valve disorder no cardio Macular degeneration Fibromyalgia Insomnia Stomach ulcer hx of Osteoarthritis Colon polyps Fatty liver Kidney stones h/o H/O breast lump left breast (benign) H/O migraine Restless legs syndrome Hyperlipidemia Hypothyroidism Lumbar spine scoliosis (10/26/13) Surgical History History of tonsillectomy and adenoidectomy S/P lymph node biopsy (07/21/21) Right axillary lymph node excision using [facility] [employer]. Dr. Herrera S/P cholecystectomy History of esophagogastroduodenoscopy (EGD) History of colonoscopy History of cataract surgery bilateral History of cystoscopy stone basketing History of lithotripsy History of appendectomy H/O non-cataract eye surgery skin growth removed H/O: hysterectomy vaginal hysterectomy Family History Mother Diabetes Clotting disorder Heart disease Myocardial infarction Hypertension Father Diabetes Heart disease Grandmother (Paternal) Lung cancer Grandfather (Maternal) Stomach cancer Other Breast cancer Cancer No family history of adverse response to anesthesia Denies family history of Colon cancer Ovarian cancer Prostate cancer Social History Smoking Status: Never smoker Second Hand Exposure: Yes (As a child.); Do You Dip or Chew Tobacco: No; Tobacco Cessation Education Requested by Patient: No Hx Alcohol Use: Yes Alcohol type: wine Alcohol Intake Frequency: Monthly or Less Hx Substance Use: No Preferred Language: Malay Communication Ability: Effective Visual Impairment: No Limitations Hearing Ability: Normal Forensic Ballistics Expert Required: No Beliefs That Will Affect Care: None marital status: Current Living Situation: Alone Current Living Situation Comment: recieved home health for assistance>recent staff problems current occupational status: retired 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 How many Children do You have: 2 Other Information That Helps Us Care for You: No Feels Safe at Home: Yes Safety Concerns: Feels Safe At This Time Safety Concerns Comment: Pt states some things have gone missing around home, trying to move Childhood Exposure to Second-Hand Smoke: Yes Diet: regular caffeine: No during the past year weight has: decreased > 10 lbs Dental Care, Regularly: Yes Physical Activity Frequency: Does not Exercise Seatbelt Use: always Sunscreen Use: No Do you think of yourself as: straight/heterosexual Gender Identity: Female Assistive Devices: Scooter/Electric Scooter and Walker Review of Systems Negative except for what was mentioned in the H&P. Physical Exam Could not be performed given that the encounter was conducted via TeleMed. Results & Data Vital Signs (Past 12 Hours) Vital Signs Temp Pulse Resp BP Pulse Ox O2 Del Method 09/04/24 07:40 36.9 C 80 17 119/68 96 Room Air Laboratory Results Microbiology: 07/08: 2 sets of blood culture negative 07/09: Superficial wound culture growing Pseudomonas and anaerobic Gram-positive cocci 08/30: 2 sets of blood culture negative to date Diagnostic Findings Lumbar spine MRI on 08/30: Study is limited by significant artifact from metal fusion hardware. Status post posterior laminectomy from L2 through L5 with posterior fusion hardware as described above. Edema and enhancement centered at the L5-S1 disc space, likely postoperative/reactive although can not exclude a superimposed infection. Multiple peripheral enhancing fluid collections in the posterior paraspinal soft tissues above the L2 posterior pedicle hardware and inferiorly between L4-5 and L5-S1, suspicious for paraspinal abscesses versus seromas with reactive peripheral enhancement. Smaller subcutaneous collection of the superior aspect of the operative site. Small amount of enhancement along the distal thoracic cord and a few descending nerve roots within the lower lumbar spine suspicious for a component of arachnoiditis (3) Low back pain Back pain laterality: right Chronicity: chronic Sciatica presence: without sciatica Qualified Code(s): M54.50 - Low back pain, unspecified; G89.29 - Other chronic pain
[2024-09-04] MEDS: HYDROmorphone INJ 1 MG/ML SYRINGE IV PRN (13:56)
--- NOTE | 2024-09-04 14:19 | XRay Report ---
KUB HISTORY: Acute generalized abdominal pain evaluate for obstruction/perforation COMPARISON: 07/18/2024 FINDINGS: Cholecystectomy. Monitor the bowel gas pattern. There is gaseous distention of the stomach and large bowel which is similar to prior. Moderate colonic fecal retention. No renal calculi. No ur eteral calculi. No pneumoperitoneum or pneumatosis. Degenerative and postoperative changes of the spi ne redemonstrated. No fracture. IMPRESSION: Nonobstructive bowel gas pattern. ACT 112: Negative or not required by law. The above report was generated using voice recognition software. It may contain grammatical, syntax o r spelling errors. Electronically signed by: Conor Mora M.D. 09/04/2024 2:17 PM
--- NOTE | 2024-09-04 14:28 | Pharmacy Report ---
Pharmacy Glycemic Short Note 2 - Date of Service September 04, 2024 - Glycemic Short BSG Results (Last 24 hours): 09/03/24 09/03/24 09/04/24 16:43 20:34 05:40 Glucose 129 H POC Glucose 137 H 127 H 09/04/24 09/04/24 07:34 11:31 Glucose POC Glucose 133 H 125 H OUTPATIENT ANTIDIABETIC REGIMEN: * pioglitazone 15mg po q am HbA1c: 7.2% on 08/30/24 ASSESSMENT: 09/04: * Keesha received a total of 19 units of insulin yesterday (5 units were basal and 14 units were bolus). BSGs were all in the goal range yesterday. * Fasting BSG was 133mg/dL this morning. Will continue current basal and bolus insulin regimens without change. 09/02: * Keesha received 21 units of insulin on 08/31 and 12 units on 09/01 * Fasting BSG is greater than 140 mg/dL today. Will start low dose basal insulin . * Carb coverage was slightly decreased yesterday. No changes today. 08/31: * Keesha is a 69 year old female who was admitted last evening for intractable back pain s/p decompression and fusion in June of this year. Pharmacy was consulted for glycemic management while she is admitted. * BSG at HS was 134mg/dL. A weight based bolus insulin regimen with a stress between 1 and 2 was started at that time. * Fasting BSG was 145mg/dL this morning and chris to 162mg/dL at lunch. Will not start basal insulin at this time but will continue to monitor and add if necessary. Tightened carb ratio to a stress of 2 for better prandial control. PLAN FOR INPATIENT GLYCEMIC CONTROL: * Hold outpatient oral diabetes medications * Basal insulin * Lantus 5 units SC qAM * Bolus insulin * NovoLog per scale ACHS or Q6hrs while NPO * Goal Range: Low 110 mg/dL - High 140 mg/dL * Correction Factor: 30 mg/dL/unit * Nutritional / Prandial insulin per carb ratio of 1 unit per 9 grams CHO consumed
[2024-09-04 16:12] LABS: INR 0.9 (0.9-1.1); Prothrombin Time 10.3 Seconds (9.0-12.0)
[2024-09-04] MEDS: GADOBUTROL 65ML VIAL IV ONE (21:43)
--- NOTE | 2024-09-04 21:47 | Hospitalist Progress Note ---
Date of Service September 04, 2024 Assessment & Plan (1) Back pain: Plan: Etiology of back pain remains unclear, but is probably due to post-operative seroma formation, and not infection. Patient's WBC decreased spontaneously to normal on 08/31/2024, and remains normal on 09/01/2024 in the absence of empiric antibiotics. However, patient insisted on antibiotics. Hence, I ordered vancomycin 2g IV x 1 dose (day #1 on 09/01/2024, 12:27pm), followed by vancomycin 1.25g IV daily (day #2 on 09/02/2024, 9:00am), and meropenem 2g IV q8 (day #1 on 09/01/2024, 12:41pm). Await continued PT Service evaluations with anticipated D/C to SNF for short-term rehab and outpatient follow up with Orthopedic Surgeon Dr. Bebo Jaramillo within 5-7 days of hospital discharge. Plan Admission and Anticipated Discharge Date Admission Date: August 30, 2024 Subjective "I am still sweating a lot in the back of my neck and now my head hurts. It's a headache all over the head. No double vision. No blurry vision. No nausea or vomit." Review of Systems Constitutional: Positive for lower back pain, now travelling up the right paraspinal route up to posterior neck, and profuse diaphoresis with hair @ nape of neck soaked in sweat on 09/01/2024 and on 09/02/2024. Negative for antecedent/coincident fevers, chills, cough, wheeze, sore throat, hemoptysis, chest pains, palpitations, pleurisy, nausea, vomiting, diarrhea, abdominal pain, pelvic pain, hematemesis, hematochezia, melena, hematuria, dysuria, frequency, urgency, headaches, dizziness, lightheadedness, visual changes, hearing changes, weakness, falls, syncope, trauma, travel history, sick contacts, or food/drug ingestions novel or new. All other review of systems are reported as negative by the patient on 09/04/2024. Eyes: no blind spots Ear, Nose, Mouth, Throat: no ear discharge and no hearing loss Respiratory: no cough and no dyspnea Cardiovascular: no chest pain Gastrointestinal: no abdominal pain and no early satiety Genitourinary: + urinary incontinence; no dysuria and n o difficulty urinating Musculoskeletal: + back pain, + joint pain and + muscle w eakness Integumentary: no lesions and no sores Neurologic: + gait abnormality Psychiatric: no behavioral changes Endocrine: + fatigue Hematologic / Lymphatic: no easy bleeding Allergy / Immunological: no GI upset with certain foods Physical Exam Constitutional: General: Run-down, worn-out. Uncomfortable with lower back tenderness, now radiating up the right paraspinal route up to posterior neck; profuse diaphoresis with hair @ nape of neck soaked in sweat on 09/01/2024 - 09/04/2024. , cooperative, coherent. Wide awake and alert. Not confused, lethargic, or obtunded. Patient speaks in complete, fluent, and articulate sentences without pause, interruption, cough, or wheeze. HEENT: Normocephalic, atraumatic. Pupils equally round and reactive to light. No nystagmus, gaze paresis, anisocoria, miosis, mydriasis, hyphema, scleral injection, conjunctivitis, or pterygium. No otorrhea. No pharyngeal erythema, edema, or discharge. Neck: Supple, no stridor, bruit, goiter, or hepato-jugular reflux. Jugular venous pressure is estimated to be 3 cm above the sternal angle of Orlin, which in turn, is 5 cm above the level of the right atrium; with jugular venous pressure estimated to be 8 cm, then, there is no jugular venous distention on 09/04/2024. Lymphatics: No cervical (anterior/posterior), supraclavicular, infraclavicular, axillary, epitrochlear, or inguinal adenopathy. Chest: Symmetric rise and fall with respirations. Non-tender to palpation. Lungs: Clear to auscultation and percussion. No audible expiratory wheeze, egophony, pectoriloquy, increase in tactile fremitus, or flatness/dullness to percussion at the bases. Heart: RRR. S1 and S2 noted. No S3 or S4 summation gallop. No tripartite friction rub. Grade II/ early systolic murmur @ LLSB without radiation to the carotids, axilla, or back, and which remains invariant in regards to the respiratory cycle. Abdomen: Soft, non-tender, non-distended. No rebound, guarding, Reddy's sign, or organomegaly. Bowel sounds auscultated in all 4 quadrants. Extremities: No clubbing, cyanosis, or edema in upper extremities or lower extremities bilaterally. 2+ pedal pulses bilaterally. Skin: No decubitus ulcer or enanthem. Genito-urinary: No urethral discharge. No finn catheter. Neurology: Alert and oriented in regards to person, place, time, and situation. DTR+. 5/5 motor strength in all 4 extremities, both proximally and distally. No myoclonus, tremors, or tics. Straight leg raising negative bilaterally. Lumbar spinal tenderness. Lumbar paraspinal tenderness. Thoracic right paraspinal tenderness. Cervical spinal tenderness. No open wound or ulcer on back at all. No erythema, edema, induration, warmth, crepitus, fluctuance, discharge, malodor, or lymphangitic streaking on back at all. Psychiatry: No homicidal ideation. No suicidal ideation. No flat affect; smiles appropriately. Results & Data Results & Data Vital Signs (Past 12 Hours) Vital Signs Temp Pulse Resp BP Pulse Ox O2 Del Method 09/04/24 20:54 36.7 C 87 20 138/79 98 Room Air 09/04/24 15:33 36.7 C 79 18 120/65 94 Room Air Laboratory Results Abnormal lab results 09/04/24 09/04/24 09/04/24 Range/Units 05:40 07:34 11:31 RBC 4.05 L (4.20-5.40) M/uL Hgb 10.6 L (12.0-16.0) g/dl Hct 35.9 L (37.0-47.0) % MCHC 29.5 L (32.0-36.0) g/dL RDW Std Deviation 50.6 H (36.4-46.3) fL RDW Coeff of Arslan 15.7 H (11.5-14.5) % [place] # (Auto) 1.07 H (0.11-0.59) K/uL Eos # (Auto) 0.54 H (0.00-0.50) K/uL ESR 107 H (0-30) mm/hr Glucose 129 H (70-99(Fasting)) mg/dl POC Glucose 133 H 125 H (70-99) mg/dl C-Reactive Protein 4.20 H (0-0.5) mg/dl PG Care Time/CCT Total # of Minutes Spent Total Time Spent with Patient: Total time spent is greater than 50% in coordination of care (as documented) at patient's floor/unit and/or counseling patient: Coding Level of Care Code 99762 SUB INP/OBS CARE 2/35MIN Diagnoses Back pain M54.9
[2024-09-04] MEDS: MAGNESIUM CITRATE 296 ML/BTL PO STA (23:18)
[2024-09-04] MEDS: MAGNESIUM CITRATE 296 ML/BTL PO ONE (23:20)
--- NOTE | 2024-09-05 00:39 | Magnetic Resonance Report ---
Exam(s): MRI C SPINE IV Amt: 10 ml gadavist EXAM: MR Cervical Spine With Intravenous Contrast CLINICAL HISTORY: Reason for exam: Evaluate for vertebral osteomyelitis/abscess.. TECHNIQUE: Magnetic resonance images of the cervical spine with intravenous contrast in multiple planes. CONTRAST: Patient received 10 ml gadavist of IV contrast COMPARISON: Prior MRI of the cervical spine from September 01, 2024. FINDINGS: The study is limited secondary to motion artifact. Vertebrae: There are 7 cervical type vertebral bodies with a moderate generalized curve to the left and shallow cervical lordosis. There is mild grade 1 anterolisthesis of C3 on C4 measuring 1.5 mm, anterolisthesis of C4 on C5 measuring 2 mm and anterolisthesis of C7 on T1 measuring 2 mm. The abnormal signal is heterogeneous with reactive endplate changes. No acute fracture. Spinal cord: The cord has normal size, shape and signal characteristics. The craniocervical junction is normal without evidence of Chiari malformation. No abnormal enhancement. Soft tissues: The cervical flow voids are intact. IMPRESSION: No evidence of acute cervical spine pathology. No evidence of epidural abscess, osteomyelitis or discitis.. Electronically signed by: Gill Menchaca MD 09/05/24 00:38 AM
--- NOTE | 2024-09-05 00:46 | Magnetic Resonance Report ---
Exam(s): MRI T SPINE W/WO Contrast IV Amt: 10 ml tk EXAM: MR Thoracic Spine Without and With Intravenous Contrast CLINICAL HISTORY: Reason for exam: Evaluate for vertebral osteomyelitis/abscess.. TECHNIQUE: Magnetic resonance images of the thoracic spine without and with intravenous contrast in multiple planes. CONTRAST: Patient received 10 ml tk of IV contrast COMPARISON: Prior MRI of the lumbar spine from August 30, 2024. FINDINGS: Vertebrae: There are 12 thoracic type vertebral bodies with a mild generalized curve to the left and increased thoracic kyphosis. There is normal vertebral body height and alignment. The bone marrow signal is heterogeneous with reactive endplate changes. No acute fracture. Discs/spinal canal/neural foramina: There is a small enhancing dorsal epidural fluid collection at L1 and L2.. No significant disc disease. No spinal canal stenosis. Spinal cord: Unremarkable. Normal signal. No abnormal enhancement. Soft tissues: There are postsurgical changes in the proximal lumbar spine with tiny subcutaneous fluid collection. IMPRESSION: No evidence of acute thoracic spine pathology. There are postsurgical changes of the proximal thoracic spine a small enhancing dorsal epidural fluid collection at L1-L2 concerning for phlegmon/abscess. Communications: Verify Receipt Electronically signed by: Gill Menchaca MD 09/05/24 00:45 AM
--- NOTE | 2024-09-05 01:23 | Magnetic Resonance Report ---
Exam(s): MRI L SPINE W/WO Contrast IV Amt: 10 ml tk EXAM: MR Lumbar Spine Without and With Intravenous Contrast CLINICAL HISTORY: Reason for exam: Evaluate for vertebral osteomyelitis/abscess.. TECHNIQUE: Magnetic resonance images of the lumbar spine without and with intravenous contrast in multiple planes. CONTRAST: Patient received 10 ml tk of IV contrast COMPARISON: Prior lumbar spine MRI from March 02, 2024.. FINDINGS: Study is limited secondary to motion artifact and metallic artifact. Vertebrae: There are 5 lumbar type vertebral bodies with a mild dextroscoliosis and normal lumbar lordosis. Patient is status post posterior decompression and posterior fusion of L2-S1 with transpedicular screws and connecting rods in place. There is interbody fusion devices in place at L4-5 and L5-S1. No acute fracture. Spinal cord: The conus is normal size, shape and signal characteristics, terminating at T12-L1. 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 Soft tissues: There is an enhancing dorsal epidural fluid collection at L1 and L2 which extends into the interspinous soft tissues and subcutaneous tissues. There are postsurgical changes in the intraspinous muscles with edema and increased enhancement and tiny fluid collection in the subcutaneous fat at the level of L1. IMPRESSION: There is an enhancing dorsal epidural fluid collection at L1 and L2 for phlegmon/abscess extending to the paraspinous muscles and subcutaneous fat. There is increased leptomeningeal enhancement around the conus at the level of L1 and L2. No definite evidence of osteomyelitis Electronically signed by: Gill Menchaca MD 09/05/24 01:22 AM
[2024-09-05] MEDS: MAGNESIUM CITRATE 296 ML/BTL PO ONE (06:03)
[2024-09-05] MEDS ORDERED: Nursing to Pharmacy Communication SCH (07:00)
[2024-09-05 10:03] LABS: Hematocrit (blood only) 32.1 % (37.0-47.0); Hemoglobin 10.2 g/dl (12.0-16.0); Immature Granulocytes # (auto) 0.03 K/uL (0.01-0.20); Immature Granulocytes % (auto) 0.3 %; Mean Corpuscular Hemoglobin 27.0 pg (25.0-34.0); Mean Corpuscular Volume 84.9 fL (80.0-100.0); Platelet Count 351 K/uL (130-400); RDW Standard Deviation 47.9 fL (36.4-46.3); Red Blood Count 3.78 M/uL (4.20-5.40); White Blood Count 8.79 K/ul (4.8-10.8)
[2024-09-05] MEDS: INSULIN ASPART PER UNIT CHARGE SC SCH ×2 (12:02→17:39)
[2024-09-05 12:06] VITALS: RESP 16
[2024-09-05] MEDS: MAGNESIUM CITRATE 296 ML/BTL PO STA (13:47)
[2024-09-05] MEDS: HYDROmorphone INJ 1 MG/ML SYRINGE IV STA (14:12)
--- NOTE | 2024-09-05 14:38 | CT Scan Report ---
CT-GUIDED POSTERIOR LUMBAR FLUID COLLECTION ASPIRATION CLINICAL HISTORY: Small posterior fluid collection at the L1 laminectomy surgical site; concern for o steomyelitis COMPARISON STUDY: MRI of the lumbar spine dated 09/04/2024. CT of the lumbar spine dated 09/02/2024. PROCEDURE: Procedure and risks were explained. Informed consent was obtained. A final timeout was com pleted. The patient was placed prone on the CT exam table. The lumbar region was prepped and draped i n sterile fashion. 1% lidocaine was utilized for skin anesthesia. Utilizing CT guidance, a 20-gauge Chiba needle was advanced into L1 posterior fluid collection. Appro ximately 1 mL of dark yellow fluid was aspirated and sent to lab for analysis. The needle was removed and Band-Aid applied. The patient tolerated the procedure well. Vital signs will be monitored on the floor. IMPRESSION: Lumbar fluid collection aspiration as above. Performed, dictated, and signed by Abelardo Palumbo PA-C; to be co-signed by Dr. Theodore Tadeo. Electronically signed by: Theodore Tadeo M.D. 09/05/2024 2:39 PM
--- NOTE | 2024-09-05 21:19 | Hospitalist Progress Note ---
Date of Service September 05, 2024 Assessment & Plan (1) Back pain: Plan: Etiology of back pain remains unclear, but is probably due to post-operative seroma formation, and not infection. Patient's WBC decreased spontaneously to normal on 08/31/2024, and remains normal on 09/01/2024 in the absence of empiric antibiotics. However, patient insisted on antibiotics. Hence, I ordered vancomycin 2g IV x 1 dose (day #1 on 09/01/2024, 12:27pm), followed by vancomycin 1.25g IV daily (day #2 on 09/02/2024, 9:00am), and meropenem 2g IV q8 (day #1 on 09/01/2024, 12:41pm). Await continued PT Service evaluations with anticipated D/C to SNF for short-term rehab and outpatient follow up with Orthopedic Surgeon Dr. Bebo Jaramillo within 5-7 days of hospital discharge. Plan Admission and Anticipated Discharge Date Admission Date: August 30, 2024 Subjective "I am still sweating a lot in the back of my neck and now my head hurts. It's a headache all over the head. No double vision. No blurry vision. No nausea or vomit." Review of Systems Constitutional: Positive for lower back pain, now travelling up the right paraspinal route up to posterior neck, and profuse diaphoresis with hair @ nape of neck soaked in sweat on 09/01/2024 and on 09/02/2024. Negative for antecedent/coincident fevers, chills, cough, wheeze, sore throat, hemoptysis, chest pains, palpitations, pleurisy, nausea, vomiting, diarrhea, abdominal pain, pelvic pain, hematemesis, hematochezia, melena, hematuria, dysuria, frequency, urgency, headaches, dizziness, lightheadedness, visual changes, hearing changes, weakness, falls, syncope, trauma, travel history, sick contacts, or food/drug ingestions novel or new. All other review of systems are reported as negative by the patient on 09/05/2024. Physical Exam Constitutional: General: Run-down, worn-out. Uncomfortable with lower back tenderness, now radiating up the right paraspinal route up to posterior neck; profuse diaphoresis with hair @ nape of neck soaked in sweat on 09/01/2024 - 09/05/2024. , cooperative, coherent. Wide awake and alert. Not confused, lethargic, or obtunded. Patient speaks in complete, fluent, and articulate sentences without pause, interruption, cough, or wheeze. HEENT: Normocephalic, atraumatic. Pupils equally round and reactive to light. No nystagmus, gaze paresis, anisocoria, miosis, mydriasis, hyphema, scleral injection, conjunctivitis, or pterygium. No otorrhea. No pharyngeal erythema, edema, or discharge. Neck: Supple, no stridor, bruit, goiter, or hepato-jugular reflux. Jugular venous pressure is estimated to be 3 cm above the sternal angle of Orlin, which in turn, is 5 cm above the level of the right atrium; with jugular venous pressure estimated to be 8 cm, then, there is no jugular venous distention on 09/05/2024. Lymphatics: No cervical (anterior/posterior), supraclavicular, infraclavicular, axillary, epitrochlear, or inguinal adenopathy. Chest: Symmetric rise and fall with respirations. Non-tender to palpation. Lungs: Clear to auscultation and percussion. No audible expiratory wheeze, egophony, pectoriloquy, increase in tactile fremitus, or flatness/dullness to percussion at the bases. Heart: RRR. S1 and S2 noted. No S3 or S4 summation gallop. No tripartite friction rub. Grade II/ early systolic murmur @ LLSB without radiation to the carotids, axilla, or back, and which remains invariant in regards to the respiratory cycle. Abdomen: Soft, non-tender, non-distended. No rebound, guarding, Reddy's sign, or organomegaly. Bowel sounds auscultated in all 4 quadrants. Extremities: No clubbing, cyanosis, or edema in upper extremities or lower extremities bilaterally. 2+ pedal pulses bilaterally. Skin: No decubitus ulcer or enanthem. Genito-urinary: No urethral discharge. No finn catheter. Neurology: Alert and oriented in regards to person, place, time, and situation. DTR+. 5/5 motor strength in all 4 extremities, both proximally and distally. No myoclonus, tremors, or tics. Straight leg raising negative bilaterally. Lumbar spinal tenderness. Lumbar paraspinal tenderness. Thoracic right paraspinal tenderness. Cervical spinal tenderness. No open wound or ulcer on back at all. No erythema, edema, induration, warmth, crepitus, fluctuance, discharge, malodor, or lymphangitic streaking on back at all. Psychiatry: No homicidal ideation. No suicidal ideation. No flat affect; smiles appropriately. Results & Data Results & Data Vital Signs (Past 12 Hours) Vital Signs Temp Pulse Resp BP Pulse Ox O2 Del Method O2 Flow Rate 09/05/24 19:37 36.3 C L 79 16 110/71 99 Nasal Cannula 2 09/05/24 13:45 36.6 C 75 16 102/69 97 Nasal Cannula 09/05/24 13:11 36.4 C L 77 16 98/66 L 99 Nasal Cannula 2 09/05/24 12:45 36.7 C 82 16 110/66 97 Nasal Cannula 09/05/24 12:04 36.6 C 74 16 115/73 98 Nasal Cannula 2 09/05/24 11:50 36.7 C 70 17 132/67 97 Nasal Cannula 09/05/24 11:29 36.7 C 70 16 118/75 97 Nasal Cannula 2 09/05/24 11:13 36.8 C 76 16 119/75 97 Room Air Laboratory Results Abnormal lab results 09/04/24 09/05/24 09/05/24 Range/Units 23:11 06:52 09:39 RBC 3.78 L (4.20-5.40) M/uL Hgb 10.2 L (12.0-16.0) g/dl Hct 32.1 L (37.0-47.0) % MCHC 31.8 L (32.0-36.0) g/dL RDW Std Deviation 47.9 H (36.4-46.3) fL RDW Coeff of Arslan 15.5 H (11.5-14.5) % [place] # (Auto) 1.06 H (0.11-0.59) K/uL Eos # (Auto) 0.60 H (0.00-0.50) K/uL ESR 100 H (0-30) mm/hr POC Glucose 137 H 133 H (70-99) mg/dl C-Reactive Protein 3.78 H (0-0.5) mg/dl 09/05/24 09/05/24 09/05/24 Range/Units 11:40 16:38 20:06 RBC (4.20-5.40) M/uL Hgb (12.0-16.0) g/dl Hct (37.0-47.0) % MCHC (32.0-36.0) g/dL RDW Std Deviation (36.4-46.3) fL RDW Coeff of Arslan (11.5-14.5) % [place] # (Auto) (0.11-0.59) K/uL Eos # (Auto) (0.00-0.50) K/uL ESR (0-30) mm/hr POC Glucose 146 H 115 H 121 H (70-99) mg/dl C-Reactive Protein (0-0.5) mg/dl PG Care Time/CCT Total # of Minutes Spent Total Time Spent with Patient: Total time spent is greater than 50% in coordination of care (as documented) at patient's floor/unit and/or counseling patient: Coding Level of Care Code 77404 SUB INP/OBS CARE 2/35MIN Diagnoses Back pain M54.9
[2024-09-06 07:02] LABS: Hematocrit (blood only) 34.6 % (37.0-47.0); Hemoglobin 10.6 g/dl (12.0-16.0); Immature Granulocytes # (auto) 0.05 K/uL (0.01-0.20); Immature Granulocytes % (auto) 0.5 %; Mean Corpuscular Hemoglobin 26.6 pg (25.0-34.0); Mean Corpuscular Volume 86.9 fL (80.0-100.0); Platelet Count 408 K/uL (130-400); RDW Standard Deviation 49.8 fL (36.4-46.3); Red Blood Count 3.98 M/uL (4.20-5.40); White Blood Count 10.41 K/ul (4.8-10.8)
[2024-09-06 07:23] LABS: Anion Gap 10.0 (3-11); Blood Urea Nitrogen 29.0 mg/dl (6-23); Calcium 9.6 mg/dl (8.6-10.3); Carbon Dioxide 30.0 mmol/L (21-32); Chloride 97.0 mmol/L (98-107); Creatinine Clr Calc Pharmacy 45.0 ml/min; Glucose 139.0 mg/dl (70-99(Fasting)); Potassium 4.5 mmol/L (3.5-5.1); Sodium 137.0 mmol/L (136-145)
--- NOTE | 2024-09-06 14:33 | Pharmacy Report ---
Pharmacy Glycemic Short Note 2 - Date of Service September 06, 2024 - Glycemic Short BSG Results (Last 24 hours): 09/05/24 09/05/24 09/06/24 16:38 20:06 06:31 Glucose 139 H POC Glucose 115 H 121 H 09/06/24 09/06/24 07:24 11:19 Glucose POC Glucose 142 H 73 OUTPATIENT ANTIDIABETIC REGIMEN: * pioglitazone 15mg po q am HbA1c: 7.2% on 08/30/24 ASSESSMENT: 09/06: * Keesha received a total of 10 units of insulin yesterday (5 units each of basal and bolus). BSGs were mostly in goal range yesterday. * Fasting BSG was 142mg/dL this morning but dropped to 73mg/dL at lunch. Will continue basal insulin with out change and will loosen the carb ratio of the bolus insulin to reduce further hypoglycemia 09/04: * Keesha received a total of 19 units of insulin yesterday (5 units were basal and 14 units were bolus). BSGs were all in the goal range yesterday. * Fasting BSG was 133mg/dL this morning. Will continue current basal and bolus insulin regimens without change. 09/02: * Keesha received 21 units of insulin on 08/31 and 12 units on 09/01 * Fasting BSG is greater than 140 mg/dL today. Will start low dose basal insulin. * Carb coverage was slightly decreased yesterday. No changes today. 08/31: * Keesha is a 69 year old female who was admitted last evening for intractable back pain s/p decompression and fusion in June of this year. Pharmacy was consulted for glycemic management while she is admitted. * BSG at HS was 134mg/dL. A weight based bolus insulin regimen with a stress between 1 and 2 was started at that time. * Fasting BSG was 145mg/dL this morning and chris to 162mg/dL at lunch. Will not start basal insulin at this time but will continue to monitor and add if necessary. Tightened carb ratio to a stress of 2 for better prandial control. PLAN FOR INPATIENT GLYCEMIC CONTROL: * Hold outpatient oral diabetes medications * Basal insulin * Lantus 5 units SC qAM * Bolus insulin * NovoLog per scale ACHS or Q6hrs while NPO * Goal Range: Low 110 mg/dL - High 140 mg/dL * Correction Factor: 30 mg/dL/unit * Nutritional / Prandial insulin per carb ratio of 1 unit per 15 grams CHO consumed
--- NOTE | 2024-09-06 20:50 | Hospitalist Progress Note ---
Date of Service September 06, 2024 Assessment & Plan (1) Back pain: Plan: Etiology of back pain remains unclear, but is probably due to post-operative seroma formation, and not infection. Patient's WBC decreased spontaneously to normal on 08/31/2024, and remains normal on 09/01/2024 in the absence of empiric antibiotics. However, patient insisted on antibiotics. Hence, I ordered vancomycin 2g IV x 1 dose (day #1 on 09/01/2024, 12:27pm), followed by vancomycin 1.25g IV daily (day #2 on 09/02/2024, 9:00am), and meropenem 2g IV q8 (day #1 on 09/01/2024, 12:41pm). Await continued PT Service evaluations with anticipated D/C to SNF for short-term rehab and outpatient follow up with Orthopedic Surgeon Dr. Bebo Jaramillo within 5-7 days of hospital discharge. Plan Admission and Anticipated Discharge Date Admission Date: August 30, 2024 Subjective "I am still sweating a lot in the back of my neck and now my head hurts. It's a headache all over the head. No double vision. No blurry vision. No nausea or vomit." Review of Systems Constitutional: Positive for lower back pain, now travelling up the right paraspinal route up to posterior neck, and profuse diaphoresis with hair @ nape of neck soaked in sweat on 09/01/2024 and on 09/02/2024. Negative for antecedent/coincident fevers, chills, cough, wheeze, sore throat, hemoptysis, chest pains, palpitations, pleurisy, nausea, vomiting, diarrhea, abdominal pain, pelvic pain, hematemesis, hematochezia, melena, hematuria, dysuria, frequency, urgency, headaches, dizziness, lightheadedness, visual changes, hearing changes, weakness, falls, syncope, trauma, travel history, sick contacts, or food/drug ingestions novel or new. All other review of systems are reported as negative by the patient on 09/06/2024. Physical Exam Constitutional: General: Run-down, worn-out. Uncomfortable with lower back tenderness, now radiating up the right paraspinal route up to posterior neck; profuse diaphoresis with hair @ nape of neck soaked in sweat on 09/01/2024 - 09/06/2024. , cooperative, coherent. Wide awake and alert. Not confused, lethargic, or obtunded. Patient speaks in complete, fluent, and articulate sentences without pause, interruption, cough, or wheeze. HEENT: Normocephalic, atraumatic. Pupils equally round and reactive to light. No nystagmus, gaze paresis, anisocoria, miosis, mydriasis, hyphema, scleral injection, conjunctivitis, or pterygium. No otorrhea. No pharyngeal erythema, edema, or discharge. Neck: Supple, no stridor, bruit, goiter, or hepato-jugular reflux. Jugular venous pressure is estimated to be 3 cm above the sternal angle of Orlin, which in turn, is 5 cm above the level of the right atrium; with jugular venous pressure estimated to be 8 cm, then, there is no jugular venous distention on 09/06/2024. Lymphatics: No cervical (anterior/posterior), supraclavicular, infraclavicular, axillary, epitrochlear, or inguinal adenopathy. Chest: Symmetric rise and fall with respirations. Non-tender to palpation. Lungs: Clear to auscultation and percussion. No audible expiratory wheeze, egophony, pectoriloquy, increase in tactile fremitus, or flatness/dullness to percussion at the bases. Heart: RRR. S1 and S2 noted. No S3 or S4 summation gallop. No tripartite friction rub. Grade II/ early systolic murmur @ LLSB without radiation to the carotids, axilla, or back, and which remains invariant in regards to the respiratory cycle. Abdomen: Soft, non-tender, non-distended. No rebound, guarding, Reddy's sign, or organomegaly. Bowel sounds auscultated in all 4 quadrants. Extremities: No clubbing, cyanosis, or edema in upper extremities or lower extremities bilaterally. 2+ pedal pulses bilaterally. Skin: No decubitus ulcer or enanthem. Genito-urinary: No urethral discharge. No finn catheter. Neurology: Alert and oriented in regards to person, place, time, and situation. DTR+. 5/5 motor strength in all 4 extremities, both proximally and distally. No myoclonus, tremors, or tics. Straight leg raising negative bilaterally. Lumbar spinal tenderness. Lumbar paraspinal tenderness. Thoracic right paraspinal tenderness. Cervical spinal tenderness. No open wound or ulcer on back at all. No erythema, edema, induration, warmth, crepitus, fluctuance, discharge, malodor, or lymphangitic streaking on back at all. Psychiatry: No homicidal ideation. No suicidal ideation. No flat affect; smiles appropriately. Results & Data Results & Data Vital Signs (Past 12 Hours) Vital Signs Temp Pulse Resp BP BP Pulse Ox O2 Del Method 09/06/24 19:15 36.6 C 77 16 106/70 92 Room Air 09/06/24 15:08 36.7 C 69 16 121/77 96 Room Air Laboratory Results Abnormal lab results 09/06/24 09/06/24 09/06/24 Range/Units 06:31 07:24 16:25 RBC 3.98 L (4.20-5.40) M/uL Hgb 10.6 L (12.0-16.0) g/dl Hct 34.6 L (37.0-47.0) % MCHC 30.6 L (32.0-36.0) g/dL RDW Std Deviation 49.8 H (36.4-46.3) fL RDW Coeff of Arslan 15.5 H (11.5-14.5) % Plt Count 408 H (130-400) K/uL Lymph # (Auto) 3.85 H (1.20-3.40) K/uL Ferry # (Auto) 0.91 H (0.11-0.59) K/uL Eos # (Auto) 0.51 H (0.00-0.50) K/uL Chloride 97 L (98-107) mmol/L BUN 29 H (6-23) mg/dl Creatinine 1.25 H (0.6-1.2) mg/dl BUN/Creatinine Ratio 23.2 H (10-20) Glucose 139 H (70-99(Fasting)) mg/dl POC Glucose 142 H 105 H (70-99) mg/dl 09/06/24 Range/Units 20:31 RBC (4.20-5.40) M/uL Hgb (12.0-16.0) g/dl Hct (37.0-47.0) % MCHC (32.0-36.0) g/dL RDW Std Deviation (36.4-46.3) fL RDW Coeff of Arslan (11.5-14.5) % Plt Count (130-400) K/uL Lymph # (Auto) (1.20-3.40) K/uL Ferry # (Auto) (0.11-0.59) K/uL Eos # (Auto) (0.00-0.50) K/uL Chloride (98-107) mmol/L BUN (6-23) mg/dl Creatinine (0.6-1.2) mg/dl BUN/Creatinine Ratio (10-20) Glucose (70-99(Fasting)) mg/dl POC Glucose 119 H (70-99) mg/dl PG Care Time/CCT Total # of Minutes Spent Total Time Spent with Patient: Total time spent is greater than 50% in coordination of care (as documented) at patient's floor/unit and/or counseling patient: Coding Level of Care Code 57377 SUB INP/OBS CARE 2/35MIN Diagnoses Back pain M54.9
[2024-09-07 08:30] VITALS: TEMP 98.1
[2024-09-07] MEDS: GADOBUTROL 65ML VIAL IV ONE (13:31)
--- NOTE | 2024-09-07 14:21 | Magnetic Resonance Report ---
MRI OF THE LUMBAR SPINE WITH AND WITHOUT CONTRAST CLINICAL HISTORY: coccygeal pain, lumbar pain, R/O fracture/abscess COMPARISON STUDY: Lumbar spine CT September 02, 2024. Lumbar spine MRI September 04, 2024. TECHNIQUE: Utilizing a 3 Nunu magnet and dedicated coil, multiplanar, multiecho imaging of the lumb ar spine was performed before and after uneventful IV administration of Gadavist. FINDINGS: For purposes of numbering on this exam, the L5-S1 disc space is assigned to axial image 36 of 44. L1- S1 decompression and L2-S1 fusion are noted with L5-S1 discectomy with interbody spacer placement. La minectomy bed fluid collections at the L1-L2 and L5 levels remain unchanged. These demonstrate periph eral enhancement which is also unchanged. Leptomeningeal enhancement along the conus and nerve roots is similar to prior MRI. No epidural fluid collection is identified although sensitivity is diminishe d on this examination. The postoperative appearance is unchanged. Suspected healing bilateral sacral fractures are again noted. Increased T2 signal within the L5 and S1 vertebral bodies is unchanged. No prevertebral fluid collection is present. Conus terminates at the upper L1 level. No significant gracie tral canal or neural foraminal stenosis is identified although sensitivity is diminished given suscep tibility noted artifact in the surgical hardware. No lumbar spine fractures are identified. IMPRESSION: 1. Status post L1-S1 decompression and L2-S1 pedicle screw fusion. No significant change since MRI of September 04, 2024. 2. Stable laminectomy bed fluid collections which favor seromas although sterility cannot be assessed by MRI. 3. No significant change in leptomeningeal enhancement which is also nonspecific and could be correla yue with clinical evidence for an infectious process. 4. Suspected healing bilateral sacral fractures. 5. No significant central canal or neural foraminal stenosis although exam moderately compromised by susceptibility artifact from the surgical hardware. ACT 112: Negative or not required by law. Electronically signed by: Foreign Rowland M.D. 09/07/2024 2:20 PM
[2024-09-07 14:35] VITALS: BP 124/73; PULSE 76; O2SAT 97
[2024-09-07 18:27] LABS: Fungitell (1-3)-B-D-Glucan <31 pg/mL
--- NOTE | 2024-09-07 19:43 | Discharge Summary ---
Discharge Summary Date of Service September 07, 2024 Principal Dx & Hospital Course #1 = Principal Diagnosis (1) Back pain: Etiology of back pain remains unclear, but is probably due to post-operative seroma formation, and not acute bacterial vertebral osteomyelitis/abscess. Patient's WBC decreased spontaneously from admission WBC 12.36 (08/30/2024, 3:00pm) to a normal WBC 7.56 (08/31/2024, 6:19am), and remained normal for the remainder of patient's hospital stay @ [facility] from 09/01/2024 through 09/07/2024. However, patient insisted on antibiotics. Hence, I ordered vancomycin 2g IV x 1 dose (day #1 on 09/01/2024, 12:27pm), followed by: vancomycin 1.25g IV daily x 3 doses (day #2 on 09/02/2024, 9:00am; day #3 on 09/03/2024, 8:58am; day #4 on 09/04/2024, 8:49am), and meropenem 2g IV q8 x 10 doses (day #1 on 09/01/2024, 12:41pm, 7:46pm; day #2 on 09/02/2024, 4:29am, 12:22pm, 8:42pm; day #3 on 09/03/2024, 5:39am, 1:13pm, 8:47pm; day #4 on 09/04/2024, 4:04am, 12:46pm). Patient subsequently underwent formal Infectious Disease evaluation with Dr. Tanya Holder (09/04/2024, 1:35pm), who recommended that empiric antibiotics be stopped and to contact "Interventional Radiology for possible aspiration of one of the paraspinal collections to help with microbiological diagnosis. Meanwhile, since she has been hemodynamically stable, I would recommend stopping all antibiotics. Antibiotics at this point will sterilize the presumed abscess which makes it challenging to guide antibiotic treatment especially in case of infected fusion hardware which will require 6 weeks of IV antibiotics to be followed after that with long life oral antibiotic." Patient subsequently underwent Interventional Radiology-guided aspiration of L1 seroma (09/04/2024, 2:54pm) with Interventional Radiologist Mr. Abelardo Palumbo PA-C. cf., wound culture (09/05/2024): no growth to date cf., vertebrae culture (09/05/2024): no growth to date cf., blood culture #1 (08/30/2024, 10:35pm): negative/normal cf., blood culture #2 (08/30/2024, 10:35pm): negative/normal Patient remained afebrile with normal WBC (except admission WBC 12.36 (08/30/2024, 3:00pm). cf., WBC 7.56 (08/31/2024, 6:19am). cf., WBC 9.90 (09/01/2024, 5:20am). cf., WBC 9.42 (09/02/2024, 6:47am). cf., WBC 7.43 (09/03/2024, 5:53am). cf., WBC 9.15 (09/04/2024, 5:40am). cf., WBC 8.79 (09/05/2024, 9:39am). cf., WBC 10.41 (09/06/2024, 6:31am). Patient's procalcitonin levels also remained normal: cf., procalcitonin 0.05 ng/mL (08/31/2024, 6:19am). cf., procalcitonin 0.05 ng/mL (09/01/2024, 5:20am). cf., procalcitonin 0.05 ng/mL (09/02/2024, 6:15am). cf., procalcitonin 0.10 ng/mL (09/03/2024, 5:52am). cf., procalcitonin 0.10 ng/mL (09/04/2024, 5:40am). cf., procalcitonin 0.14 ng/mL (09/05/2024, 9:39am). cf., procalcitonin 0.09 ng/mL (09/06/2024, 6:31am). cf., procalcitonin 0.06 ng/mL (09/07/2024, 12:15pm). Patient's lactic acid levels also remained normal: cf., lactic acid 0.8 mmol/L (09/01/2024, 5:24am). cf., lactic acid 1.0 mmol/L (09/02/2024, 6:22am). cf., lactic acid 1.4 mmol/L (09/03/2024, 5:53am). cf., lactic acid 1.1 mmol/L (09/04/2024, 5:40am). cf., lactic acid 1.2 mmol/L (09/05/2024, 9:39am). cf., lactic acid 1.8 mmol/L (09/06/2024, 6:31am). cf., lactic acid 0.9 mmol/L (09/07/2024, 12:26pm). Hence, my index of suspicion for acute bacterial vertebral osteomyelitis or acute L1 paraspinal abscess remains low. However, patient's ESR and CRP levels remained CHRONICALLY (historically)/ persistently elevated: cf., ESR 40 mm/hr (06/26/2020, 9:46am). cf., ESR 63 mm/hr (04/23/2022, 7:19pm). cf., ESR 74 mm/hr (08/30/2024, 3:00pm). cf., ESR 70 mm/hr (08/31/2024, 6:19am). cf., ESR 81 mm/hr (09/01/2024, 5:20am). cf., ESR 81 mm/hr (09/02/2024, 6:47am). cf., ESR 91 mm/hr (09/03/2024, 5:53am). cf., ESR 107 mm/hr (09/04/2024, 5:40am). cf., ESR 100 mm/hr (09/05/2024, 9:39am). cf., ESR 108 mm/hr (09/06/2024, 6:31am). cf., ESR 85 mm/hr (09/07/2024, 8:00am). cf., CRP 1.01 mg/dL (06/26/2020, 9:46am). cf., CRP 1.79 mg/dL (04/23/2022, 7:19pm). cf., CRP 2.63 mg/dL (01/24/2024, 2:20pm). cf., CRP 2.97 mg/dL (01/27/2024, 9:48am). cf., CRP 5.92 mg/dL (07/21/2024, 5:33am). cf., CRP 7.13 mg/dL (07/23/2024, 5:46pm). cf., CRP 8.08 mg/dL (07/24/2024, 5:23am). cf., CRP 7.40 mg/dL (07/25/2024, 5:37am). cf., CRP 2.09 mg/dL (08/30/2024, 3:00pm). cf., CRP 3.02 mg/dL (08/31/2024, 6:19am). cf., CRP 5.15 mg/dL (09/01/2024, 5:20am). cf., CRP 6.03 mg/dL (09/02/2024, 6:15am). cf., CRP 5.31 mg/dL (09/03/2024, 5:53am). cf., CRP 4.20 mg/dL (09/04/2024, 5:40am). cf., CRP 3.78 mg/dL (09/05/2024, 9:39am). cf., CRP 3.66 mg/dL (09/06/2024, 6:31am). cf., CRP 2.72 mg/dL (09/07/2024, 5:55am). Hence, I surmise that this patient suffers from chronic inflammation, rather than acute infection. Hence, patient continued to undergo daily PT Service evaluations with some improvement in ambulation noted, but still not sufficient to enable patient to be discharged back to her home safely on 09/07/2024. Hence, patient was discharged to [facility] ([place] on 09/07/2024 for short-term rehab, without empiric antibiotics, as recommended by [facility] Dr. Tanya Holder. Patient will also follow up with her Orthopedic Surgeon Dr. Bebo Jaramillo within 5-7 days of hospital discharge. Patient will also follow up with [facility] Dr. Tanya Holder within 5-7 days of hospital discharge to discuss final results of: 1. L1 wound culture (09/05/2024): no growth to date 2. L1 vertebrae culture (09/05/2024): no growth to date Plan Admission HPI Per Admitting Provider 69 yo female with past medical history of stage III CKD, anemia of chronic disease, type II DM not on insulin, history of CVA on Plavix, HFpEF, GERD, hypertension. Patient is s/p L5-S1 decompression and fusion with Dr. Jaramillo 07/04 . Patient was then admitted on 07/08 for #1 lumbar spinal stenosis with neurogenic claudication, #2 lumbar spondylosis with radiculopathy, #3 postop lumbar hematoma and discharged for an evacuation of hematoma L5 S1. Over the course of the week, patient has been complaining of severe back pain. Patient reports pain has not been controlled by her medications. She reports due to her pain she has been immobile. She reports this has been accompanied by low grade fever. She has urinary incontinence but this has been worse. Patient reports that the pain raidates form the incision site down the whole way up into the neck. Patient reports that pain radiate into her lower limbs. Denies abd. pain, nausea, vomiting. No urinary complaints. No recent changes in bowel movements. Discharge Exam Constitutional General: Run-down, worn-out. Uncomfortable with lower back tenderness, now radiating up the right paraspinal route up to posterior neck; profuse diaphoresis with hair @ nape of neck soaked in sweat on 09/01/2024 - 09/16/2024. , cooperative, coherent. Wide awake and alert. Not confused, lethargic, or obtunded. Patient speaks in complete, fluent, and articulate sentences without pause, interruption, cough, or wheeze. HEENT: Normocephalic, atraumatic. Pupils equally round and reactive to light. No nystagmus, gaze paresis, anisocoria, miosis, mydriasis, hyphema, scleral injection, conjunctivitis, or pterygium. No otorrhea. No pharyngeal erythema, edema, or discharge. Neck: Supple, no stridor, bruit, goiter, or hepato-jugular reflux. Jugular venous pressure is estimated to be 3 cm above the sternal angle of Orlin which in turn, is 5 cm above the level of the right atrium; with jugular venous pressure estimated to be 8 cm, then, there is no jugular venous distention on 09/07/2024. Lymphatics: No cervical (anterior/posterior), supraclavicular, infraclavicular, axillary, epitrochlear, or inguinal adenopathy. Chest: Symmetric rise and fall with respirations. Non-tender to palpation. Lungs: Clear to auscultation and percussion. No audible expiratory wheeze, egophony, pectoriloquy, increase in tactile fremitus, or flatness/dullness to percussion at the bases. Heart: RRR. S1 and S2 noted. No S3 or S4 summation gallop. No tripartite friction rub. Grade II/ early systolic murmur @ LLSB without radiation to the carotids, axilla, or back, and which remains invariant in regards to the respiratory cycle. Abdomen: Soft, non-tender, non-distended. No rebound, guarding, Reddy's sign, or organomegaly. Bowel sounds auscultated in all 4 quadrants. Extremities: No clubbing, cyanosis, or edema in upper extremities or lower extremities bilaterally. 2+ pedal pulses bilaterally. Skin: No decubitus ulcer or enanthem. Genito-urinary: No urethral discharge. No finn catheter. Neurology: Alert and oriented in regards to person, place, time, and situation. DTR+. 5/5 motor strength in all 4 extremities, both proximally and distally. No myoclonus, tremors, or tics. Straight leg raising negative bilaterally. Lumbar spinal tenderness. Lumbar paraspinal tenderness. Thoracic right paraspinal tenderness. Cervical spinal tenderness. No open wound or ulcer on back at all. No erythema, edema, induration, warmth, crepitus, fluctuance, discharge, malodor, or lymphangitic streaking on back at all. Psychiatry: No homicidal ideation. No suicidal ideation. No flat affect; smiles appropriately. Discharge Plan Discharge Items Patient Disposition: Transfer Group Home Fac Reason For Visit: BACK PAIN Discharge Diagnosis: 1. Lower back pain of unclear etiology, probably post-operative seroma(s) at L1, R/O fungal vertebral osteomyelitis. Condition on Discharge: Fair Activity: Resume your previous activity Lifting: Gradually increase as tolerated Bathing: No limitations Exercise/Sports: Gradually increase as tolerated Weightbearing: Full weightbearing Non-emergency contact: Primary Care Provider Call non-emergency contact if: you have any medication questions Follow-up/Referrals: Mayela Moyer MD [Primary Care Provider] - Huey Jaramillo DO [Surgeon] - (See your Orthopedic Spine Surgeon Dr. Huey Jaramillo within 5-7 days of hospital discharge.) Tanya Holder MD [Physician] - (See your Infectious Disease Dr. Tanya Holder to discuss official results of lumbar spine / vertebrae cultures (drawn on 09/04/2024, 2:54pm, [facility] Interventional Radiologist Caitlyn Palumbo PA-C).) Diet: Heart Healthy Addtl Attending Provider Instructions: 1. See your PCP Dr. Mayela Moyer within 5-7 days of hospital discharge. 2. See your Orthopedic Spine Surgeon Dr. Huey Jaramillo within 5-7 days of hospital discharge. 3. See your Infectious Disease Dr. Tanya Holder within 5-7 days of hospital discharge. Pending Studies at Discharge: Yes Studies:: See your Infectious Disease Dr. Tanya Holder to discuss official results of lumbar spine / vertebrae cultures (drawn on 09/04/2024, 2:54pm, [facility] Interventional Radiologist Caitlyn Palumbo PA-C). Stand-Alone Forms: My [facility] Skilled Items Patient informed of condition?: Yes DNR: Yes Discharge Level of Care: Skilled Communicable Disease: No Discharge Prognosis: Stable Lines: None Urinary Catheter: No Medications and DC Order Prescriptions: New insulin glargine [Lantus U-100 Insulin] 100 unit/mL Solution 5 unit SC QAM Qty: 10 0RF Continued (DME) blood sugar diagnostic Strip See Rx Instructions .ROUTE .MEDSUPPLY Qty: 30 5RF Rx Instructions: tests once daily DX: R73.03 (DME) blood-glucose meter Misc See Rx Instructions .ROUTE .MEDSUPPLY Qty: 1 0RF Rx Instructions: Tests once daily DX: R73.03 (DME) Accu-Chek Guide test strips Strip See Rx Instructions .ROUTE .MEDSUPPLY Qty: 100 1RF Rx Instructions: Test once daily, E11.9 (DME) lancets [Accu-Chek Fastclix Lancet Drum] Mis See Rx Instructions .Route Qty: 100 3RF Rx Instructions: test once daily Ocuvite Adult 50 Plus 250 mg (90 mg-160 mg) capsule 1 cap PO BID Qty: 180 2RF Kerendia 10 mg tablet 10 mg PO QAM Qty: 90 3RF clopidogrel 75 mg tablet 75 mg PO QAM Qty: 90 1RF potassium chloride 10 mEq capsule, extended release 20 meq PO TID Qty: 540 1RF Rx Instructions: 20 mEq three times a day; atorvastatin 20 mg tablet 20 mg PO QPM Qty: 30 5RF ferrous sulfate [FeroSul] 325 mg (65 mg iron) tablet 325 mg PO QAM Qty: 90 1RF levothyroxine 75 mcg tablet 75 mcg PO QAM Qty: 90 1RF duloxetine 60 mg capsule,delayed release(DR/EC) 60 mg PO BID Qty: 180 1RF pantoprazole 40 mg tablet,delayed release (DR/EC) 40 mg PO BID Qty: 180 1RF magnesium gluconate [Mag-G] 27 mg magnesium (500 mg) tablet 27 mg PO HS Qty: 30 5RF pramipexole 0.25 mg tablet 0.25 mg PO HS Qty: 90 1RF acetaminophen 500 mg tablet 500 mg PO Q6H MDD 3 GRAMS/24 HOURS PRN (Reason: Pain) Qty: 225 2RF lamotrigine 200 mg tablet 200 mg PO BID Qty: 180 1RF (DME) Bedside Commode Misc See Rx Instructions .Route Qty: 1 0RF Rx Instructions: As directed M47.27 sennosides [Senna Laxative] 8.6 mg tablet 8.6 - 17.2 mg PO AMHS metoprolol tartrate 25 mg tablet 12.5 mg PO AMPM topiramate 100 mg tablet 150 mg PO AMPM torsemide 20 mg tablet 40 mg PO BID Rx Instructions: TAKE 2 TABLETS BY MOUTH IN THE MORNING AND AT SUPPER hydrocodone-acetaminophen 5-325 mg tablet 1 tab PO Q6H PRN (Reason: pain) Qty: 30 0RF Discharge Orders: Discharge Order (Routine); Ordered 09/07/24 Ordered By: Ander Rodriguez Admission Data Admit Date/Time: 08/30/24 20:03 Attending Provider: Ander Rodriguez Admit Provider: Raghu Benjamin Primary Care Provider: Mayela Moyer Other Providers: Raghu Benjamin; Huey Jaramillo; [facility]; Claude Corbin; Maxi Nelson; Ashley Moralez; Cullen Diaz I.; Matt Pereyra II; Shannan Trevino; Klever Jennings; Joe Sharp; Tanya Holder; [place]; [facility] Other Interventions: Discharge Summary Assessment (RN) Last Done: 09/07/24 14:52 Hospital Stay Data Consultations 08/30/24 19:22 ED Decision to Admit Stat 08/30/24 20:02 Consult Orthopedic Spine Surgery Routine 09/04/24 08:00 Consult Neurology Routine 09/04/24 10:58 Consult Infectious Diseases Routine Diagnostic Imagining Performed 08/30/24 15:01 MR lumbar spine wo/w con Stat 09/01/24 11:32 MRI Cervical [MR cervical spine wo con] Stat 09/02/24 10:34 CT lumbar spine wo con Routine 09/04/24 14:54 IR spine (disc) aspiration Urgent 09/04/24 17:41 MR lumbar spine wo/w con Stat MRI Cervical [MR cervical spine wo/w con] Stat MRI Thoracic [MR thoracic spine wo/w con] Stat 09/07/24 12:08 MRI Lumbar Spine [MR lumbar spine wo/w con] Stat Pending Results Patient Have Any Pending Studies at Discharge: Yes Discharge Instructions Given to Patient (Per Discharging Provider) 1. See your PCP Dr. Mayela Moyer within 5-7 days of hospital discharge. 2. See your Orthopedic Spine Surgeon Dr. Huey Jaramillo within 5-7 days of hospital discharge. 3. See your Infectious Disease Dr. Tanya Holder within 5-7 days of hospital discharge. Total Time Total Time Spent Total Time Spent (In Minutes): 35 minutes. Of this time period, 19 minutes were spent in coordinating patient's discharge. Coding Level of Care Code 64953 INP/OBS DISCH >30 MIN Diagnoses Back pain M54.9
== END 2024-09-07 15:58 | DRG 920 ==
LOC: ED 14:43 → 3N 20:03 → SUATTDRO 20:03 → 3N 21:55